=== PATIENT | female | born 1940 | race Caucasian/White ===

== ENCOUNTER 2016-08-16 11:20 | Inpatient (IN) ==
[2016-08-16] MEDS ORDERED: 0.9 % Sodium Chloride 1,000 ML IVC ONE (11:54)
--- NOTE | 2016-08-16 12:29 | Emergency Department Note ---
Disposition Clinical Impression: Colitis GI bleed Qualifiers: GI bleed type/associated pathology: unspecified gastrointestinal hemorrhage type Qualified Code(s): K92.2 - Gastrointestinal hemorrhage, unspecified Abdominal pain Qualifiers: Abdominal location: lower abdomen, unspecified Qualified Code(s): R10.30 - Lower abdominal pain, unspecified Disposition: Admitted As Inpatient Condition: Good Time of Disposition: 15:33 GI Bleed HPI - General Chief complaint: ED Nausea/Vomiting/Diarrhea Stated complaint: diarrhea, rectal bleeding Time Seen by Provider: 08/16/16 11:52 Source: patient, family Limitations: no limitations - History of Present Illness HPI Narrative: Patient is a 76-year-old female with past medical history significant for SC, atrial fibrillation, CAD, cardiomyopathy, CHF, CVA, TIA, diabetes, hypertension , hyperlipidemia, peripheral artery disease, venous stasis, GERD, arthritis, osteoporosis, history of GI bleed who presents with a 1 day history of bright red blood per rectum. Patient states that she had diarrhea with gross red blood in the toilet bowl around 3 AM this morning. She admits 3 such episodes today. Patient states that she began having diarrhea on Saturday morning. She admits to greater than 10 episodes of brown watery diarrhea per day. Patient admits to abdominal cramping to the right lower and left lower abdomen. Pain is a 5 out of 10 at this time. At its worse is a 7 out of 10. Patient did take Imodium AD for the diarrhea, which did not resolve the diarrhea completely. Patient does admit to a sick contact on Saturday. The sick contact developed diarrhea the following day. Patient does admit to dizziness, but this is a chronic problem. Patient denies headache, fever, chills, diaphoresis , chest pain, shortness of breath, vomiting, hematuria, muscle aches. She does takes Xarelto for A. fib and 81 mg of aspirin daily. She states that she has not had a bleed while on Xarelto. She does admit to a history of stomach bleeds in the past. - Related Data Home Medications Medication Instructions Recorded Confirmed Aspirin Enteric Coated [Aspirin EC] 81 mg PO DAILY 01/31/15 08/16/16 Cholecalciferol (Vitamin D3) 5,000 unit PO QAM 01/31/15 08/16/16 [Vitamin D] Esomeprazole Magnesium [Nexium] 40 mg PO QAM 01/31/15 08/16/16 Folic Acid 0.4 mg PO QAM 01/31/15 08/16/16 Gabapentin [Neurontin] 600 mg PO TID 01/31/15 08/16/16 Multivitamin with Minerals 1 each PO QAM 01/31/15 08/16/16 [Myvitalife] Potassium Chloride [Klor-Con 20 meq PO QAM 01/31/15 08/16/16 Sprinkle] Digoxin [Lanoxin] 0.125 mg PO QAM 03/07/15 08/16/16 Rosuvastatin [Crestor] 40 mg PO HS 03/06/16 08/16/16 Metoprolol XL (24 HR) Succ [Toprol 50 mg PO QPM 03/07/16 08/16/16 Xl] Amlodipine Besylate 2.5 mg PO HS 08/16/16 08/16/16 Benzonatate [Tessalon] 200 mg PO TID PRN 08/16/16 08/16/16 Diclofenac Sodium [Voltaren] 1 appl TP TID PRN 08/16/16 08/16/16 Dulaglutide [Trulicity] 0.75 mg SQ SA 08/16/16 08/16/16 Latanoprost [Xalatan] 1 drop OP HS 08/16/16 08/16/16 Loratadine [Claritin] 10 mg PO DAILY 08/16/16 08/16/16 Losartan [Cozaar] 50 mg PO BID 08/16/16 08/16/16 Magnesium Oxide [Magnesium] 400 mg PO DAILY 08/16/16 08/16/16 Metoprolol XL (24 HR) Succ [Toprol 100 mg PO QAM 08/16/16 08/16/16 XL] Previous Rx's Medication Instructions Recorded Rivaroxaban [Xarelto] 20 mg PO 1700 #30 tablet 03/28/15 Furosemide [Lasix] 40 mg PO QAM #30 tablet 03/07/16 Allergies Allergy/AdvReac Type Severity Reaction Status Date / Time codeine AdvReac Shakiness Verified 03/06/16 22:01 morphine AdvReac Palpitation Verified 03/06/16 22:01 s Band-Aid Allergy Rash Uncoded 03/06/16 22:01 All systems ED: reviewed and negative except as stated. Constitutional: Reports: as per HPI Eyes: Reports: as per HPI ENT ED: Reports: as per HPI Cardiovascular: Reports: as per HPI Respiratory: Reports: as per HPI Gastrointestinal: Reports: as per HPI Genitourinary: Reports: as per HPI Musculoskeletal: Reports: as per HPI Integumentary: Reports: as per HPI Neurological: Reports: as per HPI Psychiatric: Reports: as per HPI Endocrine: Reports: as per HPI Hematological/Lymphatic: Reports: as per HPI Allergic/Immunologic: Reports: as per HPI Past Medical History - Past Medical History Medical history: Reports: arthritis, atrial fibrillation, cardiomyopathy, CHF, coronary artery disease, CVA, diabetes, GERD, GI bleed, hyperlipidemia, hypertension, myocardial infarction, osteoporosis, peripheral artery disease, TIA, venous stasis, other Surgical history: Reports: angioplasty/stent, carotid endarterectomy, cholecystectomy, herniorrhaphy, hysterectomy, orthopedic, other, other (EGD. Colonoscopy.), vascular surgery, LE bypass, LE vascular intervention Psychiatric history: Reports: no psych history - Social History Smoking Status: Never smoker Smokeless Tobacco Status: No Alcohol use: Reports: none Drug use: Reports: none Physical Exam - General Limitations: no limitations General appearance: alert - Head Head exam: atraumatic, normocephalic, normal inspection - Eye Eye exam: Present: normal appearance, EOMI - Neck Neck exam: Present: normal inspection, full ROM, trachea midline. Absent: tenderness, meningismus, thyromegaly (no carotid bruit) - Chest Chest inspection: Present: normal inspection, symmetric chest wall rise, tenderness - Respiratory Respiratory exam: Present: prolonged expiratory phase (decreased breath sounds ) , other - Cardiovascular Cardiovascular exam: Present: regular rate, irregular rhythm, +S1, +S2. Absent : systolic murmur, diastolic murmur - Abdominal Exam Abdominal exam: Present: soft, tenderness (moderate TTP to RLQ, infraumbillical , and LLQ), normal bowel sounds. Absent: distention, guarding, rebound, rigidity - Rectal Exam Rectal exam: Present: normal inspection, normal rectal tone, heme (+) stool, hemorrhoids (non-bleeding external hemorrhoids, no thrombosed hemorrhoids appreciated). Absent: fecal impaction, mass - Extremities Exam Extremities exam: Present: normal inspection, full ROM - Back Exam Back exam: Present: other (Levoscoliosis). Absent: paraspinal tenderness, vertebral tenderness - Neurological Exam Neurological exam: Present: alert, oriented X3 - Psychiatric Psychiatric exam: Present: normal affect, normal mood Course - Reevaluation(s) Reevaluation #1: ET scanning demonstrate colitis from the terminal ileum to rectum. No evidence of diverticulitis, mass, abscess. Patient does have hemoglobin that is 12.3, down from 13.4 on 08/09/2016. Given that she is on Xarelto with a GI bleed we have consulted medicine to admit the patient. Patient has been accepted for admission by Yady Gómez CNP. Time: 15:40 Vital Signs Temperature 97.7 F 08/16/16 11:23 Pulse Rate 95 08/16/16 11:23 Respiratory Rate 18 08/16/16 11:23 Blood Pressure 113/67 08/16/16 11:23 O2 Sat by Pulse Oximetry 98 08/16/16 11:23 Temperature 97.6 F 08/16/16 17:24 Pulse Rate 86 08/16/16 17:24 Respiratory Rate 14 08/16/16 17:24 Blood Pressure 109/65 08/16/16 17:24 O2 Sat by Pulse Oximetry 96 08/16/16 17:50 Oxygen Delivery Oxygen Delivery Room Air GI Bleed - MDM Narrative Medical decision making narrative: Patient is a 76-year-old female who presents with one-day history of bright red blood per rectum. On exam, patient is in no acute distress with normal vital signs. She has mild tenderness to lower abdomen. Rectal exam reveals BRBPR. I have ordered a CBC, BMP, and CT abdomen/pelvis, which are pending. - Lab Data Result diagrams: 08/16/16 12:44 08/16/16 12:44 Lab Results 08/16/16 08/16/16 08/16/16 Range/Units 12:15 12:44 12:44 WBC 8.0 (4.3-11.1) K/mcL RBC 4.49 (3.82-4.97) M/mcL Hgb 12.3 (11.5-15.4) g/dL Hct 39.0 (35.3-44.9) % MCV 86.9 (83.0-100.0) fL MCH 27.4 L (28.0-33.3) pg MCHC 31.5 L (31.6-35.5) g/dL RDW 13.2 (11.5-14.5) % Plt Count 281 (140-400) K/mcL MPV 9.9 (9.4-12.4) fL Immature Gran % 0.4 (0-4) % Seg Neutrophils % 69.6 % Lymphocytes % 18.0 % Monocytes % 6.4 % Eosinophils % 5.1 % Basophils % 0.5 % Neutrophils # 5.6 (1.6-8.9) K/mcL Lymphocytes # 1.4 (0.6-4.6) K/mcL Monocytes # 0.5 (0.0-1.3) K/mcL Eosinophils # 0.4 (0.0-0.6) K/mcL Basophils # 0.0 (0.0-0.2) K/mcL Sodium 140 (136-145) mEq/L Potassium 3.8 (3.5-4.5) mEq/L Chloride 102 (98-109) mEq/L Carbon Dioxide 32 H (19-29) mEq/L BUN 15 (7-20) mg/dL Creatinine 1.16 H (0.57-1.11) mg/dL Est GFR ( Amer) 55 L (> 60) Est GFR (Non-Af Amer) 46 L (> 60) BUN/Creatinine Ratio 13 (6-26) Glucose 98 (70-99) mg/dL Calculated Osmolality 291 (280-300) Lactic Acid (0.5-2.2) mmol/L Calcium 9.8 (8.6-10.8) mg/dL Lipase 14 (8-78) Units/L Stool Occult Blood Positive A (Negative) 08/16/16 Range/Units 12:44 WBC (4.3-11.1) K/mcL RBC (3.82-4.97) M/mcL Hgb (11.5-15.4) g/dL Hct (35.3-44.9) % MCV (83.0-100.0) fL MCH (28.0-33.3) pg MCHC (31.6-35.5) g/dL RDW (11.5-14.5) % Plt Count (140-400) K/mcL MPV (9.4-12.4) fL Immature Gran % (0-4) % Seg Neutrophils % % Lymphocytes % % Monocytes % % Eosinophils % % Basophils % % Neutrophils # (1.6-8.9) K/mcL Lymphocytes # (0.6-4.6) K/mcL Monocytes # (0.0-1.3) K/mcL Eosinophils # (0.0-0.6) K/mcL Basophils # (0.0-0.2) K/mcL Sodium (136-145) mEq/L Potassium (3.5-4.5) mEq/L Chloride (98-109) mEq/L Carbon Dioxide (19-29) mEq/L BUN (7-20) mg/dL Creatinine (0.57-1.11) mg/dL Est GFR ( Amer) (> 60) Est GFR (Non-Af Amer) (> 60) BUN/Creatinine Ratio (6-26) Glucose (70-99) mg/dL Calculated Osmolality (280-300) Lactic Acid 1.3 (0.5-2.2) mmol/L Calcium (8.6-10.8) mg/dL Lipase (8-78) Units/L Stool Occult Blood (Negative)
--- NOTE | 2016-08-16 12:31 | Emergency Department Note ---
Disposition Clinical Impression: Colitis GI bleed Qualifiers: GI bleed type/associated pathology: unspecified gastrointestinal hemorrhage type Qualified Code(s): K92.2 - Gastrointestinal hemorrhage, unspecified Abdominal pain Qualifiers: Abdominal location: lower abdomen, unspecified Qualified Code(s): R10.30 - Lower abdominal pain, unspecified Disposition: Admitted As Inpatient Condition: Good General Adult HPI - General Chief complaint: ED Nausea/Vomiting/Diarrhea Stated complaint: diarrhea, rectal bleeding Time Seen by Provider: 08/16/16 11:52 Source: patient, family Limitations: no limitations - History of Present Illness Pain Scale: 3 - Related Data Home Medications Medication Instructions Recorded Confirmed Aspirin Enteric Coated [Aspirin EC] 81 mg PO DAILY 01/31/15 08/16/16 Cholecalciferol (Vitamin D3) 5,000 unit PO QAM 01/31/15 08/16/16 [Vitamin D] Esomeprazole Magnesium [Nexium] 40 mg PO QAM 01/31/15 08/16/16 Folic Acid 0.4 mg PO QAM 01/31/15 08/16/16 Gabapentin [Neurontin] 600 mg PO TID 01/31/15 08/16/16 Multivitamin with Minerals 1 each PO QAM 01/31/15 08/16/16 [Myvitalife] Potassium Chloride [Klor-Con 20 meq PO QAM 01/31/15 08/16/16 Sprinkle] Digoxin [Lanoxin] 0.125 mg PO QAM 03/07/15 08/16/16 Rosuvastatin [Crestor] 40 mg PO HS 03/06/16 08/16/16 Metoprolol XL (24 HR) Succ [Toprol 50 mg PO QPM 03/07/16 08/16/16 Xl] Amlodipine Besylate 2.5 mg PO HS 08/16/16 08/16/16 Benzonatate [Tessalon] 200 mg PO TID PRN 08/16/16 08/16/16 Diclofenac Sodium [Voltaren] 1 appl TP TID PRN 08/16/16 08/16/16 Dulaglutide [Trulicity] 0.75 mg SQ SA 08/16/16 08/16/16 Latanoprost [Xalatan] 1 drop OP HS 08/16/16 08/16/16 Loratadine [Claritin] 10 mg PO DAILY 08/16/16 08/16/16 Losartan [Cozaar] 50 mg PO BID 08/16/16 08/16/16 Magnesium Oxide [Magnesium] 400 mg PO DAILY 08/16/16 08/16/16 Metoprolol XL (24 HR) Succ [Toprol 100 mg PO QAM 08/16/16 08/16/16 XL] Previous Rx's Medication Instructions Recorded Rivaroxaban [Xarelto] 20 mg PO 1700 #30 tablet 03/28/15 Furosemide [Lasix] 40 mg PO QAM #30 tablet 03/07/16 Allergies Allergy/AdvReac Type Severity Reaction Status Date / Time codeine AdvReac Shakiness Verified 03/06/16 22:01 morphine AdvReac Palpitation Verified 03/06/16 22:01 s Band-Aid Allergy Rash Uncoded 03/06/16 22:01 Past Medical History - Past Medical History Medical history: Reports: arthritis, atrial fibrillation, cardiomyopathy, CHF, coronary artery disease, CVA, diabetes, GERD, GI bleed, hyperlipidemia, hypertension, myocardial infarction, osteoporosis, peripheral artery disease, TIA, venous stasis, other Surgical history: Reports: angioplasty/stent, carotid endarterectomy, cholecystectomy, herniorrhaphy, hysterectomy, orthopedic, other, other (EGD. Colonoscopy.), vascular surgery, LE bypass, LE vascular intervention Psychiatric history: Reports: no psych history - Social History Smoking Status: Never smoker Smokeless Tobacco Status: No Alcohol use: Reports: none Drug use: Reports: none Physical Exam - General Limitations: no limitations General appearance: alert Course Vital Signs Temperature 97.7 F 08/16/16 11:23 Pulse Rate 95 08/16/16 11:23 Respiratory Rate 18 08/16/16 11:23 Blood Pressure 113/67 08/16/16 11:23 O2 Sat by Pulse Oximetry 98 08/16/16 11:23 Temperature 98.0 F 08/16/16 23:00 Pulse Rate 49 08/16/16 23:00 Respiratory Rate 16 08/16/16 23:00 Blood Pressure 131/75 08/16/16 23:00 O2 Sat by Pulse Oximetry 93 08/16/16 23:00 Oxygen Delivery Oxygen Delivery Room Air Medical Decision Making - Lab Data Result diagrams: 08/16/16 12:44 08/16/16 12:44 Lab Results 08/16/16 08/16/16 08/16/16 Range/Units 12:15 12:44 12:44 WBC 8.0 (4.3-11.1) K/mcL RBC 4.49 (3.82-4.97) M/mcL Hgb 12.3 (11.5-15.4) g/dL Hct 39.0 (35.3-44.9) % MCV 86.9 (83.0-100.0) fL MCH 27.4 L (28.0-33.3) pg MCHC 31.5 L (31.6-35.5) g/dL RDW 13.2 (11.5-14.5) % Plt Count 281 (140-400) K/mcL MPV 9.9 (9.4-12.4) fL Immature Gran % 0.4 (0-4) % Seg Neutrophils % 69.6 % Lymphocytes % 18.0 % Monocytes % 6.4 % Eosinophils % 5.1 % Basophils % 0.5 % Neutrophils # 5.6 (1.6-8.9) K/mcL Lymphocytes # 1.4 (0.6-4.6) K/mcL Monocytes # 0.5 (0.0-1.3) K/mcL Eosinophils # 0.4 (0.0-0.6) K/mcL Basophils # 0.0 (0.0-0.2) K/mcL Sodium 140 (136-145) mEq/L Potassium 3.8 (3.5-4.5) mEq/L Chloride 102 (98-109) mEq/L Carbon Dioxide 32 H (19-29) mEq/L BUN 15 (7-20) mg/dL Creatinine 1.16 H (0.57-1.11) mg/dL Est GFR ( Amer) 55 L (> 60) Est GFR (Non-Af Amer) 46 L (> 60) BUN/Creatinine Ratio 13 (6-26) Glucose 98 (70-99) mg/dL Calculated Osmolality 291 (280-300) Lactic Acid (0.5-2.2) mmol/L Calcium 9.8 (8.6-10.8) mg/dL Lipase 14 (8-78) Units/L Stool Occult Blood Positive A (Negative) 08/16/16 Range/Units 12:44 WBC (4.3-11.1) K/mcL RBC (3.82-4.97) M/mcL Hgb (11.5-15.4) g/dL Hct (35.3-44.9) % MCV (83.0-100.0) fL MCH (28.0-33.3) pg MCHC (31.6-35.5) g/dL RDW (11.5-14.5) % Plt Count (140-400) K/mcL MPV (9.4-12.4) fL Immature Gran % (0-4) % Seg Neutrophils % % Lymphocytes % % Monocytes % % Eosinophils % % Basophils % % Neutrophils # (1.6-8.9) K/mcL Lymphocytes # (0.6-4.6) K/mcL Monocytes # (0.0-1.3) K/mcL Eosinophils # (0.0-0.6) K/mcL Basophils # (0.0-0.2) K/mcL Sodium (136-145) mEq/L Potassium (3.5-4.5) mEq/L Chloride (98-109) mEq/L Carbon Dioxide (19-29) mEq/L BUN (7-20) mg/dL Creatinine (0.57-1.11) mg/dL Est GFR ( Amer) (> 60) Est GFR (Non-Af Amer) (> 60) BUN/Creatinine Ratio (6-26) Glucose (70-99) mg/dL Calculated Osmolality (280-300) Lactic Acid 1.3 (0.5-2.2) mmol/L Calcium (8.6-10.8) mg/dL Lipase (8-78) Units/L Stool Occult Blood (Negative) Attestation Statement - Attestation Attestation: I examined this patient and my medical decision-making was reviewed with the SIX [employer] PROJECT MANAGER/PA/Advanced Practice Nurse/Resident Physician. I agree with the documented findings, disposition and treatment plan as described except to the extent set forth below. I did see the patient spoke with her and examined her and also discussed the case with Dr. Garibay and the patient does have 4 days of diarrhea and noticed bright red blood in the stool at 4:00 this morning and she does have some dizziness but denies any fevers. Does have some bilateral lower abdominal cramping/pain. The patient is on Zaroxolyn which is consistent with her rectal bleeding and rectal exam was done showing bright red blood grossly in stool. Test results are pending. [id number]
[2016-08-16 12:50] LABS: Basophils % 0.5 %; Eosinophils # 0.4 K/mcL (0.0-0.6); Eosinophils % 5.1 %; Hemoglobin 12.3 g/dL (11.5-15.4); Immature Granulocytes % 0.4 % (0-4); Lymphocytes # 1.4 K/mcL (0.6-4.6); Mean Corpuscular HGB Conc 31.5 g/dL (31.6-35.5); Mean Corpuscular Hemoglobin 27.4 pg (28.0-33.3); Mean Corpuscular Volume 86.9 fL (83.0-100.0); Mean Platelet Volume 9.9 fL (9.4-12.4); Monocytes # 0.5 K/mcL (0.0-1.3); Monocytes % 6.4 %; Neutrophils # 5.6 K/mcL (1.6-8.9); Platelet Count 281 K/mcL (140-400); Red Blood Count 4.49 M/mcL (3.82-4.97); Red Cell Distribution Width 13.2 % (11.5-14.5); Segmented Neutrophils % 69.6 %
[2016-08-16 13:04] LABS: Calcium 9.8 mg/dL (8.6-10.8); Potassium 3.8 mEq/L (3.5-4.5)
[2016-08-16] MEDS ORDERED: Naloxone 0.4 MG/ML INJ IVP PRN (17:35)
[2016-08-16] MEDS ORDERED: Ondansetron 4 MG/2 ML VIAL IVP PRN (17:37)
[2016-08-16] MEDS ORDERED: 0.9 % Sodium Chloride 1,000 ML IVC SCH (17:45)
[2016-08-16] MEDS: 0.9 % Sodium Chloride 1,000 ML IVC SCH (18:30)
--- NOTE | 2016-08-16 18:49 | Event Note ---
Date of Encounter: 08/16/16 Time of Encounter: 18:47 76/F Multiple medical issues. Admitted with profound diarrhea. Noted that there is a renal impairment. Plan: Blood cultures/stool culture IV ciprofloxacin/Flagyl. GI consult Please see history and physical done by RESPIRATORY CARE SPECIALIST I examined this patient independently. I examined this patient and my medical decision-making was reviewed with the DIRECTOR MEDIA/PA/Advanced Practice Nurse/Resident Physician. I agree with the documented findings, disposition and treatment plan as described except to the extent set forth below.
[2016-08-16] MEDS ORDERED: Dextrose Gel 15 GM PO PRN ×2 (18:51)
[2016-08-16] MEDS ORDERED: D5% in Water 1,000 ML IVC PRN (18:51)
[2016-08-16] MEDS ORDERED: *HR* Dextrose 50 % in Water (Syg) 50 ML SYRINGE IVP PRN (18:51)
--- NOTE | 2016-08-16 18:56 | Internal Med History&Physical ---
<Phoebe Whitten - Last Filed: 08/16/16 19:28> Date of Encounter: 08/16/16 Time of Encounter: 18:56 Assessment and Plan (1) Colitis Current visit: Yes Status: Acute 1 patient has been experiencing frequent episodes of diarrhea up to 10 a day since Saturday. She did have a exposure to sick contacts. No fevers no leukocytosis. CT of abdomen did reveal mild mucosal thickening may represent infectious/ inflammatory colitis. Stool culture negative for C. difficile we will test for ova parasites and GI panel. 2 we will give Cipro Flagyl 3 we will give IV fluids 4 N by mouth for now 5 monitor electrolytes and replace as needed 6 monitor intake and output (2) GI bleed Current visit: Yes Status: Acute 1 patient has had frequent episodes of diarrhea CT of abdomen is feeling colitis. She had several episodes of bright red blood in stool last episode occurred at 8 AM today. She is on aspirin xarelto. She does have a past history of AVM. Previous EGD in March was normal. We will hold aspirin xarelto for now 2 we will monitor CBC 3 consult GI-spoke with Dr. Roth he will see patient tomorrow 4 type and screen Qualifiers: GI bleed type/associated pathology: unspecified gastrointestinal hemorrhage type Qualified Code(s): K92.2 - Gastrointestinal hemorrhage, unspecified (3) Atrial fibrillation Current visit: No Status: Acute 1 we will continue with beta bandar hold aspirin and xarelto due to recent bleed 2 cardiac monitoring Qualifiers: Atrial fibrillation type: chronic Qualified Code(s): I48.2 - Chronic atrial fibrillation (4) DVT prophylaxis Current visit: No Status: Acute SCD-due to bleeding (5) CAD (coronary artery disease) Current visit: No Status: Chronic 1 continue with statin will hold aspirin due to bleeding beta bandar Qualifiers: Coronary Disease-Associated Artery/Lesion type: [place] artery [place] vs. transplanted heart: [place] heart Associated angina: with unspecified angina Qualified Code(s): I25.119 - Atherosclerotic heart disease of [place] coronary artery with unspecified angina pectoris (6) Diabetes mellitus Current visit: No Status: Chronic 1 Accu-Cheks every 6 hours with slight scale insulin patient is presently nothing by mouth Qualifiers: Diabetes mellitus type: type 2 Diabetes mellitus complication status: with unspecified complications Diabetes mellitus mcc insulin use: without deputy chief sheriff use Qualified Code(s): E11.8 - Type 2 diabetes mellitus with unspecified complications (7) HTN (hypertension) Current visit: No Status: Chronic 1 continue with home medications Qualifiers: Hypertension type: essential hypertension Qualified Code(s): I10 - Essential (primary) hypertension Internal Medicine - H&P: HPI Chief complaint: diarrhea Admitted From: Emergency Dept Plans for Post Hospital Care: Home History of present illness: Ms. Crane is a 76 year old female extensive medical history including atrial fibrillation on [place] coronary disease with stent congestive heart failure CVA COPD stage III diabetes hypertension hyperlipidemia GI bleed. According to patient on Saturday she was exposed to an individual who was sick by Saturday evening she was experiencing diarrhea. She continued to have diarrhea lower abdominal cramping and nausea over the next few days. She denies any fevers chills vomiting. She states she was unable to eat or drink anything for several days. She attempted to take Imodium without any relief. Last night the patient began to experience bright red blood in her stool. She had several episodes last episode of blood was at 8 AM. Patient does have a past history of AVM 2014. She had a recent colonoscopy in March of this year which was normal. She presented to the ER with the above complaints. According to ER records lab work revealed no leukocytosis hemoglobin was stable at 12.3 she did have some [place] I with creatinine 1.16 stool sample was obtained was negative for C. difficile was positive for occult stool. She is hemodynamically stable afebrile CT of abdomen revealed mild mucosal thickening may represent infectious colitis inflammatory colitis. She has been admitted for further workup and evaluation. Presently patient denies any chest pain or soreness of breath. Her abdomen is soft tender to palpation across lower abdomen. She is hemodynamically stable at this time I reviewed this case with Dr. Dolan who agrees with plan Past Med Surg Social Fam HX - Past Medical History Medical history: arthritis, atrial fibrillation, cardiomyopathy, CHF, coronary artery disease, CVA, diabetes, GERD, GI bleed, hyperlipidemia, hypertension, myocardial infarction, osteoporosis, peripheral artery disease, TIA, venous stasis, other Psychiatric history: no psych history - Past Surgical History Surgical History: angioplasty/stent, carotid endarterectomy, cholecystectomy, herniorrhaphy, hysterectomy, orthopedic, other, other (EGD. Colonoscopy.), vascular surgery, LE bypass, LE vascular intervention - Social History Smoking Status: Never smoker Smokeless Tobacco Status: No Alcohol use: none Drug use: none - Family History Sister Hx Family Cancer: Yes (LUNG CANCER.) Mother Living Status: Hx Family Cardiac Disorders: Yes (htn, stroke) Internal Medicine - H&P: Meds Aspirin Enteric Coated [Aspirin EC] 81 mg PO DAILY 01/31/15 [History] Cholecalciferol (Vitamin D3) [Vitamin D] 5,000 unit PO QAM 01/31/15 [History] Esomeprazole Magnesium [Nexium] 40 mg PO QAM 01/31/15 [History] Folic Acid 0.4 mg PO QAM 01/31/15 [History] Gabapentin [Neurontin] 600 mg PO TID 01/31/15 [History] Multivitamin with Minerals [Myvitalife] 1 each PO QAM 01/31/15 [History] Potassium Chloride [Klor-Con Sprinkle] 20 meq PO QAM 01/31/15 [History] Digoxin [Lanoxin] 0.125 mg PO QAM 03/07/15 [History] Rivaroxaban [Xarelto] 20 mg PO 1700 #30 tablet 03/28/15 [Rx] Rosuvastatin [Crestor] 40 mg PO HS 03/06/16 [History] Furosemide [Lasix] 40 mg PO QAM #30 tablet 03/07/16 [Rx] Metoprolol XL (24 HR) Succ [Toprol Xl] 50 mg PO QPM 03/07/16 [History] Amlodipine Besylate 2.5 mg PO HS 08/16/16 [History] Benzonatate [Tessalon] 200 mg PO TID PRN 08/16/16 [History] Diclofenac Sodium [Voltaren] 1 appl TP TID PRN 08/16/16 [History] Dulaglutide [Trulicity] 0.75 mg SQ SA 08/16/16 [History] Latanoprost [Xalatan] 1 drop OP HS 08/16/16 [History] Loratadine [Claritin] 10 mg PO DAILY 08/16/16 [History] Losartan [Cozaar] 50 mg PO BID 08/16/16 [History] Magnesium Oxide [Magnesium] 400 mg PO DAILY 08/16/16 [History] Metoprolol XL (24 HR) Succ [Toprol XL] 100 mg PO QAM 08/16/16 [History] Allergies codeine Adverse Reaction (Verified 03/06/16 22:01) Shakiness morphine Adverse Reaction (Verified 03/06/16 22:01) Palpitations Band-Aid Allergy (Uncoded 03/06/16 22:01) Rash Patient can only keep on for 15 minutes before the band-aid leaves mason on her skin. All Systems PM: A 10-system review of systems was performed and is negative for pertinent findings except as documented above in the HPI. - Constitutional Constitutional: weight loss, no chills, no fever(s), no night sweats - EENT Eyes: no change in vision, no discharge, no pain, no photophobia Nose, mouth and throat: no dysphagia, no nasal discharge, no neck pain, no sore throat - Cardiovascular Cardiovascular ROS IM: no chest pain, no diaphoresis, no dyspnea, no lightheadedness, no palpitations, no syncope - Respiratory Respiratory: no cough, no dyspnea, no wheezing, no excessive phlegm production - Gastrointestinal Gastrointestinal: cramping, hematochezia, loose stools, nausea - Genitourinary Genitourinary: no change in urinary stream, no dysuria, no flank pain, no hematuria - Musculoskeletal Musculoskeletal ROS IM: no numbness, no tingling - Integumentary Integumentary IM: no rash, no unusual bruising - Neurological Neurological ROS: no confusion, no convulsions, no focal weakness, no numbness, no tingling, no tremor(s) - Constitutional Vitals: Temp Pulse Resp BP Pulse Ox 98.0 F 75 20 129/70 93 08/16/16 18:43 08/16/16 18:43 08/16/16 18:43 08/16/16 18:43 08/16/16 18:43 General appearance: Present: A&O X 3, answers questions appropriately - Head Head exam: Present: atraumatic, normocephalic - Eye Eye exam: Present: PERRL, conjuntiva pink, sclera anicteric Pupils: Present: PERRL - Neck Neck exam general surgery: Present: supple, trachea midline. Absent: lymphadenopathy - Respiratory Respiratory exam: Present: CTAB. Absent: accessory muscle use, rales, rhonchi, wheezes - Cardiovascular Cardiovascular exam: Present: RRR, +S1, +S2. Absent: diastolic murmur, gallop, rubs, systolic murmur - GI/Abdominal GI/Abdominal exam: Present: normal bowel sounds, soft, tenderness, no peritoneal signs. Absent: distended - Extremities Exam Extremities exam: Present: warm, radial pulses palpable and symetrical. Absent : calf tenderness, cyanotic, pedal edema - Neurological Exam Neurological exam: Present: CN II-XII intact, oriented X3, no focal deficits. Absent: pronater drift, facial droop, speech deficit - Skin Skin exam: Present: dry, intact Internal Med - H&P Results - Labs CBC & Chem 7: 08/16/16 12:44 08/16/16 12:44 - Diagnostic Studies Other Images Additional comments: Abdomen/Pelvis CT 08/16/16 12:30 IMPRESSION: 1. Mild mucosal thickening is observed diffusely from the cecum to the rectum. Pattern may represent infectious colitis including Clostridium difficile. Inflammatory colitis would be considered alternatively. Ischemic colitis considered less likely due to diffuse distribution. 2. Advanced interstitial changes in the lower chest with innumerable centrilobular appearing nodules predominantly in the right lower lobe. This may represent an underlying infectious or inflammatory process. Correlate with any pulmonary symptoms and consider follow-up CT chest for further evaluation. D/ / Evan Patrick MD / Evan Patrick MD Interpreting Provider: Evan Patrick MD <Paul Dolan P - Last Filed: 08/17/16 18:01> Date of Encounter: 08/17/16 Internal Medicine - H&P: HPI History of present illness: Ms. Crane is a 76 year old female All Systems PM: A 10-system review of systems was performed and is negative for pertinent findings except as documented above in the HPI. - Constitutional Vitals: Temp Pulse Resp BP Pulse Ox 98.3 F 66 17 160/66 94 08/17/16 15:05 08/17/16 15:05 08/17/16 15:05 08/17/16 15:05 08/17/16 15:05 Internal Med - H&P Results - Labs CBC & Chem 7: 08/17/16 04:56 08/17/16 04:56 Labs: Short CBC 08/17/16 Range/Units 04:56 WBC 6.3 (4.3-11.1) K/mcL Hgb 11.7 (11.5-15.4) g/dL Hct 37.5 (35.3-44.9) % Plt Count 240 (140-400) K/mcL Neutrophils # 4.2 (1.6-8.9) K/mcL BMP 08/17/16 04:56 Sodium 142 Potassium 3.6 Chloride 108 Carbon Dioxide 26 BUN 11 Creatinine 0.82 Glucose 100 H Calcium 9.1 - Attending Attestation I examined this patient and my medical decision-making was reviewed with the ZIPPER SLIDE ATTACHER/PA/Advanced Practice Nurse/Resident Physician. I agree with the documented findings, disposition and treatment plan as described except to the extent set forth below.
[2016-08-16 19:40] LABS: INR 1.8; Prothrombin Time 20.3 Seconds (9.4-12.1)
[2016-08-16 20:49] LABS: Bilirubin,Urine Negative (Negative); Blood,Urine Negative (Negative); Clarity,Urine Clear (Clear); Color,Urine Yellow (Yellow); Glucose,Urine (UA) Normal (Normal); Ketones,Urine Negative (Negative); Leukocyte Esterase,Urine Negative (Negative); Nitrite,Urine Negative (Negative); Protein,Urine Negative (Neg-Trace); Specific Gravity,Urine > 1.030 (1.010-1.025); Urobilinogen,Urine Normal (Normal)
[2016-08-16] MEDS ORDERED: amLODIPine 5 MG TABLET PO SCH (21:00)
[2016-08-16 21:39] LABS: Activated Partial Thrombo Time 31.2 Seconds (26.0-36.0)
[2016-08-16] MEDS: MetroNIDAZOLE 500 MG/100 ML 500 MG/100 ML BAG IVPB SCH (23:43)
[2016-08-17] MEDS: Insulin LISPRO 300 UNITS/3 ML VIAL SQ SCH ×5 (00:22→23:58)
[2016-08-17] MEDS: 0.9 % Sodium Chloride 1,000 ML IVC SCH (03:43)
[2016-08-17 05:44] LABS: BUN/Creatinine Ratio 13 (6-26); Blood Urea Nitrogen 11 mg/dL (7-20); Calcium 9.1 mg/dL (8.6-10.8); Carbon Dioxide 26 mEq/L (19-29); Chloride 108 mEq/L (98-109); Glucose 100 mg/dL (70-99); Osmolality,Calculated 293 (280-300); Potassium 3.6 mEq/L (3.5-4.5); Sodium 142 mEq/L (136-145); eGFR For African Americans > 60 (> 60); eGFR For Non-African Americans > 60 (> 60)
[2016-08-17 05:46] LABS: Basophils % 0.6 %; Eosinophils # 0.4 K/mcL (0.0-0.6); Eosinophils % 6.2 %; Hematocrit 37.5 % (35.3-44.9); Hemoglobin 11.7 g/dL (11.5-15.4); Immature Granulocytes % 0.5 % (0-4); Lymphocytes # 1.3 K/mcL (0.6-4.6); Lymphocytes % 20.2 %; Mean Corpuscular HGB Conc 31.2 g/dL (31.6-35.5); Mean Corpuscular Hemoglobin 27.1 pg (28.0-33.3); Mean Platelet Volume 10.6 fL (9.4-12.4); Monocytes # 0.4 K/mcL (0.0-1.3); Monocytes % 6.2 %; Neutrophils # 4.2 K/mcL (1.6-8.9); Platelet Count 240 K/mcL (140-400); Red Blood Count 4.31 M/mcL (3.82-4.97); Red Cell Distribution Width 13.1 % (11.5-14.5); Segmented Neutrophils % 66.3 %
[2016-08-17] MEDS: Metoprolol XL (24 HR) Succ 50 MG TAB.ER.24H PO SCH (08:40)
[2016-08-17] MEDS: *HR* Digoxin 0.125 MG TABLET PO SCH (08:40)
[2016-08-17] MEDS: MetroNIDAZOLE 500 MG/100 ML 500 MG/100 ML BAG IVPB SCH ×3 (08:41→23:50)
--- NOTE | 2016-08-17 09:08 | Internal Med Progress Note ---
<Saúl Hicks - Last Filed: 08/17/16 14:32> Date of Encounter: 08/17/16 Time of Encounter: 10:25 - Assessment and plan (1) Colitis Current Visit: Yes Status: Acute Assessment and plan: Watery diarrhea up to 10 a day since Saturday. CT of abdomen showed mild mucosal thickening may represent infectious/ inflammatory colitis. Stool culture pending for ova parasites and GI panel. Continue IV Cipro and flagyl. Continue IVFs Currenly NPO Monitor electrolytes and replace as needed. GI consulted, appreciate evaluation and recommendations. (2) GI bleed Current Visit: Yes Status: Acute Assessment and plan: Likely secondary to colitis. Holding Xarelto. Monitor CBC/Hgb and vitals. Qualifiers: GI bleed type/associated pathology: unspecified gastrointestinal hemorrhage type Qualified Code(s): K92.2 - Gastrointestinal hemorrhage, unspecified (3) Atrial fibrillation Current Visit: No Status: Acute Assessment and plan: Continue BB. Holding ASA and Xarelto due to bleeding. Qualifiers: Atrial fibrillation type: chronic Qualified Code(s): I48.2 - Chronic atrial fibrillation (4) CAD (coronary artery disease) Current Visit: No Status: Chronic Assessment and plan: Continue BB, statin. Holding ASA due to bleeding. Qualifiers: Coronary Disease-Associated Artery/Lesion type: [place] artery [place] vs. 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 Qualifiers: Hypertension type: essential hypertension Qualified Code(s): I10 - Essential (primary) hypertension (7) DVT prophylaxis Current Visit: No Status: Acute Assessment and plan: SCD due to bleeding. - Time Spent With Patient less than 15 minutes - Subjective Interval history: Patient seen and examined lying in bed, denies any acute distress. She states she has not had any BRBPR or diarrhea since yesterday morning. She states her stomach continues to "roll". She states that her lower abdomen was achy yesterday, but better today. - Constitutional Vitals: Temp Pulse Resp BP Pulse Ox 98.3 F 87 17 142/55 90 08/17/16 08:30 08/17/16 08:30 08/17/16 08:30 08/17/16 08:30 08/17/16 08:30 General appearance: Present: cooperative, A&O X 3, pleasant, no acute distress, answers questions appropriately - Head Head exam: Present: atraumatic, normocephalic - Eye Eye exam: Present: conjuntiva pink, sclera anicteric - ENT ENT exam: Present: mucous membranes dry - Neck Neck exam general surgery: Present: full ROM - Respiratory Respiratory exam: Present: CTAB. Absent: rhonchi, wheezes - Cardiovascular Cardiovascular exam: Present: RRR. Absent: tachycardia - GI/Abdominal GI/Abdominal exam: Present: normal bowel sounds, soft. Absent: firm, guarding, tenderness - Neurological Exam Neurological exam: Present: alert, oriented X3, no focal deficits. Absent: speech deficit - Psychiatric Psychiatric exam: Present: normal affect, normal mood - Skin Skin exam: Present: dry, intact, normal color. Absent: rash Internal Medicine: Result - Labs CBC & Chem 7: 08/17/16 04:56 08/17/16 04:56 Labs: Short CBC 08/17/16 Range/Units 04:56 WBC 6.3 (4.3-11.1) K/mcL Hgb 11.7 (11.5-15.4) g/dL Hct 37.5 (35.3-44.9) % Plt Count 240 (140-400) K/mcL Neutrophils # 4.2 (1.6-8.9) K/mcL BMP 08/17/16 04:56 Sodium 142 Potassium 3.6 Chloride 108 Carbon Dioxide 26 BUN 11 Creatinine 0.82 Glucose 100 H Calcium 9.1 - ABG Interpretation ABG results: PT/INR, D-dimer PT 20.3 Seconds (9.4-12.1) H 08/16/16 19:15 Consult Discharge Plan - Plan Referrals: Charissa Bartholomew MD [Primary Care Provider] - 08/21/16 9:45 am <Paul Dolan P - Last Filed: 08/17/16 18:03> Date of Encounter: 08/17/16 - Constitutional Vitals: Temp Pulse Resp BP Pulse Ox 98.3 F 66 17 160/66 94 08/17/16 15:05 08/17/16 15:05 08/17/16 15:05 08/17/16 15:05 08/17/16 15:05 Internal Medicine: Result - Labs CBC & Chem 7: 08/17/16 04:56 08/17/16 04:56 Labs: Short CBC 08/17/16 Range/Units 04:56 WBC 6.3 (4.3-11.1) K/mcL Hgb 11.7 (11.5-15.4) g/dL Hct 37.5 (35.3-44.9) % Plt Count 240 (140-400) K/mcL Neutrophils # 4.2 (1.6-8.9) K/mcL BMP 08/17/16 04:56 Sodium 142 Potassium 3.6 Chloride 108 Carbon Dioxide 26 BUN 11 Creatinine 0.82 Glucose 100 H Calcium 9.1 - ABG Interpretation ABG results: PT/INR, D-dimer PT 20.3 Seconds (9.4-12.1) H 08/16/16 19:15 - Attending Attestation I examined this patient and my medical decision-making was reviewed with the MAINTENANCE FOREMAN/PA/Advanced Practice Nurse/Resident Physician. I agree with the documented findings, disposition and treatment plan as described except to the extent set forth below.
--- NOTE | 2016-08-17 12:23 | Gastroenterology Consult Note ---
<Edward Jones Joshua - Last Filed: 08/17/16 12:20> Date of Encounter: 08/17/16 Time of Encounter: 12:05 - Assessment and plan (1) Colitis Current Visit: Yes Status: Acute Assessment and plan: Likely secondary to infectious colitis. CT A/P with mild mucosal thickening observed diffusely from the cecum to the rectum. Pattern may represent infectious colitis including C. difficile. Inflammatory colitis would be considered alternatively. Ischemic colitis considered less likely due to the diffuse distribution. Continue antibiotics. Check stool studies (GI panel, C. diff). (2) GI bleed Current Visit: Yes Status: Acute Assessment and plan: Likely secondary to colitis. Continue to hold Xarelto. Hgb WNL. Continue to monitor CBC. Qualifiers: GI bleed type/associated pathology: unspecified gastrointestinal hemorrhage type Qualified Code(s): K92.2 - Gastrointestinal hemorrhage, unspecified (3) Atrial fibrillation Current Visit: No Status: Acute Assessment and plan: Continue to hold Xarelto. Qualifiers: Atrial fibrillation type: chronic Qualified Code(s): I48.2 - Chronic atrial fibrillation - Time Spent With Patient Total time spent is greater than 50% in coordination of care (as documented) at patient's floor/unit and/or counseling patient: GI History of Present Illness - Data of Consult Patient: new to practice Consult date: 08/17/16 Requesting Physician: Mireya Tai - Consult Narrative Reason for consult: Rectal bleeding History of present illness: Ms. Crane is a 76 year old female with PMHx of arthritis, Afib, cardiomyopathy, CHF, CAD, CVA, DM, GERD, GI bleed, HLD, HTN, [place], PAD, TIA who presented to the ED with 1 day history of BRBPR. She reports she began having diarrhea on Saturday morning. She admits to greater than 10 episodes of brown watery diarrhea per day. Patient admits to abdominal cramping to the right lower and left lower abdomen. She states she was at a friends house on Saturday for a barbecue, and her friend had similar symptoms as well. Patient denies headache, fever, chills, diaphoresis, chest pain, shortness of breath, vomiting, hematuria , muscle aches. She does takes Xarelto for A. fib and 81 mg of aspirin daily. Procedure: Colonoscopy 03/25/2015 Dr. Minor: Normal. Enteroscopy 03/25/2015 Dr. Minor: Single recently bleeding angioectasia in stomach. NSAIDs: ASA, Diclofenac Anticoagulation: Xarelto Past Med Surg Social Fam HX - Past Medical History Medical history: arthritis, atrial fibrillation, cardiomyopathy, CHF, coronary artery disease, CVA, diabetes, GERD, GI bleed, hyperlipidemia, hypertension, myocardial infarction, osteoporosis, peripheral artery disease, TIA, venous stasis, other Psychiatric history: no psych history - Past Surgical History Surgical History: angioplasty/stent, carotid endarterectomy, cholecystectomy, herniorrhaphy, hysterectomy, orthopedic, other, other (EGD. Colonoscopy.), vascular surgery, LE bypass, LE vascular intervention - Social History Smoking Status: Never smoker Smokeless Tobacco Status: No Alcohol use: none Drug use: none - Family History Sister Hx Family Cancer: Yes (LUNG CANCER.) Mother Living Status: Hx Family Cardiac Disorders: Yes (htn, stroke) - Gastrointestinal Gastrointestinal: Present: as per HPI - Constitutional Constitutional: as per HPI - EENT Eyes: as per HPI Ears: Present: as per HPI Nose, mouth and throat: Present: as per HPI - Cardiovascular Cardiovascular ROS: Present: as per HPI - Respiratory Respiratory IM: Present: as per HPI - Genitourinary Genitourinary: Absent: change in color, Urinary frequency - Neurological ROS Neurological GI: Present: as per HPI - Hematologic/Lymphatic Hematologic/Lymphatic pediatric: Present: as per HPI - Musculoskeletal Musculoskeletal ROS GI: Present: as per HPI - Integumentary Integumentary GI: Present: as per HPI - Psychiatric ROS Psychiatric GI: Present: as per HPI - Endocrine Endocrine IM: Present: as per HPI - Constitutional Vitals: Temp Pulse Resp BP Pulse Ox 98.3 F 87 17 142/55 90 08/17/16 08:30 08/17/16 08:30 08/17/16 08:30 08/17/16 08:30 08/17/16 08:30 General appearance: Present: cooperative, A&O X 3, no acute distress, answers questions appropriately - Head Head exam: Present: atraumatic, normocephalic - Eye Eye exam: Present: normal appearance, sclera anicteric - ENT ENT exam: Present: mucous membranes moist - Neck Neck exam general surgery: Present: normal inspection, trachea midline - Respiratory Respiratory exam: Present: decreased breath sounds, CTAB. Absent: rales, rhonchi - Cardiovascular Cardiovascular exam: Present: RRR, +S1, +S2 - GI/Abdominal GI/Abdominal exam: Present: soft, no peritoneal signs. Absent: distended, firm , guarding, tenderness - Rectal Rectal exam: Present: deferred - Extremities Exam Extremities exam: Present: warm - Neurological Exam Neurological exam: Present: no focal deficits - Psychiatric Psychiatric exam: Present: normal affect, normal mood - Skin Skin exam: Present: dry, intact, normal color, warm Results - Labs CBC & Chem 7: 08/17/16 04:56 08/17/16 04:56 Labs: Last Result Calcium 9.1 mg/dL (8.6-10.8) 08/17/16 04:56 Stool Occult Blood Positive (Negative) A 08/16/16 12:15 Entire Visit Hgb 11.7 g/dL (11.5-15.4) 08/17/16 04:56 Hct 37.5 % (35.3-44.9) 08/17/16 04:56 PT 20.3 Seconds (9.4-12.1) H 08/16/16 19:15 Lipase 14 Units/L (8-78) 08/16/16 12:44 - ABG ABG results: PT/INR, D-dimer PT 20.3 Seconds (9.4-12.1) H 08/16/16 19:15 Consult Discharge Plan - Plan Referrals: Charissa Bartholomew MD [Primary Care Provider] - 08/21/16 9:45 am <Clinton Minor - Last Filed: 08/17/16 15:10> Date of Encounter: 08/17/16 - Time Spent With Patient Total time spent is greater than 50% in coordination of care (as documented) at patient's floor/unit and/or counseling patient: GI History of Present Illness - Data of Consult Requesting Physician: Mireya Tai - Consult Narrative History of present illness: Ms. Crane is a 76 year old female - Constitutional Vitals: Temp Pulse Resp BP Pulse Ox 98.3 F 66 17 160/66 94 08/17/16 15:05 08/17/16 15:05 08/17/16 15:05 08/17/16 15:05 08/17/16 15:05 Results - Labs CBC & Chem 7: 08/17/16 04:56 08/17/16 04:56 Labs: Last Result Calcium 9.1 mg/dL (8.6-10.8) 08/17/16 04:56 Stool Occult Blood Positive (Negative) A 08/16/16 12:15 Entire Visit Hgb 11.7 g/dL (11.5-15.4) 08/17/16 04:56 Hct 37.5 % (35.3-44.9) 08/17/16 04:56 PT 20.3 Seconds (9.4-12.1) H 08/16/16 19:15 Lipase 14 Units/L (8-78) 08/16/16 12:44 - ABG ABG results: PT/INR, D-dimer PT 20.3 Seconds (9.4-12.1) H 08/16/16 19:15 - Attending Attestation I examined this patient and my medical decision-making was reviewed with the PURCHASING EXPEDITOR/PA/Advanced Practice Nurse/Resident Physician. I agree with the documented findings, disposition and treatment plan as described except to the extent set forth below.
[2016-08-17] MEDS ORDERED: Metoprolol XL (24 HR) Succ 50 MG TAB.ER.24H PO SCH (18:00)
[2016-08-18] MEDS: 0.9 % Sodium Chloride 1,000 ML IVC SCH ×3 (01:46→08:08)
[2016-08-18 05:56] LABS: Basophils # 0.1 K/mcL (0.0-0.2); Basophils % 0.6 %; Eosinophils # 0.4 K/mcL (0.0-0.6); Eosinophils % 4.8 %; Hematocrit 36.7 % (35.3-44.9); Immature Granulocytes % 0.5 % (0-4); Lymphocytes # 1.1 K/mcL (0.6-4.6); Mean Corpuscular HGB Conc 32.7 g/dL (31.6-35.5); Mean Corpuscular Hemoglobin 27.6 pg (28.0-33.3); Mean Corpuscular Volume 84.4 fL (83.0-100.0); Monocytes # 0.5 K/mcL (0.0-1.3); Monocytes % 6.6 %; Neutrophils # 6.1 K/mcL (1.6-8.9); Platelet Count 247 K/mcL (140-400); Red Blood Count 4.35 M/mcL (3.82-4.97); Red Cell Distribution Width 12.8 % (11.5-14.5); Segmented Neutrophils % 74.5 %
[2016-08-18 06:08] LABS: BUN/Creatinine Ratio 10 (6-26); Blood Urea Nitrogen 8 mg/dL (7-20); Calcium 8.9 mg/dL (8.6-10.8); Carbon Dioxide 22 mEq/L (19-29); Chloride 107 mEq/L (98-109); Glucose 112 mg/dL (70-99); Osmolality,Calculated 289 (280-300); Potassium 3.1 mEq/L (3.5-4.5); Sodium 140 mEq/L (136-145); eGFR For African Americans > 60 (> 60); eGFR For Non-African Americans > 60 (> 60)
[2016-08-18] MEDS: Insulin LISPRO 300 UNITS/3 ML VIAL SQ SCH (06:40)
[2016-08-18 07:32] VITALS: BP 162/75
[2016-08-18] MEDS: Metoprolol XL (24 HR) Succ 50 MG TAB.ER.24H PO SCH (08:03)
[2016-08-18] MEDS: MetroNIDAZOLE 500 MG/100 ML 500 MG/100 ML BAG IVPB SCH (08:04)
[2016-08-18] MEDS: *HR* Digoxin 0.125 MG TABLET PO SCH (08:04)
--- NOTE | 2016-08-18 08:17 | Discharge Summary ---
Date of Encounter: 08/20/16 Time of Encounter: 08:15 - Discharge Diagnosis (1) GI bleed Priority: Primary Status: Acute Qualifiers: GI bleed type/associated pathology: unspecified gastrointestinal hemorrhage type Qualified Code(s): K92.2 - Gastrointestinal hemorrhage, unspecified (2) Colitis Priority: Primary Status: Acute (3) A-fib Priority: Secondary Status: Chronic Qualifiers: Atrial fibrillation type: chronic Qualified Code(s): I48.2 - Chronic atrial fibrillation (4) HTN (hypertension) Priority: Secondary Status: Chronic Qualifiers: Hypertension type: essential hypertension Qualified Code(s): I10 - Essential (primary) hypertension (5) CAD (coronary artery disease) Priority: Secondary Status: Chronic Qualifiers: Coronary Disease-Associated Artery/Lesion type: [place] artery [place] vs. transplanted heart: [place] heart Associated angina: with unspecified angina Qualified Code(s): I25.119 - Atherosclerotic heart disease of [place] coronary artery with unspecified angina pectoris (6) PVD (peripheral vascular disease) Priority: Secondary Status: Chronic (7) Diabetes mellitus Priority: Secondary Status: Chronic Qualifiers: Diabetes mellitus type: type 2 Diabetes mellitus complication status: with unspecified complications Diabetes mellitus terminal press operator insulin use: without terminal press operator use Qualified Code(s): E11.8 - Type 2 diabetes mellitus with unspecified complications - Discharge Medications Home Medications: Cholecalciferol (Vitamin D3) [Vitamin D] 5,000 unit PO QAM 01/31/15 [History] Esomeprazole Magnesium [Nexium] 40 mg PO QAM 01/31/15 [History] Folic Acid 0.4 mg PO QAM 01/31/15 [History] Gabapentin [Neurontin] 600 mg PO TID 01/31/15 [History] Multivitamin with Minerals [Myvitalife] 1 each PO QAM 01/31/15 [History] Potassium Chloride [Klor-Con Sprinkle] 20 meq PO QAM 01/31/15 [History] Digoxin [Lanoxin] 0.125 mg PO QAM 03/07/15 [History] Rosuvastatin [Crestor] 40 mg PO HS 03/06/16 [History] Furosemide [Lasix] 40 mg PO QAM #30 tablet 03/07/16 [Rx] Metoprolol XL (24 HR) Succ [Toprol Xl] 50 mg PO QPM 03/07/16 [History] Amlodipine Besylate 2.5 mg PO HS 08/16/16 [History] Benzonatate [Tessalon] 200 mg PO TID PRN 08/16/16 [History] Diclofenac Sodium [Voltaren] 1 appl TP TID PRN 08/16/16 [History] Dulaglutide [Trulicity] 0.75 mg SQ SA 08/16/16 [History] Latanoprost [Xalatan] 1 drop OP HS 08/16/16 [History] Loratadine [Claritin] 10 mg PO DAILY 08/16/16 [History] Losartan [Cozaar] 50 mg PO BID 08/16/16 [History] Magnesium Oxide [Magnesium] 400 mg PO DAILY 08/16/16 [History] Metoprolol XL (24 HR) Succ [Toprol Xl] 100 mg PO QAM 08/16/16 [History] Allergies/Adverse Reactions: Allergies codeine Adverse Reaction (Verified 03/06/16 22:01) Shakiness morphine Adverse Reaction (Verified 03/06/16 22:01) Palpitations Band-Aid Allergy (Uncoded 03/06/16 22:01) Rash Patient can only keep on for 15 minutes before the band-aid leaves mason on her skin. Date of admission: 08/17/16 02:58 Primary care physician: Charissa Bartholomew MD Discharging clinician: Paul Dolan - Patient Status Disposition: Home, Self-Care Condition: Good - Discharge Instructions Instructions: Heart Failure (DC), Atrial Fibrillation (DC), Chest Pain (DC), Diabetes Mellitus Type 2 in Adults (DC), Peripheral Vascular Disorders (DC), Chronic Hypertension (DC), Anemia (GEN) Follow Up With: Charissa Bartholomew MD [Primary Care Provider] - 08/21/16 9:45 am - Diet and Activity Activity: increase activity as tolerated Diet: diabetic diet Interval History: Ms. Crane is a 76 year old female extensive medical history including atrial fibrillation on [place] coronary disease with stent congestive heart failure CVA COPD stage III diabetes hypertension hyperlipidemia GI bleed. According to patient on Saturday she was exposed to an individual who was sick by Saturday evening she was experiencing diarrhea. She continued to have diarrhea lower abdominal cramping and nausea over the next few days. She denies any fevers chills vomiting. She states she was unable to eat or drink anything for several days. She attempted to take Imodium without any relief. Last night the patient began to experience bright red blood in her stool. She had several episodes last episode of blood was at 8 AM. Patient does have a past history of AVM 2014. She had a recent colonoscopy in March of this year which was normal. She presented to the ER with the above complaints. According to ER records lab work revealed no leukocytosis hemoglobin was stable at 12.3 she did have some AK I with creatinine 1.16 stool sample was obtained was negative for C. difficile was positive for occult stool. She is hemodynamically stable afebrile CT of abdomen revealed mild mucosal thickening may represent infectious colitis inflammatory colitis. She has been admitted for further workup and evaluation. Presently patient denies any chest pain or soreness of breath. Her abdomen is soft tender to palpation across lower abdomen. Hospital course: Patient was hospitalized. She was started on IV fluids. Stool occult blood was positive. Gastroenterology was consulted. Gastroenterology did not recommend any invasive procedure. Recommended monitor hemoglobin/hematocrit. Also recommended to put anticoagulation on hold. Today morning patient's hemoglobin and hematocrit is stable. Patient does not have any more diarrhea. Patient is keen to go home. Plan: Explained patient the risks, benefits, advantages, disadvantages and alternative options of going home prematurely when she is not ready for discharge. Patient insisted on going home. We will give patient prescription for Cipro/Flagyl to complete a total 7 days. Follow-up with PCP in 1-2 weeks. At the time of follow-up with PCP, repeat labs can be done. Depending on the repeat labs,if hemoglobin is stable then she should be started back on her anticoagulants. All of all explained to the patient at length. Patient does not have any questions, concerns, update or recommendations. Prescriptions were given on her prescription pad in a handwritten format - Time Spent with Patient Total time spent providing and/or coordinating discharge services: - Constitutional Vitals: Temp Pulse Resp BP Pulse Ox 97.8 F 65 14 162/75 93 08/18/16 07:28 08/18/16 07:28 08/18/16 07:28 08/18/16 07:28 08/18/16 07:28 General appearance: Present: cooperative, A&O X 3, pleasant, no acute distress, answers questions appropriately - Head Head exam: Present: atraumatic, normocephalic - Eye Eye exam: Present: PERRL, conjuntiva pink, sclera anicteric Pupils: Present: PERRL - Neck Neck exam general surgery: Present: supple, trachea midline. Absent: lymphadenopathy - Respiratory Respiratory exam: Present: CTAB. Absent: accessory muscle use, rales, rhonchi, wheezes - Cardiovascular Cardiovascular exam: Present: RRR, +S1, +S2. Absent: diastolic murmur, gallop, rubs, systolic murmur - GI/Abdominal GI/Abdominal exam: Present: normal bowel sounds, soft, no peritoneal signs. Absent: distended, tenderness - Extremities Exam Extremities exam: Present: warm, radial pulses palpable and symetrical. Absent : calf tenderness, cyanotic, pedal edema - Neurological Exam Neurological exam: Present: CN II-XII intact, oriented X3, no focal deficits. Absent: pronater drift, facial droop, speech deficit - Skin Skin exam: Present: dry, intact
== END 2016-08-18 10:18 | disposition home or self-care (01) | DRG 392 ==
LOC: 3BNU 11:20 → EMEROO 11:20 → 3BNU 15:00
PROVIDERS: ADMIT Nurse Practitioner Family; ATTEND Nurse Practitioner Family

== ENCOUNTER 2016-10-16 18:46 | Inpatient (IN) ==
--- NOTE | 2016-10-16 19:44 | Emergency Department Note ---
Disposition Clinical Impression: A-fib, CHF (congestive heart failure) Disposition: Admitted As Inpatient Condition: Fair Forms: ED Satisfaction Letter Time of Disposition: 20:59 General Adult HPI - General Chief complaint: ED Arrhythmia/Palpitations Stated complaint: CHF dizzy HR 137 Time Seen by Provider: 10/16/16 19:18 Source: patient Limitations: no limitations Nursing Notes Reviewed: Yes Vital Signs Reviewed: Yes - History of Present Illness HPI Narrative: patient presents to the ED with the chief complaint of shortness of breath. Patient has a long-standing history of atrial fibrillation and is on Xarelto. She is status post pacemaker placement in early August 2016. Reports that her symptoms of fatigue, palpitations and shortness of breath greatly improved after this. Since October 05. She has had a return of the symptoms. She states that she feels palpitations, shortness of breath, orthopnea and paroxysmal nocturnal dyspnea. She has some associated chest tightness but this only occurs when she coughs. She also has some pleuritic type pain, but she states that this again is only when she coughs. She denies any dizziness or vertigo but states that her head feels fuzzy at times. She has been off balance at times as well. No acute numbness or weakness. She does complain of some nausea but no vomiting, diarrhea, abdominal pain, melena or hematochezia. She has been to her primary care physician twice in the last few days. She had an EKG today which "did not look right" and was sent here for further evaluation. Pain Scale: 0 - Related Data Home Medications Medication Instructions Recorded Confirmed Cholecalciferol (Vitamin D3) 5,000 unit PO QAM 01/31/15 10/16/16 [Vitamin D] Esomeprazole Magnesium [Nexium] 40 mg PO QAM 01/31/15 10/16/16 Folic Acid 0.4 mg PO QAM 01/31/15 10/16/16 Gabapentin [Neurontin] 600 mg PO TID 01/31/15 10/16/16 Multivitamin with Minerals 1 each PO QAM 01/31/15 10/16/16 [Myvitalife] Potassium Chloride [Klor-Con 10 meq PO TID 01/31/15 10/16/16 Sprinkle] Digoxin [Lanoxin] 0.125 mg PO QAM 03/07/15 10/16/16 Rosuvastatin [Crestor] 40 mg PO HS 03/06/16 10/16/16 Metoprolol XL (24 HR) Succ [Toprol 50 mg PO QPM 03/07/16 10/16/16 Xl] Benzonatate [Tessalon] 200 mg PO TID PRN 08/16/16 10/16/16 Diclofenac Sodium [Voltaren] 1 appl TP TID PRN 08/16/16 10/16/16 Dulaglutide [Trulicity] 0.75 mg SQ SA 08/16/16 10/16/16 Latanoprost [Xalatan] 1 drop OP HS 08/16/16 10/16/16 Loratadine [Claritin] 10 mg PO DAILY 08/16/16 10/16/16 Losartan [Cozaar] 50 mg PO BID 08/16/16 10/16/16 Metoprolol XL (24 HR) Succ [Toprol 100 mg PO QAM 08/16/16 10/16/16 Xl] Aspirin Enteric Coated [Aspirin EC] 81 mg PO DAILY 10/16/16 10/16/16 Flaxseed Oil [[place]-3 Flaxseed Oil] 1,000 mg PO DAILY 10/16/16 10/16/16 Previous Rx's Medication Instructions Recorded Furosemide [Lasix] 40 mg PO QAM #30 tablet 03/07/16 Rivaroxaban [Xarelto] 20 mg PO DAILY #0 08/24/16 Allergies Allergy/AdvReac Type Severity Reaction Status Date / Time codeine AdvReac Shakiness Verified 10/16/16 19:12 morphine AdvReac Palpitation Verified 10/16/16 19:12 s Band-Aid Allergy Rash Uncoded 10/16/16 19:12 All systems ED: reviewed and negative except as stated. Constitutional: Reports: weakness Eyes: Reports: vision change (fuzzy) Cardiovascular: Reports: chest pain, palpitations, dyspnea on exertion, orthopnea, paroxysmal nocturnal dyspnea Respiratory: Reports: dyspnea Neurological: Reports: weakness (generalized) Past Medical History - Past Medical History Attestation: Yes The following information was validated with the patient. Source: patient Medical history: Reports: arthritis, atrial fibrillation, cardiomyopathy, CHF, coronary artery disease, CVA, diabetes, GERD, GI bleed, hyperlipidemia, hypertension, myocardial infarction, osteoporosis, peripheral artery disease, TIA, venous stasis, other Surgical history: Reports: angioplasty/stent, carotid endarterectomy, cholecystectomy, herniorrhaphy, hysterectomy, orthopedic, other, other, vascular surgery, LE bypass, LE vascular intervention Psychiatric history: Reports: no psych history - Social History Smoking Status: Never smoker Smokeless Tobacco Status: No Alcohol use: Reports: none Drug use: Reports: none Physical Exam - General Limitations: no limitations General appearance: alert, in no apparent distress - Head Head exam: atraumatic, normocephalic, normal inspection - Eye Eye exam: Present: normal appearance, PERRL, EOMI - Chest Chest inspection: Present: normal inspection, symmetric chest wall rise - Respiratory Respiratory exam: Present: normal lung sounds bilaterally, other (trace rales bilat bases). Absent: respiratory distress, wheezes - Cardiovascular Cardiovascular exam: Present: regular rate, irregular rhythm - Abdominal Exam Abdominal exam: Present: soft, Non-Tender. Absent: tenderness, distention, guarding, rebound, rigidity - Neurological Exam Neurological exam: Present: alert, oriented X3 - Psychiatric Psychiatric exam: Present: normal affect, normal mood - Skin Skin exam: Present: warm, dry, intact, normal color Course Course Narrative: 76 -year-old female presenting with CHF exacerbation and A. fib. Patient overall looks well, but will be admitted to the hospital due to initial tachycardia and change in ekg per primary care team. Vital Signs Temperature 97.6 F 10/16/16 19:14 Pulse Rate 101 10/16/16 19:14 Respiratory Rate 20 10/16/16 19:14 Blood Pressure 106/78 10/16/16 19:14 O2 Sat by Pulse Oximetry 99 10/16/16 19:14 Temperature 97.6 F 10/16/16 19:14 Pulse Rate 102 10/16/16 19:43 Respiratory Rate 18 10/16/16 19:43 Blood Pressure 104/99 10/16/16 19:43 O2 Sat by Pulse Oximetry 96 10/16/16 19:43 Oxygen Delivery Oxygen Delivery Room Air Medical Decision Making - Medical Records Medical records reviewed: Yes I reviewed the patient's medical records. - Lab Data Lab results reviewed: Yes I reviewed the patient's lab results. Result diagrams: 10/16/16 19:39 10/16/16 19:39 Lab Results 08/01/17 08/01/17 08/01/17 Range/Units 19:39 19:39 19:39 WBC 12.0 H (4.3-11.1) K/mcL RBC 4.69 (3.82-4.97) M/mcL Hgb 12.7 (11.5-15.4) g/dL Hct 40.9 (35.3-44.9) % MCV 87.2 (83.0-100.0) fL MCH 27.1 L (28.0-33.3) pg MCHC 31.1 L (31.6-35.5) g/dL RDW 14.8 H (11.5-14.5) % Plt Count 298 (140-400) K/mcL MPV 10.5 (9.4-12.4) fL Immature Gran % 0.8 (0-4) % Seg Neutrophils % 88.6 % Lymphocytes % 7.1 % Monocytes % 3.3 % Eosinophils % 0.0 % Basophils % 0.2 % Neutrophils # 10.6 H (1.6-8.9) K/mcL Lymphocytes # 0.9 (0.6-4.6) K/mcL Monocytes # 0.4 (0.0-1.3) K/mcL Eosinophils # 0.0 (0.0-0.6) K/mcL Basophils # 0.0 (0.0-0.2) K/mcL Sodium 139 (136-145) mEq/L Potassium 4.2 (3.5-4.5) mEq/L Chloride 98 (98-109) mEq/L Carbon Dioxide 30 H (19-29) mEq/L BUN 32 H (7-20) mg/dL Creatinine 1.26 H (0.57-1.11) mg/dL Est GFR ( Amer) 50 L (> 60) Est GFR (Non-Af Amer) 42 L (> 60) BUN/Creatinine Ratio 25 (6-26) Glucose 261 H (70-99) mg/dL Calculated Osmolality 304 H (280-300) Calcium 9.7 (8.6-10.8) mg/dL Ionized Calcium (1.15-1.35) mmol/L Phosphorus (2.3-4.7) mg/dL Magnesium (1.6-2.6) mg/dL Total Bilirubin 0.5 (0.2-1.2) mg/dL AST 43 H (5-34) Units/L ALT 53 (0-55) Units/L Alkaline Phosphatase 158 H (38-126) Units/L Troponin I 0.00 (0-0.03) ng/mL B-Natriuretic Peptide (0-100) pg/mL Serum Total Protein 7.8 (6.0-8.3) g/dL Albumin 3.8 (3.5-5.0) g/dL Globulin 4.0 H (2.4-3.5) g/dL Albumin/Globulin Ratio 1.0 L (1.1-2.2) TSH (0.350-4.840) mcIU/mL 10/16/16 10/16/16 10/16/16 Range/Units 19:39 19:39 19:39 WBC (4.3-11.1) K/mcL RBC (3.82-4.97) M/mcL Hgb (11.5-15.4) g/dL Hct (35.3-44.9) % MCV (83.0-100.0) fL MCH (28.0-33.3) pg MCHC (31.6-35.5) g/dL RDW (11.5-14.5) % Plt Count (140-400) K/mcL MPV (9.4-12.4) fL Immature Gran % (0-4) % Seg Neutrophils % % Lymphocytes % % Monocytes % % Eosinophils % % Basophils % % Neutrophils # (1.6-8.9) K/mcL Lymphocytes # (0.6-4.6) K/mcL Monocytes # (0.0-1.3) K/mcL Eosinophils # (0.0-0.6) K/mcL Basophils # (0.0-0.2) K/mcL Sodium (136-145) mEq/L Potassium (3.5-4.5) mEq/L Chloride (98-109) mEq/L Carbon Dioxide (19-29) mEq/L BUN (7-20) mg/dL Creatinine (0.57-1.11) mg/dL Est GFR ( Amer) (> 60) Est GFR (Non-Af Amer) (> 60) BUN/Creatinine Ratio (6-26) Glucose (70-99) mg/dL Calculated Osmolality (280-300) Calcium (8.6-10.8) mg/dL Ionized Calcium 1.12 L (1.15-1.35) mmol/L Phosphorus 4.3 (2.3-4.7) mg/dL Magnesium 2.0 (1.6-2.6) mg/dL Total Bilirubin (0.2-1.2) mg/dL AST (5-34) Units/L ALT (0-55) Units/L Alkaline Phosphatase (38-126) Units/L Troponin I (0-0.03) ng/mL B-Natriuretic Peptide 335 H (0-100) pg/mL Serum Total Protein (6.0-8.3) g/dL Albumin (3.5-5.0) g/dL Globulin (2.4-3.5) g/dL Albumin/Globulin Ratio (1.1-2.2) TSH 0.277 L (0.350-4.840) mcIU/mL - Radiology Data Radiology results reviewed: Yes I reviewed the patient's radiology results. - EKG Data EKG #1 EKG attestation: Yes I reviewed and interpreted this EKG. EKG results narrative: A. fib, rate 98, QRS 105, QTC 422, normal axis, no acute ischemic changes S.Vera - SIreneAManpreet Situation: Demographics, MOA Background: Presenting Complaint, Relevant PMH, Meds, & Allergies Assessment: Vital Signs, Course and respsone to treatment, Exam Concerns, Patient/Family Expectation, Pertinant Lab Results, Outstanding Labs Recommendation: Barrier(s) to disposition, Recommendation based on pending studies, treatments, or consults S.BChaitanya Repor Time: 20:59
[2016-10-16 19:47] LABS: Basophils % 0.2 %; Hematocrit 40.9 % (35.3-44.9); Hemoglobin 12.7 g/dL (11.5-15.4); Immature Granulocytes % 0.8 % (0-4); Lymphocytes # 0.9 K/mcL (0.6-4.6); Lymphocytes % 7.1 %; Mean Corpuscular HGB Conc 31.1 g/dL (31.6-35.5); Mean Corpuscular Hemoglobin 27.1 pg (28.0-33.3); Mean Corpuscular Volume 87.2 fL (83.0-100.0); Mean Platelet Volume 10.5 fL (9.4-12.4); Monocytes # 0.4 K/mcL (0.0-1.3); Monocytes % 3.3 %; Neutrophils # 10.6 K/mcL (1.6-8.9); Platelet Count 298 K/mcL (140-400); Red Blood Count 4.69 M/mcL (3.82-4.97); Red Cell Distribution Width 14.8 % (11.5-14.5); Segmented Neutrophils % 88.6 %
[2016-10-16 19:57] LABS: Ionized Calcium 1.12 mmol/L (1.15-1.35)
[2016-10-16 20:01] LABS: Phosphorous 4.3 mg/dL (2.3-4.7)
[2016-10-16 20:03] LABS: Albumin 3.8 g/dL (3.5-5.0); Bilirubin,Total 0.5 mg/dL (0.2-1.2); Calcium 9.7 mg/dL (8.6-10.8); Potassium 4.2 mEq/L (3.5-4.5); Total Protein 7.8 g/dL (6.0-8.3)
[2016-10-16 21:03] LABS: Bilirubin,Urine Negative (Negative); Blood,Urine Negative (Negative); Clarity,Urine Clear (Clear); Color,Urine Yellow (Yellow); Glucose,Urine (UA) Normal (Normal); Ketones,Urine Negative (Negative); Leukocyte Esterase,Urine Negative (Negative); Nitrite,Urine Negative (Negative); Protein,Urine Negative (Neg-Trace); Specific Gravity,Urine 1.017 (1.010-1.025); Urobilinogen,Urine Normal (Normal)
[2016-10-16 21:33] LABS: Triiodothyronine (T3) Free 1.53 pg/mL (1.71-3.71)
[2016-10-16] MEDS: Furosemide 40 MG/4 ML VIAL IVP ONE (21:34)
--- NOTE | 2016-10-16 22:14 | Internal Med History&Physical ---
<Odilia Angeles - Last Filed: 10/16/16 23:21> Date of Encounter: 10/16/16 Time of Encounter: 21:45 Assessment and Plan (1) Dyspnea Current visit: Yes Status: Acute - Worsening orthopnea and dyspnea on exertion since 10/05/16. - Likely multifactorial including questionable CHF exacerbation, A-fib RVR and anxiety. - CXR found rrace pleural effusions and mild bibasilar atelectasis. - Will obtain echocardiogram for further evaluation of questionable CHF exacerbation. - Continue rate control for A-fib. - Continue to monitor. Qualifiers: Dyspnea type: orthopnea Qualified Code(s): R06.01 - Orthopnea (2) Atrial fibrillation with rapid ventricular response Current visit: Yes Status: Acute - With variable heart rate between 120s and 140s in ED. - Maybe secondary to dehydration and/or subclinical hyperthyroidism. - Currently on Cardizem drip. Will resume home Toprol XL and digoxin while weaning off from Cardizem drip. - Will consult cardiology and appreciate further evaluation and recommendations. - Continue Xarelto. - Continue monitoring with telemetry. (3) YURIDIA (acute kidney injury) Current visit: Yes Status: Acute - SCr 1.26, which increased from 0.86 on 08/29/16. - Likely secondary to dehydration given elevated BUN/Cr ratio (25). - Will hold Lasix at this time. - Given patient's history of CHF, will encourage oral fluid intake instead giving IV fluid. - Continue to monitor renal function and electrolytes. (4) Heart failure with preserved ejection fraction Current visit: Yes Status: Chronic - Echo on 03/07/16 showed LVEF 60%, which improved from LVEF 35-40% on prior echo from 01/31/15. Both have indeterminate diastolic function. - CXR showed cardiomegaly with trace pleural effusion. - Will hold Lasix at this time given patient's YURIDIA likely secondary to dehydration (BUN/Cr 25). - Given questionable CHF exacerbation, will obtain echocardiogram for further evaluation (5) Subclinical hyperthyroidism Current visit: Yes Status: Acute - With Low TSH (0.277) but normal free T4 (0.80). - May contribute to current A-fib RVR. - May consider treatment if TSH < 0.1. - Patient will need outpatient follow-up/work-up with her PCP or store consultant. (6) Diabetes mellitus Current visit: No Status: Chronic - Insulin sliding scale. Qualifiers: Diabetes mellitus type: type 2 Diabetes mellitus complication status: with unspecified complications Diabetes mellitus long-term insulin use: without long-term use Qualified Code(s): E11.8 - Type 2 diabetes mellitus with unspecified complications (7) DVT prophylaxis Current visit: No Status: Acute - Continue Xarelto. Internal Medicine - H&P: HPI Chief complaint: Fatigue Admitted From: Emergency Dept Plans for Post Hospital Care: Home History of present illness: Ms. Crane is a 76 year old female with PMH of A-fib on Xarelto, HFpEF, CAD s/p 8 stents, DM, HTN, HLD. 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 But patient started to return of symptoms including palpitation, generalized weakness, shortness of breath and cough with white/pink sputum since 10/05/16. The shortness of breath and cough are aggravated by exertion and laying flat. Patient also reports having chest tightness with ocugh, exertion and orthopnea. Patient denies bilateral lower extremity edema but reports up and down weight with net weight gain of 5 lb since 10/05/16. Patient denies other chest pain, diaphoresis, fever, chills, nausea, vomiting, diarrhea. Patient reports being compliant to her medications including digoxin, Toprol XL and Lasix. Patient actually reports taking double dose of Lasix recently as directed by her PCP but notes no significant improvement on her respiratory symptoms. Patient denies taking any thyroid supplement. Patient was noted to have variable heart rate between 120s and 140s in ED so Cardizem drip was started. [employer] pacemaker interrogation in ED revealed that patient is 10.6% V-paced with 1931 VT monitored episodes, most recent VT on 10/15/16 with rate 165 lasting for more than 9 minutes. Past Med Surg Social Fam HX - Past Medical History Medical history: arthritis, atrial fibrillation, cardiomyopathy, CHF, coronary artery disease, CVA, diabetes, GERD, GI bleed, hyperlipidemia, hypertension, myocardial infarction, osteoporosis, peripheral artery disease, TIA, venous stasis, other Psychiatric history: no psych history - Past Surgical History Surgical History: angioplasty/stent, carotid endarterectomy, cholecystectomy, herniorrhaphy, hysterectomy, orthopedic, other, other, vascular surgery, LE bypass, LE vascular intervention - Social History Smoking Status: Never smoker Smokeless Tobacco Status: No Alcohol use: none Drug use: none - Family History Sister Hx Family Cancer: Yes (LUNG CANCER.) Mother Living Status: Hx Family Cardiac Disorders: Yes (htn, stroke) Internal Medicine - H&P: Meds Cholecalciferol (Vitamin D3) [Vitamin D] 5,000 unit PO QAM 01/31/15 [History] Esomeprazole Magnesium [Nexium] 40 mg PO QAM 01/31/15 [History] Folic Acid 0.4 mg PO QAM 01/31/15 [History] Gabapentin [Neurontin] 600 mg PO TID 01/31/15 [History] Multivitamin with Minerals [Myvitalife] 1 each PO QAM 01/31/15 [History] Potassium Chloride [Klor-Con Sprinkle] 10 meq PO TID 01/31/15 [History] Digoxin [Lanoxin] 0.125 mg PO QAM 03/07/15 [History] Rosuvastatin [Crestor] 40 mg PO HS 03/06/16 [History] Furosemide [Lasix] 40 mg PO QAM #30 tablet 03/07/16 [Rx] Metoprolol XL (24 HR) Succ [Toprol Xl] 50 mg PO QPM 03/07/16 [History] Benzonatate [Tessalon] 200 mg PO TID PRN 08/16/16 [History] Diclofenac Sodium [Voltaren] 1 appl TP TID PRN 08/16/16 [History] Dulaglutide [Trulicity] 0.75 mg SQ SA 08/16/16 [History] Latanoprost [Xalatan] 1 drop OP HS 08/16/16 [History] Loratadine [Claritin] 10 mg PO DAILY 08/16/16 [History] Losartan [Cozaar] 50 mg PO BID 08/16/16 [History] Metoprolol XL (24 HR) Succ [Toprol Xl] 100 mg PO QAM 08/16/16 [History] Rivaroxaban [Xarelto] 20 mg PO DAILY #0 08/24/16 [Rx] Aspirin Enteric Coated [Aspirin EC] 81 mg PO DAILY 10/16/16 [History] Flaxseed Oil [[place]-3 Flaxseed Oil] 1,000 mg PO DAILY 10/16/16 [History] Allergies codeine Adverse Reaction (Verified 10/16/16 19:12) Shakiness morphine Adverse Reaction (Verified 10/16/16 19:12) Palpitations Band-Aid Allergy (Uncoded 10/16/16 19:12) Rash Patient can only keep on for 15 minutes before the band-aid leaves mason on her skin. All Systems PM: A 10-system review of systems was performed and is negative for pertinent findings except as documented above in the HPI. - Constitutional Constitutional: fatigue, weight gain (5 lb since 10/05/16), no chills, no fever(s ) - EENT Eyes: no change in vision Ears: no decreased hearing Nose, mouth and throat: no dysphagia, no odynophagia - Cardiovascular Cardiovascular ROS IM: lightheadedness, palpitations, no chest pain, no edema, no syncope Additional comments: Orthopnea - Respiratory Respiratory: cough (with white/pink colored sputum), dyspnea, dyspnea on exertion, pain with cough (Chest tightness), no hemoptysis - Gastrointestinal Gastrointestinal: no abdominal pain, no hematochezia, no nausea, no vomiting - Genitourinary Genitourinary: no difficulty urinating, no dysuria, no hematuria - Musculoskeletal Musculoskeletal ROS IM: no arthralgias, no myalgias - Integumentary Integumentary IM: no pruritus, no rash - Neurological Neurological ROS: no focal weakness, no numbness, no tingling - Hematologic/Lymphatic Hematologic/Lymphatic: no easy bleeding, no easy bruising - Constitutional Vitals: Temp Pulse Resp BP Pulse Ox 97.6 F 102 16 150/80 96 10/16/16 19:14 10/16/16 19:43 10/16/16 21:46 10/16/16 21:46 10/16/16 19:43 General appearance: Present: cooperative, A&O X 3, answers questions appropriately - Head Head exam: Present: atraumatic, normocephalic - Eye Eye exam: Present: EOMI, PERRL, conjuntiva pink, sclera anicteric - Neck Neck exam general surgery: Present: normal inspection, supple, trachea midline. Absent: lymphadenopathy, tenderness, thyromegaly - Respiratory Respiratory exam: Present: rales (Some diffuse crackles noted.). Absent: accessory muscle use, rhonchi, wheezes - Cardiovascular Cardiovascular exam: Present: irregular rhythm, +S1, +S2, tachycardia. Absent: diastolic murmur, gallop, rubs, systolic murmur - GI/Abdominal GI/Abdominal exam: Present: normal bowel sounds, soft, no peritoneal signs. Absent: distended, tenderness - Extremities Exam Extremities exam: Present: warm, radial pulses palpable and symetrical. Absent : calf tenderness, cyanotic, pedal edema - Neurological Exam Neurological exam: Present: CN II-XII intact, oriented X3, no focal deficits. Absent: pronater drift, facial droop, speech deficit - Skin Skin exam: Present: dry, intact, warm Internal Med - H&P Results - Labs CBC & Chem 7: 10/16/16 19:39 10/16/16 19:39 <Janki Malone - Last Filed: 10/16/16 23:53> Date of Encounter: 10/16/16 Internal Medicine - H&P: HPI History of present illness: Ms. Crane is a 76 year old female All Systems PM: A 10-system review of systems was performed and is negative for pertinent findings except as documented above in the HPI. - Constitutional Vitals: Temp Pulse Resp BP Pulse Ox 96.3 F L 66 16 139/85 97 10/16/16 23:05 10/16/16 23:05 10/16/16 23:05 10/16/16 23:05 10/16/16 23:05 Internal Med - H&P Results - Labs CBC & Chem 7: 10/16/16 19:39 10/16/16 19:39 - Attending Attestation Patient seen and examined and case discussed with the resident. Agree with assessment and plan unless otherwise documented, below. Patient's orthopnea/ dyspnea appears to be related to uncontrolled Atrial Fibrillation with RVR. The uncontrolled heart rate may be secondary to dehydration due to overdiuresis s/p treatment for recent CHF exacerbation, and, possibly subclinical hypothyroidism. Consider treatment or repeating thyroid function in the outpatient setting. Will hold diuretics at this time and allow patient to drink fluids (no bolus given recent CHF exacerbation). Agree with ECHO and Cardiology consultation.
--- NOTE | 2016-10-16 22:44 | Emergency Department Note ---
START Narrative - START START: I examined this patient and my medical decision-making was reviewed with the Resident Physician. I agree with the documented findings, disposition and treatment plan as described except to the extent set forth below. In summary 76 -year-old female presenting with concern for weakness, dizziness. Found to have atrial fibrillation with rapid ventricular response. Started on Cardizem drip. Rate is been variable. She is prescribed Cardizem already. Plan to admit for cardiac workup, cardiology consultation, discussed case with hospitalist team. I spent greater than 35 minutes of critical care time resuscitating this acutely ill patient suffering from tachydysrhythmia. She required IV Cardizem. She will be admitted to the hospital for further evaluation. Critical care time was excluding billable procedures.
[2016-10-16] MEDS ORDERED: *HR* Dextrose 50 % in Water (Syg) 50 ML SYRINGE IVP PRN (23:15)
[2016-10-16] MEDS ORDERED: D5% in Water 1,000 ML IVC PRN (23:15)
[2016-10-16] MEDS ORDERED: Dextrose Gel 15 GM PO PRN ×2 (23:15)
[2016-10-17 07:22] LABS: Basophils % 0.2 %; Eosinophils # 0.1 K/mcL (0.0-0.6); Eosinophils % 0.5 %; Hematocrit 37.8 % (35.3-44.9); Hemoglobin 12.6 g/dL (11.5-15.4); Immature Granulocytes % 0.6 % (0-4); Lymphocytes # 1.8 K/mcL (0.6-4.6); Lymphocytes % 14.1 %; Mean Corpuscular HGB Conc 33.3 g/dL (31.6-35.5); Mean Corpuscular Hemoglobin 28.4 pg (28.0-33.3); Mean Corpuscular Volume 85.1 fL (83.0-100.0); Mean Platelet Volume 10.4 fL (9.4-12.4); Monocytes # 0.7 K/mcL (0.0-1.3); Monocytes % 5.7 %; Neutrophils # 9.8 K/mcL (1.6-8.9); Platelet Count 292 K/mcL (140-400); Red Blood Count 4.44 M/mcL (3.82-4.97); Red Cell Distribution Width 14.7 % (11.5-14.5); Segmented Neutrophils % 78.9 %
[2016-10-17 07:38] LABS: BUN/Creatinine Ratio 30 (6-26); Blood Urea Nitrogen 30 mg/dL (7-20); Calcium 9.5 mg/dL (8.6-10.8); Carbon Dioxide 31 mEq/L (19-29); Chloride 97 mEq/L (98-109); Creatine Kinase 19 Units/L (29-168); Glucose 153 mg/dL (70-99); Osmolality,Calculated 299 (280-300); Potassium 3.6 mEq/L (3.5-4.5); Sodium 140 mEq/L (136-145); eGFR For African Americans > 60 (> 60); eGFR For Non-African Americans 55 (> 60)
[2016-10-17 07:45] LABS: Digoxin < 0.3 ng/mL (0.8-2.0)
[2016-10-17] MEDS: *HR* Rivaroxaban 10 MG TABLET PO SCH (08:02)
[2016-10-17] MEDS: *HR* Digoxin 0.125 MG TABLET PO SCH (08:02)
[2016-10-17] MEDS: Aspirin Enteric Coated 81 MG Tablet PO SCH (08:02)
[2016-10-17] MEDS: Gabapentin 300 MG CAPSULE PO SCH ×3 (08:02→22:19)
[2016-10-17] MEDS: Metoprolol XL (24 HR) Succ 50 MG TAB.ER.24H PO SCH ×2 (08:03→17:15)
[2016-10-17] MEDS: Insulin LISPRO 300 UNITS/3 ML VIAL SQ SCH ×4 (08:03→22:19)
[2016-10-17] MEDS ORDERED: NON-FORMULARY MEDICATION 1 EACH EACH (Esomeprazole Magnesium [Nexium] 40 MG) PO SCH (09:00)
--- NOTE | 2016-10-17 09:10 | Internal Med Progress Note ---
Date of Encounter: 10/18/16 Time of Encounter: 09:07 - Assessment and plan (1) Diabetes mellitus Current Visit: Yes Status: Chronic Assessment and plan: Accu-Cheks 4 times a day with sliding scale monitoring Qualifiers: Diabetes mellitus type: type 2 Diabetes mellitus complication status: with unspecified complications Diabetes mellitus oil heaterman insulin use: without oil heaterman use Qualified Code(s): E11.8 - Type 2 diabetes mellitus with unspecified complications (2) DVT prophylaxis Current Visit: Yes Status: Acute Assessment and plan: on anticoagulation (3) Atrial fibrillation Current Visit: Yes Status: Chronic Assessment and plan: on anticoagulationand rate is controlled echo pending Qualifiers: Atrial fibrillation type: chronic Qualified Code(s): I48.2 - Chronic atrial fibrillation (4) YURIDIA (acute kidney injury) Current Visit: Yes Status: Acute Assessment and plan: Monitor renal function daily (5) CHF (congestive heart failure) Current Visit: No Status: Chronic Assessment and plan: n Lasix echo pending Qualifiers: Congestive heart failure type: diastolic Congestive heart failure chronicity: chronic Qualified Code(s): I50.32 - Chronic diastolic (congestive ) heart failure (6) Pneumonia Current Visit: Yes Status: Acute Assessment and plan: Bilateral basal atelectasis IV Zosyn added. Swallowing evaluation ordered Qualifiers: Pneumonia type: aspiration pneumonia Aspiration pneumonia type: unspecified Laterality: bilateral Lung location: lower lobe of lung Qualified Code(s): J69.0 - Pneumonitis due to inhalation of food and vomit - Subjective Interval history: Mrs. Kailyn Maldonado a 76-year-old female She presented with shortness of atrial fibrillation with RVR, CHF, acute kidney injury, and diabetes. She has prior history of phelan pacemaker. Her left ventricular ejection fraction used to be in mid 30s but echocardiogram in February 2016 showed normal EF. Cardiology was consulted and a New echocardiogram was ordered by admitting M.D. pending. There was concern for low TSH but T4 is normal and free T3 is actually on the lower side. On chest examination bilateral lateral lower rhonchi noted and chest x-ray shows bilateral lower lobes atelectasis. IV Zosyn added. She is on anticoagulation for her atrial fibrillation. Labs and medications reviewed. - Constitutional Vitals: Temp Pulse Resp BP Pulse Ox 97.4 F L 72 18 163/87 97 10/17/16 06:48 10/17/16 06:48 10/17/16 06:48 10/17/16 06:48 10/17/16 06:48 General appearance: Present: cooperative, A&O X 3, answers questions appropriately - Head Head exam: Present: atraumatic, normocephalic - Eye Eye exam: Present: PERRL, conjuntiva pink, sclera anicteric Pupils: Present: PERRL - Neck Neck exam general surgery: Present: supple, trachea midline. Absent: lymphadenopathy - Respiratory Respiratory exam: Present: CTAB, rhonchi. Absent: accessory muscle use, rales, wheezes - Cardiovascular Cardiovascular exam: Present: RRR, +S1, +S2. Absent: diastolic murmur, gallop, rubs, systolic murmur - GI/Abdominal GI/Abdominal exam: Present: normal bowel sounds, soft, no peritoneal signs. Absent: distended, tenderness - Extremities Exam Extremities exam: Present: warm, radial pulses palpable and symetrical. Absent : calf tenderness, cyanotic, pedal edema - Neurological Exam Neurological exam: Present: CN II-XII intact, oriented X3, no focal deficits. Absent: pronater drift, facial droop, speech deficit - Skin Skin exam: Present: dry, intact Internal Medicine: Result - Labs CBC & Chem 7: 10/17/16 07:11 10/17/16 07:11 Labs: Short CBC 10/17/16 Range/Units 07:11 WBC 12.4 H (4.3-11.1) K/mcL Hgb 12.6 (11.5-15.4) g/dL Hct 37.8 (35.3-44.9) % Plt Count 292 (140-400) K/mcL Neutrophils # 9.8 H (1.6-8.9) K/mcL BMP 10/17/16 07:11 Sodium 140 Potassium 3.6 Chloride 97 L Carbon Dioxide 31 H BUN 30 H Creatinine 0.99 Glucose 153 H Calcium 9.5 Consult Discharge Plan - Plan Referrals: Charissa Bartholomew MD [Primary Care Provider] - 10/23/16 4:45 pm
--- NOTE | 2016-10-17 09:23 | Cardiology Consult Note ---
Date of Encounter: 10/17/16 Time of Encounter: 08:45 Assessment and Plan (1) Atrial fibrillation Current Visit: Yes Status: Chronic She is being anticoagulated with Xarelto. Compared current EKG to one in 2016 and showed no acute changes. Discontinued cardizem drip Qualifiers: Atrial fibrillation type: chronic Qualified Code(s): I48.2 - Chronic atrial fibrillation (2) CHF (congestive heart failure) Current Visit: Yes Status: Acute Echo ordered by primary managing team. Chest x-ray revealed trace pleural effusion. Ordered lasix 40 mg IVP once. Qualifiers: Qualified Code(s): I50.9 - Heart failure, unspecified Discussion w patient/family: The assessment and plan as outlined above was discussed with the patient and/or family members who expressed understanding and agreement. All questions were answered. Thank you for involving us in the care of your patient. Please call with any questions. History of Present Illness Consult date: 10/17/16 Requesting physician: Odilia Angeles Consult reason: A-Fib RVR Chief complaint: Shortness of breath History of present illness: Ms. Crane is a 76 year old female with a PMH of CHF, [place], and A-Fib that presented to the ED on 10/16/2016 for shortness of breath. She is s/p pacemaker placement on August 2016 secondary to tachy-bryson syndrome. On arrival to the ED, she was complaining of shortness of breath, cough, palpitations, and orthopnea. Patient was put on cardizem drip due to her A-Fib. She admitted to chest tightness but only with coughing. She did not have elevated tropnins and her BNP was 335 on admission. At home, she takes xarelto, digoxin, metoprolol, and lasix and has been compliant with her medications. Speaking to her tdoay, she denies shortness of breath, chest pain, headaches, dizziness. numbness/tingling , constipation. diarrhea, blood in stool, urinary hesitancy, blood in urine, and leg swelling. Past Med Surg Social Fam HX - Past Medical History Medical history: arthritis, atrial fibrillation, cardiomyopathy, CHF, coronary artery disease, CVA, diabetes, GERD, GI bleed, hyperlipidemia, hypertension, myocardial infarction, osteoporosis, peripheral artery disease, TIA, venous stasis, other Psychiatric history: no psych history - Past Surgical History Surgical History: angioplasty/stent, carotid endarterectomy, cholecystectomy, herniorrhaphy, hysterectomy, orthopedic, other, other, vascular surgery, LE bypass, LE vascular intervention - Social History Smoking Status: Never smoker Smokeless Tobacco Status: No Alcohol use: none Drug use: none - Family History Sister Name: Daphnie Villa Age: 70 Hx Family Cardiac Disorders: Yes Hx Family Cancer: Yes (LUNG CANCER.) Hx Family Endocrine Disorder: Yes Mother Living Status: Hx Family Cardiac Disorders: Yes (htn, stroke) Medications and Allergies Cholecalciferol (Vitamin D3) [Vitamin D] 5,000 unit PO QAM 01/31/15 [History] Esomeprazole Magnesium [Nexium] 40 mg PO QAM 01/31/15 [History] Folic Acid 0.4 mg PO QAM 01/31/15 [History] Gabapentin [Neurontin] 600 mg PO TID 01/31/15 [History] Multivitamin with Minerals [Myvitalife] 1 each PO QAM 01/31/15 [History] Potassium Chloride [Klor-Con Sprinkle] 10 meq PO TID 01/31/15 [History] Digoxin [Lanoxin] 0.125 mg PO QAM 03/07/15 [History] Rosuvastatin [Crestor] 40 mg PO HS 03/06/16 [History] Furosemide [Lasix] 40 mg PO QAM #30 tablet 03/07/16 [Rx] Metoprolol XL (24 HR) Succ [Toprol Xl] 50 mg PO QPM 03/07/16 [History] Benzonatate [Tessalon] 200 mg PO TID PRN 08/16/16 [History] Diclofenac Sodium [Voltaren] 1 appl TP TID PRN 08/16/16 [History] Dulaglutide [Trulicity] 0.75 mg SQ SA 08/16/16 [History] Latanoprost [Xalatan] 1 drop OP HS 08/16/16 [History] Loratadine [Claritin] 10 mg PO DAILY 08/16/16 [History] Losartan [Cozaar] 50 mg PO BID 08/16/16 [History] Metoprolol XL (24 HR) Succ [Toprol Xl] 100 mg PO QAM 08/16/16 [History] Rivaroxaban [Xarelto] 20 mg PO DAILY #0 08/24/16 [Rx] Aspirin Enteric Coated [Aspirin EC] 81 mg PO DAILY 10/16/16 [History] Flaxseed Oil [[place]-3 Flaxseed Oil] 1,000 mg PO DAILY 10/16/16 [History] Allergies codeine Adverse Reaction (Verified 10/16/16 19:12) Shakiness morphine Adverse Reaction (Verified 10/16/16 19:12) Palpitations Band-Aid Allergy (Uncoded 10/16/16 19:12) Rash Patient can only keep on for 15 minutes before the band-aid leaves mason on her skin. All Systems Review: A 10-system review of systems was performed and is negative for pertinent findings except as documented above in the HPI. - Constitutional Constitutional: no headache(s) - Cardiovascular Cardiovascular: no chest pain at rest, no chest pain with exertion, no dyspnea at rest, no dyspnea on exertion, no radiating jaw, neck or arm pain, no leg edema, no lightheadedness, no palpitations - Respiratory Respiratory: no dyspnea, no wheezing - Gastrointestinal Gastrointestinal: no abdominal pain, no constipation, no diarrhea, no hematochezia, no melena Physical Examination Vital Signs, Last 4 Hours Temp Pulse Resp BP Pulse Ox 10/17/16 06:48 97.4 F L 72 18 163/87 97 General: Conversant Neck: No JVD Cardiac: Other (Heart murmur noted. ) Lungs: Normal Breath Sounds, No Wheeze, Rales, Rhonchi Abdomen: Soft, Non-Tender Musculoskeletal: No Chest Wall Tenderness Extremities: No Edema Results 10/17/16 07:11 10/17/16 07:11 Lab Results 10/17/16 10/17/16 07:11 07:11 WBC 12.4 H Hgb 12.6 Hct 37.8 Plt Count 292 Sodium 140 Potassium 3.6 Chloride 97 L Carbon Dioxide 31 H BUN 30 H Creatinine 0.99 Glucose 153 H Calcium 9.5 Magnesium 2.0 Laboratory Tests 10/16/16 19:39 Troponin I 0.00 - Imaging and Cardiology Chest Xray: report reviewed Echo: pending Other Results: Reviewd head CT. No intracranial abnormalities. - EKG Interpretation EKG results cardiology: personally reviewed (A-Fib. Compared to EKG from 2016 and showed no acute changes.) Consult Discharge Plan - Plan Referrals: Le,Tri H, MD [Primary Care Provider] - 10/23/16 4:45 pm
[2016-10-17] MEDS ORDERED: Furosemide 40 MG/4 ML VIAL IVP ONE (10:22)
[2016-10-17 10:47] LABS: Folate 17.8 ng/mL (7.0-31.4)
[2016-10-17] MEDS: Furosemide 40 MG/4 ML VIAL IVP ONE (12:06)
[2016-10-17] MEDS: Piperacillin/Tazobactam 3.375 GM in D5% in Water (Mini-Bag+) 100 ML IVPB SCH ×2 (17:13→22:17)
--- NOTE | 2016-10-17 21:53 | Electrocardiograph Report ---
[place] [address] Test Date: 2016-10-16 Pat Name: Kailyn Crane Department: 103 Room: 2NE17 Gender: F Reinsurance Clerk: : 1940 Requested By: Michele Haddad Order Number: [id number] Reading MD: Lesa Green Measurements Intervals [place] Rate: 98 P: [place]: 0 QRS: 47 QRSD: 105 T: 12 QT: 367 QTc: 422 Interpretive Statements ATRIAL FIBRILLATION NONSPECIFIC ST & T-WAVE ABNORMALITY ABNORMAL RHYTHM ECG Electronically Signed On 10-17-2016 21:52:32 EDT by Lesa Green
--- NOTE | 2016-10-17 21:53 | Electrocardiograph Report ---
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
[2016-10-18] MEDS: Piperacillin/Tazobactam 3.375 GM in D5% in Water (Mini-Bag+) 100 ML IVPB SCH ×3 (04:14→20:57)
[2016-10-18] MEDS: Gabapentin 300 MG CAPSULE PO SCH ×3 (08:27→20:56)
[2016-10-18] MEDS: *HR* Rivaroxaban 10 MG TABLET PO SCH (08:27)
[2016-10-18] MEDS: Aspirin Enteric Coated 81 MG Tablet PO SCH (08:27)
[2016-10-18] MEDS: *HR* Digoxin 0.125 MG TABLET PO SCH (08:27)
[2016-10-18] MEDS: Metoprolol XL (24 HR) Succ 50 MG TAB.ER.24H PO SCH ×2 (08:28→17:27)
[2016-10-18] MEDS: Insulin LISPRO 300 UNITS/3 ML VIAL SQ SCH ×4 (08:29→20:58)
--- NOTE | 2016-10-18 08:49 | Internal Med Progress Note ---
Date of Encounter: 10/18/16 Time of Encounter: 08:47 - Assessment and plan (1) Diabetes mellitus Current Visit: Yes Status: Chronic Qualifiers: Diabetes mellitus type: type 2 Diabetes mellitus complication status: with unspecified complications Diabetes mellitus group home insulin use: without terminal press operator use Qualified Code(s): E11.8 - Type 2 diabetes mellitus with unspecified complications (2) DVT prophylaxis Current Visit: Yes Status: Acute (3) Atrial fibrillation Current Visit: Yes Status: Chronic Qualifiers: Atrial fibrillation type: chronic Qualified Code(s): I48.2 - Chronic atrial fibrillation (4) YURIDIA (acute kidney injury) Current Visit: Yes Status: Acute (5) CHF (congestive heart failure) Current Visit: No Status: Chronic Qualifiers: Congestive heart failure type: diastolic Congestive heart failure chronicity: chronic Qualified Code(s): I50.32 - Chronic diastolic (congestive ) heart failure (6) Pneumonia Current Visit: Yes Status: Acute Qualifiers: Pneumonia type: aspiration pneumonia Aspiration pneumonia type: unspecified Laterality: bilateral Lung location: lower lobe of lung Qualified Code(s): J69.0 - Pneumonitis due to inhalation of food and vomit - Subjective Interval history: Mrs. Kailyn Maldonado a 76-year-old female She presented with shortness of atrial fibrillation with RVR, CHF, acute kidney injury, and diabetes. She has prior history of coronary pacemaker. Her left ventricular ejection fraction on echocardiogram in February 2016 shown as normal EF. Cardiology was consulted and a New echocardiogram was ordered by admitting M.D. pending. There was concern for low TSH but T4 is normal and free T3 is actually on the lower side. On chest examination bilateral lateral lower rhonchi noted and chest x-ray shows bilateral lower lobes atelectasis. IV Zosyn added. She is on anticoagulation for her atrial fibrillation. Labs and medications reviewed. 10/18 on IV Zosyn for possible bilateral aspiration pneumonia with elevated white count and chest x-ray findings. Repeat CBC. A. fib RVR/CHF corrected and at this point patient is rate controlled on anticoagulation and appears compensated. Echocardiogram showed ejection fraction 50%. Echo also showed diastolic dysfunction. Acute kidney injury was perhaps related to dehydration and corrected. Diabetes is well controlled now. - Constitutional Vitals: Temp Pulse Resp BP Pulse Ox 97.3 F L 85 18 146/85 97 10/18/16 07:02 10/18/16 07:02 10/18/16 07:02 10/18/16 07:02 10/18/16 07:02 General appearance: Present: cooperative, A&O X 3, answers questions appropriately - Head Head exam: Present: atraumatic, normocephalic - Eye Eye exam: Present: PERRL, conjuntiva pink, sclera anicteric Pupils: Present: PERRL - Neck Neck exam general surgery: Present: supple, trachea midline. Absent: lymphadenopathy - Respiratory Respiratory exam: Present: CTAB, rhonchi. Absent: accessory muscle use, rales, wheezes - Cardiovascular Cardiovascular exam: Present: RRR, +S1, +S2. Absent: diastolic murmur, gallop, rubs, systolic murmur - GI/Abdominal GI/Abdominal exam: Present: normal bowel sounds, soft, no peritoneal signs. Absent: distended, tenderness - Extremities Exam Extremities exam: Present: warm, radial pulses palpable and symetrical. Absent : calf tenderness, cyanotic, pedal edema - Neurological Exam Neurological exam: Present: CN II-XII intact, oriented X3, no focal deficits. Absent: pronater drift, facial droop, speech deficit - Skin Skin exam: Present: dry, intact Internal Medicine: Result - Labs CBC & Chem 7: 10/18/16 13:34 10/18/16 13:04 - Impressions Impressions Echocardiogram 10/17/16 23:06 Impressions: LVEF 50%. Mild concentric left ventricular hypertrophy. Indeterminate diastolic function. RV is normal in size with mild reduction in function. Mild-moderate mitral regurgitation. Mild tricuspid regurgitation. No pulmonary hypertension. Left Ventricular Wall Motion: Rest Echo Findings All wall segments showed normal motion. Findings: Study Quality * Technically adequate exam. ECG Findings * Atrial fibrillation. Left Ventricle * Mild concentric left ventricular hypertrophy. * Indeterminate diastolic function. * LVEF 50%. Aorta * Normally sized aortic root. Aortic Valve * No aortic regurgitation. * Trileaflet aortic valve. * No aortic stenosis. Mitral Valve * Mild-moderate mitral annular calcification * No mitral stenosis. * Calcified and thickened leaflets. * Mild-moderate mitral regurgitation. Tricuspid Valve * Normal tricuspid valve structure. * Mild tricuspid regurgitation. * Estimated RA pressure is 3 mmHg. * Estimated RVSP is 23 mmHg. * No pulmonary hypertension. Pulmonic Valve * Pulmonic valve is not well visualized. * No pulmonic stenosis. * Trace pulmonic regurgitation. Pulmonary Artery * Pulmonary artery not well visualized. Right Ventricle * Normal RV size. Mild hypokinesis. Left Atrium * Normal size by index volume. However, visually it appears at least moderately dilated. Right Atrium * Normal size by index volume. However, visually it appears at least moderately dilated. Interatrial Septum * No evidence of PFO by color Doppler. Pericardium * There is no pericardial effusion present. IVC * Normal IVC dimensions and inspiratory collapse. Consult Discharge Plan - Plan Referrals: Charissa Bartholomew MD [Primary Care Provider] - 10/23/16 4:45 pm
--- NOTE | 2016-10-18 12:42 | Cardiology Progress Note ---
Date of Encounter: 10/18/16 Time of Encounter: 09:00 Assessment and Plan (1) Atrial fibrillation Current Visit: Yes Status: Chronic Recommend continuing her home medication of Xarelto 20 mg PO daily. Qualifiers: Atrial fibrillation type: chronic Qualified Code(s): I48.2 - Chronic atrial fibrillation (2) CHF (congestive heart failure) Current Visit: Yes Status: Acute Echocardiogram reveals a LVEF of 50% with mild MR and TR. Recommend patient to continue her home medications of Aspirin EC 81 mg PO daily, Lasix 40 mg PO QAM, Toprol XL 50 mg QPM, Toprol XL 100 mg QAM, Crestor 40 mg PO HS, Digoxin 0.125 mg PO QAM, Qualifiers: Congestive heart failure type: diastolic Congestive heart failure chronicity: chronic Qualified Code(s): I50.32 - Chronic diastolic (congestive ) heart failure Discussion w patient/family: The assessment and plan as outlined above was discussed with the patient and/or family members who expressed understanding and agreement. All questions were answered. Thank you for involving us in the care of your patient. Please call with any questions. Subjective Principal diagnosis: A-Fib, CHF Interval history: Talked to patient today and she denies any chest pain, palpitations, shortness of breath, nausea, vomiting, constipation, diarrhea, blood in urine or stool, and leg swelling. Objective Vital Signs, Last 4 Hours Pulse BP 10/18/16 10:57 92 121/65 General: Conversant, No Apparent Distress Neck: No JVD Cardiac: Other (Murmur noted. ) Lungs: Normal Breath Sounds, No Wheeze, Rales, Rhonchi Neuro: Alert and responsive Extremities: No Clubbing, No Cyanosis, No Edema, Normal Pulses Results 10/17/16 07:11 10/18/16 13:04 - Imaging and Cardiology Echo: report reviewed (LVEF is 50%, mild LV hypertrophy, mild MR, mild TR, without pulmonary HTN.) Consult Discharge Plan - Plan Referrals: Charissa Bartholomew MD [Primary Care Provider] - 10/23/16 4:45 pm
[2016-10-18 13:23] LABS: Calcium 9.5 mg/dL (8.6-10.8); Potassium 3.6 mEq/L (3.5-4.5)
[2016-10-18 13:44] LABS: Basophils # 0.1 K/mcL (0.0-0.2); Basophils % 0.5 %; Eosinophils # 0.4 K/mcL (0.0-0.6); Eosinophils % 2.5 %; Hematocrit 45.2 % (35.3-44.9); Hemoglobin 14.8 g/dL (11.5-15.4); Lymphocytes # 2.3 K/mcL (0.6-4.6); Lymphocytes % 13.7 %; Mean Corpuscular HGB Conc 32.7 g/dL (31.6-35.5); Mean Corpuscular Hemoglobin 27.6 pg (28.0-33.3); Mean Corpuscular Volume 84.3 fL (83.0-100.0); Mean Platelet Volume 10.2 fL (9.4-12.4); Monocytes # 0.8 K/mcL (0.0-1.3); Monocytes % 4.8 %; Neutrophils # 13.3 K/mcL (1.6-8.9); Platelet Count 363 K/mcL (140-400); Red Blood Count 5.36 M/mcL (3.82-4.97); Red Cell Distribution Width 14.7 % (11.5-14.5); Segmented Neutrophils % 77.5 %
--- NOTE | 2016-10-18 14:12 | Discharge Summary ---
Date of Encounter: 10/18/16 Time of Encounter: 14:08 - Discharge Diagnosis (1) Diabetes mellitus Priority: Secondary Status: Chronic Qualifiers: Diabetes mellitus type: type 2 Diabetes mellitus complication status: with unspecified complications Diabetes mellitus detention insulin use: without terminal operations manager use Qualified Code(s): E11.8 - Type 2 diabetes mellitus with unspecified complications (2) DVT prophylaxis Priority: Secondary Status: Acute (3) Atrial fibrillation Priority: Primary Status: Chronic Qualifiers: Atrial fibrillation type: chronic Qualified Code(s): I48.2 - Chronic atrial fibrillation (4) YURIDIA (acute kidney injury) Priority: Secondary Status: Acute (5) CHF (congestive heart failure) Priority: Secondary Status: Chronic Qualifiers: Congestive heart failure type: diastolic Congestive heart failure chronicity: chronic Qualified Code(s): I50.32 - Chronic diastolic (congestive ) heart failure (6) Pneumonia Priority: Primary Status: Acute Qualifiers: Pneumonia type: aspiration pneumonia Aspiration pneumonia type: unspecified Laterality: bilateral Lung location: lower lobe of lung Qualified Code(s): J69.0 - Pneumonitis due to inhalation of food and vomit - Discharge Medications Prescriptions: Amoxicillin/Clavulanate [Augmentin] 875 mg PO BIDWM #20 tab Home Medications: Cholecalciferol (Vitamin D3) [Vitamin D] 5,000 unit PO QAM 01/31/15 [History] Esomeprazole Magnesium [Nexium] 40 mg PO QAM 01/31/15 [History] Folic Acid 0.4 mg PO QAM 01/31/15 [History] Gabapentin [Neurontin] 600 mg PO TID 01/31/15 [History] Multivitamin with Minerals [Myvitalife] 1 each PO QAM 01/31/15 [History] Potassium Chloride [Klor-Con Sprinkle] 10 meq PO TID 01/31/15 [History] Digoxin [Lanoxin] 0.125 mg PO QAM 03/07/15 [History] Rosuvastatin [Crestor] 40 mg PO HS 03/06/16 [History] Furosemide [Lasix] 40 mg PO QAM #30 tablet 03/07/16 [Rx] Metoprolol XL (24 HR) Succ [Toprol Xl] 50 mg PO QPM 03/07/16 [History] Benzonatate [Tessalon] 200 mg PO TID PRN 08/16/16 [History] Diclofenac Sodium [Voltaren] 1 appl TP TID PRN 08/16/16 [History] Dulaglutide [Trulicity] 0.75 mg SQ SA 08/16/16 [History] Latanoprost [Xalatan] 1 drop OP HS 08/16/16 [History] Loratadine [Claritin] 10 mg PO DAILY 08/16/16 [History] Losartan [Cozaar] 50 mg PO BID 08/16/16 [History] Metoprolol XL (24 HR) Succ [Toprol Xl] 100 mg PO QAM 08/16/16 [History] Rivaroxaban [Xarelto] 20 mg PO DAILY #0 08/24/16 [Rx] Aspirin Enteric Coated [Aspirin EC] 81 mg PO DAILY 10/16/16 [History] Flaxseed Oil [[place]-3 Flaxseed Oil] 1,000 mg PO DAILY 10/16/16 [History] Amoxicillin/Clavulanate [Augmentin] 875 mg PO BIDWM #20 tab 10/18/16 [Rx] Allergies/Adverse Reactions: Allergies codeine Adverse Reaction (Verified 10/16/16 19:12) Shakiness morphine Adverse Reaction (Verified 10/16/16 19:12) Palpitations Band-Aid Allergy (Uncoded 10/16/16 19:12) Rash Patient can only keep on for 15 minutes before the band-aid leaves mason on her skin. Procedures/tests Complete & Pending: Procedures Performed prior 72 hours Category Date Time Status ECG 12 lead ECG [ECG] Routine Y 10/16/16 19:45 Completed Date of admission: 10/16/16 23:55 Primary care physician: Charissa Bartholomew MD Consults: 10/18/16 08:42 Consult to Speech Therapy [CONS] Routine Comment: Evaluate, develop and implement POC Reason for Consult: Swallowing evaluation Time Notified: 08:42 Call Completed: No Discharging clinician: Merary Perez Anticipated date of discharge: 10/18/16 - Patient Status Disposition: Home, Self-Care Condition: Fair Overall status at discharge: patient is progressing back to baseline - Discharge Instructions Follow Up With: Charissa Bartholomew MD [Primary Care Provider] - 10/23/16 4:45 pm - Diet and Activity Activity: resume usual activities as tolerated Diet: advance to your usual diet, diabetic diet, low fat, low cholesterol, low salt diet Hospital course: Mrs. Kailyn Maldonado a 76-year-old female She presented with shortness of atrial fibrillation with RVR, CHF, acute kidney injury, and diabetes. She has prior history of coronary pacemaker. Her left ventricular ejection fraction on echocardiogram in February 2016 shown as normal EF. Cardiology was consulted and a New echocardiogram was ordered. Echocardiogram showed ejection fraction 50%. Echo also showed diastolic dysfunction. There was concern for low TSH but T4 is normal and free T3 is actually on the lower side. On chest examination bilateral lateral lower rhonchi noted and chest x-ray shows bilateral lower lobes atelectasis. IV Zosyn added. Now patient is afebrile and leukocytosis is corrected. She is on anticoagulation for her atrial fibrillation. A. fib RVR/CHF corrected and at this point patient is rate controlled on anticoagulation and CHF appears compensated. Acute kidney injury was perhaps related to dehydration and corrected. Diabetes is well controlled now. Due to aspiration pneumonia we cannot swallowing evaluation and it was fine. - Time Spent with Patient Total time spent providing and/or coordinating discharge services: Greater than 30 minutes - Constitutional Vitals: Temp Pulse Resp BP Pulse Ox 97.3 F L 92 18 121/65 97 10/18/16 07:02 10/18/16 10:57 10/18/16 07:02 10/18/16 10:57 10/18/16 08:40 General appearance: Present: cooperative, A&O X 3, answers questions appropriately - Head Head exam: Present: atraumatic, normocephalic - Eye Eye exam: Present: PERRL, conjuntiva pink, sclera anicteric Pupils: Present: PERRL - Neck Neck exam general surgery: Present: supple, trachea midline. Absent: lymphadenopathy - Respiratory Respiratory exam: Present: CTAB. Absent: accessory muscle use, rales, rhonchi, wheezes - Cardiovascular Cardiovascular exam: Present: RRR, +S1, +S2. Absent: diastolic murmur, gallop, rubs, systolic murmur - GI/Abdominal GI/Abdominal exam: Present: normal bowel sounds, soft, no peritoneal signs. Absent: distended, tenderness - Extremities Exam Extremities exam: Present: warm, radial pulses palpable and symetrical. Absent : calf tenderness, cyanotic, pedal edema - Neurological Exam Neurological exam: Present: CN II-XII intact, oriented X3, no focal deficits. Absent: pronater drift, facial droop, speech deficit - Skin Skin exam: Present: dry, intact
[2016-10-18] MEDS: Furosemide 40 MG TABLET PO SCH (14:49)
[2016-10-19 03:41] LABS: Basophils # 0.1 K/mcL (0.0-0.2); Basophils % 0.4 %; Eosinophils # 0.6 K/mcL (0.0-0.6); Eosinophils % 4.2 %; Hematocrit 41.4 % (35.3-44.9); Hemoglobin 13.4 g/dL (11.5-15.4); Lymphocytes # 1.9 K/mcL (0.6-4.6); Lymphocytes % 14.2 %; Mean Corpuscular HGB Conc 32.4 g/dL (31.6-35.5); Mean Corpuscular Hemoglobin 27.6 pg (28.0-33.3); Mean Corpuscular Volume 85.4 fL (83.0-100.0); Mean Platelet Volume 10.2 fL (9.4-12.4); Monocytes # 0.7 K/mcL (0.0-1.3); Monocytes % 5.1 %; Neutrophils # 10.1 K/mcL (1.6-8.9); Platelet Count 279 K/mcL (140-400); Red Blood Count 4.85 M/mcL (3.82-4.97); Red Cell Distribution Width 14.6 % (11.5-14.5); Segmented Neutrophils % 75.1 %
[2016-10-19 04:02] LABS: Albumin 3.1 g/dL (3.5-5.0); Albumin/Globulin Ratio 0.9 (1.1-2.2); Bilirubin,Total 0.4 mg/dL (0.2-1.2); Globulin 3.4 g/dL (2.4-3.5); Potassium 3.3 mEq/L (3.5-4.5); Total Protein 6.5 g/dL (6.0-8.3)
[2016-10-19] MEDS: Piperacillin/Tazobactam 3.375 GM in D5% in Water (Mini-Bag+) 100 ML IVPB SCH ×2 (04:58→12:39)
[2016-10-19] MEDS: Aspirin Enteric Coated 81 MG Tablet PO SCH (09:24)
[2016-10-19] MEDS: *HR* Rivaroxaban 10 MG TABLET PO SCH (09:24)
[2016-10-19] MEDS: Furosemide 40 MG TABLET PO SCH (09:24)
[2016-10-19] MEDS: *HR* Digoxin 0.125 MG TABLET PO SCH (09:24)
[2016-10-19] MEDS: Metoprolol XL (24 HR) Succ 50 MG TAB.ER.24H PO SCH ×2 (09:25→17:05)
[2016-10-19] MEDS: Gabapentin 300 MG CAPSULE PO SCH ×2 (09:25→17:05)
[2016-10-19] MEDS: Insulin LISPRO 300 UNITS/3 ML VIAL SQ SCH ×3 (09:26→17:05)
[2016-10-19 12:52] VITALS: BP 128/82
--- NOTE | 2016-10-19 14:26 | Internal Med Progress Note ---
Date of Encounter: 10/19/16 Time of Encounter: 14:25 - Assessment and plan (1) Diabetes mellitus Current Visit: Yes Status: Chronic Qualifiers: Diabetes mellitus type: type 2 Diabetes mellitus complication status: with unspecified complications Diabetes mellitus nursing home insulin use: without intermediate frame tender use Qualified Code(s): E11.8 - Type 2 diabetes mellitus with unspecified complications (2) DVT prophylaxis Current Visit: Yes Status: Acute (3) Atrial fibrillation Current Visit: Yes Status: Chronic Qualifiers: Atrial fibrillation type: chronic Qualified Code(s): I48.2 - Chronic atrial fibrillation (4) YURIDIA (acute kidney injury) Current Visit: Yes Status: Acute (5) CHF (congestive heart failure) Current Visit: No Status: Chronic Qualifiers: Congestive heart failure type: diastolic Congestive heart failure chronicity: chronic Qualified Code(s): I50.32 - Chronic diastolic (congestive ) heart failure (6) Pneumonia Current Visit: Yes Status: Acute Qualifiers: Pneumonia type: aspiration pneumonia Aspiration pneumonia type: unspecified Laterality: bilateral Lung location: lower lobe of lung Qualified Code(s): J69.0 - Pneumonitis due to inhalation of food and vomit - Subjective Interval history: Mrs. Kailyn Maldonado a 76-year-old female She presented with shortness of atrial fibrillation with RVR, CHF, acute kidney injury, and diabetes. She has prior history of coronary pacemaker. Her left ventricular ejection fraction on echocardiogram in February 2016 shown as normal EF. Cardiology was consulted and a New echocardiogram was ordered by admitting M.D. pending. There was concern for low TSH but T4 is normal and free T3 is actually on the lower side. On chest examination bilateral lateral lower rhonchi noted and chest x-ray shows bilateral lower lobes atelectasis. IV Zosyn added. She is on anticoagulation for her atrial fibrillation. Labs and medications reviewed. on IV Zosyn for possible bilateral aspiration pneumonia with elevated white count and chest x-ray findings. Repeat CBC. A. fib RVR/CHF corrected and at this point patient is rate controlled on anticoagulation and appears compensated. Echocardiogram showed ejection fraction 50%. Echo also showed diastolic dysfunction. Acute kidney injury was perhaps related to dehydration and corrected. Diabetes is well controlled now. Breathing well no complaints okay to DC today. More than 35 minutes is spent in discharge. - Constitutional Vitals: Temp Pulse Resp BP Pulse Ox 97.5 F L 90 15 128/82 97 10/19/16 06:51 10/19/16 12:47 10/19/16 06:51 10/19/16 12:47 10/19/16 09:30 General appearance: Present: cooperative, A&O X 3, answers questions appropriately - Head Head exam: Present: atraumatic, normocephalic - Eye Eye exam: Present: PERRL, conjuntiva pink, sclera anicteric Pupils: Present: PERRL - Neck Neck exam general surgery: Present: supple, trachea midline. Absent: lymphadenopathy - Respiratory Respiratory exam: Present: CTAB. Absent: accessory muscle use, rales, rhonchi, wheezes - Cardiovascular Cardiovascular exam: Present: RRR, +S1, +S2. Absent: diastolic murmur, gallop, rubs, systolic murmur - GI/Abdominal GI/Abdominal exam: Present: normal bowel sounds, soft, no peritoneal signs. Absent: distended, tenderness - Extremities Exam Extremities exam: Present: warm, radial pulses palpable and symetrical. Absent : calf tenderness, cyanotic, pedal edema - Neurological Exam Neurological exam: Present: CN II-XII intact, oriented X3, no focal deficits. Absent: pronater drift, facial droop, speech deficit - Skin Skin exam: Present: dry, intact Internal Medicine: Result - Labs CBC & Chem 7: 10/19/16 02:47 10/19/16 02:47 Labs: Short CBC 10/19/16 Range/Units 02:47 WBC 13.5 H (4.3-11.1) K/mcL Hgb 13.4 (11.5-15.4) g/dL Hct 41.4 (35.3-44.9) % Plt Count 279 (140-400) K/mcL Neutrophils # 10.1 H (1.6-8.9) K/mcL BMP 10/19/16 02:47 Sodium 139 Potassium 3.3 L Chloride 98 Carbon Dioxide 29 BUN 29 H Creatinine 1.19 H Glucose 161 H Calcium 9.0 Liver Function 10/19/16 Range/Units 02:47 Total Bilirubin 0.4 (0.2-1.2) mg/dL AST 22 (5-34) Units/L ALT 29 (0-55) Units/L Alkaline Phosphatase 128 H (38-126) Units/L Albumin 3.1 L (3.5-5.0) g/dL Consult Discharge Plan - Plan Referrals: Charissa Bartholomew MD [Primary Care Provider] - 10/23/16 4:45 pm Prescriptions: Amoxicillin/Clavulanate [Augmentin] 875 mg PO BIDWM #20 tab
== END 2016-10-19 18:50 | disposition home or self-care (01) | DRG 308 ==
LOC: EMEROO 18:46 → 3BNU 18:46 → 2NENU 22:49
PROVIDERS: ADMIT Family Medicine; ATTEND Registered Nurse

== ENCOUNTER 2017-05-07 10:24 | Inpatient (IN) ==
[~2017-05-07 10:24] MED LIST: ceFAZolin 1,000 MG, Sodium Chloride IRRigation 1,000 ML IR ONE
[2017-05-07] MEDS ORDERED: *HR* Propofol 200 MG/20 ML VIAL IVP ONE (10:39)
[2017-05-07] MEDS ORDERED: *HR* FentaNYL (PF) 100 MCG/2 ML VIAL ONE ×2 (10:39→13:03)
--- NOTE | 2017-05-07 11:09 | Anesthesia Evaluation PreOp ---
Date of Encounter: 05/07/17 Time of Encounter: 11:07 - Past History Planned Operation: left femoral artery revision Cardiac History: [place], CHF, HTN, Hyperlipidemia, Arrhythmia (a-fib), Cardiac Stent (2006), Pacemaker/ICD (pacer 2016), Other (CAD, PVD) Pulmonary History: Denies Any Significant HX DRAFTER CASTINGS History: CVA (no residual) Other Medical History: Diabetes Type II Anesthesia History: No Prior Anesthetic Complications, Past Anesthesia (left CEA , left fem-pop and revision, right leg vascular, pacer) Alcohol Use: none Drug use: none Medications and Allergies Cholecalciferol (Vitamin D3) [Vitamin D] 5,000 unit PO QAM 01/31/15 [History] Esomeprazole Magnesium [Nexium] 40 mg PO QAM 01/31/15 [History] Folic Acid 0.4 mg PO QAM 01/31/15 [History] Gabapentin [Neurontin] 600 mg PO TID 01/31/15 [History] Multivitamin with Minerals [Myvitalife] 1 each PO QAM 01/31/15 [History] Potassium Chloride [Klor-Con Sprinkle] 10 meq PO TID 01/31/15 [History] Digoxin [Lanoxin] 0.125 mg PO QAM 03/07/15 [History] Rosuvastatin [Crestor] 40 mg PO HS 03/06/16 [History] Furosemide [Lasix] 40 mg PO QAM #30 tablet 03/07/16 [Rx] Metoprolol XL (24 HR) Succ [Toprol Xl] 50 mg PO QPM 03/07/16 [History] Diclofenac Sodium [Voltaren] 1 appl TP TID PRN 08/16/16 [History] Dulaglutide [Trulicity] 0.75 mg SQ SA 08/16/16 [History] Latanoprost [Xalatan] 1 drop OP HS 08/16/16 [History] Loratadine [Claritin] 10 mg PO DAILY 08/16/16 [History] Losartan [Cozaar] 50 mg PO BID 08/16/16 [History] Metoprolol XL (24 HR) Succ [Toprol Xl] 100 mg PO QAM 08/16/16 [History] Rivaroxaban [Xarelto] 20 mg PO DAILY #0 08/24/16 [Rx] Aspirin Enteric Coated [Aspirin EC] 81 mg PO DAILY 10/16/16 [History] Flaxseed Oil [[place]-3 Flaxseed Oil] 1,000 mg PO DAILY 10/16/16 [History] 3 Allergy/AdvReac Type Severity Reaction Status Date / Time Amoxicillin [From Augmentin] Allergy Swelling Verified 05/01/17 08:51 of Lip/Tongue/Throat clavulanic acid Allergy Swelling Verified 05/01/17 08:51 [From Augmentin] of Lip/Tongue/Throat codeine AdvReac Shakiness Verified 10/16/16 19:12 morphine AdvReac Palpitation Verified 10/16/16 19:12 s Band-Aid Allergy Rash Uncoded 10/16/16 19:12 - Meds/Allergy Pre-op Review Medications Reviewed: Yes Allergies Reviewed: Yes Beta Blockers on Current Med List: Yes If Beta Blockers taken, Date/Time (Last Dose taken): today 0715hrs Anesthesia Results - Imaging EKG: report reviewed (paced) Additional studies: echo 2017: Impressions: LVEF 50%. Mild concentric left ventricular hypertrophy. Indeterminate diastolic function. RV is normal in size with mild reduction in function. Mild-moderate mitral regurgitation. Mild tricuspid regurgitation. No pulmonary hypertension. Pacer note: Indications: Description tachy bryson syndrome Impressions: * Successful implant of single chamber pacemaker generator. Degree of difficulty was moderate. Appropriate functionality was observed at the end of the case. Procedure completed without incident. Anesthesia Exam Selected Entries 05/07/17 10:51 Temperature 97.8 F Pulse Rate 77 Respiratory Rate 18 Blood Pressure 137/77 O2 Sat by Pulse Oximetry 97 Weight: 79kg NPO (# of Hours): 8 - HEENT Pupil (Motor): EOMI Mallampati: II Teeth: Normal, Missing Oral Opening: Greater than 3 - DRAFTER CASTINGS LOC: Oriented DRAFTER CASTINGS Motor: Normal RUE, Normal LUE, Normal RLE, Normal LLE, Normal Face DRAFTER CASTINGS Sensory: Normal: RUE, LUE, RLE, LLE, Face - Cardiac Rhythm: Irregular Murmur: None JVD: No - Pulmonary Breath Sounds: bilateral Clear Respiratory Effort: Symmetrical Anesthesia Assess/Plan ASA Score: 3 Modified [place] Scale for Level of Consciousness: Cooperative, oriented, and tranquil Anesthetic Plan: General Monitoring Plan: Standard Monitors, A-Line Recovery Plan: PACU (agrees to GA and a-line)
[2017-05-07] MEDS ORDERED: CeFAZolin Syr 2,000MG/20 ML 2,000 MG/20 ML SYRINGE IVPB ONE (11:22)
[2017-05-07] MEDS ORDERED: *HR* Midazolam HCl 2 MG/2 ML VIAL ONE (11:27)
[2017-05-07] MEDS ORDERED: Lidocaine -MPF 2% 2 ML VIAL ONE (11:28)
[2017-05-07] MEDS ORDERED: Heparin 1,000 UNITS/500 mL 1,000 ML ONE (11:29)
[2017-05-07] MEDS ORDERED: Ringers Solution, Lactated 1,000 ML IVC SCH (11:30)
--- NOTE | 2017-05-07 11:30 | History & Physical Report ---
Date of Encounter: 05/07/17 Time of Encounter: 11:29 24 Hour HP Update - Instructions Instructions: If the History and Physical is less than 30 days old and was completed prior to A.M. admission and or procedure and has NOT been updated on calendar day of procedure please complete this update prior to performing procedure. - Update Patient reports changes in Medical Condition: No Changes in examination, assessment, or condition: No Changes in Medication: No Preop tests/diagnostics Reviewed: Yes Surgery Remains Indicated: Yes Consent for Planned Operative Procedure(s) Verified: Yes - Pre-Operative Checklist Preoperative Checklist Indicated: Yes Prophylactic Antibiotic Ordered: Yes Home Medications Include Beta Lesly: Yes Beta Lesly Taken Today (Day of Surgery): Yes Beta Lesly Taken Yesterday (Day Prior to Surgery): Yes Is VTE Prophylaxis Indicated?: Yes
[2017-05-07] MEDS ORDERED: Heparin 1,000 UNITS/500 mL 500 ML ONE (11:32)
[2017-05-07] MEDS ORDERED: *HR* Metoprolol 5 MG/5 ML VIAL IVP PRN (12:49)
[2017-05-07] MEDS ORDERED: Acetaminophen IV 1,000 MG/100 ML INFUS..BTL IVPB ONE (12:49)
[2017-05-07] MEDS ORDERED: Ondansetron 4 MG/2 ML VIAL IVP ONE (12:49)
[2017-05-07] MEDS ORDERED: *HR* OxyCODONE Immed Rel 5 MG TABLET PO PRN ×2 (12:49→19:27)
[2017-05-07] MEDS ORDERED: Dexamethasone 4 MG/ML VIAL ONE (13:10)
[2017-05-07] MEDS ORDERED: Ondansetron 4 MG/2 ML VIAL ONE (13:10)
[2017-05-07] MEDS ORDERED: *HR* Heparin 5,000 UNIT/ML VIAL ONE ×2 (13:55→14:57)
--- NOTE | 2017-05-07 15:59 | Operative Note ---
Date of procedure: 05/07/17 Pre-op diagnosis: PAD/claudication Post-op diagnosis: same Procedure: left iliofemoral endarterectomy with bovine pericardial patch angioplasty Complications: 0 Anesthesia: GETA Surgeon: Memo Diamond Was there an server service assistant present: No Estimated blood loss (cc): 225 Specimen: 0 Condition: stable Disposition: PACU Procedure in Detail: History Kailyn Crane is a 77-year-old white female with multiple and long-term bilateral lower extremity vascular problems. She has had multiple interventions including stent angioplasty and bypass surgery and revisions and thrombectomies. She presents now with significant pain in the left lower extremity and a dropping ankle-brachial index and dropping velocities on noninvasive testing. Angiography revealed a critical stenosis in the proximal common femoral stenosis that could not be addressed endovascularly. The patient now comes today to relieve this critical stenosis and enhance her left lower extremity circulation. Procedure After informed consent was obtained the patient was taken to the operating room. General endotracheal anesthesia was established. The left lower extremity groin and abdomen were then sterilely prepped and draped. A timeout protocol was observed. An incision was made in the left groin through the previous groin incision. Dissection was carried down into a very densely scarred groin. A very meticulous and difficult dissection was then undertaken to reveal the synthetic graft in the pala vessels. After this was accomplished the dissection was then made into the distal aspect of the external iliac artery below and proximal to the inguinal ligament. After this was satisfactorily exposed heparin was administered in a dose of 5000 units. After 3 minute delay the vessels were clamped. A longitudinal arteriotomy was then made on the distal external iliac artery and continuing down through the length of the common femoral and onto the andersen of the femoral-popliteal bypass graft. Evaluation of this tissue revealed dramatic findings of atherosclerotic stenosis corresponding to the angiographic findings. There was fresh thrombus identified in the andersen of the bypass graft. A very long endarterectomy was then made using a septal dissector. The plaque was heterogeneous but primarily calcific atherosclerotic plaque. After the plaque was removed and the clot removed from the andersen of the graft intimal hyperplasia was identified over the area of the orifice of the profunda and the andersen of the bypass graft. This was endarterectomized for as well. The area was then copiously irrigated with heparinized saline. The bed of the vessels inspected for any residual debris. A long bovine pericardial patch angioplasty was then performed. This was sewn in position using 2 6-0 Prolene sutures. Leaving a small space open on the suture line the vessels were flushed. Then retrograde flow was established. The graft was then compressed and the proximal vessel was released. Then finally the graft was opened. Pulsatile flow was restored into the calf. Hemostasis was achieved. Marcaine was infiltrated into the wound edges. The wound was irrigated with antibiotic-containing solution. The wound was then closed in layers using nonabsorbable suture. A dry sterile dressing was applied. The patient was expanded in the operating room. She was taken to the recovery room in stable condition. Cell Saver was used during this procedure with 350 mL's obtained and 125 returned to the patient. Biphasic to triphasic Doppler signals were identified over the posterior tibial and dorsalis pedis arteries at the level of the ankle.
[2017-05-07] MEDS ORDERED: *HR* HYDROcodone/Acet 5/325 mg TABLET PO PRN (19:27)
[2017-05-07] MEDS ORDERED: Acetaminophen 325 MG TABLET PO PRN (19:27)
[2017-05-07] MEDS ORDERED: Metoprolol XL (24 HR) Succ 50 MG TAB.ER.24H PO SCH (19:27)
[2017-05-07] MEDS ORDERED: traMADol 50 MG TABLET PO PRN (19:27)
[2017-05-07] MEDS ORDERED: Naloxone 0.4 MG/ML INJ IVP PRN (19:27)
[2017-05-07] MEDS ORDERED: Ondansetron 4 MG/2 ML VIAL IVP PRN (19:27)
[2017-05-07] MEDS ORDERED: Latanoprost 2.5 ML BOTTLE BOTH EYES SCH (21:00)
[2017-05-07] MEDS: Gabapentin 300 MG CAPSULE PO SCH (22:40)
[2017-05-08] MEDS: CeFAZolin Premix DUPLEX 2,000 MG/50 ML BAG IVPB SCH ×3 (00:30→16:21)
[2017-05-08 05:26] LABS: Basophils % 0.2 %; Eosinophils % 0.1 %; Hematocrit 34.7 % (35.3-44.9); Immature Granulocytes % 0.5 % (0-4); Lymphocytes # 0.9 K/mcL (0.6-4.6); Lymphocytes % 9.2 %; Mean Corpuscular HGB Conc 31.7 g/dL (31.6-35.5); Mean Corpuscular Hemoglobin 27.6 pg (28.0-33.3); Mean Platelet Volume 10.7 fL (9.4-12.4); Monocytes # 0.5 K/mcL (0.0-1.3); Monocytes % 4.6 %; Neutrophils # 8.5 K/mcL (1.6-8.9); Platelet Count 244 K/mcL (140-400); Red Blood Count 3.99 M/mcL (3.82-4.97); Red Cell Distribution Width 14.2 % (11.5-14.5); Segmented Neutrophils % 85.4 %
[2017-05-08 05:42] LABS: BUN/Creatinine Ratio 17 (6-26); Blood Urea Nitrogen 16 mg/dL (8-23); Calcium 9.2 mg/dL (8.6-10.3); Carbon Dioxide 25 mEq/L (23-29); Chloride 104 mEq/L (98-107); Glucose 199 mg/dL (70-105); Osmolality,Calculated 291 (280-300); Potassium 4.7 mEq/L (3.5-5.1); Sodium 137 mEq/L (136-145); eGFR For African Americans > 60 (> 60); eGFR For Non-African Americans 60 (> 60)
[2017-05-08] MEDS: Gabapentin 300 MG CAPSULE PO SCH ×2 (08:57→16:21)
[2017-05-08] MEDS ORDERED: *HR* Digoxin 0.125 MG TABLET PO SCH (09:00)
[2017-05-08] MEDS ORDERED: Folic Acid 1 MG TABLET PO SCH (09:00)
[2017-05-08] MEDS ORDERED: Cholecalciferol (D-3) 1,000 UNIT TABLET PO SCH (09:00)
[2017-05-08] MEDS ORDERED: Loratadine 10 MG TABLET PO SCH (09:00)
[2017-05-08] MEDS ORDERED: Metoprolol XL (24 HR) Succ 50 MG TAB.ER.24H PO SCH (09:00)
[2017-05-08] MEDS ORDERED: Aspirin Enteric Coated 81 MG Tablet PO SCH (09:00)
[2017-05-08] MEDS ORDERED: Multivit/Ca/Min/Fe/FA 1 TAB TABLET PO SCH (09:00)
[2017-05-08] MEDS ORDERED: (Flaxseed Oil [Omega-3 Flaxseed Oil] 1,000 MG) PO SCH (09:00)
[2017-05-08] MEDS ORDERED: Furosemide 40 MG TABLET PO SCH (09:00)
[2017-05-08 16:30] VITALS: BP 139/90
--- NOTE | 2017-05-08 16:48 | Discharge Summary ---
Date of Encounter: 05/08/17 Time of Encounter: 16:45 - Discharge Diagnosis (1) Diabetes mellitus Priority: Secondary Status: Chronic Comments: Patient is under medical management for diabetes. Qualifiers: Diabetes mellitus type: type 2 Diabetes mellitus complication status: with circulatory complication Diabetes mellitus complication detail: with peripheral angiopathy without gangrene Diabetes mellitus usp insulin use : without superintendent [employer] use Qualified Code(s): E11.51 - Type 2 diabetes mellitus with diabetic peripheral angiopathy without gangrene (2) Afib Priority: Secondary Status: Chronic Comments: Patient has chronic atrial fibrillation with episodes of nonsustained V. tach. The patient is under medical management. Qualifiers: Atrial fibrillation type: unspecified Qualified Code(s): I48.91 - Unspecified atrial fibrillation (3) PVD (peripheral vascular disease) Priority: Primary Status: Chronic Comments: Patient developed recurrent left lower extremity symptoms. She has a known history of lower extremity vascular occlusive disease dating back many years. She is status post a left femoral-popliteal bypass graft and left femoral endarterectomy. Noninvasive testing and angiography revealed a high-grade lesion of the left common femoral artery. - Discharge Medications Home Medications: Cholecalciferol (Vitamin D3) [Vitamin D] 5,000 unit PO QAM 01/31/15 [History] Esomeprazole Magnesium [Nexium] 40 mg PO QAM 01/31/15 [History] Folic Acid 0.4 mg PO QAM 01/31/15 [History] Gabapentin [Neurontin] 600 mg PO TID 01/31/15 [History] Multivitamin with Minerals [Myvitalife] 1 each PO QAM 01/31/15 [History] Potassium Chloride [Klor-Con Sprinkle] 10 meq PO TID 01/31/15 [History] Digoxin [Lanoxin] 0.125 mg PO QAM 03/07/15 [History] Rosuvastatin [Crestor] 40 mg PO HS 03/06/16 [History] Metoprolol XL (24 HR) Succ [Toprol Xl] 50 mg PO QPM 03/07/16 [History] Dulaglutide [Trulicity] 0.75 mg SQ SA 08/16/16 [History] Latanoprost [Xalatan] 1 drop OP HS 08/16/16 [History] Loratadine [Claritin] 10 mg PO DAILY 08/16/16 [History] Losartan [Cozaar] 50 mg PO BID 08/16/16 [History] Metoprolol XL (24 HR) Succ [Toprol Xl] 100 mg PO QAM 08/16/16 [History] Rivaroxaban [Xarelto] 20 mg PO DAILY #0 08/24/16 [Rx] Aspirin Enteric Coated [Aspirin EC] 81 mg PO DAILY 10/16/16 [History] Flaxseed Oil [[place]-3 Flaxseed Oil] 1,000 mg PO DAILY 10/16/16 [History] Furosemide [Lasix] 60 mg PO QAM 05/07/17 [History] Allergies/Adverse Reactions: 3 Allergy/AdvReac Type Severity Reaction Status Date / Time Amoxicillin [From Augmentin] Allergy Swelling Verified 05/01/17 08:51 of Lip/Tongue/Throat clavulanic acid Allergy Swelling Verified 05/01/17 08:51 [From Augmentin] of Lip/Tongue/Throat codeine AdvReac Shakiness Verified 10/16/16 19:12 morphine AdvReac Palpitation Verified 10/16/16 19:12 s Band-Aid Allergy Rash Uncoded 10/16/16 19:12 Orders not resulted at time of discharge: Pending orders 05/06/17 Red Blood Cells [BBK] Routine Date of admission: 05/07/17 17:40 Primary care physician: Charissa Bartholomew MD Consults: None Procedure(s) Performed: Left iliofemoral endarterectomy with bovine pericardial patch angioplasty Discharging clinician: Memo Diamond Anticipated date of discharge: 05/08/17 - Patient Status Disposition: Home, Self-Care Condition: Fair Functional capacity at discharge: independent ambulation Overall status at discharge: patient is progressing back to baseline - Discharge Instructions Follow Up With: Memo Diamond MD [Partnered Physician] - 05/29/17 11:45 am Charissa Bartholomew MD [Primary Care Provider] - 05/14/17 12:00 pm Additional Instructions: Keep left groin surgical incision dry for total of 5 days following surgery. Use incentive spirometer at home for 2 weeks and then discard. Recommend 10 times an hour while awake. Ambulate a minimum of 20 minutes twice a day. Patient may use stairs as necessary. Patient may walk inside or outside. No lifting greater than 10 pounds. Avoid squatting or bending. Elevate left lower extremity while in a seated position. Resume usual home medications including anticoagulation medicine this evening. - Diet and Activity Activity: increase activity as tolerated Diet: advance to your usual diet - Hospital Course Hospital course: Ms. Crane is a 77 year old female With recurrent left lower extremity occlusive disease and symptoms of claudication that is lifestyle limiting. Noninvasive studies revealed high- grade stenosis. This was followed by Bozena like scanning and then angiography. A critical stenosis was identified in the left common femoral artery. Attempts at endovascular repair were not feasible. The left femoral to below the knee popliteal artery bypass graft remains patent. The patient was taken to the operating room. Under general endotracheal anesthesia the left groin incision was reopened. Dissection was carried down to the femoral anastomotic area. The dissection was carried both distally and proximally. The artery was opened and a long endarterectomy beginning in the external iliac artery and continuing through the length of the common femoral artery up to and including the port of the bypass graft with that endarterectomized. There was significant intimal hyperplasia present in the graft and a very thick dense calcific plaque in the [place] band vessel at the common femoral and external iliac. These areas were widely endarterectomized and a bovine pericardial patch placed. The patient had an excellent hemodynamic response. Her left foot was warm and pink with jehovah's witness of a palpable dorsalis pedis pulse. The patient was able to ambulate without lower extremity claudication and on the afternoon of postoperative day #1. She was felt fit for discharge that day. Instructions were given in regards to diet and exercise and medications and wound care. The patient is to resume her anticoagulation medicine this evening. All questions were answered. - Time Spent with Patient Total time spent providing and/or coordinating discharge services: Exam Vital Signs, Last 4 Hours Temp Pulse Resp BP Pulse Ox 05/08/17 16:30 69 05/08/17 16:29 97.9 F 79 18 139/90 95 General: Present: Conversant, No Apparent Distress, Well developed, Well nourished HEENT: Present: Atraumatic Neck: Absent: JVD Cardiac: Present: Irregular Rhythm Neuro: Present: Alert and responsive, No focal deficits noted Abdomen: Present: Soft, Non-tender Vascular: Present: Normal capillary refill, Pulse, normal, Color/Temperature ( Normal color and temperature of the left foot), Surgical incisions (Left groin incision is clean and dry. There is no swelling or ecchymosis.). Absent: Edema - VTE Documentation of Mechanical Device: Intermittent pneumatic compression device
[2017-05-11] MEDS ORDERED: (Dulaglutide [Trulicity] 0.75 MG) SQ SCH (15:59)
== END 2017-05-08 18:40 | disposition home or self-care (01) | DRG 254 ==
LOC: SAMDAY 10:24 → 2NNU 17:40
PROVIDERS: ADMIT Surgery Vascular Surgery; ATTEND Surgery Vascular Surgery

== ENCOUNTER 2017-10-26 19:40 | Inpatient (IN) ==
[2017-10-26] MEDS ORDERED: Isovue-370 500 ML INFUS..BTL IV ONE (19:50)
--- NOTE | 2017-10-26 19:53 | Emergency Department Note ---
Disposition Clinical Impression: Headache, Weakness, Dizziness, Vertebral artery stenosis Disposition: Admitted As Inpatient Condition: Good General Adult HPI - General Stated complaint: Headache Time Seen by Provider: 10/26/17 19:46 - Related Data Home Medications Medication Instructions Recorded Confirmed Esomeprazole Magnesium [Nexium] 40 mg PO QAM 01/31/15 10/26/17 Folic Acid 0.4 mg PO QAM 01/31/15 10/26/17 Gabapentin [Neurontin] 600 mg PO TID 01/31/15 10/26/17 Multivitamin with Minerals 1 each PO QAM 01/31/15 10/26/17 [Myvitalife] Potassium Chloride [Klor-Con 10 meq PO TID 01/31/15 10/26/17 Sprinkle] Rosuvastatin [Crestor] 40 mg PO HS 03/06/16 10/26/17 Metoprolol XL (24 HR) Succ [Toprol 50 mg PO QPM 03/07/16 10/26/17 Xl] Dulaglutide [Trulicity] 0.75 mg SQ QWEEK 08/16/16 10/26/17 Loratadine [Claritin] 10 mg PO DAILY 08/16/16 10/26/17 Losartan [Cozaar] 50 mg PO BID 08/16/16 10/26/17 Metoprolol XL (24 HR) Succ [Toprol 100 mg PO QAM 08/16/16 10/26/17 Xl] Flaxseed Oil [[place]-3 Flaxseed Oil] 1,000 mg PO DAILY 10/16/16 10/26/17 Furosemide [Lasix] 60 mg PO QAM 05/07/17 10/26/17 Cholecalciferol (Vitamin D3) 1,000 unit PO DAILY 08/09/17 10/26/17 [Vitamin D3] Digoxin [Lanoxin] 0.125 mg PO DAILY 08/09/17 10/26/17 Fluticasone Propionate Nasal 50 mcg NS DAILY PRN 08/09/17 10/26/17 [Flonase] Magnesium Oxide [Magnesium] 400 mg PO BID 08/09/17 10/26/17 Previous Rx's Medication Instructions Recorded Rivaroxaban [Xarelto] 20 mg PO DAILY #0 08/24/16 Clopidogrel Bisulfate [Plavix] 75 mg PO DAILY #30 tablet 05/25/18 Allergies Allergy/AdvReac Type Severity Reaction Status Date / Time Amoxicillin [From Augmentin] Allergy Swelling Verified 05/01/17 08:51 of Lip/Tongue/Throat clavulanic acid Allergy Swelling Verified 05/01/17 08:51 [From Augmentin] of Lip/Tongue/Throat codeine AdvReac Shakiness Verified 10/16/16 19:12 morphine AdvReac Palpitation Verified 10/16/16 19:12 s Band-Aid Allergy Rash Uncoded 10/16/16 19:12 Past Medical History - Past Medical History Medical history: Reports: arthritis, atrial fibrillation, cardiomyopathy, CHF, coronary artery disease, CVA, diabetes, GERD, GI bleed, hyperlipidemia, hypertension, myocardial infarction, osteoporosis, peripheral artery disease, TIA, venous stasis, other Surgical history: Reports: angioplasty/stent, carotid endarterectomy, cholecystectomy, herniorrhaphy, hysterectomy, orthopedic, other, other, vascular surgery, LE bypass, LE vascular intervention Psychiatric history: Reports: no psych history - Social History Smoking Status: Never smoker Smokeless Tobacco Status: No Alcohol use: Reports: none Drug use: Reports: none Course Vital Signs Temperature 97.6 F 10/26/17 19:52 Pulse Rate 114 10/26/17 19:52 Respiratory Rate 18 10/26/17 19:52 Blood Pressure 203/83 10/26/17 19:52 O2 Sat by Pulse Oximetry 97 10/26/17 19:52 Temperature 97.8 F 10/27/17 04:00 Pulse Rate 64 10/27/17 04:00 Respiratory Rate 15 10/27/17 04:00 Blood Pressure 127/85 10/27/17 04:00 O2 Sat by Pulse Oximetry 97 10/27/17 04:00 Oxygen Delivery Oxygen Delivery Room Air Medical Decision Making - Lab Data Result diagrams: 10/27/17 04:17 10/27/17 04:17 Lab Results 10/26/17 10/26/17 10/26/17 Range/Units 19:48 19:52 19:52 WBC 9.2 (4.3-11.1) K/mcL RBC 4.90 (3.82-4.97) M/mcL Hgb 14.0 (11.5-15.4) g/dL Hct 43.0 (35.3-44.9) % MCV 87.8 (83.0-100.0) fL MCH 28.6 (28.0-33.3) pg MCHC 32.6 (31.6-35.5) g/dL RDW 14.2 (11.5-14.5) % Plt Count 279 (140-400) K/mcL MPV 10.1 (9.4-12.4) fL Immature Gran % 0.4 (0-4) % Seg Neutrophils % 67.0 % Lymphocytes % 20.2 % Monocytes % 7.0 % Eosinophils % 4.8 % Basophils % 0.6 % Neutrophils # 6.2 (1.6-8.9) K/mcL Lymphocytes # 1.9 (0.6-4.6) K/mcL Monocytes # 0.7 (0.0-1.3) K/mcL Eosinophils # 0.4 (0.0-0.6) K/mcL Basophils # 0.1 (0.0-0.2) K/mcL PT 14.6 H (9.4-12.1) Seconds INR 1.3 APTT 35.7 (26.0-36.0) Seconds Sodium (136-145) mEq/L Potassium (3.5-5.1) mEq/L Chloride (98-107) mEq/L Carbon Dioxide (23-29) mEq/L BUN (8-23) mg/dL Creatinine (0.60-1.20) mg/dL Est GFR ( Amer) (> 60) Est GFR (Non-Af Amer) (> 60) BUN/Creatinine Ratio (6-26) Glucose (70-105) mg/dL POC Glucose 155 H (70-99) mg/dL Calculated Osmolality (280-300) Calcium (8.6-10.3) mg/dL Troponin I (< 0.04) ng/mL 10/26/17 Range/Units 19:52 WBC (4.3-11.1) K/mcL RBC (3.82-4.97) M/mcL Hgb (11.5-15.4) g/dL Hct (35.3-44.9) % MCV (83.0-100.0) fL MCH (28.0-33.3) pg MCHC (31.6-35.5) g/dL RDW (11.5-14.5) % Plt Count (140-400) K/mcL MPV (9.4-12.4) fL Immature Gran % (0-4) % Seg Neutrophils % % Lymphocytes % % Monocytes % % Eosinophils % % Basophils % % Neutrophils # (1.6-8.9) K/mcL Lymphocytes # (0.6-4.6) K/mcL Monocytes # (0.0-1.3) K/mcL Eosinophils # (0.0-0.6) K/mcL Basophils # (0.0-0.2) K/mcL PT (9.4-12.1) Seconds INR APTT (26.0-36.0) Seconds Sodium 138 (136-145) mEq/L Potassium 3.8 (3.5-5.1) mEq/L Chloride 98 (98-107) mEq/L Carbon Dioxide 33 H (23-29) mEq/L BUN 14 (8-23) mg/dL Creatinine 1.02 (0.60-1.20) mg/dL Est GFR ( Amer) > 60 (> 60) Est GFR (Non-Af Amer) 53 L (> 60) BUN/Creatinine Ratio 14 (6-26) Glucose 161 H (70-105) mg/dL POC Glucose (70-99) mg/dL Calculated Osmolality 290 (280-300) Calcium 10.3 (8.6-10.3) mg/dL Troponin I < 0.03 (< 0.04) ng/mL Critical Care Time Critical Care Time: Yes Total Critical Care Time: 30 Attestation: The high probability of a clinically significant, sudden or life threatening deterioration of the [] system(s) required my full and direct attention, intervention and personal management. The aggregate critical care time was [] minutes. This time is in addition to time spent performing reported procedures but includes the following: [] Data Review and interpretation [] Patient assessment and monitoring of vital signs [] Documentation [] Medication orders and management Attestation Statement - Attestation Attestation: I examined this patient and my medical decision-making was reviewed with the Resident Physician. I agree with the documented findings, disposition and treatment plan as described except to the extent set forth below. [id number] time provided Patient develop neurologic symptoms starting around 16:00 today. 45 minutes prior to arrival the daughter called the patient and noticed that something was abnormal. The patient takes xarelto due to atrial fibrillation. She also has a history of previous CVA and peripheral vascular disease. She appears in no acute distress upon arrival. Stroke alert activated at 19:52 21:00: Case d/w animal control specialist telemedicine neurologist. Patient not a tPA candidate due to low NIH and improving symptoms
[2017-10-26 19:59] LABS: Basophils # 0.1 K/mcL (0.0-0.2); Basophils % 0.6 %; Eosinophils # 0.4 K/mcL (0.0-0.6); Eosinophils % 4.8 %; Immature Granulocytes % 0.4 % (0-4); Lymphocytes # 1.9 K/mcL (0.6-4.6); Lymphocytes % 20.2 %; Mean Corpuscular HGB Conc 32.6 g/dL (31.6-35.5); Mean Corpuscular Hemoglobin 28.6 pg (28.0-33.3); Mean Corpuscular Volume 87.8 fL (83.0-100.0); Mean Platelet Volume 10.1 fL (9.4-12.4); Monocytes # 0.7 K/mcL (0.0-1.3); Neutrophils # 6.2 K/mcL (1.6-8.9); Platelet Count 279 K/mcL (140-400); Red Cell Distribution Width 14.2 % (11.5-14.5)
[2017-10-26 20:05] LABS: INR 1.3; Prothrombin Time 14.6 Seconds (9.4-12.1)
--- NOTE | 2017-10-26 20:05 | Emergency Department Note ---
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 Last well-known 1600 roughly 4 hours prior to evaluation. Family member is in the room and confirms that time. Patient was sitting in getting ready to go to the bathroom when she had a sudden headache across her forehead throbbing in stabbing in nature. It continues to gradually worsen. No history of headaches. She also felt unsteady on her feet but did not fall or hit her head. The daughter states she was slow to speak. Denies slurring of the speech. No facial droop. She denies any other symptoms such as visual changes chest pain abdominal pain nausea or vomiting. Stroke alert was initiated on arrival 1951. Her initial NIH score is 0. She does state the symptoms have gradually improved. She does report the room is spinning. She does not have any weakness in her legs at this time. Onset of Symptoms Date: 10/26/17 Onset of Symptoms Time: 16:00 Symptom Onset Unknown: No Timing confirmed by: family member Location: speech, ataxia History of same: No Quality: weakness Symptoms Improving: Yes Improves with: time Context: sudden onset On Anticoagulants: Yes (Xarelto for AFIB) Associated symptoms: Reports: headaches, vertigo. Denies: chest pain, cough, diaphoresis, fever/chills, nausea/vomiting, shortness of breath, syncope - Related Data Home Medications: Home Medications Medication Instructions Recorded Confirmed Esomeprazole Magnesium [Nexium] 40 mg PO QAM 01/31/15 10/26/17 Folic Acid 0.4 mg PO QAM 01/31/15 10/26/17 Gabapentin [Neurontin] 600 mg PO TID 01/31/15 10/26/17 Multivitamin with Minerals 1 each PO QAM 01/31/15 10/26/17 [Myvitalife] Potassium Chloride [Klor-Con 10 meq PO TID 01/31/15 10/26/17 Sprinkle] Rosuvastatin [Crestor] 40 mg PO HS 03/06/16 10/26/17 Metoprolol XL (24 HR) Succ [Toprol 50 mg PO QPM 03/07/16 10/26/17 Xl] Dulaglutide [Trulicity] 0.75 mg SQ QWEEK 08/16/16 10/26/17 Loratadine [Claritin] 10 mg PO DAILY 08/16/16 10/26/17 Losartan [Cozaar] 50 mg PO BID 08/16/16 10/26/17 Metoprolol XL (24 HR) Succ [Toprol 100 mg PO QAM 08/16/16 10/26/17 Xl] Flaxseed Oil [[place]-3 Flaxseed Oil] 1,000 mg PO DAILY 10/16/16 10/26/17 Furosemide [Lasix] 60 mg PO QAM 05/07/17 10/26/17 Cholecalciferol (Vitamin D3) 1,000 unit PO DAILY 08/09/17 10/26/17 [Vitamin D3] Digoxin [Lanoxin] 0.125 mg PO DAILY 08/09/17 10/26/17 Fluticasone Propionate Nasal 50 mcg NS DAILY PRN 08/09/17 10/26/17 [Flonase] Magnesium Oxide [Magnesium] 400 mg PO BID 08/09/17 10/26/17 Previous Rx's Medication Instructions Recorded Rivaroxaban [Xarelto] 20 mg PO DAILY #0 08/24/16 Clopidogrel Bisulfate [Plavix] 75 mg PO DAILY #30 tablet 08/09/17 Allergies/Adverse Reactions: Allergies Allergy/AdvReac Type Severity Reaction Status Date / Time Amoxicillin [From Augmentin] Allergy Swelling Verified 05/01/17 08:51 of Lip/Tongue/Throat clavulanic acid Allergy Swelling Verified 05/01/17 08:51 [From Augmentin] of Lip/Tongue/Throat codeine AdvReac Shakiness Verified 10/16/16 19:12 morphine AdvReac Palpitation Verified 10/16/16 19:12 s Band-Aid Allergy Rash Uncoded 10/16/16 19:12 All systems ED: reviewed and negative except as stated. Review of Systems: As Per HPI Constitutional: Reports: weakness. Denies: fever, chills ENT ED: Denies: congestion Cardiovascular: Denies: chest pain Respiratory: Denies: dyspnea Gastrointestinal: Denies: abdominal pain, nausea, vomiting, hematemesis, melena , hematochezia Genitourinary: Denies: hematuria Musculoskeletal: Denies: back pain, neck pain Neurological: Reports: headache, weakness, abnormal gait, vertigo. Denies: numbness, paresthesias, confusion Past Medical History - Past Medical History Attestation: Yes The following information was validated with the patient. Source: patient Medical history: Reports: arthritis, atrial fibrillation, cardiomyopathy, CHF, coronary artery disease, CVA, diabetes, GERD, GI bleed, hyperlipidemia, hypertension, myocardial infarction, osteoporosis, peripheral artery disease, TIA, venous stasis, other Surgical history: Reports: angioplasty/stent, carotid endarterectomy, cholecystectomy, herniorrhaphy, hysterectomy, orthopedic, other, other, vascular surgery, LE bypass, LE vascular intervention Psychiatric history: Reports: no psych history - Social History Smoking Status: Never smoker Smokeless Tobacco Status: No Alcohol use: Reports: none Drug use: Reports: none Physical Exam - General Limitations: no limitations General appearance: alert, in no apparent distress, anxious - Head Head exam: atraumatic, normocephalic, normal inspection - Eye Eye exam: Present: normal appearance, PERRL, EOMI. Absent: nystagmus - ENT ENT exam: normal exam, normal oropharynx, mucous membranes moist - Neck Neck exam: Present: normal inspection, full ROM, trachea midline. Absent: tenderness, meningismus - Chest Chest inspection: Present: normal inspection, symmetric chest wall rise, other ( pacemaker). Absent: tenderness, rash - Respiratory Respiratory exam: Present: normal lung sounds bilaterally. Absent: respiratory distress, wheezes - Cardiovascular Cardiovascular exam: Present: irregular rhythm, normal heart sounds - Expanded Cardiovascular Exam Peripheral pulses: 2+: radial (R), radial (L) - Abdominal Exam Abdominal exam: Present: soft, Non-Tender, normal bowel sounds. Absent: tenderness, distention, guarding, rebound, rigidity - Extremities Exam Extremities exam: Present: normal inspection, full ROM, normal capillary refill. Absent: tenderness, pedal edema - Neurological Exam Neurological exam: Present: alert, oriented X3, CN II-XII intact - Expanded Neurological Exam Patient oriented to: Present: person, place, time Speech: Present: fluid speech Cranial nerves: EOM function (II, III, IV, ): Normal, facial sensation (V): Normal, facial palsy (VII): Normal, gag reflex (IX): Normal, spinal accessory function (XI): Normal, tongue deviation (XII): Normal Cerebellar function: finger to nose: Normal, heel to dudley: Normal Motor strength - LUE: 5/5 Motor strength - RUE: 5/5 Motor strength - LLE: 5/5 Motor strength - RLE: 5/5 Upper motor neuron exam: baltazar neglect: Absent bilaterally, pronator drift: Absent bilaterally Sensory exam upper extremity: light touch: Normal Sensory exam lower extremity: light touch: Normal Coma Scale Eye Opening: Spontaneous Coma Scale Motor Response: Obeys Commands Coma Scale Verbal Response: Oriented Coma Scale Total: 15 - Psychiatric Psychiatric exam: Present: normal affect, normal mood - Skin Skin exam: Present: warm, dry, intact, normal color Course Course Narrative: Stroke alert initiated at 1952. NIH score of 0. She is currently on Xarelto. She complains of a headache and some dizziness. No other symptoms. Stroke workup initiated with CT a of the neck and head. Not a tPA candidate given anticoagulation - Consultations Consultation #1: Spoke with [facility], no acute findings on CT/CTA. Given the acute nature of headache within 6 hours I believe this is a sensitive test and no further testing to evaluate for hemorrhagic stroke. Give n the headache and abnormal gait will plan for admission to further evaluate for CVA/TIA and possible MRI. Patient and family in agreement with this plan. Time: 20:42 Consultation #2: Spoke with [facility] Neurosurgeon, Dr. ALVAREZ, given the onset of the symptoms a gradual improvement with NIH score of 0 she does not believe there is any additional benefit of tPA. She agrees that the most sensitive test will be a MRI to further evaluate. No additional evaluation via telemedicine. Patient will be admitted for further evaluation. Time: 21:00 Consultation #3: Spoke with on-call hospitalist asiya Jha to admit for headache and CVA/TIA. No further orders at this time. Recommend MRI test Time: 21:07 Vital Signs Temperature 97.6 F 10/26/17 19:52 Pulse Rate 114 10/26/17 19:52 Respiratory Rate 18 10/26/17 19:52 Blood Pressure 203/83 10/26/17 19:52 O2 Sat by Pulse Oximetry 97 10/26/17 19:52 Temperature 97.6 F 10/26/17 19:52 Pulse Rate 104 10/26/17 20:52 Respiratory Rate 20 10/26/17 20:52 Blood Pressure 185/100 10/26/17 20:52 O2 Sat by Pulse Oximetry 97 10/26/17 19:52 Oxygen Delivery Oxygen Delivery Room Air Neuro Symptoms/Deficit - MDM Narrative Medical decision making narrative: Patient was discussed with my attending physician who agrees with ED management and final disposition. They independently evaluated the patient. Please refer to their attestation to this encounter for additional information. This note was generated by [employer] voice recognition software and as a result grammatical or spelling errors may occur using this program. - Medical Records Medical records reviewed: Yes I reviewed the patient's medical records. - Lab Data Lab results reviewed: Yes I reviewed the patient's lab results. Result diagrams: 10/26/17 19:52 10/26/17 19:52 Lab Results 10/26/17 10/26/17 10/26/17 Range/Units 19:52 19:52 19:52 WBC 9.2 (4.3-11.1) K/mcL RBC 4.90 (3.82-4.97) M/mcL Hgb 14.0 (11.5-15.4) g/dL Hct 43.0 (35.3-44.9) % MCV 87.8 (83.0-100.0) fL MCH 28.6 (28.0-33.3) pg MCHC 32.6 (31.6-35.5) g/dL RDW 14.2 (11.5-14.5) % Plt Count 279 (140-400) K/mcL MPV 10.1 (9.4-12.4) fL Immature Gran % 0.4 (0-4) % Seg Neutrophils % 67.0 % Lymphocytes % 20.2 % Monocytes % 7.0 % Eosinophils % 4.8 % Basophils % 0.6 % Neutrophils # 6.2 (1.6-8.9) K/mcL Lymphocytes # 1.9 (0.6-4.6) K/mcL Monocytes # 0.7 (0.0-1.3) K/mcL Eosinophils # 0.4 (0.0-0.6) K/mcL Basophils # 0.1 (0.0-0.2) K/mcL PT 14.6 H (9.4-12.1) Seconds INR 1.3 APTT 35.7 (26.0-36.0) Seconds Sodium 138 (136-145) mEq/L Potassium 3.8 (3.5-5.1) mEq/L Chloride 98 (98-107) mEq/L Carbon Dioxide 33 H (23-29) mEq/L BUN 14 (8-23) mg/dL Creatinine 1.02 (0.60-1.20) mg/dL Est GFR ( Amer) > 60 (> 60) Est GFR (Non-Af Amer) 53 L (> 60) BUN/Creatinine Ratio 14 (6-26) Glucose 161 H (70-105) mg/dL Calculated Osmolality 290 (280-300) Calcium 10.3 (8.6-10.3) mg/dL Troponin I < 0.03 (< 0.04) ng/mL - Radiology Data Radiology results reviewed: Yes I reviewed the patient's radiology results. Head CT 10/26/17 19:50 IMPRESSION: 1. No acute intracranial abnormality 2. Mild right frothy material within the right sphenoid sinus. Findings were discussed with Dr. Gary Prince of the [facility] emergency department at 8:42 pm on 10/26/2017. D/ / Chucho Paul MD / Chucho Paul MD Interpreting Provider: Chucho Paul MD Head CTA 10/26/17 19:50 IMPRESSION: 1. Right vertebral artery V4 segment occlusion. 2. Severe stenosis at the vertebrobasilar junction. 3. Moderate stenosis of the left vertebral artery V4 segment. 4. Patent anterior circulation D/ / Liang Antonio MD / Liang Antonio MD Interpreting Provider: Liang Antonio MD Neck CTA 10/26/17 19:51 IMPRESSION: 1. Right vertebral artery V4 segment occlusion. 2. Severe stenosis at the vertebrobasilar junction. 3. Moderate stenosis of the left vertebral artery V4 segment. 4. Patent anterior circulation D/ / Liang Antonio MD / Liang Antonio MD Interpreting Provider: Liang Antonio MD - EKG Data EKG attestation: Yes I reviewed and interpreted this EKG. EKG results narrative: EKG performed 2020 atrial fibrillation 83 beats per minute, no ST elevation or depression. No acute ischemic changes. NIH Stroke Scale - Level of Consciousness LOC: Alert - LOC Questions LOC Questions: Answers both correctly - LOC Commands LOC Commands: Performs both correctly - Best Gaze Best Gaze: Normal - Visual Visual: No visual loss - Facial Palsy Facial Palsy: Normal - Motor Arms Motor Arm-Left: No drift for 10 seconds Motor Arm-Right: No drift for 10 seconds - Motor Legs Motor Leg-Left: No drift for 5 seconds Motor Leg-Right: No drift for 5 seconds - Limb Ataxia Limb Ataxia: Absent of affected limb too weak to perform exam - Sensory Sensory: Normal - Best Language Best Language: No aphasia - Dysarthria Dysarthria: Normal - Extinction and Inattention Extinction and Inattention: Normal - NIHSS Total Score NIHSS Total Score: 0 TPA Checklist - Eligibilty for IV tPA 1. LKW equal to or less than 4.5 hours be before treatment: Yes 2. Clinical diagnosis of ischemic stroke causing deficit: Yes 3. Age 18 years or older: Yes - Contraindications 12. Known bleeding risk (including; not limited to 13-15): Yes 15. Current or recent use of anticoagualants (see protocol): Yes - LKW: 3-4.5 hrs Add. Warnings/Precautions Patient/family understanding: The patient/family members have been counseled and understood the risk, benefit , and alternatives of treatment.
[2017-10-26 20:08] LABS: Activated Partial Thrombo Time 35.7 Seconds (26.0-36.0)
[2017-10-26 20:18] LABS: Troponin I < 0.03 ng/mL (< 0.04)
[2017-10-26 20:19] LABS: BUN/Creatinine Ratio 14 (6-26); Blood Urea Nitrogen 14 mg/dL (8-23); Calcium 10.3 mg/dL (8.6-10.3); Carbon Dioxide 33 mEq/L (23-29); Chloride 98 mEq/L (98-107); Glucose 161 mg/dL (70-105); Osmolality,Calculated 290 (280-300); Potassium 3.8 mEq/L (3.5-5.1); Sodium 138 mEq/L (136-145); eGFR For Non-African Americans 53 (> 60)
[2017-10-26] MEDS ORDERED: Naloxone 0.4 MG/ML INJ IVP PRN (23:59)
[2017-10-26] MEDS ORDERED: Acetaminophen 325 MG TABLET PO PRN (23:59)
[2017-10-27] MEDS ORDERED: D5% in Water 1,000 ML IVC PRN (00:17)
[2017-10-27] MEDS ORDERED: *HR* Dextrose 50 % in Water (Syg) 50 ML SYRINGE IVP PRN (00:17)
[2017-10-27] MEDS ORDERED: Dextrose Gel 15 GM/37.5 ML TUBE PO PRN ×2 (00:17)
--- NOTE | 2017-10-27 00:17 | Internal Med History&Physical ---
Date of Encounter: 10/26/17 Time of Encounter: 23:20 Internal Medicine - H&P: HPI Chief complaint: TIA Admitted From: Home Plans for Post Hospital Care: Home History of present illness: Ms. Crane is a 77 year old female Patient presented to the emergency room for stroke like symptoms. She says earlier on the day of admission she got dizzy, and started having a headache, felt the room was spinning around her when she stood up and then when she stands up she felt like she was spinning instead. She called her daughter who noted that her speech was slower and she was having a hard time understanding. The daughter went to visit and noted that the patient was wobbly with walking as well. She was concerned so she brought her to the emergency room for further evaluation. Upon presentation to the ER stroke alert was called head CT and head CTA and neck CTA were ordered. Head CT showed no acute intracranial abnormalities but did note a frothy material in the right sphenoid sinus. The CTA head and neck showed a right vertebral artery PDA segment occlusion with severe stenosis at the vertebro-basilar junction. There is moderate stenosis of the left vertebral artery V4 segment but patent anterior circulation. Upon arrival to the ER patient's symptoms had resolved and she had an NIH score of 0. Patient's lab work is within normal limits and troponins were less than 0.03. She is admitted for further observation for possible TIA. Currently patient denies complaints, denies nausea, vomiting, diarrhea, chest pain, abdominal pain and vision changes. She states that she has a history of stroke back in 1997 that resulted in a left sided weakness that she still experiences to this day particularly when she is tired. She is currently not feeling dizzy, but does have frontal headache. Past Med Surg Social Fam HX - Past Medical History Medical history: arthritis, atrial fibrillation, cardiomyopathy, CHF, coronary artery disease, CVA, diabetes, GERD, GI bleed, hyperlipidemia, hypertension, myocardial infarction, osteoporosis, peripheral artery disease, TIA, venous stasis, other Additional medical history: Vascular insufficiency Psychiatric history: no psych history - Past Surgical History Surgical History: angioplasty/stent, carotid endarterectomy, cholecystectomy, herniorrhaphy, hysterectomy, orthopedic, other, other, vascular surgery, LE bypass, LE vascular intervention Additional surgical history: right shoulder. partial hysterectomy. bladder. left leg bypass. stent right leg - Social History Smoking Status: Never smoker Smokeless Tobacco Status: No Alcohol use: none Drug use: none - Family History Sister Living Status: Still Living Hx Family Cardiac Disorders: Yes Hx Family Cancer: Yes (LUNG CANCER.) Hx Family Endocrine Disorder: Yes Mother Living Status: Age at : 66 Hx Family Cardiac Disorders: Yes (htn, stroke) Internal Medicine - H&P: Meds Esomeprazole Magnesium [Nexium] 40 mg PO QAM 01/31/15 [History] Folic Acid 0.4 mg PO QAM 01/31/15 [History] Gabapentin [Neurontin] 600 mg PO TID 01/31/15 [History] Multivitamin with Minerals [Myvitalife] 1 each PO QAM 01/31/15 [History] Potassium Chloride [Klor-Con Sprinkle] 10 meq PO TID 01/31/15 [History] Rosuvastatin [Crestor] 40 mg PO HS 03/06/16 [History] Metoprolol XL (24 HR) Succ [Toprol Xl] 50 mg PO QPM 03/07/16 [History] Dulaglutide [Trulicity] 0.75 mg SQ QWEEK 08/16/16 [History] Loratadine [Claritin] 10 mg PO DAILY 08/16/16 [History] Losartan [Cozaar] 50 mg PO BID 08/16/16 [History] Metoprolol XL (24 HR) Succ [Toprol Xl] 100 mg PO QAM 08/16/16 [History] Rivaroxaban [Xarelto] 20 mg PO DAILY #0 08/24/16 [Rx] Flaxseed Oil [[place]-3 Flaxseed Oil] 1,000 mg PO DAILY 10/16/16 [History] Furosemide [Lasix] 60 mg PO QAM 05/07/17 [History] Cholecalciferol (Vitamin D3) [Vitamin D3] 1,000 unit PO DAILY 08/09/17 [History] Clopidogrel Bisulfate [Plavix] 75 mg PO DAILY #30 tablet 08/09/17 [Rx] Digoxin [Lanoxin] 0.125 mg PO DAILY 08/09/17 [History] Fluticasone Propionate Nasal [Flonase] 50 mcg NS DAILY PRN 08/09/17 [History] Magnesium Oxide [Magnesium] 400 mg PO BID 08/09/17 [History] 3 Allergy/AdvReac Type Severity Reaction Status Date / Time Amoxicillin [From Augmentin] Allergy Swelling Verified 05/01/17 08:51 of Lip/Tongue/Throat clavulanic acid Allergy Swelling Verified 05/01/17 08:51 [From Augmentin] of Lip/Tongue/Throat codeine AdvReac Shakiness Verified 10/16/16 19:12 morphine AdvReac Palpitation Verified 10/16/16 19:12 s Band-Aid Allergy Rash Uncoded 10/16/16 19:12 All Systems PM: A 10-system review of systems was performed and is negative for pertinent findings except as documented above in the HPI. - Constitutional Vitals: Temp Pulse Resp BP Pulse Ox 98.4 F 80 15 186/77 94 10/26/17 22:35 10/26/17 22:35 10/26/17 22:35 10/26/17 22:35 10/26/17 22:37 General appearance: Present: cooperative, A&O X 3, pleasant, no acute distress, answers questions appropriately - Head Head exam: Present: normal inspection - Eye Eye exam: Present: EOMI, normal appearance - Neck Neck exam general surgery: Present: full ROM. Absent: tenderness - Respiratory Respiratory exam: Present: CTAB. Absent: chest wall tenderness, decreased breath sounds, respiratory distress, wheezes - Cardiovascular Cardiovascular exam: Present: irregular rhythm. Absent: diastolic murmur, systolic murmur - GI/Abdominal GI/Abdominal exam: Present: normal bowel sounds, soft. Absent: tenderness - Extremities Exam Extremities exam: Present: warm, radial pulses palpable and symmetrical. Absent : calf tenderness, pedal edema, tenderness - Neurological Exam Neurological exam: Present: alert, oriented X3, no focal deficits, strengths equal and symetr throughout. Absent: motor sensory deficit, facial droop, speech deficit - Skin Skin exam: Present: normal color, warm Internal Med - H&P Results - Labs CBC & Chem 7: 10/26/17 19:52 10/26/17 19:52 - Assessment and plan (1) TIA (transient ischemic attack) Current Visit: Yes Status: Acute Assessment and plan: Patient symptoms have resolved at this point, patient was evaluated by [facility], who have reviewed her imaging including CT and CTA exams. Patient is not TPA candidate, the recommendation was to follow-up with an MRI morning. Patient does have a pacemaker so we will have to see if we are able to do this exam as she is not sure of her pacemaker is capable of being near an MRI machine. Continue to monitor for symptoms Follow-up in the morning with cardiology office to find out what type of pacemaker patient has to see if we can proceed with MRI Can consider PTOT evaluation though patient is back to baseline at this point (2) Vertebral artery occlusion Current Visit: Yes Status: Acute Assessment and plan: Patient's imaging did show a V4 occlusion, and this was apparently reviewed by [facility] according to the ER physician as all images were reviewed when they consulted the patient during the stroke alert. Patient has been on anticoagulation, unclear if this is new or old. Patient's symptoms have resolved and she is back to her baseline Continue to monitor MRI may show further findings related to this Qualifiers: Laterality: right Qualified Code(s): I65.01 - Occlusion and stenosis of right vertebral artery (3) Sinusitis Current Visit: Yes Status: Acute Assessment and plan: Patient's CT head did show a frothy material in the right sphenoid sinus, could potentially be an infection and source of patient's dizziness and headache. Patient's white count not elevated and she has not had much coughing or nasal discharge. Could be a chronic finding but unclear at this point. If patient's headache and dizziness do not fully resolve can consider treating with antibiotics. Qualifiers: Sinusitis location: sphenoidal Chronicity: unspecified Qualified Code(s) : J32.3 - Chronic sphenoidal sinusitis (4) Dizziness Current Visit: Yes Status: Acute Assessment and plan: Has resolved at this point, could be related to possible TIA, elevated blood pressure for possible sinusitis. Continue to monitor (5) HTN (hypertension) Current Visit: No Status: Chronic Assessment and plan: We will allow for permissive hypertension, and monitor her blood pressures. Patient does take blood pressure medicine at home which we will hold for now. Qualifiers: Hypertension type: essential hypertension Qualified Code(s): I10 - Essential (primary) hypertension (6) Tachy-bryson syndrome Current Visit: No Status: Acute Assessment and plan: Patient does have a pacemaker placed, may impede ability to get MRI. We will need to follow-up to find out what type of pacemaker the patient has before we can proceed. (7) Diabetes mellitus Current Visit: No Status: Chronic Assessment and plan: Patient is not insulin-dependent but she does take Trulicity. Hold Trulicity Monitor sugars with meals and at night Insulin low-dose sliding scale as needed Qualifiers: Diabetes mellitus type: type 2 Diabetes mellitus chcf insulin use: without chcf use Diabetes mellitus complication status: with circulatory complication Diabetes mellitus complication detail: with peripheral angiopathy without gangrene Qualified Code(s): E11.51 - Type 2 diabetes mellitus with diabetic peripheral angiopathy without gangrene (8) Headache Current Visit: Yes Status: Acute Assessment and plan: Could be secondary to hypertension or her TIA. She also has findings of possible sinusitis on her CT. Patient does not want to take heavy medicines and requested Tylenol for now Tylenol as needed Monitor for symptom improvement Qualifiers: Headache type: unspecified Headache chronicity pattern: acute headache Intractability: not intractable Qualified Code(s): R51 - Headache (9) DVT prophylaxis Current Visit: No Status: Acute Assessment and plan: Continue Xarelto - Time Spent With Patient Total time spent is greater than 50% in coordination of care (as documented) at patient's floor/unit and/or counseling patient: Greater than 35 minutes
[2017-10-27 04:52] LABS: Hemoglobin 12.9 g/dL (11.5-15.4); Mean Corpuscular HGB Conc 32.3 g/dL (31.6-35.5); Mean Corpuscular Hemoglobin 27.8 pg (28.0-33.3); Mean Corpuscular Volume 86.2 fL (83.0-100.0); Mean Platelet Volume 10.3 fL (9.4-12.4); Platelet Count 252 K/mcL (140-400); Red Blood Count 4.64 M/mcL (3.82-4.97); Red Cell Distribution Width 14.4 % (11.5-14.5)
[2017-10-27 05:04] LABS: BUN/Creatinine Ratio 14 (6-26); Blood Urea Nitrogen 13 mg/dL (8-23); Calcium 9.8 mg/dL (8.6-10.3); Carbon Dioxide 31 mEq/L (23-29); Chloride 98 mEq/L (98-107); Glucose 155 mg/dL (70-105); Osmolality,Calculated 291 (280-300); Potassium 3.5 mEq/L (3.5-5.1); Sodium 139 mEq/L (136-145); eGFR For Non-African Americans 60 (> 60)
[2017-10-27] MEDS: Furosemide 40 MG TABLET PO SCH (08:06)
[2017-10-27] MEDS: Metoprolol XL (24 HR) Succ 50 MG TAB.ER.24H PO SCH ×2 (08:06→18:07)
[2017-10-27] MEDS: Gabapentin 300 MG CAPSULE PO SCH ×3 (08:06→21:18)
[2017-10-27] MEDS: *HR* Rivaroxaban 10 MG TABLET PO SCH (08:06)
[2017-10-27] MEDS: *HR* Digoxin 0.125 MG TABLET PO SCH (08:08)
[2017-10-27] MEDS: Insulin LISPRO 300 UNITS/3 ML VIAL SQ SCH ×4 (08:12→21:18)
--- NOTE | 2017-10-27 09:45 | Internal Med Progress Note ---
<Indu Garcia - Last Filed: 10/27/17 10:54> Hospitalist Progress Note - Encounter Date of Encounter: 10/27/17 Time of Encounter: 09:32 - Subjective Interval History: 77 y/o female with history of sick sinus syndrome post pacemaker, HTN, DM complicated by neuropathy, PVD with stent and previous TIAs presented with vertigo, ataxia and headache. 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 Her vertigo has resolved and headache is improving. She was able to ambulate with assistance to bathroom with her baseline ataxia. At home she becomes "wobbly" when fatigued and must hold onto abarca - complicated by numbness in her feet. Her pacemaker was placed August 2016 - last interrogated with home test in July 2017- follows with Dr Herrera and scheduled for office interrogation next month. She can feel palpations when A. fib and believes pacemaker is working because it resolves. She has not missed any does of Plavix or Xarelto - except in ED last night. She lives at home alone with out services- daughter calls daily and neighbors check on her occasionally. She denies chest pain, shortness of breath, wheeze, cough, abdominal pain or constipation. Admits to one loose stool this am. - Exam Vitals: Temp Pulse Resp BP Pulse Ox 97.7 F 77 16 141/68 100 10/27/17 07:00 10/27/17 07:00 10/27/17 07:00 10/27/17 07:00 10/27/17 07:00 Exam: General: pleasant female, in no acute distress, A&Ox3 Heart: irregularly irregular, no mummurs Lungs: CTAB no wheeze or rales Abdomen : BSx4, no tenderness, no masses or organomegaly Extremities: pulses intact, no pedal edema. 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 - continue Plavix and Xarelto - PT/OT consulted - consulted Neurology and will see tomorrow - MRI brain planned tomorrow (2) Tachy-bryson syndrome Current Visit: No Status: Suspected Assessment and Plan: Pacemaker - continue Plavix and Xarelto - plan to consult cardiology on Saturday for possible interrogation of pacemaker (3) HTN (hypertension) Current Visit: No Status: Chronic Assessment and Plan: continue Metoprolol and Losartan (4) PVD (peripheral vascular disease) Current Visit: No Status: Chronic Assessment and Plan: history of stent and angiogram bilat lower extremities - continue Crestor (5) Diabetes mellitus Current Visit: No Status: Chronic Assessment and Plan: complicated by neuropathy - ISS and gabapentin (6) Atrial fibrillation Current Visit: No Status: Chronic Assessment and Plan: see tachy-bryson syndrome DVT Prophylaxis: Xarelto - Time Spent with Patient Total time spent is greater than 50% in coordination of care (as documented) at patient's floor/unit and/or counseling patient: Greater than 35 minutes Plan of Care Discussed with: patient Internal Medicine: Result - Labs CBC & Chem 7: 10/27/17 04:17 10/27/17 04:17 Labs: Short CBC 10/27/17 Range/Units 04:17 WBC 8.6 (4.3-11.1) K/mcL Hgb 12.9 (11.5-15.4) g/dL Hct 40.0 (35.3-44.9) % Plt Count 252 (140-400) K/mcL BMP 10/27/17 04:17 Sodium 139 Potassium 3.5 Chloride 98 Carbon Dioxide 31 H BUN 13 Creatinine 0.92 Glucose 155 H Calcium 9.8 - ABG Interpretation ABG results: PT/INR, D-dimer PT 14.6 Seconds (9.4-12.1) H 10/26/17 19:52 Consult Discharge Plan - Plan Referrals: Charissa Bartholomew MD [Primary Care Provider] - <Yaniv Plascencia - Last Filed: 10/27/17 15:03> Hospitalist Progress Note - Encounter Date of Encounter: 10/27/17 - Exam Vitals: Temp Pulse Resp BP Pulse Ox 97.6 F 57 16 143/70 99 10/27/17 11:35 10/27/17 11:35 10/27/17 11:35 10/27/17 11:35 10/27/17 11:35 - Time Spent with Patient Total time spent is greater than 50% in coordination of care (as documented) at patient's floor/unit and/or counseling patient: Internal Medicine: Result - Labs CBC & Chem 7: 10/27/17 04:17 10/27/17 04:17 Labs: Short CBC 10/27/17 Range/Units 04:17 WBC 8.6 (4.3-11.1) K/mcL Hgb 12.9 (11.5-15.4) g/dL Hct 40.0 (35.3-44.9) % Plt Count 252 (140-400) K/mcL BMP 10/27/17 04:17 Sodium 139 Potassium 3.5 Chloride 98 Carbon Dioxide 31 H BUN 13 Creatinine 0.92 Glucose 155 H Calcium 9.8 - ABG Interpretation ABG results: PT/INR, D-dimer PT 14.6 Seconds (9.4-12.1) H 10/26/17 19:52 - Attending Attestation I examined this patient and my medical decision-making was reviewed with the Resident Physician Dr. Garcia. I agree with the documented findings, disposition and treatment plan as described except to the extent set forth below. Ms. Crane is a 77 y/o F with known PMH of chronic atrial fibrillation on Xarelto for anti coag, cardiomyopathy, CHF, coronary artery disease, CVA, diabetes, GERD, GI bleed, hyperlipidemia, hypertension, myocardial infarction, peripheral artery disease and TIA, pt presented to ER with vertigo, dizzy, ataxia like symptoms. Denied any CP / SOB. her CT of Head showed no acute intracranial abnormalities. The CTA head and neck showed a right vertebral artery PDA segment occlusion with severe stenosis at the vertebro-basilar junction. Pt states she is feeling better now. Gen: A, A, O x 3 Chest: Diminished BS b/l, no crackles, no rales Heart: S1S2+ Afib Abd: Soft, NT, BS+ Neuro: complete benign exam a/p 1. Acute vertigo - possible posterior circulation CVA CTA showed Rt VA severe stenosis at PDA segment cont Plavix + Xarelto for now cont statin will get MRI of brain in AM , will talk to Card / Pacemaker tech about her pacemaker Will change her to full admission since she is high risk for acute CVA and need to stay in the hospital more than 2 nights. I reviewed my colleague Dr. Jacobo' s H & P, including HPI, PMH,PSH, SH, FH, ROS and no changes noticed <Indu Garcia M - Last Filed: 10/27/17 10:54> (3) HTN (hypertension) Qualifiers: Hypertension type: essential hypertension Qualified Code(s): I10 - Essential (primary) hypertension (5) Diabetes mellitus Qualifiers: Diabetes mellitus type: type 2 Diabetes mellitus intermediate accountant insulin use: without intermediate accountant use Diabetes mellitus complication status: with circulatory complication Diabetes mellitus complication detail: with peripheral angiopathy without gangrene Qualified Code(s): E11.51 - Type 2 diabetes mellitus with diabetic peripheral angiopathy without gangrene (6) Atrial fibrillation Qualifiers: Atrial fibrillation type: chronic Qualified Code(s): I48.2 - Chronic atrial fibrillation
[2017-10-28 03:56] LABS: Basophils # 0.1 K/mcL (0.0-0.2); Basophils % 0.9 %; Eosinophils # 0.4 K/mcL (0.0-0.6); Hematocrit 39.8 % (35.3-44.9); Immature Granulocytes % 0.4 % (0-4); Lymphocytes # 1.5 K/mcL (0.6-4.6); Lymphocytes % 21.9 %; Mean Corpuscular HGB Conc 32.7 g/dL (31.6-35.5); Mean Corpuscular Hemoglobin 28.4 pg (28.0-33.3); Mean Corpuscular Volume 86.9 fL (83.0-100.0); Mean Platelet Volume 10.3 fL (9.4-12.4); Monocytes # 0.5 K/mcL (0.0-1.3); Monocytes % 6.6 %; Neutrophils # 4.4 K/mcL (1.6-8.9); Platelet Count 240 K/mcL (140-400); Red Blood Count 4.58 M/mcL (3.82-4.97); Red Cell Distribution Width 14.1 % (11.5-14.5); Segmented Neutrophils % 64.2 %
[2017-10-28 04:13] LABS: BUN/Creatinine Ratio 18 (6-26); Blood Urea Nitrogen 15 mg/dL (8-23); Calcium 9.5 mg/dL (8.6-10.3); Carbon Dioxide 31 mEq/L (23-29); Chloride 100 mEq/L (98-107); Glucose 152 mg/dL (70-105); Osmolality,Calculated 290 (280-300); Potassium 3.4 mEq/L (3.5-5.1); Sodium 138 mEq/L (136-145); eGFR For Non-African Americans > 60 (> 60)
--- NOTE | 2017-10-28 09:01 | Neurology - Consult Note ---
Date of Encounter: 10/28/17 Time of Encounter: 08:15 Assessment and Plan (1) Dizziness Current Visit: Yes Status: Acute Her new onset dizziness that is positional in nature now is more likely BPPV than TIA/stroke. MRI brain to be done today and will await results. There was no evidence of an acute stroke on CT head or other focal neurological deficits. Stenosis at VBA junction shown on CTA could be an additional possible cause of her dizziness. She denied any past episodes or tinnitus and decreased hearing or fullness in her ears making meniere's disease unlikely. Recommend vestibular rehab as an outpatient and a 2 week course of meclizine for her dizziness symptoms pending MRI brain results. Code(s): R42 - Dizziness and giddiness SNOMED Code(s): 606489326, 770430781 History of Present Illness Chief complaint: Dizziness/ataxia, possible TIA HPI: Ms. Crane is a 77 year old female with a pm significant for afib, HTN, DM, HLD, UT s/p stent, PAD 2 months s/p angioplasty, and prior CVA in 2008 who neurology consulted for dizziness and ataxia. Sat afternoon she was experiencing a LYNCH she describes as stabbing type pain without referral in L frontal lobe and denied any eye pain, pressure, tearing, redness, photophobia, or rhinnorhea. Her LYNCH pain progressed and ~4pm she tried to stand up to go to the restroom and felt dizzy. She described it as the room was spinning and felt off balance when walking due to the spinning sensation. She does have some baseline ataxia 2/2 neuropathy. She denied being off balance only to one side, falling, tinnitus, feelings of ear fullness or change in hearing, muscle weakness, numbness/ paresthesias, chest pain, palpitations, feelings of impending syncope, or N/V. She was brought to the ED and upon arrival had a bp of 203/83 along with continued ataxia. CT head did not show any acute processes. CTA head/neck showed severe stenosis of vba. Her symptoms largely resolved but was admitted for possible stroke/tia. Today, she says her LYNCH is still present but very minor , her dizziness had previously resolved but this morning she became dizzy in same way when turning onto her R side when laying down. She denies any new neurological symptoms and her BP is currently 150/79. Past Med Surg Social Fam HX - Past Medical History Medical history: arthritis, atrial fibrillation, cardiomyopathy, CHF, coronary artery disease, CVA, diabetes, GERD, GI bleed, hyperlipidemia, hypertension, myocardial infarction, osteoporosis, peripheral artery disease, TIA, venous stasis, other Additional medical history: Vascular insufficiency Psychiatric history: no psych history - Past Surgical History Surgical History: angioplasty/stent, carotid endarterectomy, cholecystectomy, herniorrhaphy, hysterectomy, orthopedic, other, other, vascular surgery, LE bypass, LE vascular intervention Additional surgical history: right shoulder. partial hysterectomy. bladder. left leg bypass. stent right leg - Social History Smoking Status: Never smoker Smokeless Tobacco Status: No Alcohol use: none Drug use: none - Family History Sister Living Status: Still Living Hx Family Cardiac Disorders: Yes Hx Family Cancer: Yes (LUNG CANCER.) Hx Family Endocrine Disorder: Yes Mother Living Status: Age at : 66 Hx Family Cardiac Disorders: Yes (htn, stroke) Medications and Allergies Esomeprazole Magnesium [Nexium] 40 mg PO QAM 01/31/15 [History] Folic Acid 0.4 mg PO QAM 01/31/15 [History] Gabapentin [Neurontin] 600 mg PO TID 01/31/15 [History] Multivitamin with Minerals [Myvitalife] 1 each PO QAM 01/31/15 [History] Potassium Chloride [Klor-Con Sprinkle] 10 meq PO DAILY 01/31/15 [History] Rosuvastatin [Crestor] 40 mg PO HS 03/06/16 [History] Metoprolol XL (24 HR) Succ [Toprol Xl] 50 mg PO QPM 03/07/16 [History] Loratadine [Claritin] 10 mg PO DAILY 08/16/16 [History] Losartan [Cozaar] 50 mg PO BID 08/16/16 [History] Metoprolol XL (24 HR) Succ [Toprol Xl] 100 mg PO QAM 08/16/16 [History] Rivaroxaban [Xarelto] 20 mg PO DAILY #0 08/24/16 [Rx] Flaxseed Oil [Bunch-3 Flaxseed Oil] 1,000 mg PO DAILY 10/16/16 [History] Furosemide [Lasix] 60 mg PO QAM 05/07/17 [History] Cholecalciferol (Vitamin D3) [Vitamin D3] 1,000 unit PO DAILY 08/09/17 [History] Clopidogrel Bisulfate [Plavix] 75 mg PO DAILY #30 tablet 08/09/17 [Rx] Digoxin [Lanoxin] 0.125 mg PO DAILY 08/09/17 [History] Fluticasone Propionate Nasal [Flonase] 50 mcg NS DAILY PRN 08/09/17 [History] Magnesium Oxide [Magnesium] 400 mg PO BID 08/09/17 [History] Dulaglutide [Trulicity] 1.5 mg PO QWEEK 10/27/17 [History] Latanoprost [Xalatan] 1 drop BOTH EYES HS 10/27/17 [History] 3 Allergy/AdvReac Type Severity Reaction Status Date / Time Amoxicillin [From Augmentin] Allergy Swelling Verified 05/01/17 08:51 of Lip/Tongue/Throat clavulanic acid Allergy Swelling Verified 05/01/17 08:51 [From Augmentin] of Lip/Tongue/Throat codeine AdvReac Shakiness Verified 10/16/16 19:12 morphine AdvReac Palpitation Verified 10/16/16 19:12 s Band-Aid Allergy Rash Uncoded 10/16/16 19:12 All Systems: The remainder of the systems were reviewed and are negative Physical Examination - Vital Signs Vital Signs: Initial Vital Signs Temp Pulse Resp BP Pulse Ox 97.6 F 114 18 203/83 97 10/26/17 19:52 10/26/17 19:52 10/26/17 19:52 10/26/17 19:52 10/26/17 19:52 - Constitutional General appearance: comfortable - Neurologic Sensorimotor examination: intact Motor examination - right side: 5/5: deltoids, biceps, triceps, wrist flexion, wrist extension, med surg nurse, hip flexors, tibialis Anterior, quadriceps, toe extension (EHL), plantarflexion Motor examination - left side: 5/5: deltoids, biceps, triceps, wrist flexion, wrist extension, hip flexors, med surg nurse, quadriceps, tibialis Anterior, toe extension (EHL), plantarflexion Detailed sensory examination: light touch (intact), temperature (intact) Reflexes: Biceps: 2+, Triceps: 2+, Brachioradialis: 2+, Patella: 2+, Achilles: 2 + Mental Status Examination: awake, alert, oriented to person, oriented to place, oriented to time, follows commands appropriately, answers questions appropriately, no aphasia Cranial nerve examination: PERRL, EOMI, sensory to face intact, no facial asymmetry is present, no dysarthria, soft palate elevates bilaterally upon phonation, flexes SCM and trapezius muscles symmetrically with full power, tongue protrudes midline, no atrophy or facial fasiculations present Cranial Nerve Exam: nystagmus: Left (Couple beats L horizontal nystagmus ) Cerebellar examination: no dysmetria, performs finger to nose and heel to dudley symmetrically without ataxia Results - Laboratory Findings CBC and BMP: 10/28/17 03:33 10/28/17 03:33 Abnormal lab findings: Abnormal lab results PT 14.6 Seconds (9.4-12.1) H 10/26/17 19:52 Potassium 3.4 mEq/L (3.5-5.1) L 10/28/17 03:33 Carbon Dioxide 31 mEq/L (23-29) H 10/28/17 03:33 Glucose 152 mg/dL (70-105) H 10/28/17 03:33 POC Glucose 178 mg/dL (70-99) H 10/27/17 20:50 Consult Discharge Plan - Plan Referrals: Charissa Bartholomew MD [Primary Care Provider] -
[2017-10-28] MEDS: Metoprolol XL (24 HR) Succ 50 MG TAB.ER.24H PO SCH ×2 (09:26→17:20)
[2017-10-28] MEDS: Furosemide 40 MG TABLET PO SCH (09:27)
[2017-10-28] MEDS: Gabapentin 300 MG CAPSULE PO SCH ×3 (09:27→20:42)
[2017-10-28] MEDS: *HR* Rivaroxaban 10 MG TABLET PO SCH (09:27)
[2017-10-28] MEDS: Insulin LISPRO 300 UNITS/3 ML VIAL SQ SCH ×4 (09:30→21:44)
[2017-10-28] MEDS: *HR* Digoxin 0.125 MG TABLET PO SCH (09:33)
--- NOTE | 2017-10-28 10:34 | Internal Med Progress Note ---
<Indu Garcia Dereje - Last Filed: 10/28/17 14:53> Hospitalist Progress Note - Encounter Date of Encounter: 10/28/17 Time of Encounter: 14:20 - Subjective Interval History: 77 y/o female with history of sick sinus syndrome post pacemaker, HTN, DM complicated by neuropathy, PVD with stent and previous TIAs presented with vertigo, ataxia and headache. Her vertigo, nausea, and headache worse after triggered when walking to bathroom this morning. She describes increased neck pain when extending neck backwards. She remains ataxic. Denies chest pain, palpations, shortness or breath, cough , wheeze, fever or chills. - Exam Vitals: Temp Pulse Resp BP Pulse Ox 97.4 F L 74 18 143/84 96 10/28/17 07:41 10/28/17 09:18 10/28/17 09:18 10/28/17 09:18 10/28/17 07:41 Exam: General : pleasant, in no acute distress, A&Ox3 Cardiac: irregularly irregular that corrected Respiratory: CTAB no wheeze or rales Abdomen: Soft, not distended, no tenderness, no masses or organomegaly Extremities: pulses intact, no pedal edema - Assessment and Plan (1) TIA (transient ischemic attack) Current Visit: Yes Status: Acute Assessment and Plan: Neurology consulted and appreciate their recommendation that most likely BPV - MRI head should be completed this afternoon now that pacemaker confirmed compatible - zofran PRN (2) Tachy-bryson syndrome Current Visit: No Status: Suspected Assessment and Plan: Cardiology consulted - appreciate their recommendations regarding functional pacemaker with recorded history of multiple high ventricular rates including on 10-24. Pacemaker is MRI compatible - continue Plavix and Xarelto - continue metoprolol - continue digoxin (3) HTN (hypertension) Current Visit: No Status: Chronic Assessment and Plan: continue Losartan and metoprolol (4) PVD (peripheral vascular disease) Current Visit: No Status: Chronic Assessment and Plan: continue crestor (5) Diabetes mellitus Current Visit: No Status: Chronic Assessment and Plan: continue ISS (6) Atrial fibrillation Current Visit: No Status: Chronic Assessment and Plan: see sick sinus (7) Hypokalemia Current Visit: No Status: Acute Assessment and Plan: K of 3.4 with daily lasix dose of 60 mg - give PO 40 mg potassium once - trend BMP tomorrow - Time Spent with Patient Total time spent is greater than 50% in coordination of care (as documented) at patient's floor/unit and/or counseling patient: 25 - 35 minutes Plan of Care Discussed with: patient Internal Medicine: Result - Labs CBC & Chem 7: 10/28/17 03:33 10/28/17 03:33 Labs: Short CBC 10/28/17 Range/Units 03:33 WBC 6.8 (4.3-11.1) K/mcL Hgb 13.0 (11.5-15.4) g/dL Hct 39.8 (35.3-44.9) % Plt Count 240 (140-400) K/mcL Neutrophils # 4.4 (1.6-8.9) K/mcL BMP 10/28/17 03:33 Sodium 138 Potassium 3.4 L Chloride 100 Carbon Dioxide 31 H BUN 15 Creatinine 0.83 Glucose 152 H Calcium 9.5 - ABG Interpretation ABG results: PT/INR, D-dimer PT 14.6 Seconds (9.4-12.1) H 10/26/17 19:52 Consult Discharge Plan - Plan Referrals: Charissa Bartholomew MD [Primary Care Provider] - <Yaniv Plascencia - Last Filed: 10/28/17 15:14> Hospitalist Progress Note - Encounter Date of Encounter: 10/28/17 - Exam Vitals: Temp Pulse Resp BP Pulse Ox 97.6 F 90 15 121/51 96 10/28/17 11:19 10/28/17 11:19 10/28/17 11:19 10/28/17 11:19 10/28/17 11:19 - Time Spent with Patient Total time spent is greater than 50% in coordination of care (as documented) at patient's floor/unit and/or counseling patient: Internal Medicine: Result - Labs CBC & Chem 7: 10/28/17 03:33 10/28/17 03:33 Labs: Short CBC 10/28/17 Range/Units 03:33 WBC 6.8 (4.3-11.1) K/mcL Hgb 13.0 (11.5-15.4) g/dL Hct 39.8 (35.3-44.9) % Plt Count 240 (140-400) K/mcL Neutrophils # 4.4 (1.6-8.9) K/mcL BMP 10/28/17 03:33 Sodium 138 Potassium 3.4 L Chloride 100 Carbon Dioxide 31 H BUN 15 Creatinine 0.83 Glucose 152 H Calcium 9.5 - ABG Interpretation ABG results: PT/INR, D-dimer PT 14.6 Seconds (9.4-12.1) H 10/26/17 19:52 - Attending Attestation I examined this patient and my medical decision-making was reviewed with the Resident Physician Dr. Garcia. I agree with the documented findings, disposition and treatment plan as described except to the extent set forth below. Ms. Crane is a 77 y/o F with known PMH of chronic atrial fibrillation on Xarelto for anti coag, cardiomyopathy, CHF, coronary artery disease, CVA, diabetes, GERD, GI bleed, hyperlipidemia, hypertension, myocardial infarction, peripheral artery disease and TIA, pt presented to ER with vertigo, dizzy, ataxia like symptoms. Denied any CP / SOB. her CT of Head showed no acute intracranial abnormalities. The CTA head and neck showed a right vertebral artery PDA segment occlusion with severe stenosis at the vertebro-basilar junction. Pt states she is feeling better now, however still has some dizziness / vertigo Gen: A, A, O x 3 Chest: Diminished BS b/l, no crackles, no rales Heart: S1S2+ Afib Abd: Soft, NT, BS+ Neuro: complete benign exam a/p 1. Acute vertigo - possible posterior circulation CVA CTA showed Rt VA severe stenosis at PDA segment cont Plavix + Xarelto for now cont statin Will get MRI of brain today placed on Meclizine ROEL 2. Chronic A fib Pt's pacemaker interrogated today, which showed frequent RVR's so Card recommend to add Cardizem to current meds so will add low dose Cardizem CD 120mg <Indu Garcia M - Last Filed: 10/28/17 14:53> (3) HTN (hypertension) Qualifiers: Hypertension type: essential hypertension Qualified Code(s): I10 - Essential (primary) hypertension (5) Diabetes mellitus Qualifiers: Diabetes mellitus type: type 2 Diabetes mellitus custodial insulin use: without custodial use Diabetes mellitus complication status: with circulatory complication Diabetes mellitus complication detail: with peripheral angiopathy without gangrene Qualified Code(s): E11.51 - Type 2 diabetes mellitus with diabetic peripheral angiopathy without gangrene (6) Atrial fibrillation Qualifiers: Atrial fibrillation type: chronic Qualified Code(s): I48.2 - Chronic atrial fibrillation
[2017-10-28] MEDS ORDERED: Ondansetron ODT 4 MG TAB.RAPDIS SL PRN (10:38)
--- NOTE | 2017-10-28 14:00 | Event Note ---
Date of Encounter: 10/28/17 Time of Encounter: 13:57 - Cardiology Event Note In-patient device check shows normal functioning device and measurements. Patient has a single chamber PPM with only V lead. There have been multiple episoded of high ventricular rates seen. Most recent 10/24/17. Reviewed device check with Dr. Roe Herrera. Patient with known chronic afib on xarelto. Frequent episodes of afib with RVR seen. No VT. Continue rate controlling meds and increase as tolerated. Consider adding cardizem. Device is MRI compatible. Please call with questions.
--- NOTE | 2017-10-28 16:22 | Electrocardiograph Report ---
[address] [place] [address] Test Date: 2017-10-26 Pat Name: Kailyn Crane Department: 104 Room: 2NE29 Gender: F Distribution Superintendent: : 1940 Requested By: Raudel Aceves Order Number: [id number] Reading MD: Lesa Green Measurements Intervals [place] Rate: 83 P: IA: 0 QRS: 53 QRSD: 103 T: -41 QT: 376 QTc: 416 Interpretive Statements ATRIAL FIBRILLATION ST DEVIATION AND MODERATE T-WAVE ABNORMALITY, CONSIDER LATERAL ISCHEMIA Electronically Signed On 10-28-2017 16:21:01 EDT by Lesa Green
[2017-10-28] MEDS: Diltiazem CD (24hr) 120 MG CAPSULE PO SCH (17:19)
[2017-10-29 04:56] LABS: Basophils % 0.7 %; Eosinophils # 0.4 K/mcL (0.0-0.6); Eosinophils % 6.7 %; Hematocrit 38.9 % (35.3-44.9); Hemoglobin 12.8 g/dL (11.5-15.4); Immature Granulocytes % 0.5 % (0-4); Lymphocytes # 1.3 K/mcL (0.6-4.6); Mean Corpuscular HGB Conc 32.9 g/dL (31.6-35.5); Mean Corpuscular Hemoglobin 28.5 pg (28.0-33.3); Mean Corpuscular Volume 86.6 fL (83.0-100.0); Mean Platelet Volume 10.2 fL (9.4-12.4); Monocytes # 0.4 K/mcL (0.0-1.3); Monocytes % 6.2 %; Platelet Count 250 K/mcL (140-400); Red Blood Count 4.49 M/mcL (3.82-4.97); Segmented Neutrophils % 64.9 %
[2017-10-29 05:15] LABS: BUN/Creatinine Ratio 17 (6-26); Blood Urea Nitrogen 15 mg/dL (8-23); Calcium 9.5 mg/dL (8.6-10.3); Carbon Dioxide 28 mEq/L (23-29); Chloride 102 mEq/L (98-107); Glucose 160 mg/dL (70-105); Osmolality,Calculated 292 (280-300); Potassium 3.5 mEq/L (3.5-5.1); Sodium 139 mEq/L (136-145); eGFR For Non-African Americans > 60 (> 60)
[2017-10-29] MEDS: Furosemide 40 MG TABLET PO SCH (09:17)
[2017-10-29] MEDS: *HR* Rivaroxaban 10 MG TABLET PO SCH (09:17)
[2017-10-29] MEDS: Metoprolol XL (24 HR) Succ 50 MG TAB.ER.24H PO SCH ×2 (09:18→17:40)
[2017-10-29] MEDS: *HR* Digoxin 0.125 MG TABLET PO SCH (09:18)
[2017-10-29] MEDS: Insulin LISPRO 300 UNITS/3 ML VIAL SQ SCH ×3 (09:18→17:08)
[2017-10-29] MEDS: Gabapentin 300 MG CAPSULE PO SCH ×2 (09:18→17:40)
[2017-10-29] MEDS: Diltiazem CD (24hr) 120 MG CAPSULE PO SCH (09:18)
--- NOTE | 2017-10-29 13:56 | Neurology Progress Note ---
Date of Encounter: 10/29/17 Time of Encounter: 13:54 Assessment and Plan (1) Dizziness Current Visit: Yes Status: Acute Improving. Still has unsteady gait and neurological examination showed large amplitude, nonsustained horizontal nystagmus when gazing to the left side. 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 If MRI of brain returns negative for CVA then she may benefit from ENT evaluation as an outpatient. Subjective Principal diagnosis: dizziness Interval history: Patient seen and examined. She is still dizziness and wobbly when walking. Has nystagmus when gazing to left side Objective - Constitutional Vitals: Temp Pulse Resp BP Pulse Ox 98.4 F 65 18 151/70 97 10/29/17 08:06 10/29/17 11:33 10/29/17 11:33 10/29/17 11:33 10/29/17 11:33 - Neurological Exam Sensorimotor examination: Present: intact Motor Examination: Present: grossly full strength in all extremities Motor examination - right side: 5/5: deltoids, biceps, triceps, wrist flexion, wrist extension, dub room engineer, hip flexors, tibialis Anterior, quadriceps, toe extension (EHL), plantarflexion Motor examination - left side: 5/5: deltoids, biceps, triceps, wrist flexion, wrist extension, hip flexors, dub room engineer, quadriceps, tibialis Anterior, toe extension (EHL), plantarflexion Sensation intact: Present: intact Posture: Present: other (NOne) Reflex and gait examination: intact Reflexes: Biceps: 1+, Triceps: 1+, Brachioradialis: 1+, Patella: 1+, Achilles: 1 + Mental Status Examination: Present: awake, alert, oriented to person, oriented to place, oriented to time, follows commands appropriately, answers questions appropriately, no aphasia Cranial nerve examination: Present: PERRL, EOMI (large amplitude horizontal nystagmus when gazing to left side), visual escobar intact, corneal reflexes brisk symmetrically, sensory to face intact, no facial asymmetry is present, no dysarthria, hearing is intact symmetrically, soft palate elevates bilaterally upon phonation, gag reflex intact, flexes SCM and trapezius muscles symmetrically with full power, tongue protrudes midline, no atrophy or facial fasiculations present Cerebellar examination: Present: no dysmetria, performs finger to nose and heel to dudley symmetrically without ataxia - VTE Documentation of Mechanical Device: Intermittent pneumatic compression device Results - Laboratory Findings CBC and BMP: 10/29/17 04:17 10/29/17 04:17 Abnormal lab findings: Abnormal lab results PT 14.6 Seconds (9.4-12.1) H 10/26/17 19:52 Glucose 160 mg/dL (70-105) H 10/29/17 04:17 POC Glucose 175 mg/dL (70-99) H 10/28/17 21:06 Consult Discharge Plan - Plan Referrals: Charissa Bartholomew MD [Primary Care Provider] -
--- NOTE | 2017-10-29 14:22 | Internal Med Progress Note ---
<CheliIlan S - Last Filed: 10/29/17 14:15> Hospitalist Progress Note - Encounter Date of Encounter: 10/29/17 Time of Encounter: 09:30 - Subjective Interval History: 77 year old female with PMHx of sick sinus syndrome s/p pacemaker, CVA, HTN, DM , PVD s/p stent presented to ED with headache, vertigo, and ataxia. Patient had echo this AM, and an MRI has been ordered. Patient doing well this morning. She states she still has some dizziness that is made worse with movement. Patient complains of blurred vision, but states she had recent cataract surgery and is not wearing her glasses. She denies LYNCH, CP, SOB, abdominal pain, n/v/d, numnbess/tingling, and weakness. - Exam Vitals: Temp Pulse Resp BP Pulse Ox 98.4 F 65 18 151/70 97 10/29/17 08:06 10/29/17 11:33 10/29/17 11:33 10/29/17 11:33 10/29/17 11:33 Exam: General: no acute distress, A&O x3 Heart: irregular, no murmurs appreciated Lungs: clear to auscultation bilaterally Abdomen: soft, non-tender, non-distended Extremities: no edema Vascular: pulses +2 in all extremities Neuro: delayed pupillary constriction to light in left eye, otherwise CN II-XII intact, strength 5/5 in all extremities, sensation intact in all extremities, no pronator drift, no ataxia on heel/dudley or finger/nose testing, no tremor Psych: normal affect and mood - Assessment and Plan (1) Dizziness Current Visit: Yes Status: Acute Assessment and Plan: MRI is ordered Neurology consulted, suspects BPPV Recommends vestibular rehab as outpatient Started on meclizine Echo was negative for PFO, but showed pulmonary HTN Continue plavix and xarelto for now (2) HTN (hypertension) Current Visit: No Status: Chronic Assessment and Plan: Continue Losartan Continue metoprolol BP is 143/53 (3) PVD (peripheral vascular disease) Current Visit: No Status: Chronic Assessment and Plan: Continue crestor Patient is s/p stent in LE - continue plavix (4) Diabetes mellitus Current Visit: No Status: Chronic Assessment and Plan: Continue sliding scale insulin (5) Hypokalemia Current Visit: No Status: Acute Assessment and Plan: Given 40 mg PO potassium K 3.4 > 3.5 today (6) Tachy-bryson syndrome Current Visit: No Status: Suspected Assessment and Plan: Patient s/p pacemaker Cardiology consulted - started cardizem 120 mg PO for frequent high ventricular rates Continue metoprolol and digoxin Patient's HR 65, in afib DVT Prophylaxis: Xarelto and plavix - Time Spent with Patient Total time spent is greater than 50% in coordination of care (as documented) at patient's floor/unit and/or counseling patient: 25 - 35 minutes Plan of Care Discussed with: patient Internal Medicine: Result - Labs CBC & Chem 7: 10/29/17 04:17 10/29/17 04:17 Labs: Short CBC 10/29/17 Range/Units 04:17 WBC 6.1 (4.3-11.1) K/mcL Hgb 12.8 (11.5-15.4) g/dL Hct 38.9 (35.3-44.9) % Plt Count 250 (140-400) K/mcL Neutrophils # 4.0 (1.6-8.9) K/mcL BMP 10/29/17 04:17 Sodium 139 Potassium 3.5 Chloride 102 Carbon Dioxide 28 BUN 15 Creatinine 0.86 Glucose 160 H Calcium 9.5 - ABG Interpretation ABG results: PT/INR, D-dimer PT 14.6 Seconds (9.4-12.1) H 10/26/17 19:52 - Impressions Impressions Echocardiogram 10/29/17 15:10 Impressions: LVEF 55%. Normal LV chamber size, wall thickness and function. Indeterminate diastolic function. Atypical septal motion consistent with paced rhythm. Normal right ventricular size with mildly reduced function. Moderately dilated left atrium. No significant valvular dysfunction. Severe pulmonary hypertension. Estimated RVSP is 58 mmHg. A device lead was visualized in the right atrium and right ventricle. No evidence of a PFO with agitated saline contrast. Left Ventricular Wall Motion: Rest Echo Findings All wall segments showed normal motion. Findings: Study Quality * Technically adequate exam. ECG Findings * Paced rhythm. Left Ventricle * LVEF 55%. * Normal LV chamber size, wall thickness and function. * Indeterminate diastolic function. * Atypical septal motion consistent with paced rhythm. Right Ventricle * Normal right ventricular size with mildly reduced function. Left Atrium * Moderately dilated left atrium. Right Atrium * Mildly dilated right atrium. Aortic Valve * Trileaflet aortic valve. * No aortic regurgitation. * No aortic stenosis. Mitral Valve * Mild mitral annular calcification * Trace mitral regurgitation. * No mitral stenosis. Tricuspid Valve * Normal tricuspid valve structure and function. * Trace tricuspid regurgitation. * Severe pulmonary hypertension. * Estimated RVSP is 58 mmHg. * Estimated RA pressure is 5 mmHg. Pulmonic Valve * Normal pulmonic valve structure and function. * No pulmonic regurgitation. Aorta * Normally sized aortic root. Pericardium * The pericardium appears normal. IVC * Normal IVC dimensions and inspiratory collapse. Device lead * A device lead was visualized in the right atrium and right ventricle. Pulmonary Artery * Normal visualized portions of the main pulmonary artery. Interatrial Septum * No evidence of a PFO with agitated saline contrast. - VTE Documentation of Mechanical Device: Intermittent pneumatic compression device Consult Discharge Plan - Plan Additional Instructions: Continue meclizine Referrals: Charissa Bartholomew MD [Primary Care Provider] - <Augustina Ibarra - Last Filed: 10/29/17 17:31> Hospitalist Progress Note - Encounter Date of Encounter: 10/29/17 - Exam Vitals: Temp Pulse Resp BP Pulse Ox 98.4 F 59 18 143/65 97 10/29/17 08:06 10/29/17 16:54 10/29/17 16:54 10/29/17 16:54 10/29/17 11:33 - Assessment and Plan (1) HTN (hypertension) Current Visit: No Status: Chronic (2) PVD (peripheral vascular disease) Current Visit: No Status: Chronic (3) Hypokalemia Current Visit: No Status: Acute (4) Diabetes mellitus Current Visit: No Status: Chronic (5) Dizziness Current Visit: Yes Status: Acute (6) Tachy-bryson syndrome Current Visit: No Status: Suspected - Summary of Assessment and Plan Summary of Assessment and Plan: I examined this patient and my medical decision-making was reviewed with the Resident Physician Dr. Sharp. I agree with the documented findings, disposition and treatment plan as described except to the extent set forth below. Patient in no acute distress. No focal defects on my exam today. Awaiting MRI. Neurology recommendations post MRI appreciated. - Time Spent with Patient Total time spent is greater than 50% in coordination of care (as documented) at patient's floor/unit and/or counseling patient: Internal Medicine: Result - Labs CBC & Chem 7: 10/29/17 04:17 10/29/17 04:17 Labs: Short CBC 10/29/17 Range/Units 04:17 WBC 6.1 (4.3-11.1) K/mcL Hgb 12.8 (11.5-15.4) g/dL Hct 38.9 (35.3-44.9) % Plt Count 250 (140-400) K/mcL Neutrophils # 4.0 (1.6-8.9) K/mcL BMP 10/29/17 04:17 Sodium 139 Potassium 3.5 Chloride 102 Carbon Dioxide 28 BUN 15 Creatinine 0.86 Glucose 160 H Calcium 9.5 - ABG Interpretation ABG results: PT/INR, D-dimer PT 14.6 Seconds (9.4-12.1) H 10/26/17 19:52 - Impressions Impressions Brain MRI 10/28/17 09:36 IMPRESSION: 1. No acute infarct or acute intracranial process identified. 2. Remote hemorrhagic lacunar infarct within the right basal ganglia. 3. Mild chronic small vessel ischemic changes. D/ / Damian Ortiz MD / Damian Ortiz MD Interpreting Provider: Damian Ortiz MD Echocardiogram 10/29/17 15:10 Impressions: LVEF 55%. Normal LV chamber size, wall thickness and function. Indeterminate diastolic function. Atypical septal motion consistent with paced rhythm. Normal right ventricular size with mildly reduced function. Moderately dilated left atrium. No significant valvular dysfunction. Severe pulmonary hypertension. Estimated RVSP is 58 mmHg. A device lead was visualized in the right atrium and right ventricle. No evidence of a PFO with agitated saline contrast. Left Ventricular Wall Motion: Rest Echo Findings All wall segments showed normal motion. Findings: Study Quality * Technically adequate exam. ECG Findings * Paced rhythm. Left Ventricle * LVEF 55%. * Normal LV chamber size, wall thickness and function. * Indeterminate diastolic function. * Atypical septal motion consistent with paced rhythm. Right Ventricle * Normal right ventricular size with mildly reduced function. Left Atrium * Moderately dilated left atrium. Right Atrium * Mildly dilated right atrium. Aortic Valve * Trileaflet aortic valve. * No aortic regurgitation. * No aortic stenosis. Mitral Valve * Mild mitral annular calcification * Trace mitral regurgitation. * No mitral stenosis. Tricuspid Valve * Normal tricuspid valve structure and function. * Trace tricuspid regurgitation. * Severe pulmonary hypertension. * Estimated RVSP is 58 mmHg. * Estimated RA pressure is 5 mmHg. Pulmonic Valve * Normal pulmonic valve structure and function. * No pulmonic regurgitation. Aorta * Normally sized aortic root. Pericardium * The pericardium appears normal. IVC * Normal IVC dimensions and inspiratory collapse. Device lead * A device lead was visualized in the right atrium and right ventricle. Pulmonary Artery * Normal visualized portions of the main pulmonary artery. Interatrial Septum * No evidence of a PFO with agitated saline contrast. <Ilan Bower - Last Filed: 10/29/17 14:15> (2) HTN (hypertension) Qualifiers: Hypertension type: essential hypertension Qualified Code(s): I10 - Essential (primary) hypertension (4) Diabetes mellitus Qualifiers: Diabetes mellitus type: type 2 Diabetes mellitus nursing home insulin use: without nursing home use Diabetes mellitus complication status: with circulatory complication Diabetes mellitus complication detail: with peripheral angiopathy without gangrene Qualified Code(s): E11.51 - Type 2 diabetes mellitus with diabetic peripheral angiopathy without gangrene <Augustina Ibarra - Last Filed: 10/29/17 17:31> (1) HTN (hypertension) Qualifiers: Hypertension type: essential hypertension Qualified Code(s): I10 - Essential (primary) hypertension (4) Diabetes mellitus Qualifiers: Diabetes mellitus type: type 2 Diabetes mellitus lobsterman insulin use: without lobsterman use Diabetes mellitus complication status: with circulatory complication Diabetes mellitus complication detail: with peripheral angiopathy without gangrene Qualified Code(s): E11.51 - Type 2 diabetes mellitus with diabetic peripheral angiopathy without gangrene
[2017-10-29 16:55] VITALS: BP 143/65
--- NOTE | 2017-10-29 16:55 | Discharge Summary ---
<Ilan Bower - Last Filed: 10/29/17 17:35> - NOTES TO OUTPATIENT PROVIDER Notes to Outpatient Provider: Patient was started on meclizine for 14 days for BPPV and instructed to follow up with ENT. Patient's brain MRI was negative for acute infarct, but showed remote hemorrhagic lacunar infarct. Neurology ok with continuation of plavix and xarelto. Patient had frequent RVRs and was started on cardizem. I did not send her home on cardizem, but I instructed her to follow up with cardiology. Date of Encounter: 10/29/17 Time of Encounter: 17:00 - Discharge Diagnosis (1) Dizziness Priority: Primary Status: Acute Assessment and Plan: MRI shows no acute infarct, remote hemorrhagic lacunar infarct Neurology suspects BPPV Recommends ENT follow up as outpatient Started on meclizine 25 mg PO BID for 14 days Echo was negative for PFO, but showed pulmonary HTN "Has Bled" score of 4 (age, medications, stroke Hx, and HTN) - Neurology ok with continuation of plavix and xarelto (2) HTN (hypertension) Priority: Secondary Status: Chronic Assessment and Plan: Continue Losartan Continue metoprolol BP is 143/53 Qualifiers: Hypertension type: essential hypertension Qualified Code(s): I10 - Essential (primary) hypertension (3) PVD (peripheral vascular disease) Priority: Secondary Status: Chronic Assessment and Plan: S/p stent Continue plavix for now Patient will eventually transition to aspirin Continue crestor (4) Diabetes mellitus Priority: Secondary Status: Chronic Assessment and Plan: Continue home meds Qualifiers: Diabetes mellitus type: type 2 Diabetes mellitus last turner insulin use: without last turner use Diabetes mellitus complication status: with circulatory complication Diabetes mellitus complication detail: with peripheral angiopathy without gangrene Qualified Code(s): E11.51 - Type 2 diabetes mellitus with diabetic peripheral angiopathy without gangrene (5) Hypokalemia Priority: Secondary Status: Resolved Assessment and Plan: Resolved K 3.5 today (6) Tachy-bryson syndrome Priority: Primary Status: Suspected Assessment and Plan: Patient s/p pacemaker Cardiology consulted - started cardizem 120 mg PO for frequent high ventricular rates I discontinued cardizem on discharge Continue metoprolol and digoxin Patient's HR 65, in afib Patient to follow up with cardiology outpatient for frequent RVRs Hospital course: Ms. Crane is a 77 year old female with PMHx of sick sinus syndrome s/p pacemaker , PVD s/p stent, CVA, HTN, and DM presented to ED with headache, vertigo, and abnormal gait for 1 hour. Patient was hypertensive with BP of 203/83. Stroke alert was called. Patient's symptoms improved significantly in ED, and she had an NIH score of 0. Patient's troponin was negative. CT showed no acute abnormalities. 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 Patient did not receive tPA based on the evaluation and recommendation from [facility] neurosurgery. MRI was ordered, but patient had to be cleared by cardiology due to her pacemaker. Upon cardiology evaluation, she was found to have frequent RVRs, and she was started on cardizem PO. Neurology was consulted and started patient on meclizine for BPPV , with decreased suspicion of CVA/TIA. MRI showed no acute infarcts, but a remote hemorrhagic lacunar infarct. Patient is on xarelto for afib and plavix for post-stent anticoagulation. Patient has a "has-bled" score of 4. Neurology ok with keeping patient on xarelto and plavix. Today, patient's headache has resolved, but she still complains of some dizziness with changes in position. Blood pressure is controlled at 143/65 and heart rate of 65. Patient discharged home with a 2 week course of meclizine. I instructed patient to follow up with ENT for vertigo, follow up with cardiology for RVRs, and follow up with primary care provider. Discharge discussed with: patient, family, nurse - Time Spent with Patient Total time spent providing and/or coordinating discharge services: Less than 30 minutes - Discharge Medications Prescriptions: Meclizine [Antivert] 25 mg PO BID 14 Days #30 tablet Home Medications: Esomeprazole Magnesium [Nexium] 40 mg PO QAM 01/31/15 [History] Folic Acid 0.4 mg PO QAM 01/31/15 [History] Gabapentin [Neurontin] 600 mg PO TID 01/31/15 [History] Multivitamin with Minerals [Myvitalife] 1 each PO QAM 01/31/15 [History] Potassium Chloride [Klor-Con Sprinkle] 10 meq PO DAILY 01/31/15 [History] Rosuvastatin [Crestor] 40 mg PO HS 03/06/16 [History] Metoprolol XL (24 HR) Succ [Toprol Xl] 50 mg PO QPM 03/07/16 [History] Loratadine [Claritin] 10 mg PO DAILY 08/16/16 [History] Losartan [Cozaar] 50 mg PO BID 08/16/16 [History] Metoprolol XL (24 HR) Succ [Toprol Xl] 100 mg PO QAM 08/16/16 [History] Rivaroxaban [Xarelto] 20 mg PO DAILY #0 08/24/16 [Rx] Flaxseed Oil [Greeley-3 Flaxseed Oil] 1,000 mg PO DAILY 10/16/16 [History] Furosemide [Lasix] 60 mg PO QAM 05/07/17 [History] Cholecalciferol (Vitamin D3) [Vitamin D3] 1,000 unit PO DAILY 08/09/17 [History] Clopidogrel Bisulfate [Plavix] 75 mg PO DAILY #30 tablet 08/09/17 [Rx] Digoxin [Lanoxin] 0.125 mg PO DAILY 08/09/17 [History] Fluticasone Propionate Nasal [Flonase] 50 mcg NS DAILY PRN 08/09/17 [History] Magnesium Oxide [Magnesium] 400 mg PO BID 08/09/17 [History] Dulaglutide [Trulicity] 1.5 mg PO QWEEK 10/27/17 [History] Latanoprost [Xalatan] 1 drop BOTH EYES HS 10/27/17 [History] Meclizine [Antivert] 25 mg PO BID 14 Days #30 tablet 10/29/17 [Rx] Meclizine [Antivert] 25 mg PO TID tablet 10/29/17 [Rx] Allergies/Adverse Reactions: 3 Allergy/AdvReac Type Severity Reaction Status Date / Time Amoxicillin [From Augmentin] Allergy Swelling Verified 05/01/17 08:51 of Lip/Tongue/Throat clavulanic acid Allergy Swelling Verified 05/01/17 08:51 [From Augmentin] of Lip/Tongue/Throat codeine AdvReac Shakiness Verified 10/16/16 19:12 morphine AdvReac Palpitation Verified 10/16/16 19:12 s Band-Aid Allergy Rash Uncoded 10/16/16 19:12 Date of admission: 08/12/18 16:50 Primary care physician: Charissa Bartholomew MD Consults: 10/28/17 08:52 Consult to Cardiology [CONS] Routine Comment: Consulting Provider: Cardiology Pita Reason for Consult: pacemaker MRI compatible & interogate Call Completed: Yes 10/28/17 11:38 Consult to Occupational Therapy [CONS] Routine Comment: Evaluate, develop and implement POC Reason for Consult: vertigo: possible stroke v tia Does patient have active BEDREST order?: No Is patient medically & hemodynamically stable?: Yes Patient assessed for mobility or mobilized this visit?: No Consult to [employer] [CONS] Routine Reason for SW Consult: possible stroke v tia, may need new services at home Discharging clinician: Ilan Bower Anticipated date of discharge: 10/29/17 - Constitutional Vitals: Temp Pulse Resp BP Pulse Ox 98.4 F 65 18 151/70 97 10/29/17 08:06 10/29/17 11:33 10/29/17 11:33 10/29/17 11:33 10/29/17 11:33 General appearance: Present: cooperative, A&O X 3, pleasant, no acute distress, answers questions appropriately - Eye Eye exam: Present: EOMI, nystagmus (on left gaze) - Respiratory Respiratory exam: Present: CTAB - Cardiovascular Cardiovascular exam: Present: irregular rhythm - GI/Abdominal GI/Abdominal exam: Present: soft - Extremities Exam Extremities exam: Present: warm, radial pulses palpable and symmetrical - Neurological Exam Neurological exam: Present: CN II-XII intact, oriented X3, no focal deficits, strengths equal and symetr throughout - Psychiatric Psychiatric exam: Present: normal affect, normal mood - Patient Status Disposition: Home, Self-Care Condition: Fair Overall status at discharge: patient is progressing back to baseline - Discharge Instructions Instructions: Vertigo (DC) Follow Up With: Charissa Bartholomew MD [Primary Care Provider] - Forms: ED Satisfaction Letter Additional Instructions: Continue meclizine 25 mg orally, twice a day, for 14 days Follow up with ENT for vertigo Follow up with cardiology for frequent rapid ventricular responses Follow up with primary care provider - Diet and Activity Activity: increase activity as tolerated Diet: advance to your usual diet - VTE Documentation of Mechanical Device: Intermittent pneumatic compression device <Augustina Ibarra - Last Filed: 10/31/17 07:35> Date of Encounter: 10/31/17 - Discharge Diagnosis (1) HTN (hypertension) Status: Chronic Qualifiers: Hypertension type: essential hypertension Qualified Code(s): I10 - Essential (primary) hypertension (2) PVD (peripheral vascular disease) Status: Chronic (3) Hypokalemia Status: Resolved (4) Diabetes mellitus Status: Chronic Qualifiers: Diabetes mellitus type: type 2 Diabetes mellitus last turner insulin use: without last turner use Diabetes mellitus complication status: with circulatory complication Diabetes mellitus complication detail: with peripheral angiopathy without gangrene Qualified Code(s): E11.51 - Type 2 diabetes mellitus with diabetic peripheral angiopathy without gangrene (5) Dizziness Status: Acute (6) Tachy-bryson syndrome Status: Suspected Hospital course: Ms. Crane is a 77 year old female - Time Spent with Patient Total time spent providing and/or coordinating discharge services: Date of admission: 10/27/17 16:50 Primary care physician: Charissa Bartholomew MD Consults: 10/28/17 08:52 Consult to Cardiology [CONS] Routine Comment: Consulting Provider: Cardiology Pita Reason for Consult: pacemaker MRI compatible & interogate Call Completed: Yes 10/28/17 11:38 Consult to Occupational Therapy [CONS] Routine Comment: Evaluate, develop and implement POC Reason for Consult: vertigo: possible stroke v tia Does patient have active BEDREST order?: No Is patient medically & hemodynamically stable?: Yes Patient assessed for mobility or mobilized this visit?: No Consult to [employer] [CONS] Routine Reason for SW Consult: possible stroke v tia, may need new services at home - Constitutional Vitals: Temp Pulse Resp BP Pulse Ox 98.4 F 59 18 143/65 97 10/29/17 08:06 10/29/17 16:54 10/29/17 16:54 10/29/17 16:54 10/29/17 11:33 - Attending Attestation I examined this patient and my medical decision-making was reviewed with the Resident Physician Dr. Sharp. I agree with the documented findings, disposition and treatment plan as described except to the extent set forth below.
== END 2017-10-29 18:24 | disposition home or self-care (01) | DRG 149 ==
LOC: EMEROO 19:40 → 2NENU 19:40
PROVIDERS: ADMIT Family Medicine; ATTEND Internal Medicine

== ENCOUNTER 2018-06-19 10:54 | Observation (INO) ==
[2018-06-19] MEDS ORDERED: Furosemide 20 MG/2 ML VIAL IVP ONE (11:30)
[2018-06-19 11:46] LABS: Basophils # 0.1 K/mcL (0.0-0.2); Basophils % 0.7 %; Eosinophils # 0.4 K/mcL (0.0-0.6); Eosinophils % 4.7 %; Hematocrit 39.3 % (35.3-44.9); Hemoglobin 12.4 g/dL (11.5-15.4); Immature Granulocytes % 0.5 % (0-4); Lymphocytes # 1.2 K/mcL (0.6-4.6); Lymphocytes % 14.2 %; Mean Corpuscular HGB Conc 31.6 g/dL (31.6-35.5); Mean Corpuscular Hemoglobin 28.6 pg (28.0-33.3); Mean Corpuscular Volume 90.6 fL (83.0-100.0); Mean Platelet Volume 10.8 fL (9.4-12.4); Monocytes # 0.4 K/mcL (0.0-1.3); Neutrophils # 6.3 K/mcL (1.6-8.9); Platelet Count 274 K/mcL (140-400); Red Blood Count 4.34 M/mcL (3.82-4.97); Red Cell Distribution Width 13.5 % (11.5-14.5); Segmented Neutrophils % 74.9 %
--- NOTE | 2018-06-19 11:49 | Emergency Department Note ---
Disposition Clinical Impression: CHF (congestive heart failure), Chest pain, Elevated troponin Acute exacerbation of CHF (congestive heart failure) Qualifiers: Heart failure type: unspecified Qualified Code(s): I50.9 - Heart failure, unspecified Disposition: Admitted As Inpatient Condition: Good General Adult HPI - General Chief complaint: ED Chest Pain Stated complaint: CP,RADHA Time Seen by Provider: 06/19/18 11:06 Source: patient Mode of arrival: private vehicle Limitations: no limitations Nursing Notes Reviewed: Yes Vital Signs Reviewed: Yes - History of Present Illness HPI Narrative: Patient is a 78-year-old female with a past medical history of diabetes, congestive heart failure, coronary artery disease who states that she has been feeling more short of breath over the last several weeks. Patient states that she is also having some chest pain every time she has a "coughing fit". She states that she has several coughing fits per day, and that she is bringing up white to yellow colored sputum for the last month. Patient also states that she needs to sleep in a recliner because when she lays flat she begins coughing and cannot breathe. Patient states that she was last seen by cardiology a while ago, does not remember when. Patient is on 20 mg of Lasix every day, but did not take it today because she did not think she would be able to get to the bathroom in time. Patient is also complaining of some chest pain in the epigastric region which radiates up her chest into her jaw bilaterally. She is also complaining of some bilateral ear pain which she states is more external and more related to the radiation of her chest pain. Patient has been taking Tessalon Perles for her coughing but it is not providing any relief. Pain Scale: 5 - Related Data Home Medications Medication Instructions Recorded Confirmed RX: Esomeprazole Magnesium [Nexium] 40 mg PO QAM 01/31/15 06/20/18 RX: Folic Acid 0.4 mg PO QAM 01/31/15 06/20/18 RX: Gabapentin [Neurontin] 600 mg PO TID 01/31/15 06/20/18 RX: Multivitamin with Minerals 1 each PO QAM 01/31/15 06/20/18 [Myvitalife] RX: Metoprolol XL (24 HR) Succ 50 mg PO QPM 03/07/16 06/20/18 [Toprol Xl] RX: Losartan [Cozaar] 50 mg PO BID 08/16/16 06/20/18 RX: Metoprolol XL (24 HR) Succ 100 mg PO QAM 08/16/16 06/20/18 [Toprol Xl] RX: Flaxseed Oil [[place]-3 Flaxseed 1,000 mg PO DAILY 10/16/16 06/20/18 Oil] RX: Digoxin [Lanoxin] 0.125 mg PO DAILY 08/09/17 06/20/18 RX: Magnesium Oxide [Magnesium] 400 mg PO BID 08/09/17 06/20/18 RX: Dulaglutide [Trulicity] 1.5 mg PO 10/27/17 06/20/18 RX: Latanoprost [Xalatan] 1 drop BOTH EYES 10/27/17 06/20/18 RX: Ammonium Lactate 1 appl TP DAILY PRN 06/20/18 06/20/18 RX: Aspirin [Lo-Dose Aspirin EC] 81 mg PO DAILY 06/20/18 06/20/18 RX: Atorvastatin [Lipitor] 40 mg PO 06/20/18 06/20/18 RX: Benzonatate 100 mg PO TID PRN 06/20/18 06/20/18 RX: Dorzolamide/Timolol [Cosopt] 1 drop LEFT EYE BID 06/20/18 06/20/18 RX: Furosemide [Lasix] 60 mg PO [facility] 06/20/18 06/20/18 RX: Loratadine [Claritin] 10 mg PO DAILY 06/20/18 06/20/18 RX: Meclizine [Antivert] 25 mg PO TID PRN 06/20/18 06/20/18 RX: Metformin HCl [Fortamet] 1,000 mg PO QPM 06/20/18 06/20/18 RX: Potassium Chloride [Klor-Con 20 meq PO DAILY 06/20/18 06/20/18 10] RX: Rivaroxaban [Xarelto] 20 mg PO 06/20/18 06/20/18 Allergies Allergy/AdvReac Type Severity Reaction Status Date / Time Amoxicillin [From Augmentin] Allergy Swelling Verified 06/20/18 08:35 of Lip/Tongue/Throat clavulanic acid Allergy Swelling Verified 06/20/18 08:35 [From Augmentin] of Lip/Tongue/Throat codeine AdvReac Shakiness Verified 06/20/18 08:35 morphine AdvReac Palpitation Verified 06/20/18 08:35 s Band-Aid Allergy Rash Uncoded 06/20/18 08:35 Review of Systems: All systems ED: reviewed and negative except as stated. Constitutional: Denies: fever, chills ENT ED: Denies: ear pain, throat pain Cardiovascular: Reports: chest pain, palpitations, inability to lay flat because it causes shortness of breath Respiratory: Reports: cough, dyspnea, white-yellow sputum production Gastrointestinal: Denies: abdominal pain, vomiting, diarrhea, constipation. Reports: nausea x 2 this morning Genitourinary: Denies: urgency, dysuria, frequency Musculoskeletal: Denies: back pain, neck pain Integumentary: Denies: rash, abrasion Neurological: Denies: headache, weakness, numbness, paresthesias Psychiatric: Denies: anxiety, depression Endocrine: Denies: fatigue, heat or cold intolerance Hematological/Lymphatic: Denies: easy bleeding, easy bruising Allergic/Immunologic: Denies: facial swelling, urticaria Past Medical History - Past Medical History Medical history: Reports: arthritis, atrial fibrillation, cardiomyopathy, CHF, coronary artery disease, CVA, diabetes, GERD, GI bleed, glaucoma, hyperlipidemia, hypertension, myocardial infarction, osteoporosis, peripheral artery disease, TIA, venous stasis, other Surgical history: Reports: angioplasty/stent, carotid endarterectomy, cho lecystectomy, herniorrhaphy, hysterectomy, orthopedic, other, pacemaker/AICD, other, vascular surgery, LE bypass, LE vascular intervention Psychiatric history: Reports: no psych history - Social History Smoking Status: Never smoker Smokeless Tobacco Status: No Alcohol use: Reports: none Drug use: Reports: none Physical Exam General: A&O x 3. No acute distress. Looks pale. Head: atraumatic, normocephalic. ENT: No conjunctival injection, no scleral icterus. PERRLA. EOMI. Oropharynx non- erythematous. mucous membranes tacky. Neuro: No focal deficits, no speech deficit, no facial droop, mentating well. BUE/BLE Str 5/5. Pulm: Decreased breath sounds in right base, no crackles appreciated Cardio: RRR no m/r/g. Chest not tender to palpation. Abd: Soft, non-distended. Normoactive bowel sounds. Non-tender to palpation. No guarding. Non rigid. Extremities: Radial pulses 2+ tamanna, dorsalis pedis/posterior tibialis 2+ tamanna. No LE edema. No cyanosis, clubbing. Skin: warm, dry, intact. No rashes. Psych: Appropriate mood and affect. Answers questions appropriately. Cooperative with exam. - General Limitations: no limitations General appearance: alert, in no apparent distress Course Course Narrative: DDx includes CHF, ACS, PNA. Will obtain CBC, CMP, BNP, troponin, EKG, CXR. Vital Signs Temperature 96 F L 06/19/18 11:07 Pulse Rate 97 06/19/18 11:07 Respiratory Rate 18 06/19/18 11:07 Blood Pressure 162/82 06/19/18 11:07 O2 Sat by Pulse Oximetry 96 06/19/18 11:07 Temperature 96 F L 06/19/18 11:14 Pulse Rate 78 06/19/18 12:49 Respiratory Rate 20 06/19/18 11:40 Blood Pressure 148/75 06/19/18 12:49 O2 Sat by Pulse Oximetry 98 06/19/18 11:14 Oxygen Delivery Oxygen Delivery Room Air Medical Decision Making - MDM Narrative Medical decision making narrative: Pt troponin was elevated at 0.04, lactic was elevated at 3.0 but she does not have a white count and is hemodynamically stable so I do not believe this is due to sepsis and could be due to heart failure. DID NOT administer fluid bolus for concern of underlying HFPEF, despite clear CXR and lack of lower extremity edema. Did not want to worsen any RADHA. Pt was admitted to hospitalist, Dr. Mendosa, who agreed to accept her to the service. Patient was given an opportunity to ask questions at bedside and all of their concerns were addressed. Patient verbalized understanding and agreement with plan of care. Pt remained stable while in the department. - Medical Records Medical records reviewed: Yes I reviewed the patient's medical records. - Lab Data Lab results reviewed: Yes I reviewed the patient's lab results. Result diagrams: 06/19/18 14:51 06/20/18 03:44 Lab Results 06/19/18 06/19/18 06/19/18 Range/Units 11:16 11:16 11:16 WBC 8.4 (4.3-11.1) K/mcL RBC 4.34 (3.82-4.97) M/mcL Hgb 12.4 (11.5-15.4) g/dL Hct 39.3 (35.3-44.9) % MCV 90.6 (83.0-100.0) fL MCH 28.6 (28.0-33.3) pg MCHC 31.6 (31.6-35.5) g/dL RDW 13.5 (11.5-14.5) % Plt Count 274 (140-400) K/mcL MPV 10.8 (9.4-12.4) fL Immature Gran % 0.5 (0-4) % Seg Neutrophils % 74.9 % Lymphocytes % 14.2 % Monocytes % 5.0 % Eosinophils % 4.7 % Basophils % 0.7 % Neutrophils # 6.3 (1.6-8.9) K/mcL Lymphocytes # 1.2 (0.6-4.6) K/mcL Monocytes # 0.4 (0.0-1.3) K/mcL Eosinophils # 0.4 (0.0-0.6) K/mcL Basophils # 0.1 (0.0-0.2) K/mcL PT (9.4-12.1) Seconds INR APTT (26.0-36.0) Seconds Sodium 140 (136-145) mEq/L Potassium 4.1 (3.5-5.1) mEq/L Chloride 99 (98-107) mEq/L Carbon Dioxide 30 H (23-29) mEq/L BUN 13 (8-23) mg/dL Creatinine 0.98 (0.60-1.20) mg/dL Est GFR ( Amer) > 60 (> 60) Est GFR (Non-Af Amer) 55 L (> 60) BUN/Creatinine Ratio 13 (6-26) Glucose 162 H (70-105) mg/dL Calculated Osmolality 294 (280-300) Lactic Acid (0.5-2.2) mmol/L Calcium 10.3 (8.6-10.3) mg/dL Troponin I 0.04 H* (< 0.04) ng/mL B-Natriuretic Peptide 304 H (Less than 100) pg/mL Urine Color (Yellow) Urine Clarity (Clear) Urine pH (5.0-8.0) pH Units Ur Specific [place] (1.010-1.025) Urine Protein (Neg-Trace) mg/dL Urine Glucose (UA) (Normal) mg/dL Urine Ketones (Negative) mg/dL Urine Blood (Negative) Urine Nitrite (Negative) Urine Bilirubin (Negative) Urine Urobilinogen (Normal) mg/dL Ur Leukocyte Esterase (Negative) Urine Microscopic RBC (0-3) per hpf Urine Microscopic WBC (0-3) per hpf Ur Squamous Epith Cells (None-Few) per lpf Urine Bacteria (None-Few) per hpf Hyaline Casts (None-Few) per lpf Ur Culture Indicated? (NO) 06/19/18 06/19/18 06/19/18 Range/Units 11:16 11:48 11:55 WBC (4.3-11.1) K/mcL RBC (3.82-4.97) M/mcL Hgb (11.5-15.4) g/dL Hct (35.3-44.9) % MCV (83.0-100.0) fL MCH (28.0-33.3) pg MCHC (31.6-35.5) g/dL RDW (11.5-14.5) % Plt Count (140-400) K/mcL MPV (9.4-12.4) fL Immature Gran % (0-4) % Seg Neutrophils % % Lymphocytes % % Monocytes % % Eosinophils % % Basophils % % Neutrophils # (1.6-8.9) K/mcL Lymphocytes # (0.6-4.6) K/mcL Monocytes # (0.0-1.3) K/mcL Eosinophils # (0.0-0.6) K/mcL Basophils # (0.0-0.2) K/mcL PT 17.5 H (9.4-12.1) Seconds INR 1.6 APTT 35.0 (26.0-36.0) Seconds Sodium (136-145) mEq/L Potassium (3.5-5.1) mEq/L Chloride (98-107) mEq/L Carbon Dioxide (23-29) mEq/L BUN (8-23) mg/dL Creatinine (0.60-1.20) mg/dL Est GFR ( Amer) (> 60) Est GFR (Non-Af Amer) (> 60) BUN/Creatinine Ratio (6-26) Glucose (70-105) mg/dL Calculated Osmolality (280-300) Lactic Acid 3.0 H (0.5-2.2) mmol/L Calcium (8.6-10.3) mg/dL Troponin I (< 0.04) ng/mL B-Natriuretic Peptide (Less than 100) pg/mL Urine Color Yellow (Yellow) Urine Clarity Clear (Clear) Urine pH 7.5 (5.0-8.0) pH Units Ur Specific [place] 1.014 (1.010-1.025) Urine Protein 100 H (Neg-Trace) mg/dL Urine Glucose (UA) Normal (Normal) mg/dL Urine Ketones Negative (Negative) mg/dL Urine Blood Negative (Negative) Urine Nitrite Negative (Negative) Urine Bilirubin Negative (Negative) Urine Urobilinogen Normal (Normal) mg/dL Ur Leukocyte Esterase Negative (Negative) Urine Microscopic RBC 3-5 H (0-3) per hpf Urine Microscopic WBC 0-3 (0-3) per hpf Ur Squamous Epith Cells Many H (None-Few) per lpf Urine Bacteria None Seen (None-Few) per hpf Hyaline Casts None Seen (None-Few) per lpf Ur Culture Indicated? NO (NO) - Radiology Data Radiology results reviewed: Yes I reviewed the patient's radiology results. Chest X-Ray 06/19/18 11:28 IMPRESSION: No evidence for acute cardiopulmonary process. Stable cardiomegaly. A previously noted left lower lobe pulmonary nodule on prior CT exam is not well demonstrated on this portable chest x-ray. Reference can be made to the prior CT and PET-CT studies for additional information. D/ / Gary hCawla MD / Gary Chawla MD Interpreting Provider: Gary Chawla MD - EKG Data EKG #1 EKG attestation: Yes I reviewed and interpreted this EKG. EKG results narrative: HR 98, rhythm atrial fibrillation, axis normal. QRS 92, QTc 435. Subclinical ST segment depression In V3-V6, unchaged from previous study (10/26/17) and new subclinical ST segment depression in II, III, aVF Attestation Statement - Attestation Attestation: I examined this patient and my medical decision-making was reviewed with the Resident Physician. I agree with the documented findings, disposition and treatment plan as described except to the extent set forth below.
[2018-06-19 12:05] LABS: BUN/Creatinine Ratio 13 (6-26); Blood Urea Nitrogen 13 mg/dL (8-23); Calcium 10.3 mg/dL (8.6-10.3); Carbon Dioxide 30 mEq/L (23-29); Chloride 99 mEq/L (98-107); Glucose 162 mg/dL (70-105); Osmolality,Calculated 294 (280-300); Potassium 4.1 mEq/L (3.5-5.1); Sodium 140 mEq/L (136-145); eGFR For Non-African Americans 55 (> 60)
[2018-06-19 12:06] LABS: INR 1.6; Prothrombin Time 17.5 Seconds (9.4-12.1)
[2018-06-19 12:15] LABS: Troponin I 0.04 ng/mL (< 0.04)
[2018-06-19 12:22] LABS: Bilirubin,Urine Negative (Negative); Blood,Urine Negative (Negative); Clarity,Urine Clear (Clear); Color,Urine Yellow (Yellow); Glucose,Urine (UA) Normal (Normal); Ketones,Urine Negative (Negative); Leukocyte Esterase,Urine Negative (Negative); Nitrite,Urine Negative (Negative); PH,Urine 7.5 pH Units (5.0-8.0); Protein,Urine 100 mg/dL (Neg-Trace); Specific Gravity,Urine 1.014 (1.010-1.025); Urobilinogen,Urine Normal (Normal)
[2018-06-19 12:23] LABS: Bacteria,Urine None Seen per hpf (None-Few); Hyaline Casts,Urine None Seen per lpf (None-Few); Squamous Epithelial Cell,Urine Many per lpf (None-Few); WBC,Urine 0-3 per hpf (0-3)
--- NOTE | 2018-06-19 13:46 | Emergency Department Note ---
Disposition Clinical Impression: CHF (congestive heart failure), Chest pain Disposition: Admitted As Inpatient Condition: Fair Forms: ED Satisfaction Letter General Adult HPI - General Chief complaint: ED Chest Pain Stated complaint: CP,RADHA Time Seen by Provider: 06/19/18 11:06 Source: patient Mode of arrival: private vehicle Limitations: no limitations - History of Present Illness Pain Scale: 5 - Related Data Home Medications Medication Instructions Recorded Confirmed Esomeprazole Magnesium [Nexium] 40 mg PO QAM 01/31/15 05/29/18 Folic Acid 0.4 mg PO QAM 01/31/15 05/29/18 Gabapentin [Neurontin] 600 mg PO TID 01/31/15 05/29/18 Multivitamin with Minerals 1 each PO QAM 01/31/15 05/29/18 [Myvitalife] Potassium Chloride [Klor-Con 10 meq PO DAILY 01/31/15 05/29/18 Sprinkle] Rosuvastatin [Crestor] 40 mg PO HS 03/06/16 05/29/18 Metoprolol XL (24 HR) Succ [Toprol 50 mg PO QPM 03/07/16 05/29/18 Xl] Losartan [Cozaar] 50 mg PO BID 08/16/16 10/26/17 Metoprolol XL (24 HR) Succ [Toprol 100 mg PO QAM 08/16/16 05/29/18 Xl] Flaxseed Oil [[place]-3 Flaxseed Oil] 1,000 mg PO DAILY 10/16/16 05/29/18 Furosemide [Lasix] 20 mg PO QAM 05/07/17 05/29/18 Cholecalciferol (Vitamin D3) 1,000 unit PO DAILY 08/09/17 05/29/18 [Vitamin D3] Digoxin [Lanoxin] 0.125 mg PO DAILY 08/09/17 05/29/18 Magnesium Oxide [Magnesium] 400 mg PO BID 08/09/17 05/29/18 Dulaglutide [Trulicity] 1.5 mg PO QWEEK 10/27/17 05/29/18 Latanoprost [Xalatan] 1 drop BOTH EYES HS 10/27/17 05/29/18 Previous Rx's Medication Instructions Recorded Rivaroxaban [Xarelto] 20 mg PO DAILY #0 08/24/16 Meclizine [Antivert] 25 mg PO TID tablet 10/29/17 Allergies Allergy/AdvReac Type Severity Reaction Status Date / Time Amoxicillin [From Augmentin] Allergy Swelling Verified 05/21/18 14:49 of Lip/Tongue/Throat clavulanic acid Allergy Swelling Verified 05/21/18 14:49 [From Augmentin] of Lip/Tongue/Throat codeine AdvReac Shakiness Verified 05/21/18 14:49 morphine AdvReac Palpitation Verified 05/21/18 14:49 s Band-Aid Allergy Rash Uncoded 10/16/16 19:12 Past Medical History - Past Medical History Medical history: Reports: arthritis, atrial fibrillation, cardiomyopathy, CHF, coronary artery disease, CVA, diabetes, GERD, GI bleed, glaucoma, hyperlipidemia, hypertension, myocardial infarction, osteoporosis, peripheral artery disease, TIA, venous stasis, other Surgical history: Reports: angioplasty/stent, carotid endarterectomy, cholecystectomy, herniorrhaphy, hysterectomy, orthopedic, other, pacemaker/AICD, other, vascular surgery, LE bypass, LE vascular intervention Psychiatric history: Reports: no psych history - Social History Smoking Status: Never smoker Smokeless Tobacco Status: No Alcohol use: Reports: none Drug use: Reports: none Physical Exam - General Limitations: no limitations General appearance: alert, in no apparent distress Course Vital Signs Temperature 96 F L 06/19/18 11:07 Pulse Rate 97 06/19/18 11:07 Respiratory Rate 18 06/19/18 11:07 Blood Pressure 162/82 06/19/18 11:07 O2 Sat by Pulse Oximetry 96 06/19/18 11:07 Temperature 96 F L 06/19/18 11:14 Pulse Rate 78 06/19/18 12:49 Respiratory Rate 20 06/19/18 11:40 Blood Pressure 148/75 06/19/18 12:49 O2 Sat by Pulse Oximetry 98 06/19/18 11:14 Oxygen Delivery Oxygen Delivery Room Air Medical Decision Making - Lab Data Result diagrams: 06/19/18 11:16 06/19/18 11:16 Lab Results 06/19/18 06/19/18 06/19/18 Range/Units 11:16 11:16 11:16 WBC 8.4 (4.3-11.1) K/mcL RBC 4.34 (3.82-4.97) M/mcL Hgb 12.4 (11.5-15.4) g/dL Hct 39.3 (35.3-44.9) % MCV 90.6 (83.0-100.0) fL MCH 28.6 (28.0-33.3) pg MCHC 31.6 (31.6-35.5) g/dL RDW 13.5 (11.5-14.5) % Plt Count 274 (140-400) K/mcL MPV 10.8 (9.4-12.4) fL Immature Gran % 0.5 (0-4) % Seg Neutrophils % 74.9 % Lymphocytes % 14.2 % Monocytes % 5.0 % Eosinophils % 4.7 % Basophils % 0.7 % Neutrophils # 6.3 (1.6-8.9) K/mcL Lymphocytes # 1.2 (0.6-4.6) K/mcL Monocytes # 0.4 (0.0-1.3) K/mcL Eosinophils # 0.4 (0.0-0.6) K/mcL Basophils # 0.1 (0.0-0.2) K/mcL PT (9.4-12.1) Seconds INR APTT (26.0-36.0) Seconds Sodium 140 (136-145) mEq/L Potassium 4.1 (3.5-5.1) mEq/L Chloride 99 (98-107) mEq/L Carbon Dioxide 30 H (23-29) mEq/L BUN 13 (8-23) mg/dL Creatinine 0.98 (0.60-1.20) mg/dL Est GFR ( Amer) > 60 (> 60) Est GFR (Non-Af Amer) 55 L (> 60) BUN/Creatinine Ratio 13 (6-26) Glucose 162 H (70-105) mg/dL Calculated Osmolality 294 (280-300) Lactic Acid (0.5-2.2) mmol/L Calcium 10.3 (8.6-10.3) mg/dL Troponin I 0.04 H* (< 0.04) ng/mL B-Natriuretic Peptide 304 H (Less than 100) pg/mL Urine Color (Yellow) Urine Clarity (Clear) Urine pH (5.0-8.0) pH Units Ur Specific [place] (1.010-1.025) Urine Protein (Neg-Trace) mg/dL Urine Glucose (UA) (Normal) mg/dL Urine Ketones (Negative) mg/dL Urine Blood (Negative) Urine Nitrite (Negative) Urine Bilirubin (Negative) Urine Urobilinogen (Normal) mg/dL Ur Leukocyte Esterase (Negative) Urine Microscopic RBC (0-3) per hpf Urine Microscopic WBC (0-3) per hpf Ur Squamous Epith Cells (None-Few) per lpf Urine Bacteria (None-Few) per hpf Hyaline Casts (None-Few) per lpf Ur Culture Indicated? (NO) 06/19/18 06/19/18 06/19/18 Range/Units 11:16 11:48 11:55 WBC (4.3-11.1) K/mcL RBC (3.82-4.97) M/mcL Hgb (11.5-15.4) g/dL Hct (35.3-44.9) % MCV (83.0-100.0) fL MCH (28.0-33.3) pg MCHC (31.6-35.5) g/dL RDW (11.5-14.5) % Plt Count (140-400) K/mcL MPV (9.4-12.4) fL Immature Gran % (0-4) % Seg Neutrophils % % Lymphocytes % % Monocytes % % Eosinophils % % Basophils % % Neutrophils # (1.6-8.9) K/mcL Lymphocytes # (0.6-4.6) K/mcL Monocytes # (0.0-1.3) K/mcL Eosinophils # (0.0-0.6) K/mcL Basophils # (0.0-0.2) K/mcL PT 17.5 H (9.4-12.1) Seconds INR 1.6 APTT 35.0 (26.0-36.0) Seconds Sodium (136-145) mEq/L Potassium (3.5-5.1) mEq/L Chloride (98-107) mEq/L Carbon Dioxide (23-29) mEq/L BUN (8-23) mg/dL Creatinine (0.60-1.20) mg/dL Est GFR ( Amer) (> 60) Est GFR (Non-Af Amer) (> 60) BUN/Creatinine Ratio (6-26) Glucose (70-105) mg/dL Calculated Osmolality (280-300) Lactic Acid 3.0 H (0.5-2.2) mmol/L Calcium (8.6-10.3) mg/dL Troponin I (< 0.04) ng/mL B-Natriuretic Peptide (Less than 100) pg/mL Urine Color Yellow (Yellow) Urine Clarity Clear (Clear) Urine pH 7.5 (5.0-8.0) pH Units Ur Specific [place] 1.014 (1.010-1.025) Urine Protein 100 H (Neg-Trace) mg/dL Urine Glucose (UA) Normal (Normal) mg/dL Urine Ketones Negative (Negative) mg/dL Urine Blood Negative (Negative) Urine Nitrite Negative (Negative) Urine Bilirubin Negative (Negative) Urine Urobilinogen Normal (Normal) mg/dL Ur Leukocyte Esterase Negative (Negative) Urine Microscopic RBC 3-5 H (0-3) per hpf Urine Microscopic WBC 0-3 (0-3) per hpf Ur Squamous Epith Cells Many H (None-Few) per lpf Urine Bacteria None Seen (None-Few) per hpf Hyaline Casts None Seen (None-Few) per lpf Ur Culture Indicated? NO (NO) Attestation Statement - Attestation Attestation: I have seen this patient with the resident physician, I have personally eval uated this patient. I had reviewed the chart and document dictation by the resident physician and M in agreement with the information documented by the resident physician. Please see documentation by the resident physician for complete chart including past medical history, family medical history, review of systems, current history and physical and laboratory and imaging studies. Patient presented emergency department with chief complaint of progressively increasing shortness of breath exertional chest discomfort and increasing orthopnea with a persisting cough progressively worsening for the last 3-4 weeks. She states she sometimes coughs enough up sometime she does not, she states she now has to sleep in a recliner because she starts coughing and feels short of breath when she lays flat no significant increasing lower extremity edema. She states the last couple days she started having increasing episodes of chest pain with burning in her central chest and radiating up into her neck. She took some aspirin for this health. EKG was a unchanged EKG from previous occasional paced beats, no acute ischemia. Chest x-ray as interpreted by radiology showed no acute findings. Physical laboratory studies were within acceptable limits cardiac enzymes revealed a borderline troponin of 0.04, no significant elevation of the BNP. She was given IV Lasix for symptoms consistent with CHF exacerbation with orthopnea and shortness of breath, with history of CHF, she had already had aspirin today. She was admitted to the hospital for further evaluation and management.
[2018-06-19] MEDS ORDERED: Naloxone 0.4 MG/ML INJ IVP PRN (14:13)
[2018-06-19] MEDS ORDERED: traMADol 50 MG TABLET PO PRN (14:13)
[2018-06-19] MEDS ORDERED: Ringers Solution, Lactated 1,000 ML IVC SCH (14:15)
[2018-06-19] MEDS ORDERED: Aspirin 325 MG TABLET PO ONE (14:17)
[2018-06-19] MEDS ORDERED: *HR* Heparin 5,000 UNIT/ML VIAL IVP ONE (14:17)
[2018-06-19] MEDS ORDERED: *HR* Heparin 5,000 UNIT/ML VIAL IVP PRN ×2 (14:17)
[2018-06-19] MEDS ORDERED: Dextrose Gel 15 GM/37.5 ML TUBE PO PRN ×2 (14:20)
[2018-06-19] MEDS ORDERED: D5% in Water 1,000 ML IVC PRN (14:20)
[2018-06-19] MEDS ORDERED: *HR* Dextrose 50 % in Water (Syg) 50 ML SYRINGE IVP PRN (14:20)
[2018-06-19] MEDS ORDERED: Heparin 25,000 UNIT/250 ML D5W 25,000 UNIT/250 ML IV.SOLN IVC SCH (14:30)
--- NOTE | 2018-06-19 15:16 | Internal Med History&Physical ---
Date of Encounter: 06/19/18 Time of Encounter: 15:08 Internal Medicine - H&P: HPI Chief complaint: chest pain Admitted From: Home Plans for Post Hospital Care: Home History of present illness: Ms. Crane is a 78 year old female PMH of PAD, A.fib on xarelto s/p pacemaker, chf, DM, HLD and HTN. patient presented to the ed due to retro-sternal chest pain and non-productive cough. Patient reports having this non-productive cough for about a month now, but yesterday she had a coughing spell which was associated with chest discomfort, which she described as burning retro-sternal sensation lasting >1 hour and radiating to her jaw. She took 3 aspirin and after about an hour the pain resolved. She reports that last night she was awaken by the same type of chest discomfort, lasting about the same time and easing off after she took aspirin. Today morning she had another episode of retro-sternal chest pain, radiating to her jaw and throat, which she describes as 8/10 associated with shortness of breath. The patient also reports having this non-productive cough for the past 1-2 months. Reports she cannot lay flat due to coughing spells. Vinnie weight gain, or edema of the lower extremities. denies fever or chills. Past Med Surg Social Fam HX - Past Medical History Medical history: arthritis, atrial fibrillation, cardiomyopathy, CHF, coronary artery disease, CVA, diabetes, GERD, GI bleed, glaucoma, hyperlipidemia, hypertension, myocardial infarction, osteoporosis, peripheral artery disease, TIA, venous stasis, other Additional medical history: Vascular insufficiency. pacemaker. irreg heartbeat. right sided cerebral infarct Psychiatric history: no psych history - Past Surgical History Surgical History: angioplasty/stent, carotid endarterectomy, cholecystectomy, herniorrhaphy, hysterectomy, orthopedic, other, pacemaker/AICD, other, vascular surgery, LE bypass, LE vascular intervention Additional surgical history: right shoulder. partial hysterectomy. bladder. left leg bypass. stent right leg. t&a - Social History Smoking Status: Never smoker Smokeless Tobacco Status: No Alcohol use: none Drug use: none - Family History Sister Living Status: Still Living Hx Family Cardiac Disorders: Yes Hx Family Cancer: Yes (LUNG CANCER.) Hx Family Endocrine Disorder: Yes Mother Living Status: Hx Family Cardiac Disorders: Yes (htn, stroke) - Additional Family History Additional family history: Family Hx non-contributory Internal Medicine - H&P: Meds Esomeprazole Magnesium [Nexium] 40 mg PO QAM 01/31/15 [History] Folic Acid 0.4 mg PO QAM 01/31/15 [History] Gabapentin [Neurontin] 600 mg PO TID 01/31/15 [History] Multivitamin with Minerals [Myvitalife] 1 each PO QAM 01/31/15 [History] Potassium Chloride [Klor-Con Sprinkle] 10 meq PO DAILY 01/31/15 [History] Rosuvastatin [Crestor] 40 mg PO HS 03/06/16 [History] Metoprolol XL (24 HR) Succ [Toprol Xl] 50 mg PO QPM 03/07/16 [History] Losartan [Cozaar] 50 mg PO BID 08/16/16 [History] Metoprolol XL (24 HR) Succ [Toprol Xl] 100 mg PO QAM 08/16/16 [History] Rivaroxaban [Xarelto] 20 mg PO DAILY #0 08/24/16 [Rx] Flaxseed Oil [[place]-3 Flaxseed Oil] 1,000 mg PO DAILY 10/16/16 [History] Furosemide [Lasix] 20 mg PO QAM 05/07/17 [History] Cholecalciferol (Vitamin D3) [Vitamin D3] 1,000 unit PO DAILY 08/09/17 [History] Digoxin [Lanoxin] 0.125 mg PO DAILY 08/09/17 [History] Magnesium Oxide [Magnesium] 400 mg PO BID 08/09/17 [History] Dulaglutide [Trulicity] 1.5 mg PO QWEEK 10/27/17 [History] Latanoprost [Xalatan] 1 drop BOTH EYES HS 10/27/17 [History] Meclizine [Antivert] 25 mg PO TID tablet 10/29/17 [Rx] Allergy/AdvReac Type Severity Reaction Status Date / Time Amoxicillin [From Augmentin] Allergy Swelling Verified 05/21/18 14:49 of Lip/Tongue/Throat clavulanic acid Allergy Swelling Verified 05/21/18 14:49 [From Augmentin] of Lip/Tongue/Throat codeine AdvReac Shakiness Verified 05/21/18 14:49 morphine AdvReac Palpitation Verified 05/21/18 14:49 s Band-Aid Allergy Rash Uncoded 10/16/16 19:12 All Systems PM: A 10-system review of systems was performed and is negative for pertinent findings except as documented above in the HPI. - Constitutional Constitutional: no chills, no fever(s) - EENT Eyes: no blurry vision Nose, mouth and throat: no dry mouth - Cardiovascular Cardiovascular ROS IM: chest pain, irregular heart rhythm, orthopnea, no dyspnea, no dyspnea on exertion, no edema, no lightheadedness, no palpitations, no paroxysmal nocturnal dyspnea, no syncope - Respiratory Respiratory: cough, no chest congestion, no change in phlegm color, no pain with cough - Gastrointestinal Gastrointestinal: no abdominal pain, no nausea, no vomiting - Genitourinary Genitourinary: no hematuria - Musculoskeletal Musculoskeletal ROS IM: no atrophy, no muscle cramps - Neurological Neurological ROS: no headache(s) - Psychiatric Psychiatric: no hopelessness - Endocrine Endocrine IM: no cold intolerance, no excessive sweating - Hematologic/Lymphatic Hematologic/Lymphatic: no lymphadenopathy - Allergic/Immunologic Allergic/Immunologic: no GI upset with certain foods Additional comments: Rest of a 10 review of system negative - Constitutional Vitals: Temp Pulse Resp BP Pulse Ox 96 F L 77 13 175/96 95 06/19/18 11:14 06/19/18 15:03 06/19/18 15:03 06/19/18 15:03 06/19/18 15:03 Exam: Vitals: reviewed General: Alert and oriented x4. In mild distress due to chest discomfort Cardiovascular: Irregularly, irregular, normal S1 & S2, no rubs, murmurs or g allops. Lungs: CTA b/l, no wheezes or crackles. Abdomen: Soft, non-tender, no rigidity. Extremities: No deformity, no edema Neurological: Normal cognition and motor skills. Rest of the physical exam is non contributory Internal Med - H&P Results - Labs CBC & Chem 7: 06/19/18 11:16 06/19/18 11:16 Labs: Short CBC 06/19/18 Range/Units 11:16 WBC 8.4 (4.3-11.1) K/mcL Hgb 12.4 (11.5-15.4) g/dL Hct 39.3 (35.3-44.9) % Plt Count 274 (140-400) K/mcL Neutrophils # 6.3 (1.6-8.9) K/mcL BMP 06/19/18 11:16 Sodium 140 Potassium 4.1 Chloride 99 Carbon Dioxide 30 H BUN 13 Creatinine 0.98 Glucose 162 H Calcium 10.3 Cardiac Enzymes 06/19/18 Range/Units 11:16 Troponin I 0.04 H* (< 0.04) ng/mL Urine 06/19/18 Range/Units 11:55 Urine Color Yellow (Yellow) Urine Clarity Clear (Clear) Urine pH 7.5 (5.0-8.0) pH Units Ur Specific [place] 1.014 (1.010-1.025) Urine Protein 100 H (Neg-Trace) mg/dL Urine Glucose (UA) Normal (Normal) mg/dL - Impressions ITS Impressions Chest X-Ray 06/19/18 11:28 IMPRESSION: No evidence for acute cardiopulmonary process. Stable cardiomegaly. A previously noted left lower lobe pulmonary nodule on prior CT exam is not well demonstrated on this portable chest x-ray. Reference can be made to the prior CT and PET-CT studies for additional information. D/ / Gary Chawla MD / Gary Chawla MD Interpreting Provider: Gary Chawla MD - Diagnostic Studies Chest x-ray Status: image reviewed by me (no infiltrate ) - Assessment and Plan (1) Chest pain Current Visit: Yes Status: Acute Assessment and plan: possible pleuritic associate with coughing spells but due to patient significant hx of CAD and PAD chest pain cardiac in origin to be r/o. Plan serial troponin ordered telemetry monitoring started on a heparin drip aspirin 325mg/PO x1 given patient reports having an adverse reaction to Nitroglycerin cardiology consulted will resume home dose of a bb on a high dose statin Qualifiers: Chest pain type: unspecified Qualified Code(s): R07.9 - Chest pain, unspecified (2) CHF (congestive heart failure) Current Visit: Yes Status: Chronic Assessment and plan: patient is not on acute exacerbation. chest is clear to auscultation b/l, no peripheral edema. Plan started on furosemide 20mg/IV BID daily weight and strict intake and output Qualifiers: Heart failure type: unspecified Heart failure chronicity: chronic Qualified Code(s): I50.9 - Heart failure, unspecified (3) A-fib Current Visit: No Status: Chronic Assessment and plan: rate controlled on metoprolol. will resume medication. patient on xarelto for secondary stroke prevention. hold xarelto. started on a heparin drip pending cardiology evaluation Qualifiers: Atrial fibrillation type: unspecified Qualified Code(s): I48.91 - Unspecified atrial fibrillation (4) DVT prophylaxis Current Visit: No Status: Acute Assessment and plan: On a heparin drip (5) CAD (coronary artery disease) Current Visit: No Status: Chronic Assessment and plan: on aspirin 81mg/PO daily Qualifiers: Coronary Disease-Associated Artery/Lesion type: [place] artery [place] vs. transplanted heart: [place] heart Associated angina: with unspecified angina Qualified Code(s): I25.119 - Atherosclerotic heart disease of [place] coronary artery with unspecified angina pectoris (6) Diabetes mellitus Current Visit: No Status: Chronic Assessment and plan: Patient report poor oral intake for the past couple of days. carb controlled diet. started on lispro low dose sliding scale ac. Qualifiers: Diabetes mellitus type: type 2 Diabetes mellitus intermediate accountant insulin use: without care home use Diabetes mellitus complication status: with circulatory complication Diabetes mellitus complication detail: with peripheral angiopathy without gangrene Qualified Code(s): E11.51 - Type 2 diabetes mellitus with diabetic peripheral angiopathy without gangrene (7) HTN (hypertension) Current Visit: No Status: Chronic Assessment and plan: patient on metoprolol. will monitor BP and adjust medications if needed Qualifiers: Hypertension type: essential hypertension Qualified Code(s): I10 - Essential (primary) hypertension (8) PVD (peripheral vascular disease) Current Visit: No Status: Chronic Assessment and plan: s/p stent. on aspirin (9) Non-productive cough Current Visit: Yes Status: Acute Assessment and plan: unclear. patient on losartan. will hold medication. - Time Spent With Patient Total time spent is greater than 50% in coordination of care (as documented) at patient's floor/unit and/or counseling patient: Greater than 35 minutes (40)
[2018-06-19 15:28] LABS: Chol/HDL Ratio 5.1 (0-4.9)
[2018-06-19 15:31] LABS: Troponin I 0.06 ng/mL (< 0.04)
[2018-06-19 15:37] LABS: Heparin anti-factor XA UFH 0.89 IU/mL (0.30-0.70); INR 1.5
[2018-06-19 15:39] LABS: Activated Partial Thrombo Time 34.1 Seconds (26.0-36.0)
[2018-06-19] MEDS: Metoprolol XL (24 HR) Succ 25 MG TAB.ER.24H PO SCH (15:48)
[2018-06-19 15:54] LABS: Hematocrit 36.9 % (35.3-44.9); Mean Corpuscular HGB Conc 32.5 g/dL (31.6-35.5); Mean Corpuscular Hemoglobin 28.6 pg (28.0-33.3); Mean Corpuscular Volume 88.1 fL (83.0-100.0); Mean Platelet Volume 10.9 fL (9.4-12.4); Platelet Count 246 K/mcL (140-400); Red Blood Count 4.19 M/mcL (3.82-4.97); Red Cell Distribution Width 13.6 % (11.5-14.5)
[2018-06-19] MEDS: Insulin LISPRO 300 UNITS/3 ML VIAL SQ SCH (16:42)
[2018-06-19] MEDS: Furosemide 20 MG/2 ML VIAL IVP SCH (16:45)
--- NOTE | 2018-06-19 17:45 | Electrocardiograph Report ---
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
[2018-06-20 04:35] LABS: BUN/Creatinine Ratio 13 (6-26); Blood Urea Nitrogen 13 mg/dL (8-23); Calcium 9.4 mg/dL (8.6-10.3); Carbon Dioxide 31 mEq/L (23-29); Chloride 97 mEq/L (98-107); Glucose 133 mg/dL (70-105); Magnesium 1.5 mg/dL (1.6-2.6); Osmolality,Calculated 292 (280-300); Phosphorous 4.4 mg/dL (2.7-4.5); Potassium 3.7 mEq/L (3.5-5.1); Sodium 140 mEq/L (136-145); eGFR For Non-African Americans 53 (> 60)
[2018-06-20] MEDS: Aspirin Enteric Coated 81 MG Tablet PO SCH ×2 (08:42→11:47)
[2018-06-20] MEDS: Insulin LISPRO 300 UNITS/3 ML VIAL SQ SCH ×3 (08:42→17:27)
[2018-06-20] MEDS: Metoprolol XL (24 HR) Succ 25 MG TAB.ER.24H PO SCH ×2 (08:42→11:47)
[2018-06-20] MEDS: Furosemide 20 MG/2 ML VIAL IVP SCH ×2 (08:57→17:26)
--- NOTE | 2018-06-20 10:36 | Cardiology Consult Note ---
Addendum entered and electronically signed by Thuan Jasso CNP 06/20/18 11:05: HTN- add back home dose losartan and titrate meds as needed. Original Note: <Thuan Jasso - Last Filed: 06/20/18 10:33> Date of Encounter: 06/20/18 Time of Encounter: 10:33 Assessment and Plan (1) Chest pain, rule out acute myocardial infarction Current Visit: No Status: Acute Atypical chest pain symptoms. Occurs with cough and radiated from chest to her ears. Mild troponin up to 0.11 seen. EKG shows atrial fibrillation with no acute ST changes. Demand ischemia in setting uncontrolled HTN verses NSTEMI. H/o CAD s/p PCI to LCx artery remotely. Last LHC in 2014 showed patent stent and mild non-obstructive CAD. 25% stenosis in the LMCA. 40% pLAD stenosis, 40%pLCx artery stenosis, 20% mLCx, 30% 1st OM stenosis. There was 40% stenosis prox and mid RCA and 25% stenosis distal RCA. LVEF 55%. Last TTE 2017- EF 50%. Mild RV dysfunction. Severe PAH with RSVP 60mmHg. Repeat TTE. Continue heparin gtt. Patient states she can not lay flat due to coughing spells. This will be a concern if LHC is recommended. Discussed with patient. We will continue medical management. Add imdur. Further results based on TTE. (2) Atrial fibrillation Current Visit: No Status: Chronic H/o atrial fibrillation. Currently rate controlled. On xarelto at home. Last dose yesterday. Now on heparin gtt. Telemetry review shows average HR 82 bpm. Qualifiers: Atrial fibrillation type: chronic Qualified Code(s): I48.2 - Chronic atrial fibrillation (3) Elevated troponin Current Visit: Yes Status: Acute see plan above. (4) CAD (coronary artery disease) Current Visit: Yes Status: Acute H/o prior PCI. Continue asa, statin, bb. Add imdur. Qualifiers: Coronary Disease-Associated Artery/Lesion type: [place] artery [place] vs. transplanted heart: [place] heart Associated angina: without angina Qualified Code(s): I25.10 - Atherosclerotic heart disease of [place] coronary artery without angina pectoris (5) Chronic diastolic CHF (congestive heart failure) Current Visit: Yes Status: Chronic H/o chronic diastolic CHF. CXR with no acute finding. No fluid overload on exam. Continue low sodium diet. (6) Cough Current Visit: Yes Status: Acute C/o cough for greater than one month. History of lung nodule on prior CT. Work- up/ eval per primary team. Discussion w patient/family: The assessment and plan as outlined above was discussed with the patient and/or family members who expressed understanding and agreement. All questions were answered. Thank you for involving us in the care of your patient. Please call with any questions. History of Present Illness Consult date: 06/20/18 Requesting physician: Momo Lund Consult reason: chest pain, elevated troponin Chief complaint: chest burning with coughing spells History of present illness: Ms. Crane is a 78 year old female with past medical history of CAD s/p prior PCI, atrial fibrillation, PPM, pulmonary hypertension, DM, CVA, and COPD. She presents with c/o persistent cough for over one month. She was taking tessalon chidi at home without relief. Yesterday during a coughing spell she developed mid epigastric burning that radiated into her chest, neck and ears. She also has chest aching with her cough. She becomes dypneic with her cough. Her cough increases when she lays flat. She coughs up a clear to sometimes greenish sputum. Denies fever or chills. Denies orthopnea, PND, or edema. Past Med Surg Social Fam HX - Past Medical History Medical history: arthritis, atrial fibrillation, cardiomyopathy, CHF, coronary artery disease, CVA, diabetes, GERD, GI bleed, glaucoma, hyperlipidemia, hypertension, myocardial infarction, osteoporosis, peripheral artery disease, TIA, venous stasis, other Additional medical history: Vascular insufficiency. pacemaker. irreg heartbeat. right sided cerebral infarct Psychiatric history: no psych history - Past Surgical History Surgical History: angioplasty/stent, carotid endarterectomy, cholecystectomy, herniorrhaphy, hysterectomy, orthopedic, other, pacemaker/AICD, other, vascular surgery, LE bypass, LE vascular intervention Additional surgical history: right shoulder. partial hysterectomy. bladder. left leg bypass. stent right leg. t&a - Social History Smoking Status: Never smoker Smokeless Tobacco Status: No Alcohol use: none Drug use: none - Family History Sister Living Status: Still Living Hx Family Cardiac Disorders: Yes Hx Family Cancer: Yes (LUNG CANCER.) Hx Family Endocrine Disorder: Yes Mother Living Status: Hx Family Cardiac Disorders: Yes (htn, stroke) Medications and Allergies Esomeprazole Magnesium [Nexium] 40 mg PO QAM 01/31/15 [History] Folic Acid 0.4 mg PO QAM 01/31/15 [History] Gabapentin [Neurontin] 600 mg PO TID 01/31/15 [History] Multivitamin with Minerals [Myvitalife] 1 each PO QAM 01/31/15 [History] Metoprolol XL (24 HR) Succ [Toprol Xl] 50 mg PO QPM 03/07/16 [History] Losartan [Cozaar] 50 mg PO BID 08/16/16 [History] Metoprolol XL (24 HR) Succ [Toprol Xl] 100 mg PO QAM 08/16/16 [History] Flaxseed Oil [[place]-3 Flaxseed Oil] 1,000 mg PO DAILY 10/16/16 [History] Digoxin [Lanoxin] 0.125 mg PO DAILY 08/09/17 [History] Magnesium Oxide [Magnesium] 400 mg PO BID 08/09/17 [History] Dulaglutide [Trulicity] 1.5 mg PO SA 10/27/17 [History] Latanoprost [Xalatan] 1 drop BOTH EYES HS 10/27/17 [History] Ammonium Lactate 1 appl TP DAILY PRN 06/20/18 [History] Aspirin [Lo-Dose Aspirin EC] 81 mg PO DAILY 06/20/18 [History] Atorvastatin [Lipitor] 40 mg PO HS 06/20/18 [History] Benzonatate 100 mg PO TID PRN 06/20/18 [History] Dorzolamide/Timolol [Cosopt] 1 drop LEFT EYE BID 06/20/18 [History] Furosemide [Lasix] 60 mg PO QAM 06/20/18 [History] Loratadine [Claritin] 10 mg PO DAILY 06/20/18 [History] Meclizine [Antivert] 25 mg PO TID PRN 06/20/18 [History] Metformin HCl [Fortamet] 1,000 mg PO QPM 06/20/18 [History] Potassium Chloride [Klor-Con 10] 20 meq PO DAILY 06/20/18 [History] Rivaroxaban [Xarelto] 20 mg PO HS 06/20/18 [History] Allergy/AdvReac Type Severity Reaction Status Date / Time Amoxicillin [From Augmentin] Allergy Swelling Verified 06/20/18 08:35 of Lip/Tongue/Throat clavulanic acid Allergy Swelling Verified 06/20/18 08:35 [From Augmentin] of Lip/Tongue/Throat codeine AdvReac Shakiness Verified 06/20/18 08:35 morphine AdvReac Palpitation Verified 06/20/18 08:35 s Band-Aid Allergy Rash Uncoded 06/20/18 08:35 All Systems Review: The remainder of the systems were reviewed and are negative Physical Examination Vital Signs, Last 4 Hours Temp Pulse Resp BP Pulse Ox 06/20/18 07:10 98.0 F 72 16 153/73 99 General: Conversant, No Apparent Distress HEENT: Atraumatic, Normocephaly, Mucus Membranes Moist Neck: No JVD, Normal carotid pulses Cardiac: Other (Irregular) Lungs: Normal Breath Sounds, No Wheeze, Rales, Rhonchi, Other (diminished bases, dry cough noted) Neuro: Alert and responsive, No focal deficits noted Abdomen: Soft, Non-Tender Skin: No rashes noted on visualized skin Musculoskeletal: No Chest Wall Tenderness Extremities: No Clubbing, No Cyanosis, No Edema, Normal Pulses Results 06/19/18 14:51 06/20/18 03:44 Lab Results 06/19/18 06/19/18 06/19/18 11:16 11:16 11:16 WBC 8.4 Hgb 12.4 Hct 39.3 Plt Count 274 INR APTT Sodium 140 Potassium 4.1 Chloride 99 Carbon Dioxide 30 H BUN 13 Creatinine 0.98 Glucose 162 H Calcium 10.3 Magnesium Troponin I 0.04 H* B-Natriuretic Peptide 304 H 06/19/18 06/19/18 06/19/18 11:16 14:51 14:51 WBC 7.8 Hgb 12.0 Hct 36.9 Plt Count 246 INR 1.6 APTT 35.0 Sodium Potassium Chloride Carbon Dioxide BUN Creatinine Glucose Calcium Magnesium Troponin I 0.06 H* B-Natriuretic Peptide 06/19/18 06/19/18 06/20/18 14:51 21:29 03:44 WBC Hgb Hct Plt Count INR 1.5 APTT 34.1 Sodium 140 Potassium 3.7 Chloride 97 L Carbon Dioxide 31 H BUN 13 Creatinine 1.01 Glucose 133 H Calcium 9.4 Magnesium 1.5 L Troponin I 0.11 H* B-Natriuretic Peptide 06/20/18 03:44 WBC Hgb Hct Plt Count INR APTT Sodium Potassium Chloride Carbon Dioxide BUN Creatinine Glucose Calcium Magnesium Troponin I 0.08 H* B-Natriuretic Peptide - Imaging and Cardiology Echo: report reviewed Cardiac cath: report reviewed - EKG Interpretation EKG results cardiology: personally reviewed Consult Discharge Plan - Plan Referrals: Thuan Jasso CNP [Advanced Practice Nurse] - (Office will call with date and time of appointment. ) Ashutosh Chand DO [Primary Care Provider] - 06/26/18 10:00 am <Bryson Rocha - Last Filed: 06/20/18 15:39> Date of Encounter: 06/20/18 - Attending Attestation I have personally performed a face to face evaluation on this patient. I have reviewed and agree with the documented findings and care plan as documented by the SENIOR NET ARCHITECT. History and Exam by me shows: 78 y/o pleasant female with history of CAD, afib, HFpEF, admitted for shortness of breath and cough. No chest pain AAOX3 in NAD at the bedside Hemodynamically stable Cardiopulmonary exam revealed S1, S2, no murmur; clear lungs Rhythm reviewed - atrial fibrillation, no acute ST T changes Echo pending. Previous echo had shown preserved EF and severe PH Impression/plan: She does not appear to be in CHF exacerbation clinically at this time. Continnue lasix 60mg daily. Recommend oxygen therapy for PH. Afib is rate controlled. Continue oral anticoagulation. If echo shows new WMA, will recommend a stress test. Continue aspirin, statin, B bandar, ARB, Imdur Bryson Rueda MD [facility] Assessment and Plan Discussion w patient/family: The assessment and plan as outlined above was discussed with the patient and/or family members who expressed understanding and agreement. All questions were answered. Thank you for involving us in the care of your patient. Please call with any questions. History of Present Illness History of present illness: Ms. Crane is a 78 year old female All Systems Review: The remainder of the systems were reviewed and are negative Physical Examination Vital Signs, Last 4 Hours Temp Pulse Resp BP Pulse Ox 06/20/18 14:31 98.4 F 84 14 156/73 96 04/05/19 11:21 97.8 F 83 16 155/81 99 Results 06/19/18 14:51 06/20/18 03:44 Lab Results 06/19/18 06/19/18 06/19/18 14:51 14:51 14:51 WBC 7.8 Hgb 12.0 Hct 36.9 Plt Count 246 INR 1.5 APTT 34.1 Sodium Potassium Chloride Carbon Dioxide BUN Creatinine Glucose Calcium Magnesium Troponin I 0.06 H* 06/19/18 06/20/18 06/20/18 21:29 03:44 03:44 WBC Hgb Hct Plt Count INR APTT Sodium 140 Potassium 3.7 Chloride 97 L Carbon Dioxide 31 H BUN 13 Creatinine 1.01 Glucose 133 H Calcium 9.4 Magnesium 1.5 L Troponin I 0.11 H* 0.08 H* 06/20/18 10:30 WBC Hgb Hct Plt Count INR APTT Sodium Potassium Chloride Carbon Dioxide BUN Creatinine Glucose Calcium Magnesium Troponin I 0.06 H*
[2018-06-20] MEDS ORDERED: Metoprolol XL (24 HR) Succ 50 MG TAB.ER.24H PO ONE (13:27)
--- NOTE | 2018-06-20 14:52 | Discharge Summary ---
Orders not resulted at time of discharge: Pending orders 06/20/18 11:03 EV echocardiogram Routine Date of Encounter: 06/20/18 Time of Encounter: 14:50 - Discharge Diagnosis (1) Chest pain Priority: Primary Status: Resolved Qualifiers: Chest pain type: unspecified Qualified Code(s): R07.9 - Chest pain, unspecified (2) CHF (congestive heart failure) Priority: Secondary Status: Chronic Qualifiers: Heart failure type: unspecified Heart failure chronicity: chronic Qualified Code(s): I50.9 - Heart failure, unspecified (3) A-fib Priority: Secondary Status: Chronic Qualifiers: Atrial fibrillation type: unspecified Qualified Code(s): I48.91 - Unspecified atrial fibrillation (4) DVT prophylaxis Priority: Secondary Status: Acute (5) CAD (coronary artery disease) Priority: Secondary Status: Chronic Qualifiers: Coronary Disease-Associated Artery/Lesion type: [place] artery [place] vs. transplanted heart: enterprise heart Associated angina: with unspecified angina Qualified Code(s): I25.119 - Atherosclerotic heart disease of enterprise coronary artery with unspecified angina pectoris (6) Diabetes mellitus Priority: Secondary Status: Chronic Qualifiers: Diabetes mellitus type: type 2 Diabetes mellitus intermediate insulin use: without intermediate use Diabetes mellitus complication status: with circulatory complication Diabetes mellitus complication detail: with peripheral angiopathy without gangrene Qualified Code(s): E11.51 - Type 2 diabetes mellitus with diabetic peripheral angiopathy without gangrene (7) HTN (hypertension) Priority: Secondary Status: Chronic Qualifiers: Hypertension type: essential hypertension Qualified Code(s): I10 - Essential (primary) hypertension (8) PVD (peripheral vascular disease) Priority: Secondary Status: Chronic (9) Non-productive cough Priority: Secondary Status: Chronic Hospital course: Ms. Crane is a 78 year old female PMH of PAD, A.fib on xarelto s/p pacemaker, chf, DM, HLD and HTN. patient presented to the ed due to retro-sternal chest pain and non-productive cough. Patient admitted to the hospital due to Chest pain r/o ACS. Patient managed with IV diuretic, placed on a heparin drip and cardiology consulted. Serial trops trended down with the highest one of 0.11-0.08-0.06. Chest pain resolved with BP controlled and diuretics. Patient is euvolemic. Cardiology recommended against any intervention and recommended outpatient follow up within a week. Patient's acute symptoms have resolved and patient is hemodynamically stable to be discharge home. - Time Spent with Patient Total time spent providing and/or coordinating discharge services: Time spent: Greater than 30 minutes - Discharge Medications Prescriptions: Continue Multivitamin with Minerals [Myvitalife] 1 each PO QAM Gabapentin [Neurontin] 600 mg PO TID Folic Acid 0.4 mg PO QAM Esomeprazole Magnesium [Nexium] 40 mg PO QAM Metoprolol XL (24 HR) Succ [Toprol Xl] 50 mg PO QPM Metoprolol XL (24 HR) Succ [Toprol Xl] 100 mg PO QAM Losartan [Cozaar] 50 mg PO BID Flaxseed Oil [[place]-3 Flaxseed Oil] 1,000 mg PO DAILY Digoxin [Lanoxin] 0.125 mg PO DAILY Magnesium Oxide [Magnesium] 400 mg PO BID Dulaglutide [Trulicity] 1.5 mg PO SA Latanoprost [Xalatan] 1 drop BOTH EYES HS Ammonium Lactate 1 appl TP DAILY PRN PRN Reason: CRACKED FEET Aspirin [Lo-Dose Aspirin EC] 81 mg PO DAILY Atorvastatin [Lipitor] 40 mg PO HS Benzonatate 100 mg PO TID PRN PRN Reason: Cough Dorzolamide/Timolol [Cosopt] 1 drop LEFT EYE BID Furosemide [Lasix] 60 mg PO QAM Loratadine [Claritin] 10 mg PO DAILY Meclizine [Antivert] 25 mg PO TID PRN PRN Reason: Vertigo Metformin HCl [Fortamet] 1,000 mg PO QPM Potassium Chloride [Klor-Con 10] 20 meq PO DAILY Rivaroxaban [Xarelto] 20 mg PO HS Home Medications: Esomeprazole Magnesium [Nexium] 40 mg PO QAM 01/31/15 [History] Folic Acid 0.4 mg PO QAM 01/31/15 [History] Gabapentin [Neurontin] 600 mg PO TID 01/31/15 [History] Multivitamin with Minerals [Myvitalife] 1 each PO QAM 01/31/15 [History] Metoprolol XL (24 HR) Succ [Toprol Xl] 50 mg PO QPM 03/07/16 [History] Losartan [Cozaar] 50 mg PO BID 08/16/16 [History] Metoprolol XL (24 HR) Succ [Toprol Xl] 100 mg PO QAM 08/16/16 [History] Flaxseed Oil [[place]-3 Flaxseed Oil] 1,000 mg PO DAILY 10/16/16 [History] Digoxin [Lanoxin] 0.125 mg PO DAILY 08/09/17 [History] Magnesium Oxide [Magnesium] 400 mg PO BID 08/09/17 [History] Dulaglutide [Trulicity] 1.5 mg PO SA 10/27/17 [History] Latanoprost [Xalatan] 1 drop BOTH EYES HS 10/27/17 [History] Ammonium Lactate 1 appl TP DAILY PRN 06/20/18 [History] Aspirin [Lo-Dose Aspirin EC] 81 mg PO DAILY 06/20/18 [History] Atorvastatin [Lipitor] 40 mg PO HS 06/20/18 [History] Benzonatate 100 mg PO TID PRN 06/20/18 [History] Dorzolamide/Timolol [Cosopt] 1 drop LEFT EYE BID 06/20/18 [History] Furosemide [Lasix] 60 mg PO QAM 06/20/18 [History] Loratadine [Claritin] 10 mg PO DAILY 06/20/18 [History] Meclizine [Antivert] 25 mg PO TID PRN 06/20/18 [History] Metformin HCl [Fortamet] 1,000 mg PO QPM 06/20/18 [History] Potassium Chloride [Klor-Con 10] 20 meq PO DAILY 06/20/18 [History] Rivaroxaban [Xarelto] 20 mg PO HS 06/20/18 [History] Allergies/Adverse Reactions: 3 Allergy/AdvReac Type Severity Reaction Status Date / Time Amoxicillin [From Augmentin] Allergy Swelling Verified 06/20/18 08:35 of Lip/Tongue/Throat clavulanic acid Allergy Swelling Verified 06/20/18 08:35 [From Augmentin] of Lip/Tongue/Throat codeine AdvReac Shakiness Verified 06/20/18 08:35 morphine AdvReac Palpitation Verified 06/20/18 08:35 s Band-Aid Allergy Rash Uncoded 06/20/18 08:35 Date of admission: 06/19/18 14:00 Primary care physician: Ashutosh Chand, Consults: 04/04/19 15:15 Consult to Cardiology [CONS] Routine Comment: Consulting Provider: Cardiology [facility] Reason for Consult: chest pain Call Completed: No - Constitutional Vitals: Temp Pulse Resp BP Pulse Ox 98.4 F 84 14 156/73 96 06/20/18 14:31 06/20/18 14:31 06/20/18 14:31 06/20/18 14:31 06/20/18 14:31 Exam: Vitals: reviewed General: Alert and oriented x4. No acute distress Cardiovascular: Irregularly, irregular, normal S1 & S2, no rubs, murmurs or gallops. Lungs: CTA b/l, no wheezes or crackles. Abdomen: Soft, non-tender, no rigidity. Extremities: No deformity, no edema Neurological: Normal cognition and motor skills. Rest of the physical exam is non contributory - Patient Status Disposition: Home, Self-Care Condition: Good Functional capacity at discharge: independent ambulation Overall status at discharge: patient is back to baseline - Discharge Instructions Follow Up With: Ashutosh Chand DO [Primary Care Provider] - 06/26/18 10:00 am - Diet and Activity Activity: resume usual activities as tolerated Diet: low salt diet
[2018-06-20] MEDS ORDERED: *HR* Rivaroxaban 10 MG TABLET PO SCH (17:00)
[2018-06-20] MEDS ORDERED: Metoprolol XL (24 HR) Succ 50 MG TAB.ER.24H PO SCH (18:00)
[2018-06-21] MEDS: Insulin LISPRO 300 UNITS/3 ML VIAL SQ SCH ×2 (07:54→12:27)
[2018-06-21] MEDS: Aspirin Enteric Coated 81 MG Tablet PO SCH (09:00)
[2018-06-21] MEDS ORDERED: Metoprolol XL (24 HR) Succ 50 MG TAB.ER.24H PO SCH (09:00)
[2018-06-21] MEDS ORDERED: amLODIPine 5 MG TABLET PO SCH (09:00)
[2018-06-21] MEDS ORDERED: Isosorbide MONOnitrate (24 HR) 30 MG TAB.ER.24H PO SCH (09:00)
[2018-06-21] MEDS: Furosemide 20 MG/2 ML VIAL IVP SCH (09:01)
--- NOTE | 2018-06-21 09:17 | Event Note ---
Date of Encounter: 06/21/18 Time of Encounter: 09:12 I have seen and evaluated the patient at bedside. Patient reports chest pain on presentation have resolved. denies coughing spells while hospitalized. denies nausea, vomiting or abdominal pain. Physical exam: Vitals: reviewed General: Alert and oriented x4. No distress Cardiovascular: Irregularly, irregular, normal S1 & S2, no rubs, murmurs or gallops. Lungs: CTA b/l, no wheezes or crackles. Abdomen: Soft, non-tender, no rigidity. Extremities: No deformity, no edema Neurological: Normal cognition Rest of the physical exam is non contributory Assessment and Plan 1. CHF 2. Atrial fibrillation 3. Severe Pulmonary HTN 3. HTN 4. HLD 5. DM 6. PVD 7. CAD 8. Non-productive cough 9. VTE prophylaxis Plan Patient is discharged home. Pending TTE report She refused O2 qualification evaluation. she does not want to wear O2 even if needed. Amlodipine 5mg/PO daily added for better BP control Disposition Discharged home.
[2018-06-21 10:58] VITALS: BP 131/74
--- NOTE | 2018-06-21 14:04 | Event Note ---
Date of Encounter: 06/21/18 Time of Encounter: 14:00 - Cardiology Event Note Pt discharged. TTE completed. EF preserved. LVEF 55%. Indeterminate diastolic function. Moderate MR and borderline HTN. Afib remains rate controlled on telemetry. Recommend continued medical management. 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 Call with questions.
== END 2018-06-21 14:47 | disposition home or self-care (01) ==
LOC: EMEROOARM 10:54 → 3BNU 10:54 → SUATTDRO 14:00 → 3BNU 15:29
PROVIDERS: ADMIT Internal Medicine Nephrology; ATTEND Internal Medicine

== ENCOUNTER 2018-09-16 11:26 | Inpatient (IN) ==
[2018-09-16] MEDS ORDERED: Albuterol 2.5 MG/3 ML NEBULIZER IH ONE (11:54)
[2018-09-16] MEDS ORDERED: Ringers Solution, Lactated 1,000 ML IVC SCH (12:00)
--- NOTE | 2018-09-16 12:17 | Anesthesia Evaluation PreOp ---
Date of Encounter: 09/16/18 Time of Encounter: 12:14 - Past History Planned Operation: re-do L Fem-Pop Bypass Cardiac History: VT, CHF (chronic diastolic CHF), HTN, Hyperlipidemia, Arrhythmia (TAchy-Richard syndrome. AFib - last Xarelto 09/13/2018), Cardiac Surgery (stent x 1), Cardiac Stent (Stent x 1 - last ASA 09/11/2018. Last Plavix 09/12/2018), Pacemaker/ICD (Pacer placed 2016, VVIR. Interrogated today - Not Pacer dependent/50% Paced. No events.) Pulmonary History: Denies Any Significant HX, Other (CT surveillance for pulmonary nodules. No interventions) SLIP MIXER History: CVA (Affected balance/Vertigo), Other (Carotid stenosis/p -CEA. Vertigo) Other Medical History: Diabetes Type II, Other (Glaucoma) Anesthesia History: No Prior Anesthetic Complications, Past Anesthesia (L-CEA, L-Fem-Pop & revision, R-leg vascular arugry, Pacer placement) Alcohol Use: none Drug use: none Medications and Allergies Esomeprazole Magnesium [Nexium] 40 mg PO QAM 01/31/15 [History] Gabapentin [Neurontin] 600 mg PO TID 01/31/15 [History] Multivitamin with Minerals [Myvitalife] 1 each PO QAM 01/31/15 [History] Metoprolol XL (24 HR) Succ [Toprol Xl] 50 mg PO QPM 03/07/16 [History] Losartan [Cozaar] 50 mg PO BID 08/16/16 [History] Metoprolol XL (24 HR) Succ [Toprol Xl] 100 mg PO QAM 08/16/16 [History] Flaxseed Oil [[place]-3 Flaxseed Oil] 1,000 mg PO DAILY 10/16/16 [History] Digoxin [Lanoxin] 0.125 mg PO DAILY 08/09/17 [History] Magnesium Oxide [Magnesium] 400 mg PO BID 08/09/17 [History] Dulaglutide [Trulicity] 1.5 mg PO SA 10/27/17 [History] Latanoprost [Xalatan] 1 drop BOTH EYES HS 10/27/17 [History] Ammonium Lactate 1 appl TP DAILY PRN 06/20/18 [History] Aspirin [Lo-Dose Aspirin EC] 81 mg PO DAILY 06/20/18 [History] Atorvastatin [Lipitor] 40 mg PO HS 06/20/18 [History] Dorzolamide/Timolol [Cosopt] 1 drop LEFT EYE BID 06/20/18 [History] Furosemide [Lasix] 60 mg PO QAM 06/20/18 [History] Loratadine [Claritin] 10 mg PO DAILY 06/20/18 [History] Meclizine [Antivert] 25 mg PO TID PRN 06/20/18 [History] Metformin HCl [Fortamet] 1,000 mg PO QPM 06/20/18 [History] Potassium Chloride [Klor-Con 10] 20 meq PO DAILY 06/20/18 [History] Rivaroxaban [Xarelto] 20 mg PO HS 06/20/18 [History] Clopidogrel Bisulfate [Plavix] 75 mg PO DAILY #30 tablet 09/12/18 [Rx] Folic Acid 0.4 mg PO DAILY 09/12/18 [History] Allergy/AdvReac Type Severity Reaction Status Date / Time Amoxicillin [From Augmentin] Allergy Swelling Verified 06/20/18 08:35 of Lip/Tongue/Throat clavulanic acid Allergy Swelling Verified 06/20/18 08:35 [From Augmentin] of Lip/Tongue/Throat codeine AdvReac Shakiness Verified 06/20/18 08:35 morphine AdvReac Palpitation Verified 06/20/18 08:35 s Band-Aid Allergy Rash Uncoded 06/20/18 08:35 - Meds/Allergy Pre-op Review Medications Reviewed: Yes Allergies Reviewed: Yes Beta Blockers on Current Med List: Yes (Metoprolol) Anesthesia Results - Imaging EKG: report reviewed (98bpm - Atrial fibrillation Ventricular premature complex Low voltage, extremity leads Borderline repolarization abnormality Electronically Signed On 06-19-2018 17:44:10 EDT by Lesa Green) Additional studies: ECHO 06/20/2018 EV/EV echocardiogram Impressions: LVEF 55%. Indeterminate diastolic function. Normal LV chamber size and wall thickness. Normal right ventricular structure and function. Moderate mitral regurgitation. Mild tricuspid regurgitation. Borderline pulmonary hypertension. Device leads visualized in the right heart chambers. Left Ventricular Wall Motion: Rest Echo Findings The mid inferior lateral and basal inferior lateral abarca were hypokinetic. All other wall segments showed normal motion. Anesthesia Exam O2 Sat Height 1.7 m Height 1.7 m Weight 73.482 kg Weight 73.482 kg O2 Sat by Pulse Oximetry 96 O2 Sat by Pulse Oximetry 96 Vital Signs Temp Pulse Resp BP Pulse Ox 97.4 F L 67 18 131/77 96 09/16/18 11:59 09/16/18 11:59 09/16/18 11:59 09/16/18 11:59 09/16/18 11:59 Height: 5'7" Weight: 162# BMI = 25 NPO (# of Hours): MNoc - HEENT Pupil (Motor): Pupils equal, EOMI Mallampati: III Teeth: Normal (Fair dentition) Oral Opening: Greater than 3 - SLIP MIXER SLIP MIXER Motor: Normal RUE, Normal LUE, Normal Face, Deficit RLE (BLE numbness), Deficit LLE SLIP MIXER Sensory: Normal: RUE, LUE, Face, Deficit: RLE, LLE - Cardiac Rhythm: Regular Murmur: None - Pulmonary Breath Sounds: bilateral Clear Respiratory Effort: Symmetrical Anesthesia Assess/Plan ASA Score: 3 (HTN, Chol, Peripheral Vasc Dz) Anes Supervising Prov Stmt: Pt seen/evaluated, R&B Discussed, questions answered and consent obtained. Eddy Wilder MD
[2018-09-16] MEDS ORDERED: Famotidine 20 MG/2 ML VIAL IVP ONE (12:29)
[2018-09-16] MEDS ORDERED: Pregabalin 75 MG CAPSULE PO ONE (12:30)
[2018-09-16] MEDS ORDERED: Acetaminophen IV 1,000 MG/100 ML INFUS..BTL IVPB ONE (12:30)
[2018-09-16] MEDS ORDERED: Vancomycin 1,000 MG, Sodium Chloride IRRigation 1,000 ML IR ONE (12:55)
[2018-09-16] MEDS ORDERED: Lidocaine -MPF 2% 2 ML VIAL ONE ×2 (12:59→13:39)
[2018-09-16] MEDS ORDERED: *HR* Propofol 200 MG/20 ML VIAL IVP ONE (12:59)
[2018-09-16] MEDS ORDERED: Ondansetron 4 MG/2 ML VIAL ONE (12:59)
[2018-09-16] MEDS ORDERED: *HR* Succinylcholine 200 MG/10 ML VIAL IVP ONE (12:59)
[2018-09-16] MEDS ORDERED: Dexamethasone 4 MG/ML VIAL ONE (12:59)
[2018-09-16] MEDS ORDERED: Lidocaine -MPF 4% 5 ML AMPUL ONE (13:07)
[2018-09-16] MEDS ORDERED: Heparin 1,000 UNITS/500 mL 500 ML ONE (13:38)
[2018-09-16] MEDS ORDERED: *HR* FentaNYL (PF) 100 MCG/2 ML VIAL ONE ×2 (13:39→16:11)
[2018-09-16] MEDS ORDERED: *HR* Rocuronium Bromide 50 MG/5 ML VIAL ONE (13:45)
--- NOTE | 2018-09-16 14:11 | History & Physical Report ---
Date of Encounter: 09/16/18 Time of Encounter: 14:11 24 Hour HP Update - Instructions Instructions: If the History and Physical is less than 30 days old and was completed prior to A.M. admission and or procedure and has NOT been updated on calendar day of procedure please complete this update prior to performing procedure. - Update Patient reports changes in Medical Condition: No Changes in examination, assessment, or condition: No Changes in Medication: No Preop tests/diagnostics Reviewed: Yes Surgery Remains Indicated: Yes Consent for Planned Operative Procedure(s) Verified: Yes - Pre-Operative Checklist Preoperative Checklist Indicated: Yes Prophylactic Antibiotic Ordered: Yes Home Medications Include Beta Lesly: Yes Beta Lesly Taken Today (Day of Surgery): Yes Beta Lesly Taken Yesterday (Day Prior to Surgery): Yes Is VTE Prophylaxis Indicated?: Yes
[2018-09-16] MEDS ORDERED: Heparin 1,000 UNITS/500 mL 1,000 ML ONE (14:20)
[2018-09-16] MEDS ORDERED: *HR* Phenylephrine 10 MG/ML VIAL ONE (14:26)
--- NOTE | 2018-09-16 16:23 | Anesthesia Procedures ---
Date of Encounter: 09/16/18 Time of Encounter: 15:30 Procedures: Anesthesia - Arterial Line Consent obtained: verbal consent Time out performed: Yes Sedation: Versed (mg): 0 (under general anesthesia) Supplemental Oxygen via Nasal Cannula (L/min): 2 Size (Gauge): 20 Length (inches): 1 3/4 Technique Used: sterile prep Post-Procedure: line taped into place, dry sterile dressing placed Patient tolerated procedure: well Complications: none Site: Brachial L Vitals: see anesthesia record Comments: attempt x1 per Cyndy FERREIRA, placed per Herbert CABRERA
[2018-09-16] MEDS ORDERED: NiCARdipine 2.5 MG/10 ML Syringe IVPB ONE (17:03)
[2018-09-16] MEDS ORDERED: Nitroglycerin 25 MG/250 ML INFUS..BTL IVC ONE (17:03)
[2018-09-16] MEDS ORDERED: *HR* PHENYLEPHRINE 1,000 MCG/10 ML SYRINGE IVP ONE (17:25)
[2018-09-16 17:28] LABS: ABG Base Excess 1 mEq/L (-2 to 3); ABG Chloride 108 mEq/L (98-107); ABG Glucose 116 mg/dL (60-95); ABG HCO3 26 mEq/L (21-27); ABG Ionized Calcium 1.21 mmol/L (1.15-1.35); ABG Oxygen Saturation 99 % (95-98); ABG PCO2 41 mmHg (35-45); ABG PH 7.41 pH Units (7.32-7.45); ABG PO2 118 mmHg (85-104); ABG TCO2 27 mEq/L (20-26)
[2018-09-16] MEDS ORDERED: *HR* Heparin 5,000 UNIT/ML VIAL ONE (17:36)
[2018-09-16] MEDS ORDERED: Neostigmine Methylsulfate 3 MG/3 ML SYRINGE ONE (18:41)
[2018-09-16] MEDS ORDERED: *HR* Metoprolol 5 MG/5 ML VIAL IVP ONE (19:16)
--- NOTE | 2018-09-16 19:16 | Operative Note ---
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 At this time she presented with increasing left lower extremity symptoms. She had undergone an angiogram last week which demonstrated a high-grade left external iliac artery stenosis that was treated with a stent angioplasty. 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 This occurred despite the patient being on anticoagulation for chronic cardiac arrhythmias. The patient now comes to the operating room in an attempt to thrombectomize her graft and to restore baseline flow to the left lower extremity. Procedure After informed consent was obtained the patient was taken to the operating room. General endotracheal anesthesia was established under arterial line pressure monitoring. The left lower extremity was then sterilely prepped and draped. A timeout protocol was observed. The operation began with a reopening of the surgical site at the below the knee popliteal artery on the left leg. The dissection was carried through this old incision and is expected significant scar was encountered as this wound had been opened at least 2-3 times before. After tedious dissection the graft was identified and controlled as was the [place] popliteal artery. 5000 units of heparin were administered intravenously. A transverse incision was made over the [place] of the synthetic graft. Both acute and chronic thrombus was identified as well as a large amount of intimal hyperplasia surrounding the anastomosis. This was meticulously removed. Multiple passes of a 4 and 5 [place] catheter with then made through the graft retrograde. A large amount of both acute and chronic thrombus as well as scar tissue and intimal hyperplasia was removed but no significant inflow was restore d. Therefore a second incision was necessary. The groin incision was then opened so that the graft could be identified in its proximal location. The graft was dissected and opened. Therefore the graft was opened and again intimal hyperplasia was encountered and removed. The graft still did not pass the 45 [place] catheters and so therefore a third graftotomy was made in the slightly more distal portion of the graft beyond the [place] proximally. This transverse graftotomy revealed a large amount of intimal hyperplasia that was near occlusive. This was then removed in total. The graft was then flushed easily retrograde and antegrade with heparinized saline. With this done the graft openings were reapproximated with 6-0 Prolene. It was noted that the flow through the [place] iliac system appeared less than anticipated despite the patency of the recently placed stent. This may contribute to the recurrent graft failure as well as very poor and spindly distal vessels. The patient is not a candidate for direct aortic reconstruction due to her cardiopulmonary disease. After all the graftotomies were closed and appropriate backbleeding and flushing performed. Clamps are removed and pulsatile flow was then restored through the graft into the below the knee popliteal artery and then into the tibial system. Strong biphasic signals were identified over the posterior tibial and anterior tibial arteries at the ankle. The wounds were then irrigated and hemostasis achieved. Marcaine was infiltrated into the wounds. The wounds were then closed in layers using absorbable suture. There were no intraoperative complications. The patient was extubated in the operating room and taken to the recovery room in stable condition. No blood transfusions were administered intraoperatively.
--- NOTE | 2018-09-16 20:31 | Anesthesia Evaluation Post Op ---
Date of Encounter: 09/16/18 Time of Encounter: 20:30 - Vital Signs Vital Signs: Last Vital Signs Temp 98.5 F 09/16/18 20:04 Pulse 88 09/16/18 20:19 Resp 14 09/16/18 20:19 BP 155/74 09/16/18 20:19 Pulse Ox 97 09/16/18 20:19 - Lungs Lungs: Clear Ascult./Percussion - Airway Airway: Non-obstructed - Cardiovascular Baseline Rhythm - Mental Status Mental Status: Alert & Oriented, Answers Appropriately - Pain Pain Scale: 2 - Nausea Vomiting Nausea Vomiting: Not Present - Hydration Hydration: NPO, [place] catheter - Discharge PostOp Status: Transfer Patient to floor
[2018-09-16] MEDS ORDERED: Ammonium Lactate 30 APPL/225 GM BOTTLE TP PRN (20:45)
[2018-09-16] MEDS ORDERED: *HR* HYDROcodone/Acet 5/325 mg TABLET PO PRN (20:45)
[2018-09-16] MEDS ORDERED: *HR* OxyCODONE Immed Rel 5 MG TABLET PO PRN (20:45)
[2018-09-16] MEDS ORDERED: Ondansetron 4 MG/2 ML VIAL IVP PRN (20:45)
[2018-09-16] MEDS ORDERED: Acetaminophen 325 MG TABLET PO PRN (20:45)
[2018-09-16 20:49] LABS: BUN/Creatinine Ratio 17 (6-26); Blood Urea Nitrogen 9 mg/dL (8-23); eGFR For African Americans > 60 (> 60); eGFR For Non-African Americans > 60 (> 60)
[2018-09-16] MEDS: Naloxone 0.4 MG/ML INJ IVP PRN ×2 (21:19→21:25)
--- NOTE | 2018-09-16 21:59 | Event Note ---
Date of Encounter: 09/16/18 Time of Encounter: 21:57 Patient was evaluated by the 2 N. nurses when she arrived in the PACU. She was found to be extremely somnolent and unresponsive to tactile and verbal stimuli. 2 doses of Narcan were given as the patient had pinpoint pupils. Patient had a significant improvement in her mental status. I evaluated the patient at approximately 9:40 PM. At that time the patient was awake and easily arousable. She was moving all 4 extremities. Her pupils were normal longer pinpoint. She had spontaneous speech and was appropriate.
--- NOTE | 2018-09-16 22:01 | Physician Discharge Referral ---
ExtendedCare Referral Info Transfer To: [facility] Provider in Charge: Dr Diamond Provider in Charge after Transfer: PCP Institutional Level of Care: Skilled - Diagnosis (1) Arterial occlusion, lower extremity Priority: Primary Status: Chronic (2) Diabetes mellitus Priority: Secondary Status: Chronic (3) Postural dizziness with near syncope Priority: Secondary Status: Chronic (4) Dizziness Priority: Secondary Status: Chronic (5) Atrial fibrillation Priority: Secondary Status: Chronic (6) CHF (congestive heart failure) Priority: Secondary Status: Chronic (7) CAD (coronary artery disease) Priority: Secondary Status: Chronic Expected Duration of Placement: 1-2 weeks Prognosis: Fair Aware of Diagnosis: Patient Aware of Prognosis: Patient - Transfer Medications Home Medications: Esomeprazole Magnesium [Nexium] 40 mg PO QAM 01/31/15 [History] Gabapentin [Neurontin] 600 mg PO TID 01/31/15 [History] Multivitamin with Minerals [Myvitalife] 1 each PO QAM 01/31/15 [History] Metoprolol XL (24 HR) Succ [Toprol Xl] 50 mg PO QPM 03/07/16 [History] Losartan [Cozaar] 50 mg PO BID 08/16/16 [History] Metoprolol XL (24 HR) Succ [Toprol Xl] 100 mg PO QAM 08/16/16 [History] Flaxseed Oil [[place]-3 Flaxseed Oil] 1,000 mg PO DAILY 10/16/16 [History] Digoxin [Lanoxin] 0.125 mg PO DAILY 08/09/17 [History] Magnesium Oxide [Magnesium] 400 mg PO BID 08/09/17 [History] Dulaglutide [Trulicity] 1.5 mg PO SA 10/27/17 [History] Latanoprost [Xalatan] 1 drop BOTH EYES HS 10/27/17 [History] Ammonium Lactate 1 appl TP DAILY PRN 06/20/18 [History] Aspirin [Lo-Dose Aspirin EC] 81 mg PO DAILY 06/20/18 [History] Atorvastatin [Lipitor] 40 mg PO HS 06/20/18 [History] Furosemide [Lasix] 60 mg PO QAM 06/20/18 [History] Loratadine [Claritin] 10 mg PO DAILY 06/20/18 [History] Meclizine [Antivert] 25 mg PO TID PRN 06/20/18 [History] Metformin HCl [Fortamet] 1,000 mg PO QPM 06/20/18 [History] Potassium Chloride [Klor-Con 10] 20 meq PO DAILY 06/20/18 [History] Rivaroxaban [Xarelto] 20 mg PO HS 06/20/18 [History] Clopidogrel Bisulfate [Plavix] 75 mg PO DAILY #30 tablet 09/12/18 [Rx] Folic Acid 0.4 mg PO DAILY 09/12/18 [History] Allergies/Adverse Reactions: Allergy/AdvReac Type Severity Reaction Status Date / Time Amoxicillin [From Augmentin] Allergy Swelling Verified 06/20/18 08:35 of Lip/Tongue/Throat clavulanic acid Allergy Swelling Verified 06/20/18 08:35 [From Augmentin] of Lip/Tongue/Throat codeine AdvReac Shakiness Verified 06/20/18 08:35 morphine AdvReac Palpitation Verified 06/20/18 08:35 s Band-Aid Allergy Rash Uncoded 06/20/18 08:35 - Respiratory Orders Smoking Cessation: Smoking cessation has been advised. For more information, call the [employer]uit Line at 3-372-SRTD-NOW. - Ancillary Orders May use pressure relief devices daily prn, May go on [place] w/family/respon alliance party w/meds at nurse discretion PRN, May consult with Dentist, Tank Truck Loader, Cyber Security Specialist PRN - Advance Directives Code Status: Full Code - Mobility Orders Ambulate - Rehabiliation Orders Rehab Potential: Good Rehab Orders: ROM Exercises, Evaluation for Physical Therapy, Evaluation for Occupational Therapy - Diet Orders Regular CERTIFICATION: I certify that the transfer of the above named patient to an Extended Care Facility is necessary for the continuing treatment of the diagnosis listed. The above information is true and accurate reflection of patient's current condition. Confidential - Redisclosure prohibited without a patient's written consent.
--- NOTE | 2018-09-16 22:06 | Discharge Summary ---
<Sung Guo - Last Filed: 09/19/18 12:26> Orders not resulted at time of discharge: Pending orders 09/16/18 11:43 Red Blood Cells [BBK] Routine Type and Screen [BBK] Routine Date of Encounter: 09/19/18 Time of Encounter: 12:10 - Discharge Diagnosis (1) Arterial occlusion, lower extremity Status: Chronic Comments: The patient is postoperative day #3 after left lower extremity graft thrombectomy. Her incisions are healing well. She has polyphasic signals. His no hematoma. She has improved dramatically with physical therapy. She will be discharged home with home health assistance. - Hospital Course Hospital course: Ms. Crane is a 78 year old female - Time Spent with Patient Total time spent providing and/or coordinating discharge services: - Discharge Medications Prescriptions: New Acetaminophen [Tylenol] 1,000 mg PO Q6HR PRN #90 tablet PRN Reason: POSTOPERATIVE PAIN Continued Multivitamin with Minerals [Myvitalife] 1 each PO QAM Gabapentin [Neurontin] 600 mg PO TID Esomeprazole Magnesium [Nexium] 40 mg PO QAM Metoprolol XL (24 HR) Succ [Toprol Xl] 50 mg PO QPM Metoprolol XL (24 HR) Succ [Toprol Xl] 100 mg PO QAM Losartan [Cozaar] 50 mg PO BID Flaxseed Oil [[place]-3 Flaxseed Oil] 1,000 mg PO DAILY Digoxin [Lanoxin] 0.125 mg PO DAILY Magnesium Oxide [Magnesium] 400 mg PO BID Dulaglutide [Trulicity] 1.5 mg PO SA Latanoprost [Xalatan] 1 drop BOTH EYES HS Ammonium Lactate 1 appl TP DAILY PRN PRN Reason: CRACKED FEET Aspirin [Lo-Dose Aspirin EC] 81 mg PO DAILY Atorvastatin [Lipitor] 40 mg PO HS Furosemide [Lasix] 60 mg PO QAM Loratadine [Claritin] 10 mg PO DAILY Meclizine [Antivert] 25 mg PO TID PRN PRN Reason: Vertigo Metformin HCl [Fortamet] 1,000 mg PO QPM Potassium Chloride [Klor-Con 10] 20 meq PO DAILY Rivaroxaban [Xarelto] 20 mg PO HS Folic Acid 0.4 mg PO DAILY Clopidogrel Bisulfate [Plavix] 75 mg PO DAILY #30 tablet Home Medications: Esomeprazole Magnesium [Nexium] 40 mg PO QAM 11/16/15 [History] Gabapentin [Neurontin] 600 mg PO TID 01/31/15 [History] Multivitamin with Minerals [Myvitalife] 1 each PO QAM 01/31/15 [History] Metoprolol XL (24 HR) Succ [Toprol Xl] 50 mg PO QPM 03/07/16 [History] Losartan [Cozaar] 50 mg PO BID 08/16/16 [History] Metoprolol XL (24 HR) Succ [Toprol Xl] 100 mg PO QAM 08/16/16 [History] Flaxseed Oil [[place]-3 Flaxseed Oil] 1,000 mg PO DAILY 10/16/16 [History] Digoxin [Lanoxin] 0.125 mg PO DAILY 08/09/17 [History] Magnesium Oxide [Magnesium] 400 mg PO BID 08/09/17 [History] Dulaglutide [Trulicity] 1.5 mg PO SA 10/27/17 [History] Latanoprost [Xalatan] 1 drop BOTH EYES HS 10/27/17 [History] Ammonium Lactate 1 appl TP DAILY PRN 06/20/18 [History] Aspirin [Lo-Dose Aspirin EC] 81 mg PO DAILY 06/20/18 [History] Atorvastatin [Lipitor] 40 mg PO HS 06/20/18 [History] Furosemide [Lasix] 60 mg PO QAM 06/20/18 [History] Loratadine [Claritin] 10 mg PO DAILY 06/20/18 [History] Meclizine [Antivert] 25 mg PO TID PRN 06/20/18 [History] Metformin HCl [Fortamet] 1,000 mg PO QPM 06/20/18 [History] Potassium Chloride [Klor-Con 10] 20 meq PO DAILY 06/20/18 [History] Rivaroxaban [Xarelto] 20 mg PO HS 06/20/18 [History] Clopidogrel Bisulfate [Plavix] 75 mg PO DAILY #30 tablet 09/12/18 [Rx] Folic Acid 0.4 mg PO DAILY 09/12/18 [History] Acetaminophen [Tylenol] 1,000 mg PO Q6HR PRN #90 tablet 09/19/18 [Rx] Allergies/Adverse Reactions: Allergy/AdvReac Type Severity Reaction Status Date / Time Amoxicillin [From Augmentin] Allergy Swelling Verified 06/20/18 08:35 of Lip/Tongue/Throat clavulanic acid Allergy Swelling Verified 06/20/18 08:35 [From Augmentin] of Lip/Tongue/Throat codeine AdvReac Shakiness Verified 06/20/18 08:35 morphine AdvReac Palpitation Verified 06/20/18 08:35 s Band-Aid Allergy Rash Uncoded 06/20/18 08:35 Date of admission: 09/16/18 21:30 Primary care physician: Ashutosh Chand, DO Consults: 09/16/18 20:45 Consult to Occupational Therapy [CONS] Routine Comment: Evaluate, develop and implement POC Reason for Consult: for rehab eval/placement upon discharge Does patient have active BEDREST order?: No Is patient medically & hemodynamically stable?: Yes Patient assessed for mobility or mobilized this visit?: No Consult to Physical Therapy [CONS] Routine Comment: Evaluate, develop and implement POC Reason for Consult: eval for short term in patient rehab upon discharge Does patient have active BEDREST order?: No Is patient medically & hemodynamically stable?: Yes Patient assessed for mobility or mobilized this visit?: No Consult to Child Day Care Teacher [CONS] Routine Reason for SW Consult: patient will be short term in patient rehab upon discharge Discharging clinician: Memo Diamond Anticipated date of discharge: 09/19/18 Exam Vital Signs, Last 4 Hours Temp Pulse Resp BP Pulse Ox 09/19/18 11:12 98.2 F 68 16 141/55 99 General: Present: Conversant, No Apparent Distress HEENT: Present: Pupils equal Cardiac: Present: Normal S1 and S2 Lungs: Present: Normal Breath Sounds Neuro: Present: Alert and responsive, Motor nerves grossly intact, Sensory nerve s grossly intact Abdomen: Present: Soft Vascular: Present: Edema, Surgical incisions (Incisions clean, dry and intact without erythema or drainage, no hematoma), Other (Pedal signals polyphasic in the left lower extremity). Absent: Cyanosis - Patient Status Disposition: Home, Self-Care Condition: Good Overall status at discharge: patient is progressing back to baseline - Discharge Instructions Instructions: Femoropopliteal Bypass (DC) Follow Up With: Holly Alba SLEEPING CAR SERVICE ATTENDANT [Advanced Practice Nurse] - 09/24/18 10:30 am (Dr. Chand has nothing available in this time frame so they scheduled you with Holly Alba) Memo Diamond MD [Partnered Physician] - 10/06/18 10:30 am (This appointment is in [place]) Additional Instructions: Keep surgical sites in left lower extremity dry for 5 days following operation. Patient to ambulate as much as possible and as directed by physical therapy. Elevate left lower extremity while sitting to avoid postoperative edema. Resume usual home medications at extended care facility. - Diet and Activity Activity: as per physical therapy Diet: diabetic diet <Memo Diamond - Last Filed: 09/22/18 15:15> Orders not resulted at time of discharge: Pending orders 09/16/18 11:43 Red Blood Cells [BBK] Routine Type and Screen [BBK] Routine 09/16/18 20:45 Hemoglobin and Hematocrit [HEME] Routine 09/17/18 04:00 Basic Metabolic Panel AM 0400 Complete Blood Count [HEME] AM 0400 Date of Encounter: 09/22/18 - Discharge Diagnosis (1) Arterial occlusion, lower extremity Priority: Primary Status: Chronic Comments: Recurrent left lower extremity ischemia secondary to iliac artery stenosis which was subsequently treated with stent angioplasty and recurrent thrombosis of left femoral to below the knee popliteal artery PTFE bypass graft. (2) Diabetes mellitus Priority: Secondary Status: Chronic Qualifiers: Diabetes mellitus type: type 2 Diabetes mellitus correction insulin use: without touring production manager use Diabetes mellitus complication status: with circulatory complication Diabetes mellitus complication detail: with peripheral angiopathy without gangrene Qualified Code(s): E11.51 - Type 2 diabetes mellitus with diabetic peripheral angiopathy without gangrene (3) Postural dizziness with near syncope Priority: Secondary Status: Chronic Comments: Chronic history of postural dizziness (4) Dizziness Priority: Secondary Status: Chronic Comments: Chronic history of dizziness (5) Atrial fibrillation Priority: Secondary Status: Chronic Comments: Chronic history of atrial fibrillation Qualifiers: Atrial fibrillation type: chronic Qualified Code(s): I48.2 - Chronic atrial fibrillation (6) CHF (congestive heart failure) Priority: Secondary Status: Chronic Qualifiers: Heart failure type: unspecified Heart failure chronicity: chronic Qualified Code(s): I50.9 - Heart failure, unspecified (7) CAD (coronary artery disease) Priority: Secondary Status: Chronic Qualifiers: Coronary Disease-Associated Artery/Lesion type: [place] artery [place] vs. transplanted heart: [place] heart Associated angina: without angina Qualified Code(s): I25.10 - Atherosclerotic heart disease of [place] coronary artery without angina pectoris - Hospital Course Hospital course: Ms. 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 The patient has had recurrent problems of left lower extremity ischemia and she has yet again thrombosed her left femoral to [id number] popliteal artery bypass graft. Because of severe and lifestyle limiting symptoms she was admitted for intervention. The patient was taken to the operating room and underwent an extensive thrombectomy of the left femoral to below the knee popliteal artery bypass graft. The patient had hoahaoism of strong Doppler signals at the ankle. She originally was going to go to an extended care facility but as she made significant progress she was deemed appropriate to return directly to home. Instructions are given to the patient and her daughter in regards to her diet and medications and physical activities. - Time Spent with Patient Total time spent providing and/or coordinating discharge services: Date of admission: 09/16/18 21:30 Primary care physician: Ashutosh Chand, DO Consults: 09/16/18 20:45 Consult to Occupational Therapy [CONS] Routine Comment: Evaluate, develop and implement POC Reason for Consult: for rehab eval/placement upon discharge Does patient have active BEDREST order?: No Is patient medically & hemodynamically stable?: Yes Patient assessed for mobility or mobilized this visit?: No Consult to Physical Therapy [CONS] Routine Comment: Evaluate, develop and implement POC Reason for Consult: eval for short term in patient rehab upon discharge Does patient have active BEDREST order?: No Is patient medically & hemodynamically stable?: Yes Patient assessed for mobility or mobilized this visit?: No Consult to Child Day Care Teacher [CONS] Routine Reason for SW Consult: patient will be short term in patient rehab upon discharge Procedure(s) Performed: Redo thrombectomy of left femoral to below-knee popliteal artery bypass graft. Exam Vital Signs, Last 4 Hours Temp Pulse Resp BP Pulse Ox 09/16/18 20:55 97.8 F 76 17 148/105 90 09/16/18 20:19 88 14 155/74 97 09/16/18 20:04 98.5 F 91 18 142/61 98 09/16/18 19:54 86 18 149/92 97 09/16/18 19:44 88 16 132/100 96 09/16/18 19:34 99.0 F 92 22 163/91 98 - Patient Status Functional capacity at discharge: uses cane/walker Overall status at discharge: patient is progressing back to baseline - Diet and Activity Activity: as per physical therapy, increase activity as tolerated Diet: diabetic diet
[2018-09-16 22:27] LABS: Hematocrit 30.6 % (35.3-44.9); Hemoglobin 9.6 g/dL (11.5-15.4)
[2018-09-16] MEDS: Magnesium Oxide 400 MG TABLET PO SCH (23:44)
[2018-09-16] MEDS: Gabapentin 300 MG CAPSULE PO SCH (23:45)
[2018-09-16] MEDS: Latanoprost 2.5 ML BOTTLE BOTH EYES SCH (23:45)
[2018-09-17 04:20] LABS: Basophils % 0.2 %; Hematocrit 28.5 % (35.3-44.9); Immature Granulocytes % 0.5 % (0-4); Lymphocytes # 0.7 K/mcL (0.6-4.6); Lymphocytes % 6.2 %; Mean Corpuscular HGB Conc 31.6 g/dL (31.6-35.5); Mean Corpuscular Hemoglobin 27.4 pg (28.0-33.3); Mean Corpuscular Volume 86.9 fL (83.0-100.0); Mean Platelet Volume 10.5 fL (9.4-12.4); Monocytes # 0.4 K/mcL (0.0-1.3); Neutrophils # 10.9 K/mcL (1.6-8.9); Platelet Count 275 K/mcL (140-400); Red Blood Count 3.28 M/mcL (3.82-4.97); Red Cell Distribution Width 13.8 % (11.5-14.5); Segmented Neutrophils % 90.1 %
[2018-09-17 04:36] LABS: BUN/Creatinine Ratio 16 (6-26); Blood Urea Nitrogen 14 mg/dL (8-23); Calcium 8.5 mg/dL (8.6-10.3); Carbon Dioxide 24 mEq/L (23-29); Chloride 106 mEq/L (98-107); Glucose 195 mg/dL (70-105); Osmolality,Calculated 294 (280-300); Potassium 5.2 mEq/L (3.5-5.1); Sodium 139 mEq/L (136-145); eGFR For African Americans > 60 (> 60); eGFR For Non-African Americans > 60 (> 60)
[2018-09-17] MEDS ORDERED: Vancomycin (wt based) 1,000 MG VIAL IV SCH (06:00)
[2018-09-17] MEDS: Famotidine 20 MG/2 ML VIAL IVP SCH ×2 (06:20→17:28)
[2018-09-17] MEDS: Multivit/Ca/Min/Fe/FA 1 TAB TABLET PO SCH (07:21)
[2018-09-17] MEDS: Gabapentin 300 MG CAPSULE PO SCH ×3 (07:21→21:07)
[2018-09-17] MEDS: Aspirin Enteric Coated 81 MG Tablet PO SCH (07:21)
[2018-09-17] MEDS: Furosemide 20 MG TABLET PO SCH (07:21)
[2018-09-17] MEDS: Metoprolol XL (24 HR) Succ 50 MG TAB.ER.24H PO SCH ×2 (07:21→17:28)
[2018-09-17] MEDS: *HR* Digoxin 0.125 MG TABLET PO SCH (07:21)
[2018-09-17] MEDS: Loratadine 10 MG TABLET PO SCH (07:22)
[2018-09-17] MEDS: Folic Acid 1 MG TABLET PO SCH (07:22)
[2018-09-17] MEDS: Magnesium Oxide 400 MG TABLET PO SCH ×2 (07:22→21:07)
[2018-09-17] MEDS: (Flaxseed Oil [Omega-3 Flaxseed Oil] 1,000 MG) PO SCH (07:23)
--- NOTE | 2018-09-17 13:31 | Vascular/[facility] Progress Note ---
Date of Encounter: 09/17/18 Time of Encounter: 13:05 - Assessment and plan (1) Arterial occlusion, lower extremity Current Visit: Yes Status: Chronic The patient is postoperative day #1 after left lower extremity graft thrombectomy for left lower extremity acute on chronic limb ischemia. She is neurovascularly intact left lower extremity. Her incisions appear to be healing well. She has no hematoma. The patient was seen by physical therapy and jessica abilitation was recommended. She will be discharged when a bed becomes available. - Subjective Interval history: The patient reports adequate pain control. She reports her leg is feeling better. She denies any chest pain or shortness of breath. Vital Signs, Last 4 Hours Temp Pulse Resp BP Pulse Ox 09/17/18 11:16 97.8 F 82 18 101/73 97 - Physical Examination General: Present: Conversant HEENT: Present: Pupils equal Cardiac: Present: Normal S1 and S2 Lungs: Present: Normal Breath Sounds Neuro: Present: Alert and responsive, No focal deficits noted Vascular: Present: Normal capillary refill, Capillary refill delayed, Surgical incisions (Incisions clean, dry and intact without erythema or drainage, no hematoma, compartments soft), Other (Pedal signals present bilaterally) Abdomen: Present: Soft Results 09/17/18 03:45 09/17/18 03:45 Lab Results, Last 24 hours 09/16/18 09/16/18 09/17/18 20:14 22:16 03:45 WBC 12.0 H Hgb 9.6 L 9.0 L Hct 30.6 L 28.5 L Plt Count 275 Sodium Potassium Chloride Carbon Dioxide BUN 9 Creatinine 0.54 L Glucose Calcium 09/17/18 03:45 WBC Hgb Hct Plt Count Sodium 139 Potassium 5.2 H Chloride 106 Carbon Dioxide 24 BUN 14 Creatinine 0.90 Glucose 195 H Calcium 8.5 L Consult Discharge Plan - Plan Additional Instructions: Keep surgical sites in left lower extremity dry for 5 days following operation. Patient to ambulate as much as possible and as directed by physical therapy. Elevate left lower extremity while sitting to avoid postoperative edema. Resume usual home medications at extended care facility. Referrals: Holly Alba CNP [Advanced Practice Nurse] - 09/24/18 10:30 am (Dr. Chand has nothing available in this time frame so they scheduled you with Holly Alba) Memo Diamond MD [Partnered Physician] - 10/06/18 10:30 am (This appointment is in [place])
[2018-09-17] MEDS: *HR* Metformin 500 MG TABLET PO SCH (17:28)
[2018-09-17] MEDS: Latanoprost 2.5 ML BOTTLE BOTH EYES SCH (21:08)
[2018-09-18] MEDS: Famotidine 20 MG/2 ML VIAL IVP SCH ×2 (06:01→17:00)
[2018-09-18] MEDS: Folic Acid 1 MG TABLET PO SCH (07:55)
[2018-09-18] MEDS: Magnesium Oxide 400 MG TABLET PO SCH ×2 (07:55→21:52)
[2018-09-18] MEDS: Multivit/Ca/Min/Fe/FA 1 TAB TABLET PO SCH (07:55)
[2018-09-18] MEDS: *HR* Digoxin 0.125 MG TABLET PO SCH (07:55)
[2018-09-18] MEDS: Aspirin Enteric Coated 81 MG Tablet PO SCH (07:55)
[2018-09-18] MEDS: Furosemide 20 MG TABLET PO SCH (07:55)
[2018-09-18] MEDS: Loratadine 10 MG TABLET PO SCH (07:55)
[2018-09-18] MEDS: Gabapentin 300 MG CAPSULE PO SCH ×3 (07:55→21:51)
[2018-09-18] MEDS: Metoprolol XL (24 HR) Succ 50 MG TAB.ER.24H PO SCH ×2 (07:56→17:00)
[2018-09-18] MEDS: (Flaxseed Oil [Omega-3 Flaxseed Oil] 1,000 MG) PO SCH (07:56)
--- NOTE | 2018-09-18 14:27 | Vascular/[facility] Progress Note ---
Date of Encounter: 09/18/18 Time of Encounter: 13:20 - Assessment and plan (1) Arterial occlusion, lower extremity Current Visit: Yes Status: Chronic The patient is postoperative day #2 after left lower extremity graft thrombectomy for left lower extremity acute on chronic limb ischemia. She is healing well. She will continue with physical therapy. She will be discharged when rehabilitation is available. - Subjective Interval history: The patient reports improved ambulation. She reports adequate pain control. She denies any chest pain or shortness of breath. Vital Signs, Last 4 Hours Temp Pulse Resp BP Pulse Ox 09/18/18 11:22 97.3 F L 73 16 133/51 98 - Physical Examination HEENT: Present: Pupils equal Cardiac: Present: Reg Rate and Rhythm Lungs: Present: Normal Breath Sounds Neuro: Present: No focal deficits noted Vascular: Present: Surgical incisions (Incisions clean, dry and intact without hematoma), Other (Pedal signals polyphasic) Abdomen: Present: Soft Results 09/17/18 03:45 09/17/18 03:45 Consult Discharge Plan - Plan Additional Instructions: Keep surgical sites in left lower extremity dry for 5 days following operation. Patient to ambulate as much as possible and as directed by physical therapy. Elevate left lower extremity while sitting to avoid postoperative edema. Resume usual home medications at extended care facility. Referrals: Holly Alba CNP [Advanced Practice Nurse] - 09/24/18 10:30 am (Dr. Chand has nothing available in this time frame so they scheduled you with Holly Alba) Memo Diamond MD [Partnered Physician] - 10/06/18 10:30 am (This appointment is in [place])
[2018-09-18] MEDS: *HR* Metformin 500 MG TABLET PO SCH (17:00)
[2018-09-18] MEDS: Latanoprost 2.5 ML BOTTLE BOTH EYES SCH (21:53)
[2018-09-19] MEDS: Famotidine 20 MG/2 ML VIAL IVP SCH (05:49)
[2018-09-19] MEDS: Loratadine 10 MG TABLET PO SCH (07:57)
[2018-09-19] MEDS: Folic Acid 1 MG TABLET PO SCH (07:57)
[2018-09-19] MEDS: Aspirin Enteric Coated 81 MG Tablet PO SCH (07:57)
[2018-09-19] MEDS: *HR* Digoxin 0.125 MG TABLET PO SCH (07:58)
[2018-09-19] MEDS: Furosemide 20 MG TABLET PO SCH (07:59)
[2018-09-19] MEDS: Gabapentin 300 MG CAPSULE PO SCH ×2 (07:59→15:53)
[2018-09-19] MEDS: Magnesium Oxide 400 MG TABLET PO SCH (07:59)
[2018-09-19] MEDS: Multivit/Ca/Min/Fe/FA 1 TAB TABLET PO SCH (08:00)
[2018-09-19] MEDS: Metoprolol XL (24 HR) Succ 50 MG TAB.ER.24H PO SCH (08:01)
[2018-09-19] MEDS: (Flaxseed Oil [Omega-3 Flaxseed Oil] 1,000 MG) PO SCH (08:03)
--- NOTE | 2018-09-19 12:34 | Physician Discharge Referral ---
Home Health/Hosp Referral Info Transfer to: Home Health Provider in Charge Post Discharge: PCP - Diagnosis (1) Arterial occlusion, lower extremity Priority: Primary Status: Chronic (2) Anemia Priority: Secondary Status: Chronic (3) Atrial fibrillation Priority: Secondary Status: Chronic (4) CAD (coronary artery disease) Priority: Secondary Status: Chronic (5) CHF (congestive heart failure) Priority: Secondary Status: Chronic (6) Diabetes mellitus Priority: Secondary Status: Chronic (7) HTN (hypertension) Priority: Secondary Status: Chronic - Respiratory Orders Smoking Cessation: Smoking cessation has been advised. For more information, call the [place] Tobacco Quit Line at 8-466-FLTB-NOW. - Diet/Nutrition Diet/Nutrition Orders: No Concentrated Sweets - Activity Activity Orders: Ambulate, Walker - Services Needed Following services are medically necessary services: Home Health Aide, Physical Therapy - Transfer Medications Prescriptions: Acetaminophen [Tylenol] 1,000 mg PO Q6HR PRN #90 tablet PRN Reason: POSTOPERATIVE PAIN Home Medications: Esomeprazole Magnesium [Nexium] 40 mg PO QAM 01/31/15 [History] Gabapentin [Neurontin] 600 mg PO TID 01/31/15 [History] Multivitamin with Minerals [Myvitalife] 1 each PO QAM 01/31/15 [History] Metoprolol XL (24 HR) Succ [Toprol Xl] 50 mg PO QPM 03/07/16 [History] Losartan [Cozaar] 50 mg PO BID 08/16/16 [History] Metoprolol XL (24 HR) Succ [Toprol Xl] 100 mg PO QAM 08/16/16 [History] Flaxseed Oil [[place]-3 Flaxseed Oil] 1,000 mg PO DAILY 10/16/16 [History] Digoxin [Lanoxin] 0.125 mg PO DAILY 08/09/17 [History] Magnesium Oxide [Magnesium] 400 mg PO BID 08/09/17 [History] Dulaglutide [Trulicity] 1.5 mg PO SA 10/27/17 [History] Latanoprost [Xalatan] 1 drop BOTH EYES HS 10/27/17 [History] Ammonium Lactate 1 appl TP DAILY PRN 06/20/18 [History] Aspirin [Lo-Dose Aspirin EC] 81 mg PO DAILY 06/20/18 [History] Atorvastatin [Lipitor] 40 mg PO HS 06/20/18 [History] Furosemide [Lasix] 60 mg PO QAM 06/20/18 [History] Loratadine [Claritin] 10 mg PO DAILY 06/20/18 [History] Meclizine [Antivert] 25 mg PO TID PRN 06/20/18 [History] Metformin HCl [Fortamet] 1,000 mg PO QPM 06/20/18 [History] Potassium Chloride [Klor-Con 10] 20 meq PO DAILY 06/20/18 [History] Rivaroxaban [Xarelto] 20 mg PO HS 06/20/18 [History] Clopidogrel Bisulfate [Plavix] 75 mg PO DAILY #30 tablet 09/12/18 [Rx] Folic Acid 0.4 mg PO DAILY 09/12/18 [History] Acetaminophen [Tylenol] 1,000 mg PO Q6HR PRN #90 tablet 09/19/18 [Rx] Allergies/Adverse Reactions: Allergy/AdvReac Type Severity Reaction Status Date / Time Amoxicillin [From Augmentin] Allergy Swelling Verified 06/20/18 08:35 of Lip/Tongue/Throat clavulanic acid Allergy Swelling Verified 06/20/18 08:35 [From Augmentin] of Lip/Tongue/Throat codeine AdvReac Shakiness Verified 06/20/18 08:35 morphine AdvReac Palpitation Verified 06/20/18 08:35 s Band-Aid Allergy Rash Uncoded 06/20/18 08:35 Certification: Further, I certify that my clinical findings support that this patient is homebound (i.e. absences from home require considerable and taxing effort and are for medical reasons or scientology services or infrequently or short duration when for other reasons) because: Homebound Reason: Patient requires assistance of a person or device to safely leave home, Post-surgery restriction and or conditions limit ability to leave home, Leaving home requires considerable and taxing effort due to condition Attestation: My signature below is to certify that this patient is under my care and that I, or nurse practitioner, or a physician's assistant refinery operator working with me, has a [id number] encounter with this patient.
[2018-09-19 16:13] VITALS: BP 168/79
[2018-09-20] MEDS ORDERED: (Dulaglutide [Trulicity] 1.5 MG) PO SCH (18:00)
== END 2018-09-19 18:30 | disposition home or self-care (01) | DRG 253 ==
LOC: SAMDAY 11:26 → 2NNU 21:30
PROVIDERS: ADMIT Surgery Vascular Surgery; ATTEND Surgery Vascular Surgery

== ENCOUNTER 2018-11-17 15:36 | Inpatient (IN) ==
[2018-11-17] MEDS ORDERED: 0.9 % Sodium Chloride 1,000 ML IVC ONE (16:02)
--- NOTE | 2018-11-17 16:03 | Emergency Department Note ---
Disposition Clinical Impression: Symptomatic anemia Disposition: Admitted As Inpatient Condition: Good Referrals: Ashutosh Chand DO [Primary Care Provider] - Forms: ED Satisfaction Letter Time of Disposition: 17:53 General Adult HPI - General Chief complaint: ED Shortness of Breath/Dyspnea Stated complaint: RADHA Time Seen by Provider: 11/17/18 15:58 Source: patient, family Limitations: no limitations Nursing Notes Reviewed: Yes Vital Signs Reviewed: Yes - History of Present Illness HPI Narrative: 78 year old female presents emergency department with generalized weakness. Patient states that she has not been right since her right lower extremity stent placement. Patient denies any nausea, vomiting. Which she does report a little bit of shortness of breath and cough and sputum production. She denies any abdominal pain. Denies any dysuria, urinary frequency, urgency. Pain Scale: 0 - Related Data Home Medications Medication Instructions Recorded Confirmed Esomeprazole Magnesium [Nexium] 40 mg PO QAM 01/31/15 09/16/18 Gabapentin [Neurontin] 600 mg PO TID 01/31/15 09/16/18 Multivitamin with Minerals 1 each PO QAM 01/31/15 09/16/18 [Myvitalife] Metoprolol XL (24 HR) Succ [Toprol 50 mg PO QPM 03/07/16 09/16/18 Xl] Losartan [Cozaar] 50 mg PO BID 08/16/16 09/16/18 Metoprolol XL (24 HR) Succ [Toprol 100 mg PO QAM 08/16/16 09/16/18 Xl] Flaxseed Oil [[place]-3 Flaxseed Oil] 1,000 mg PO DAILY 10/16/16 09/16/18 Digoxin [Lanoxin] 0.125 mg PO DAILY 08/09/17 09/16/18 Magnesium Oxide [Magnesium] 400 mg PO BID 08/09/17 09/16/18 Dulaglutide [Trulicity] 1.5 mg PO SA 10/27/17 09/16/18 Latanoprost [Xalatan] 1 drop BOTH EYES HS 10/27/17 09/16/18 Ammonium Lactate 1 appl TP DAILY PRN 06/20/18 09/16/18 Aspirin [Lo-Dose Aspirin EC] 81 mg PO DAILY 06/20/18 09/16/18 Atorvastatin [Lipitor] 40 mg PO HS 06/20/18 09/16/18 Furosemide [Lasix] 60 mg PO QAM 06/20/18 09/16/18 Loratadine [Claritin] 10 mg PO DAILY 06/20/18 09/16/18 Meclizine [Antivert] 25 mg PO TID PRN 06/20/18 09/16/18 Metformin HCl [Fortamet] 1,000 mg PO QPM 06/20/18 09/16/18 Potassium Chloride [Klor-Con 10] 20 meq PO DAILY 06/20/18 09/16/18 Rivaroxaban [Xarelto] 20 mg PO HS 06/20/18 09/16/18 Folic Acid 0.4 mg PO DAILY 09/12/18 09/16/18 Previous Rx's Medication Instructions Recorded Clopidogrel Bisulfate [Plavix] 75 mg PO DAILY #30 tablet 09/12/18 Acetaminophen [Tylenol] 1,000 mg PO Q6HR PRN #90 tablet 09/19/18 Allergies Allergy/AdvReac Type Severity Reaction Status Date / Time Amoxicillin [From Augmentin] Allergy Swelling Verified 11/17/18 15:42 of Lip/Tongue/Throat clavulanic acid Allergy Swelling Verified 11/17/18 15:42 [From Augmentin] of Lip/Tongue/Throat codeine AdvReac Shakiness Verified 11/17/18 15:42 morphine AdvReac Palpitation Verified 11/17/18 15:42 s Band-Aid Allergy Rash Uncoded 06/20/18 08:35 All systems ED: reviewed and negative except as stated. Review of Systems: As Per HPI Constitutional: Denies: fever Cardiovascular: Denies: chest pain Respiratory: Denies: dyspnea Gastrointestinal: Denies: abdominal pain, nausea, vomiting Genitourinary: Denies: urgency, dysuria, frequency Neurological: Denies: weakness Past Medical History - Past Medical History Attestation: Yes The following information was validated with the patient. Medical history: Reports: arthritis, atrial fibrillation, cardiomyopathy, CHF, coronary artery disease, CVA, diabetes, GERD, GI bleed, glaucoma, hyperlipidemia, hypertension, myocardial infarction, osteoporosis, peripheral artery disease, TIA, venous stasis, other Surgical history: Reports: angioplasty/stent, carotid endarterectomy, cholecystectomy, herniorrhaphy, hysterectomy, orthopedic, other, pacemaker/AICD, other, vascular surgery, LE bypass, LE vascular intervention Psychiatric history: Reports: no psych history - Social History Smoking Status: Never smoker Smokeless Tobacco Status: No Alcohol use: Reports: none Drug use: Reports: none Physical Exam - General Limitations: no limitations General appearance: alert, in no apparent distress - Head Head exam: normocephalic - Eye Eye exam: Present: EOMI - ENT ENT exam: mucous membranes moist - Neck Neck exam: Present: trachea midline - Chest Chest inspection: Present: symmetric chest wall rise - Respiratory Respiratory exam: Present: normal lung sounds bilaterally. Absent: respiratory distress, accessory muscle use - Cardiovascular Cardiovascular exam: Present: regular rate, irregular rhythm - Abdominal Exam Abdominal exam: Present: soft, Non-Tender. Absent: distention, guarding, rebound, rigidity - Extremities Exam Extremities exam: Present: normal capillary refill - Back Exam Back exam: Present: full ROM - Neurological Exam Neurological exam: Present: alert, oriented X3 - Psychiatric Psychiatric exam: Present: normal affect, normal mood - Skin Skin exam: Present: warm, dry, intact, normal color. Absent: rash Course Vital Signs Temperature 97.6 F 11/17/18 15:41 Pulse Rate 95 11/17/18 15:41 Respiratory Rate 26 11/17/18 15:41 Blood Pressure 173/63 11/17/18 15:41 O2 Sat by Pulse Oximetry 98 11/17/18 15:41 Temperature 97.6 F 11/17/18 15:41 Pulse Rate 92 11/17/18 16:19 Respiratory Rate 18 11/17/18 16:19 Blood Pressure 168/76 11/17/18 16:19 O2 Sat by Pulse Oximetry 95 11/17/18 16:19 Oxygen Delivery Oxygen Delivery Room Air Medical Decision Making - [facility] Narrative Medical decision making narrative: 78-year-old female presents to the emergency department with concern for generalized weakness, shortness of breath. Vital signs are stable here in the emergency department. EKG not reveal any ischemic ST changes. Patient's hemoglobin is 8.5 here. I have obtained a Hemoccult pending at time of admission, no brisk bleeding noted. She is on Xarelto, aspirin, Plavix. Patient not in acute distress at time of admission. - Lab Data Result diagrams: 11/17/18 16:20 11/17/18 16:20 Lab Results 09/02/19 09/02/19 09/02/19 Range/Units 16:20 16:20 16:20 WBC 8.3 (4.3-11.1) K/mcL RBC 3.51 L (3.82-4.97) M/mcL Hgb 8.5 L (11.5-15.4) g/dL Hct 29.1 L (35.3-44.9) % MCV 82.9 L (83.0-100.0) fL MCH 24.2 L (28.0-33.3) pg MCHC 29.2 L (31.6-35.5) g/dL RDW 15.3 H (11.5-14.5) % Plt Count 275 (140-400) K/mcL MPV 10.7 (9.4-12.4) fL Immature Gran % 0.4 (0-4) % Seg Neutrophils % 75.8 % Lymphocytes % 13.3 % Monocytes % 5.2 % Eosinophils % 4.8 % Basophils % 0.5 % Neutrophils # 6.3 (1.6-8.9) K/mcL Lymphocytes # 1.1 (0.6-4.6) K/mcL Monocytes # 0.4 (0.0-1.3) K/mcL Eosinophils # 0.4 (0.0-0.6) K/mcL Basophils # 0.0 (0.0-0.2) K/mcL Sodium 141 (136-145) mEq/L Potassium 4.3 (3.5-5.1) mEq/L Chloride 105 (98-107) mEq/L Carbon Dioxide 26 (23-29) mEq/L BUN 15 (8-23) mg/dL Creatinine 1.07 (0.60-1.20) mg/dL Est GFR ( Amer) > 60 (> 60) Est GFR (Non-Af Amer) 50 L (> 60) BUN/Creatinine Ratio 14 (6-26) Glucose 202 H (70-105) mg/dL Calculated Osmolality 299 (280-300) Lactic Acid 2.3 H (0.5-2.2) mmol/L Calcium 9.7 (8.6-10.3) mg/dL Total Bilirubin 0.3 (0.3-1.0) mg/dL Direct Bilirubin 0.1 (0.0-0.2) mg/dL Indirect Bilirubin 0.2 (0.0-1.2) mg/dL AST 16 (13-39) Units/L ALT 12 (7-52) Units/L Alkaline Phosphatase 104 (34-104) Units/L Troponin I < 0.03 (< 0.04) ng/mL B-Natriuretic Peptide (Less than 100) pg/mL Serum Total Protein 6.7 (6.4-8.9) g/dL Albumin 4.1 (3.5-5.7) g/dL Globulin 2.6 (2.4-3.5) g/dL Albumin/Globulin Ratio 1.6 (1.1-2.2) Lipase 36 (11-82) Units/L Urine Color (Yellow) Urine Clarity (Clear) Urine pH (5.0-8.0) pH Units Ur Specific [place] (1.010-1.025) Urine Protein (Neg-Trace) mg/dL Urine Glucose (UA) (Normal) mg/dL Urine Ketones (Negative) mg/dL Urine Blood (Negative) Urine Nitrite (Negative) Urine Bilirubin (Negative) Urine Urobilinogen (Normal) mg/dL Ur Leukocyte Esterase (Negative) Urine Microscopic RBC (0-3) per hpf Urine Microscopic WBC (0-3) per hpf Ur Squamous Epith Cells (None-Few) per lpf Urine Bacteria (None-Few) per hpf Hyaline Casts (None-Few) per lpf Ur Culture Indicated? (NO) Stool Occult Bld Scrn (Negative) Digoxin 1.2 (0.8-2.0) ng/mL 11/17/18 11/17/18 11/17/18 Range/Units 16:20 16:48 17:21 WBC (4.3-11.1) K/mcL RBC (3.82-4.97) M/mcL Hgb (11.5-15.4) g/dL Hct (35.3-44.9) % MCV (83.0-100.0) fL MCH (28.0-33.3) pg MCHC (31.6-35.5) g/dL RDW (11.5-14.5) % Plt Count (140-400) K/mcL MPV (9.4-12.4) fL Immature Gran % (0-4) % Seg Neutrophils % % Lymphocytes % % Monocytes % % Eosinophils % % Basophils % % Neutrophils # (1.6-8.9) K/mcL Lymphocytes # (0.6-4.6) K/mcL Monocytes # (0.0-1.3) K/mcL Eosinophils # (0.0-0.6) K/mcL Basophils # (0.0-0.2) K/mcL Sodium (136-145) mEq/L Potassium (3.5-5.1) mEq/L Chloride (98-107) mEq/L Carbon Dioxide (23-29) mEq/L BUN (8-23) mg/dL Creatinine (0.60-1.20) mg/dL Est GFR ( Amer) (> 60) Est GFR (Non-Af Amer) (> 60) BUN/Creatinine Ratio (6-26) Glucose (70-105) mg/dL Calculated Osmolality (280-300) Lactic Acid (0.5-2.2) mmol/L Calcium (8.6-10.3) mg/dL Total Bilirubin (0.3-1.0) mg/dL Direct Bilirubin (0.0-0.2) mg/dL Indirect Bilirubin (0.0-1.2) mg/dL AST (13-39) Units/L ALT (7-52) Units/L Alkaline Phosphatase (34-104) Units/L Troponin I (< 0.04) ng/mL B-Natriuretic Peptide 499 H (Less than 100) pg/mL Serum Total Protein (6.4-8.9) g/dL Albumin (3.5-5.7) g/dL Globulin (2.4-3.5) g/dL Albumin/Globulin Ratio (1.1-2.2) Lipase (11-82) Units/L Urine Color Yellow (Yellow) Urine Clarity Cloudy A (Clear) Urine pH 7.0 (5.0-8.0) pH Units Ur Specific [place] 1.024 (1.010-1.025) Urine Protein 100 H (Neg-Trace) mg/dL Urine Glucose (UA) Normal (Normal) mg/dL Urine Ketones Negative (Negative) mg/dL Urine Blood Negative (Negative) Urine Nitrite Negative (Negative) Urine Bilirubin Negative (Negative) Urine Urobilinogen Normal (Normal) mg/dL Ur Leukocyte Esterase Negative (Negative) Urine Microscopic RBC 3-5 H (0-3) per hpf Urine Microscopic WBC 0-3 (0-3) per hpf Ur Squamous Epith Cells Many H (None-Few) per lpf Urine Bacteria None Seen (None-Few) per hpf Hyaline Casts None Seen (None-Few) per lpf Ur Culture Indicated? NO (NO) Stool Occult Bld Scrn Negative (Negative) Digoxin (0.8-2.0) ng/mL - EKG Data EKG #1 EKG attestation: Yes I reviewed and interpreted this EKG. EKG results narrative: 11:18 Rate 90 bpm, QRS duration 91 segs, QT 340 ms, QTC 435 ms, normal axis. Atrial fibrillation with nonspecific T-wave inversions that appear to be the same as previous ECG. Attestation Statement - Attestation Attestation: I reviewed the residents documentation and agree with the residents assessment and plan of care. I have personally had face to face time with the patient. (Brief History, Brief Exam, and MDM) I personally supervised and was present for the sheets/critical portions of the following procedures completed by the resident: (add procedures performed here). [id number] time provided I tested supervising the resident physician's interpretation of ECG Patient arrives complaining of "I cannot catch my breath" over the past 1-2 weeks. She appears in no acute cardiopulmonary distress on exam. Case discussed by me with the resident physician Dr. Love
[2018-11-17 16:39] LABS: Basophils % 0.5 %; Eosinophils # 0.4 K/mcL (0.0-0.6); Eosinophils % 4.8 %; Hematocrit 29.1 % (35.3-44.9); Hemoglobin 8.5 g/dL (11.5-15.4); Immature Granulocytes % 0.4 % (0-4); Lymphocytes # 1.1 K/mcL (0.6-4.6); Lymphocytes % 13.3 %; Mean Corpuscular HGB Conc 29.2 g/dL (31.6-35.5); Mean Corpuscular Hemoglobin 24.2 pg (28.0-33.3); Mean Corpuscular Volume 82.9 fL (83.0-100.0); Mean Platelet Volume 10.7 fL (9.4-12.4); Monocytes # 0.4 K/mcL (0.0-1.3); Monocytes % 5.2 %; Neutrophils # 6.3 K/mcL (1.6-8.9); Platelet Count 275 K/mcL (140-400); Red Blood Count 3.51 M/mcL (3.82-4.97); Red Cell Distribution Width 15.3 % (11.5-14.5); Segmented Neutrophils % 75.8 %; White Blood Count 8.3 K/mcL (4.3-11.1)
[2018-11-17 17:01] LABS: Bilirubin,Urine Negative (Negative); Blood,Urine Negative (Negative); Clarity,Urine Cloudy (Clear); Color,Urine Yellow (Yellow); Glucose,Urine (UA) Normal (Normal); Ketones,Urine Negative (Negative); Leukocyte Esterase,Urine Negative (Negative); Nitrite,Urine Negative (Negative); Protein,Urine 100 mg/dL (Neg-Trace); Specific Gravity,Urine 1.024 (1.010-1.025); Urobilinogen,Urine Normal (Normal)
[2018-11-17 17:02] LABS: Bacteria,Urine None Seen per hpf (None-Few); Hyaline Casts,Urine None Seen per lpf (None-Few); Squamous Epithelial Cell,Urine Many per lpf (None-Few); WBC,Urine 0-3 per hpf (0-3)
[2018-11-17 17:04] LABS: Alanine Aminotransferase 12 Units/L (7-52); Albumin 4.1 g/dL (3.5-5.7); Albumin/Globulin Ratio 1.6 (1.1-2.2); Alkaline Phosphatase 104 Units/L (34-104); Aspartate Amino Transferase 16 Units/L (13-39); BUN/Creatinine Ratio 14 (6-26); Bilirubin,Direct 0.1 mg/dL (0.0-0.2); Bilirubin,Indirect 0.2 mg/dL (0.0-1.2); Bilirubin,Total 0.3 mg/dL (0.3-1.0); Blood Urea Nitrogen 15 mg/dL (8-23); Calcium 9.7 mg/dL (8.6-10.3); Carbon Dioxide 26 mEq/L (23-29); Chloride 105 mEq/L (98-107); Digoxin 1.2 ng/mL (0.8-2.0); Globulin 2.6 g/dL (2.4-3.5); Glucose 202 mg/dL (70-105); Lipase 36 Units/L (11-82); Osmolality,Calculated 299 (280-300); Potassium 4.3 mEq/L (3.5-5.1); Sodium 141 mEq/L (136-145); Total Protein 6.7 g/dL (6.4-8.9); Troponin I < 0.03 ng/mL (< 0.04); eGFR For African Americans > 60 (> 60); eGFR For Non-African Americans 50 (> 60)
[2018-11-17] MEDS ORDERED: Ondansetron 4 MG/2 ML VIAL IVP PRN (18:07)
[2018-11-17] MEDS ORDERED: Naloxone 0.4 MG/ML INJ IVP PRN (18:07)
--- NOTE | 2018-11-17 18:17 | Internal Med History&Physical ---
Date of Encounter: 11/17/18 Time of Encounter: 18:12 Internal Medicine - H&P: HPI Chief complaint: Difficulty breathing and weakness Admitted From: Home Plans for Post Hospital Care: Home History of present illness: Ms. Crane is a 78 year old female with past medical history significant for coronary artery disease status post stent in 2008, TIA, hypertension, hyperlipidemia, diabetes mellitus type 2, peripheral arterial disease status post multiple surgery recent one in September, atrial fibrillation on digoxin and metoprolol and xarelto presented to the emergency department with complaint of weakness and dyspnea on exertion for possible weeks. Patient reports that she had a surgery for peripheral artery disease done in September at [facility]. After that she has been feeling weak progressively. Since last couple of weeks her difficulty breathing has worsened. Patient does not have a history of asthma or COPD and does not have home oxygen. She does not require any inhalers. Patient denied any weight gain. Patient denied any leg swelling. On presentation to urgent care on initial evaluation patient found to have a hemoglobin level of 8.5 (patient's baseline hemoglobin is 12.5). Patient's chest x-ray was unremarkable other than chronic changes. 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 Patient has been following up with Dr. [place] outpatient however he has not been able to do biopsy of the lesion in the currently because he has to be on aspirin and also and she is on Plavix for 90 days after her recent surgery for peripheral arterial disease. Will admit patient for symptomatic anemia. FOBT is pending at this time. We will continue to monitor. Past Med Surg Social Fam HX - Past Medical History Medical history: arthritis, atrial fibrillation, cardiomyopathy, CHF, coronary artery disease, CVA, diabetes, GERD, GI bleed, glaucoma, hyperlipidemia, hypertension, myocardial infarction, osteoporosis, peripheral artery disease, TIA, venous stasis, other Additional medical history: Vascular insufficiency. pacemaker. irreg heartbeat. right sided cerebral infarct Psychiatric history: no psych history - Past Surgical History Surgical History: angioplasty/stent, carotid endarterectomy, cholecystectomy, herniorrhaphy, hysterectomy, orthopedic, other, pacemaker/AICD, other, vascular surgery, LE bypass, LE vascular intervention Additional surgical history: right shoulder. partial hysterectomy. bladder. left leg bypass. stent right leg. t&a - Social History Smoking Status: Never smoker Smokeless Tobacco Status: No Alcohol use: none Drug use: none - Family History Sister Living Status: Still Living Hx Family Cardiac Disorders: Yes Hx Family Cancer: Yes (LUNG CANCER.) Hx Family Endocrine Disorder: Yes Mother Living Status: Hx Family Cardiac Disorders: Yes (htn, stroke) Internal Medicine - H&P: Meds Esomeprazole Magnesium [Nexium] 40 mg PO QAM 01/31/15 [History] Gabapentin [Neurontin] 600 mg PO TID 01/31/15 [History] Multivitamin with Minerals [Myvitalife] 1 each PO QAM 01/31/15 [History] Metoprolol XL (24 HR) Succ [Toprol Xl] 50 mg PO QPM 03/07/16 [History] Losartan [Cozaar] 50 mg PO BID 08/16/16 [History] Metoprolol XL (24 HR) Succ [Toprol Xl] 100 mg PO QAM 08/16/16 [History] Flaxseed Oil [[place]-3 Flaxseed Oil] 1,000 mg PO DAILY 10/16/16 [History] Digoxin [Lanoxin] 0.125 mg PO DAILY 08/09/17 [History] Magnesium Oxide [Magnesium] 400 mg PO BID 08/09/17 [History] Dulaglutide [Trulicity] 1.5 mg PO SA 10/27/17 [History] Latanoprost [Xalatan] 1 drop BOTH EYES HS 10/27/17 [History] Ammonium Lactate 1 appl TP DAILY PRN 06/20/18 [History] Aspirin [Lo-Dose Aspirin EC] 81 mg PO DAILY 06/20/18 [History] Atorvastatin [Lipitor] 40 mg PO HS 06/20/18 [History] Furosemide [Lasix] 60 mg PO QAM 06/20/18 [History] Loratadine [Claritin] 10 mg PO DAILY 06/20/18 [History] Meclizine [Antivert] 25 mg PO TID PRN 06/20/18 [History] Metformin HCl [Fortamet] 1,000 mg PO QPM 06/20/18 [History] Potassium Chloride [Klor-Con 10] 20 meq PO DAILY 06/20/18 [History] Rivaroxaban [Xarelto] 20 mg PO HS 06/20/18 [History] Clopidogrel Bisulfate [Plavix] 75 mg PO DAILY #30 tablet 09/12/18 [Rx] Folic Acid 0.4 mg PO DAILY 09/12/18 [History] Acetaminophen [Tylenol] 1,000 mg PO Q6HR PRN #90 tablet 09/19/18 [Rx] Allergy/AdvReac Type Severity Reaction Status Date / Time Amoxicillin [From Augmentin] Allergy Swelling Verified 11/17/18 15:42 of Lip/Tongue/Throat clavulanic acid Allergy Swelling Verified 11/17/18 15:42 [From Augmentin] of Lip/Tongue/Throat codeine AdvReac Shakiness Verified 11/17/18 15:42 morphine AdvReac Palpitation Verified 11/17/18 15:42 s Band-Aid Allergy Rash Uncoded 06/20/18 08:35 All Systems PM: A 10-system review of systems was performed and is negative for pertinent findings except as documented above in the HPI. - Constitutional Vitals: Temp Pulse Resp BP Pulse Ox 97.6 F 81 16 176/75 95 11/17/18 15:41 11/17/18 18:05 11/17/18 18:05 11/17/18 18:05 11/17/18 18:05 General appearance: Present: cooperative, A&O X 3 Exam: General: A & O 3, In mild distress due to dyspnea and weakness HENNT: PERRLA. Head atraumatic and makes supple Eyes: EOMI, no scleral icterus. CVS S1 and S2 regular, no murmur RS: Clear to air entry bilaterally, no wheeze, no crackles Abdomen: Soft and nontender. Bowel sounds normal 4 Extremities: Normal capillary refill. Venous stasis noted. Trace pitting edema bilaterally. Neurology: Cranial II-XII normal. Motor strength 5/5 bilaterally. Sensation intact Psychiatry: [place] oriented 3 Internal Med - H&P Results - Labs CBC & Chem 7: 11/17/18 16:20 11/17/18 16:20 Labs: Short CBC 11/17/18 Range/Units 16:20 WBC 8.3 (4.3-11.1) K/mcL Hgb 8.5 L (11.5-15.4) g/dL Hct 29.1 L (35.3-44.9) % Plt Count 275 (140-400) K/mcL Neutrophils # 6.3 (1.6-8.9) K/mcL BMP 11/17/18 16:20 Sodium 141 Potassium 4.3 Chloride 105 Carbon Dioxide 26 BUN 15 Creatinine 1.07 Glucose 202 H Calcium 9.7 Cardiac Enzymes 11/17/18 Range/Units 16:20 Troponin I < 0.03 (< 0.04) ng/mL Liver Function 11/17/18 Range/Units 16:20 Total Bilirubin 0.3 (0.3-1.0) mg/dL Direct Bilirubin 0.1 (0.0-0.2) mg/dL AST 16 (13-39) Units/L ALT 12 (7-52) Units/L Alkaline Phosphatase 104 (34-104) Units/L Albumin 4.1 (3.5-5.7) g/dL Urine 11/17/18 Range/Units 16:48 Urine Color Yellow (Yellow) Urine Clarity Cloudy A (Clear) Urine pH 7.0 (5.0-8.0) pH Units Ur Specific [place] 1.024 (1.010-1.025) Urine Protein 100 H (Neg-Trace) mg/dL Urine Glucose (UA) Normal (Normal) mg/dL - Impressions ITS Impressions Chest X-Ray 11/17/18 16:02 IMPRESSION: Cardiomegaly with chronic appearing interstitial lung changes. No overt pulmonary edema. D/ / 11/17/2018 17:13:34 Ab Grajeda MD / earnold Interpreting Provider: Ab Grajeda MD - Assessment and Plan (1) Symptomatic anemia Current Visit: Yes Status: Acute Assessment and plan: Impression presents with a couple week history of dyspnea and progressive weakness. Upon presentation to emergency room patient was saturating above 92% on room air. Patient chest x-ray was negative for any cardiopulmonary process for difficulty in breathing. Troponin 1 was negative. Patient's initial evaluation did well hemoglobin 8.5. Patient's recent hemoglobin in August was 12.5. Patient is getting admitted for acute symptomatic anemia. - We will place patient on telemetry, will hold aspirin, Plavix, and Xarelto - FOBT - Type and cross - PRBC X 1 - CBC in a.m. - GI consult - We will keep nothing by mouth after midnight for possible EGD and colonoscopy tomorrow. (2) A-fib Current Visit: No Status: Chronic Assessment and plan: Pt has a history of A. fib and she is currently on Zocor although metoprolol XL 50 mg at bedtime and 100 mg at morning. She is also on digoxin 0.125 mg daily. We will continue home medication. We will hold Xarelto suspected active bleeding. Qualifiers: Atrial fibrillation type: unspecified Qualified Code(s): I48.91 - Unspecified atrial fibrillation (3) CAD (coronary artery disease) Current Visit: No Status: Chronic Assessment and plan: Will continue metoprolol, losartan and stenting. Will hold aspirin and Plavix f or suspected active bleeding. Qualifiers: Coronary Disease-Associated Artery/Lesion type: [place] artery [place] vs. transplanted heart: [place] heart Associated angina: with unspecified angina Qualified Code(s): I25.119 - Atherosclerotic heart disease of [place] coronary artery with unspecified angina pectoris (4) Diabetes mellitus Current Visit: No Status: Chronic Assessment and plan: We will place patient on sliding scale insulin. Will hold off oral medication. Qualifiers: Diabetes mellitus type: type 2 Diabetes mellitus jail insulin use: without jail use Diabetes mellitus complication status: with circulatory complication Diabetes mellitus complication detail: with peripheral angiopathy without gangrene Qualified Code(s): E11.51 - Type 2 diabetes mellitus with diabetic peripheral angiopathy without gangrene (5) HTN (hypertension) Current Visit: No Status: Chronic Assessment and plan: Continue metoprolol and losartan. Qualifiers: Hypertension type: essential hypertension Qualified Code(s): I10 - Essential (primary) hypertension (6) PVD (peripheral vascular disease) Current Visit: No Status: Chronic Assessment and plan: Patient is status post surgery for peripheral vascular disease the recent surgery was done in September. We will hold off aspirin and Plavix since due to suspected active bleeding. We will continue statin. (7) TIA (transient ischemic attack) Current Visit: No Status: Acute Assessment and plan: We will hold off aspirin due to suspected active bleeding. Continue statin. - Time Spent With Patient Total time spent is greater than 50% in coordination of care (as documented) at patient's floor/unit and/or counseling patient: Greater than 35 minutes
[2018-11-17] MEDS ORDERED: Furosemide 20 MG TABLET PO PRN (18:34)
[2018-11-17] MEDS ORDERED: 0.9 % Sodium Chloride 250 ML ONE (20:59)
[2018-11-17] MEDS ORDERED: Metoprolol XL (24 HR) Succ 25 MG TAB.ER.24H PO ONE ×2 (22:27→22:50)
[2018-11-17] MEDS ORDERED: Furosemide 20 MG/2 ML VIAL IVP ONE (22:30)
[2018-11-17] MEDS: *HR* Digoxin 0.125 MG TABLET PO SCH (22:33)
[2018-11-17] MEDS: Metoprolol XL (24 HR) Succ 50 MG TAB.ER.24H PO SCH (22:34)
[2018-11-17] MEDS: Gabapentin 300 MG CAPSULE PO SCH (22:54)
[2018-11-18] MEDS ORDERED: Furosemide 20 MG/2 ML VIAL IVP ONE (01:30)
[2018-11-18] MEDS ORDERED: *HR* Metoprolol 5 MG/5 ML VIAL IVP ONE (04:48)
[2018-11-18] MEDS: 0.9 % Sodium Chloride 1,000 ML IVC SCH (05:27)
[2018-11-18 05:28] LABS: Basophils # 0.1 K/mcL (0.0-0.2); Basophils % 0.7 %; Eosinophils # 0.5 K/mcL (0.0-0.6); Eosinophils % 4.4 %; Hematocrit 36.5 % (35.3-44.9); Immature Granulocytes % 0.5 % (0-4); Lymphocytes # 1.2 K/mcL (0.6-4.6); Lymphocytes % 11.6 %; Mean Corpuscular HGB Conc 29.3 g/dL (31.6-35.5); Mean Corpuscular Hemoglobin 24.3 pg (28.0-33.3); Mean Corpuscular Volume 82.8 fL (83.0-100.0); Mean Platelet Volume 10.8 fL (9.4-12.4); Monocytes # 0.6 K/mcL (0.0-1.3); Monocytes % 5.9 %; Neutrophils # 8.3 K/mcL (1.6-8.9); Nucleated Red Blood Cells 0.3 /100 WBC (0); Platelet Count 309 K/mcL (140-400); Red Blood Count 4.41 M/mcL (3.82-4.97); Red Cell Distribution Width 15.8 % (11.5-14.5); Segmented Neutrophils % 76.9 %; White Blood Count 10.7 K/mcL (4.3-11.1)
[2018-11-18 05:46] LABS: BUN/Creatinine Ratio 16 (6-26); Blood Urea Nitrogen 14 mg/dL (8-23); Calcium 9.5 mg/dL (8.6-10.3); Carbon Dioxide 24 mEq/L (23-29); Chloride 105 mEq/L (98-107); Glucose 158 mg/dL (70-105); Osmolality,Calculated 292 (280-300); Potassium 3.9 mEq/L (3.5-5.1); Sodium 139 mEq/L (136-145); eGFR For African Americans > 60 (> 60); eGFR For Non-African Americans > 60 (> 60)
[2018-11-18 05:51] LABS: Hemoglobin 10.7 g/dL (11.5-15.4)
[2018-11-18 07:19] LABS: % Iron Saturation 7 % (15-50); Iron 37 mcg/dL (50-170); Lactate Dehydrogenase 225 Units/L (140-271); Transferrin 394 mg/dL (203-362)
[2018-11-18 07:36] LABS: Ferritin 12 ng/mL (10-120)
[2018-11-18] MEDS: Aspirin 81 MG TAB.CHEW PO SCH (09:18)
[2018-11-18] MEDS: Gabapentin 300 MG CAPSULE PO SCH ×3 (09:18→21:56)
[2018-11-18] MEDS: Metoprolol XL (24 HR) Succ 50 MG TAB.ER.24H PO SCH ×2 (09:21→17:07)
--- NOTE | 2018-11-18 12:37 | Gastroenterology Consult Note ---
<JonesEdward lynch Joshua - Last Filed: 11/18/18 12:35> Date of Encounter: 11/18/18 Time of Encounter: 10:45 - Assessment and plan (1) Symptomatic anemia Current Visit: Yes Status: Acute Assessment and plan: Hgb 12.5 on 09/01/2018. On admission Hgb 8.5. Today Hgb 10.7, iron 37, and ferritin 12. Fecal occult blood test positive. Continue to monitor CBC and transfuse PRBC as needed. Plan for EGD and colonoscopy tomorrow. Clear liquid diet today, no red or purple. NPO at midnight. If unable tolerate NuLytely please use MiraLAX prep. If not clear by 6 AM, give 2 tap water enemas. Continue Plavix and ASA due to recent surgery for peripheral artery disease in September. - Time Spent With Patient Total time spent is greater than 50% in coordination of care (as documented) at patient's floor/unit and/or counseling patient: GI History of Present Illness - Data of Consult Patient: known to practice within the last 3 years Consult date: 11/18/18 Requesting Physician: Oniel Whitt MD - Consult Narrative Reason for consult: GI bleed History of present illness: Ms. Crane is a 78 year old female with PMHx of Afib, cardiomyopathy, CHF, CAD, CVA, DM, GERD, GI bleed, HTN, [place] who presented to the ED with complaints of weakness and dyspnea on exertion since surgery for peripheral artery disease in September. She denies fever, chills, chest pain, abdominal pain, nausea, vomiting, melena, or hematochezia. We were consulted to evaluate her anemia. hgb 12.5 on 09/01/2018, on admission Hgb 8.5, and today Hgb 10.7, iron 37, and ferritin 12. Fecal occult blood test positive. Procedures: Colonoscopy 03/25/2015 Dr. Minor: Normal Enteroscopy 03/25/2015 Dr. 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 NSAIDs: ASA Anticoagulation: Xarelto, Plavix Past Med Surg Social Fam HX - Past Medical History Medical history: arthritis, atrial fibrillation, cardiomyopathy, CHF, coronary artery disease, CVA, diabetes, GERD, GI bleed, glaucoma, hyperlipidemia, hypertension, myocardial infarction, osteoporosis, peripheral artery disease, TIA, venous stasis, other Additional medical history: Vascular insufficiency. pacemaker. irreg heartbeat. right sided cerebral infarct Psychiatric history: no psych history - Past Surgical History Surgical History: angioplasty/stent, carotid endarterectomy, cholecystectomy, herniorrhaphy, hysterectomy, orthopedic, other, pacemaker/AICD, other, vascular surgery, LE bypass, LE vascular intervention Additional surgical history: right shoulder. partial hysterectomy. bladder. left leg bypass. stent right leg. t&a - Social History Smoking Status: Never smoker Smokeless Tobacco Status: No Alcohol use: none Drug use: none - Family History Sister Living Status: Still Living Hx Family Cardiac Disorders: Yes Hx Family Cancer: Yes (LUNG CANCER.) Hx Family Endocrine Disorder: Yes Mother Living Status: Hx Family Cardiac Disorders: Yes (htn, stroke) Brother Living Status: Still Living Hx Family Cardiac Disorders: Yes - Gastrointestinal Gastrointestinal: Present: as per HPI - Constitutional Constitutional: as per HPI - EENT Eyes: as per HPI Ears: Present: as per HPI Nose, mouth and throat: Present: as per HPI - Cardiovascular Cardiovascular ROS: Present: as per HPI - Respiratory Respiratory IM: Present: as per HPI - Genitourinary Genitourinary: Absent: change in color, Urinary frequency - Neurological ROS Neurological GI: Present: as per HPI - Hematologic/Lymphatic Hematologic/Lymphatic pediatric: Present: as per HPI - Musculoskeletal Musculoskeletal ROS GI: Present: as per HPI - Integumentary Integumentary GI: Present: as per HPI - Psychiatric ROS Psychiatric GI: Present: as per HPI - Endocrine Endocrine IM: Present: as per HPI - Constitutional Vitals: Temp Pulse Resp BP Pulse Ox 97.7 F 65 20 176/92 97 11/18/18 10:35 11/18/18 10:35 11/18/18 10:35 11/18/18 10:35 11/18/18 10:35 General appearance: Present: cooperative, A&O X 3, no acute distress, answers questions appropriately - Head Head exam: Present: atraumatic, normocephalic - Eye Eye exam: Present: normal appearance, sclera anicteric - ENT ENT exam: Present: mucous membranes dry - Neck Neck exam general surgery: Present: normal inspection, trachea midline - Respiratory Respiratory exam: Present: CTAB. Absent: rales, rhonchi, wheezes - Cardiovascular Cardiovascular exam: Present: RRR, +S1, +S2 - GI/Abdominal GI/Abdominal exam: Present: normal bowel sounds, soft, no peritoneal signs. Absent: distended, firm, guarding, tenderness - Rectal Rectal exam: Present: deferred - Extremities Exam Extremities exam: Present: warm - Neurological Exam Neurological exam: Present: no focal deficits - Psychiatric Psychiatric exam: Present: normal affect, normal mood - Skin Skin exam: Present: dry, intact, normal color, warm Results - Labs CBC & Chem 7: 11/18/18 04:59 11/18/18 04:59 Labs: Last Result 11/18/18 04:59 Calcium 9.5 Iron 37 L % Saturation 7 L Transferrin 394 H Ferritin 12 Entire Visit 11/18/18 11/18/18 04:59 04:59 Hgb 10.7 L D Hct 36.5 Ferritin 12 - Impressions Impressions Chest X-Ray 11/17/18 16:02 IMPRESSION: Cardiomegaly with chronic appearing interstitial lung changes. No overt pulmonary edema. D/ / 11/17/2018 17:13:34 Ab Grajeda MD / earnold Interpreting Provider: Ab Grajeda MD Consult Discharge Plan - Plan Referrals: Ashutosh Chand DO [Primary Care Provider] - <MirradhaGabbiClinton - Last Filed: 11/18/18 18:28> Date of Encounter: 11/18/18 Time of Encounter: 17:00 - Time Spent With Patient Total time spent is greater than 50% in coordination of care (as documented) at patient's floor/unit and/or counseling patient: GI History of Present Illness - Data of Consult Requesting Physician: Oniel Whitt MD - Consult Narrative History of present illness: Ms. Crane is a 78 year old female - Constitutional Vitals: Temp Pulse Resp BP Pulse Ox 97.8 F 62 20 168/81 97 11/18/18 15:55 11/18/18 15:55 11/18/18 15:55 11/18/18 15:55 11/18/18 15:55 Results - Labs CBC & Chem 7: 11/18/18 04:59 11/18/18 04:59 Labs: Last Result 11/18/18 04:59 Calcium 9.5 Iron 37 L % Saturation 7 L Transferrin 394 H Ferritin 12 Entire Visit 11/18/18 04:59 Ferritin 12 - Attending Attestation I have personally performed a face to face evaluation on this patient. I have reviewed and agree with the care plan. History and Exam by me shows: Patient seen denies any abdominal pain no overt GI bleeding on examination: Abdomen is benign assessment: Patient with symptomatic anemia and positive stool guaiac has been on anticoagulant and blood thinner. Recommendation: EGD colonoscopy in the morning
--- NOTE | 2018-11-18 12:48 | Internal Med Progress Note ---
Hospitalist Progress Note - Encounter Date of Encounter: 11/18/18 Time of Encounter: 12:45 - Subjective Interval History: She was seen and examined at bedside today. Patient reports that her weakness and difficulty in breathing has improved. Patient denies any acute issues and concerns overnight. Patient denies fever, chills, chest pain and palpitation. - Exam Vitals: Temp Pulse Resp BP Pulse Ox 97.7 F 65 20 176/92 97 11/18/18 10:35 11/18/18 10:35 11/18/18 10:35 11/18/18 10:35 11/18/18 10:35 Exam: General: A & O 3, In mild distress due to dyspnea and weakness HENNT: PERRLA. Head atraumatic and makes supple Eyes: EOMI, no scleral icterus. CVS S1 and S2 regular, no murmur RS: Clear to air entry bilaterally, no wheeze, no crackles Abdomen: Soft and nontender. Bowel sounds normal 4 Extremities: Normal capillary refill. Venous stasis noted. Trace pitting edema bilaterally. Neurology: Cranial II-XII normal. Motor strength 5/5 bilaterally. Sensation intact - Assessment and Plan (1) Symptomatic anemia Current Visit: Yes Status: Acute Assessment and Plan: He was admitted yesterday for symptomatic anemia. Patient was complaining of difficulty breathing and weakness. Patient's initial evaluation revealed hemoglobin of 8.5 while patient's baseline hemoglobin in August was 12.5. She was admitted for evaluation of symptomatic anemia. - We will place patient on telemetry, xarelto held. After discussing with GI aspirin and Plavix resumed today - FOBT was negative - Type and cross and PRBC 1 unit transfused yesterday, Hb today is 10.7 - GI consult - Pt to undergo EGD and colonoscopy tomorrow. Appreciate GI input. (2) A-fib Current Visit: No Status: Chronic Assessment and Plan: Pt has a history of A. fib and she is currently on Zocor although metoprolol XL 50 mg at bedtime and 100 mg at morning. She is also on digoxin 0.125 mg daily. We will continue home medication. We will hold Xarelto suspected active b ed. (3) CAD (coronary artery disease) Current Visit: No Status: Chronic Assessment and Plan: Will continue metoprolol, losartan and stenting. Aspirin and Plavix resumed today after discussing with GI. (4) Diabetes mellitus Current Visit: No Status: Chronic Assessment and Plan: We will place patient on sliding scale insulin. Will hold off oral medication. (5) HTN (hypertension) Current Visit: No Status: Chronic Assessment and Plan: Continue metoprolol and losartan. (6) PVD (peripheral vascular disease) Current Visit: No Status: Chronic Assessment and Plan: Patient is status post surgery for peripheral vascular disease the recent surgery was done in September. We will continue statin. Aspirin and Plavix resumed today. (7) TIA (transient ischemic attack) Current Visit: No Status: Acute Assessment and Plan: Continue aspirin and statin.. DVT Prophylaxis: EPCD - Time Spent with Patient Total time spent is greater than 50% in coordination of care (as documented) at patient's floor/unit and/or counseling patient: 25 - 35 minutes Plan of Care Discussed with: patient Internal Medicine: Result - Labs CBC & Chem 7: 11/18/18 04:59 11/18/18 04:59 Labs: Short CBC 11/17/18 11/18/18 Range/Units 16:20 04:59 WBC 8.3 10.7 (4.3-11.1) K/mcL Hgb 8.5 L 10.7 L D (11.5-15.4) g/dL Hct 29.1 L 36.5 (35.3-44.9) % Plt Count 275 309 (140-400) K/mcL Neutrophils # 6.3 8.3 (1.6-8.9) K/mcL BMP 11/17/18 11/18/18 16:20 04:59 Sodium 141 139 Potassium 4.3 3.9 Chloride 105 105 Carbon Dioxide 26 24 BUN 15 14 Creatinine 1.07 0.85 Glucose 202 H 158 H Calcium 9.7 9.5 Cardiac Enzymes 11/17/18 Range/Units 16:20 Troponin I < 0.03 (< 0.04) ng/mL Liver Function 11/17/18 Range/Units 16:20 Total Bilirubin 0.3 (0.3-1.0) mg/dL Direct Bilirubin 0.1 (0.0-0.2) mg/dL AST 16 (13-39) Units/L ALT 12 (7-52) Units/L Alkaline Phosphatase 104 (34-104) Units/L Albumin 4.1 (3.5-5.7) g/dL Urine 11/17/18 Range/Units 16:48 Urine Color Yellow (Yellow) Urine Clarity Cloudy A (Clear) Urine pH 7.0 (5.0-8.0) pH Units Ur Specific [place] 1.024 (1.010-1.025) Urine Protein 100 H (Neg-Trace) mg/dL Urine Glucose (UA) Normal (Normal) mg/dL - Impressions Impressions Chest X-Ray 11/17/18 16:02 IMPRESSION: Cardiomegaly with chronic appearing interstitial lung changes. No overt pulmonary edema. D/ / 11/17/2018 17:13:34 Ab Grajeda MD / leonel Interpreting Provider: Ab Grajeda MD Consult Discharge Plan - Plan Referrals: Ashutosh Chand DO [Primary Care Provider] - (2) A-fib Qualifiers: Atrial fibrillation type: unspecified Qualified Code(s): I48.91 - Unspecified atrial fibrillation (3) CAD (coronary artery disease) Qualifiers: Coronary Disease-Associated Artery/Lesion type: [place] artery [place] vs. transplanted heart: [place] heart Associated angina: with unspecified angina Qualified Code(s): I25.119 - Atherosclerotic heart disease of [place] coronary artery with unspecified angina pectoris (4) Diabetes mellitus Qualifiers: Diabetes mellitus type: type 2 Diabetes mellitus prison insulin use: without exterminator termite use Diabetes mellitus complication status: with circulatory complication Diabetes mellitus complication detail: with peripheral angiopathy without gangrene Qualified Code(s): E11.51 - Type 2 diabetes mellitus with diabetic peripheral angiopathy without gangrene (5) HTN (hypertension) Qualifiers: Hypertension type: essential hypertension Qualified Code(s): I10 - Essential (primary) hypertension
[2018-11-18] MEDS ORDERED: *HR* Dextrose 50 % in Water (Syg) 50 ML SYRINGE IVP PRN (14:56)
[2018-11-18] MEDS ORDERED: D5% in Water 1,000 ML IVC PRN (14:56)
[2018-11-18] MEDS ORDERED: Dextrose Gel 15 GM/37.5 ML TUBE PO PRN ×2 (14:56)
[2018-11-18] MEDS ORDERED: SODIUM CHLORIDE/NAHCO3/KCL/PEG 4,000 ML SOLN.RECON PO ONE (17:00)
[2018-11-18] MEDS: Insulin LISPRO 300 UNITS/3 ML VIAL SQ SCH ×2 (17:16)
[2018-11-19 06:15] LABS: Basophils # 0.1 K/mcL (0.0-0.2); Basophils % 0.8 %; Eosinophils # 0.4 K/mcL (0.0-0.6); Eosinophils % 5.4 %; Hematocrit 34.2 % (35.3-44.9); Hemoglobin 10.1 g/dL (11.5-15.4); Immature Granulocytes % 0.5 % (0-4); Lymphocytes # 0.9 K/mcL (0.6-4.6); Lymphocytes % 11.6 %; Mean Corpuscular HGB Conc 29.5 g/dL (31.6-35.5); Mean Corpuscular Hemoglobin 24.3 pg (28.0-33.3); Mean Corpuscular Volume 82.4 fL (83.0-100.0); Mean Platelet Volume 10.7 fL (9.4-12.4); Monocytes # 0.5 K/mcL (0.0-1.3); Monocytes % 5.9 %; Nucleated Red Blood Cells 0.3 /100 WBC (0); Platelet Count 278 K/mcL (140-400); Red Blood Count 4.15 M/mcL (3.82-4.97); Red Cell Distribution Width 15.9 % (11.5-14.5); Segmented Neutrophils % 75.8 %; White Blood Count 7.9 K/mcL (4.3-11.1)
[2018-11-19 06:25] LABS: BUN/Creatinine Ratio 11 (6-26); Blood Urea Nitrogen 10 mg/dL (8-23); Calcium 8.9 mg/dL (8.6-10.3); Carbon Dioxide 27 mEq/L (23-29); Chloride 103 mEq/L (98-107); Glucose 163 mg/dL (70-105); Osmolality,Calculated 291 (280-300); Potassium 3.8 mEq/L (3.5-5.1); Sodium 139 mEq/L (136-145); eGFR For African Americans > 60 (> 60); eGFR For Non-African Americans > 60 (> 60)
[2018-11-19] MEDS: 0.9 % Sodium Chloride 1,000 ML IVC SCH (06:54)
[2018-11-19] MEDS: Insulin LISPRO 300 UNITS/3 ML VIAL SQ SCH ×6 (06:54→17:42)
[2018-11-19] MEDS: Metoprolol XL (24 HR) Succ 50 MG TAB.ER.24H PO SCH ×2 (07:56→17:11)
[2018-11-19] MEDS: *HR* Digoxin 0.125 MG TABLET PO SCH (07:56)
[2018-11-19] MEDS: Gabapentin 300 MG CAPSULE PO SCH ×3 (07:56→20:50)
[2018-11-19] MEDS: Aspirin 81 MG TAB.CHEW PO SCH (09:00)
--- NOTE | 2018-11-19 10:56 | Electrocardiograph Report ---
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
[2018-11-19] MEDS ORDERED: Propofol 500 MG/50 ML INFUS..BTL ONE (12:00)
--- NOTE | 2018-11-19 12:36 | Internal Med Progress Note ---
Hospitalist Progress Note - Encounter Date of Encounter: 11/19/18 Time of Encounter: 09:20 - Subjective Interval History: No acute events overnight. Patient admits some moderate abdominal pain in the right hypochondriac and lumbar regions. She denies fever, chills, nausea and vomiting. - Exam Vitals: Temp Pulse Resp BP Pulse Ox 36.5 C 84 14 170/82 91 11/19/18 12:07 11/19/18 12:07 11/19/18 12:07 11/19/18 12:11/19/18 12:07 Exam: GENERAL: Not in distress. Alert and Oriented HEENT: EOMI, PERRLA MOUTH: Moist oral mucosa NECK:No JVD, No lymph nodes. CHEST AND LUNGS: Normal breath sounds, no wheezes or crackles HEART: S1 and S2 normal, no murmurs ABDOMEN: Moderate tenderness in right lumbar and hypochondriac regions. SKIN: Normal color, no rashes, no lesions EXTREMITIES: No deformity, no edema, no tenderness, no joint swelling or clubbing NEUROLOGICAL: Normal cognition, normal motor and sensory exam. - Assessment and Plan (1) Symptomatic anemia Current Visit: Yes Status: Acute Assessment and Plan: Pt was admitted for symptomatic anemia. She was complaining of difficulty breathing and weakness. Patient's initial evaluation revealed hemoglobin of 8.5 while patient's baseline hemoglobin in August was 12.5. Has received a unit of PRBCs Hb stable at 10.1g/dl Awaiting EGD and colonoscopy today. GI on board. (2) A-fib Current Visit: No Status: Chronic Assessment and Plan: Pulse in 80s at ml of encounter On metoprolol XL 50 mg at bedtime and 100 mg at morning. She is also on digoxin 0.125 mg daily. Xarelto on hold. (3) HTN (hypertension) Current Visit: No Status: Chronic Assessment and Plan: Continue metoprolol and losartan. (4) CAD (coronary artery disease) Current Visit: No Status: Chronic Assessment and Plan: Will continue metoprolol, losartan and stenting. Aspirin and Plavix resumed after discussing with GI. (5) PVD (peripheral vascular disease) Current Visit: No Status: Chronic Assessment and Plan: Patient is status post surgery for peripheral vascular disease. The surgery was recently done in September. We will continue statin. On Aspirin and Plavix . (6) Diabetes mellitus Current Visit: No Status: Chronic Assessment and Plan: On sliding scale insulin. Will hold off oral medication. DVT Prophylaxis: PCDs - Time Spent with Patient Total time spent is greater than 50% in coordination of care (as documented) at patient's floor/unit and/or counseling patient: Internal Medicine: Result - Labs CBC & Chem 7: 11/19/18 05:34 11/19/18 05:34 Labs: Short CBC 11/19/18 Range/Units 05:34 WBC 7.9 (4.3-11.1) K/mcL Hgb 10.1 L (11.5-15.4) g/dL Hct 34.2 L (35.3-44.9) % Plt Count 278 (140-400) K/mcL Neutrophils # 6.0 (1.6-8.9) K/mcL BMP 11/19/18 05:34 Sodium 139 Potassium 3.8 Chloride 103 Carbon Dioxide 27 BUN 10 Creatinine 0.90 Glucose 163 H Calcium 8.9 - Impressions Impressions Chest X-Ray 11/17/18 16:02 IMPRESSION: Cardiomegaly with chronic appearing interstitial lung changes. No overt pulmonary edema. D/ / 11/17/2018 17:13:34 Ab Grajeda MD / leonel Interpreting Provider: Ab Grajeda MD Consult Discharge Plan - Plan Referrals: Ashutosh Chand DO [Primary Care Provider] - (2) A-fib Qualifiers: Atrial fibrillation type: unspecified Qualified Code(s): I48.91 - Unspecified atrial fibrillation (3) HTN (hypertension) Qualifiers: Hypertension type: essential hypertension Qualified Code(s): I10 - Essential (primary) hypertension (4) CAD (coronary artery disease) Qualifiers: Coronary Disease-Associated Artery/Lesion type: [place] artery [place] vs. tr ansplanted heart: [place] heart Associated angina: with unspecified angina Qualified Code(s): I25.119 - Atherosclerotic heart disease of [place] coronary artery with unspecified angina pectoris (6) Diabetes mellitus Qualifiers: Diabetes mellitus type: type 2 Diabetes mellitus retirement insulin use: without retirement use Diabetes mellitus complication status: with circulatory complication Diabetes mellitus complication detail: with peripheral angiopathy without gangrene Qualified Code(s): E11.51 - Type 2 diabetes mellitus with diabetic peripheral angiopathy without gangrene
--- NOTE | 2018-11-19 13:38 | Anesthesia Evaluation PreOp ---
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: CVA (REISDUAL VERTIGO & BALANCE DEFICIT) Other Medical History: Bleeding (GI BLEED, POST 1 U PRBC 11/17), Diabetes Type II Alcohol Use: none Drug use: none Medications and Allergies Esomeprazole Magnesium [Nexium] 40 mg PO QAM 01/31/15 [History] Gabapentin [Neurontin] 600 mg PO TID 01/31/15 [History] Multivitamin with Minerals [Myvitalife] 1 cap PO QAM 01/31/15 [History] Metoprolol XL (24 HR) Succ [Toprol Xl] 50 mg PO QPM 03/07/16 [History] Metoprolol XL (24 HR) Succ [Toprol Xl] 100 mg PO QAM 08/16/16 [History] Flaxseed Oil [Hammond-3 Flaxseed Oil] 1,000 mg PO DAILY 10/16/16 [History] Digoxin [Lanoxin] 0.125 mg PO DAILY 08/09/17 [History] Magnesium Oxide [Magnesium] 400 mg PO BID 08/09/17 [History] Dulaglutide [Trulicity] 1.5 mg PO SA 10/27/17 [History] Latanoprost [Xalatan] 1 drop BOTH EYES HS 10/27/17 [History] Aspirin [Lo-Dose Aspirin EC] 81 mg PO DAILY 06/20/18 [History] Loratadine [Claritin] 10 mg PO DAILY 06/20/18 [History] Meclizine [Antivert] 25 mg PO TID PRN 06/20/18 [History] Metformin HCl [Fortamet] 1,000 mg PO QPM 06/20/18 [History] Rivaroxaban [Xarelto] 20 mg PO HS 06/20/18 [History] Clopidogrel Bisulfate [Plavix] 75 mg PO DAILY #30 tablet 09/12/18 [Rx] Folic Acid 0.4 mg PO DAILY 09/12/18 [History] Acetaminophen [Tylenol] 1,000 mg PO Q6HR PRN #90 tablet 09/19/18 [Rx] Albuterol Sulfate [Albuterol Sulfate Hfa] 2 puff IH Q6H PRN 11/18/18 [History] Budesonide/Formoterol 160/4.5 [Symbicort 160/4.5] 2 puff IH BIDR 11/18/18 [History] Furosemide [Lasix] 60 mg PO DAILY 11/18/18 [History] Potassium Chloride [Klor-Con 10] 20 meq PO DAILY 11/18/18 [History] Rosuvastatin Calcium 40 mg PO DAILY 11/18/18 [History] Allergy/AdvReac Type Severity Reaction Status Date / Time Amoxicillin [From Augmentin] Allergy Swelling Verified 11/17/18 15:42 of Lip/Tongue/Throat clavulanic acid Allergy Swelling Verified 11/17/18 15:42 [From Augmentin] of Lip/Tongue/Throat codeine AdvReac Shakiness Verified 11/17/18 15:42 morphine AdvReac Palpitation Verified 11/17/18 15:42 s Band-Aid Allergy Rash Uncoded 06/20/18 08:35 - Meds/Allergy Pre-op Review Medications Reviewed: Yes Allergies Reviewed: Yes Beta Blockers on Current Med List: Yes Anesthesia Results - Labs 11/19/18 05:34 11/19/18 05:34 Anesthesia Exam Vital Signs/O2 Sat/Glucose, Most Recent Temp Pulse Resp BP Pulse Ox 98.3 F 81 20 185/88 92 11/19/18 13:07 11/19/18 13:07 11/19/18 13:07 11/19/18 13:07 11/19/18 13:07 Blood Glucose* 138 - HEENT Mallampati: III Teeth: Normal - Cardiac Rhythm: Regular - Pulmonary Breath Sounds: bilateral Clear Anesthesia Assess/Plan ASA Score: 4 Anesthetic Plan: MAC Monitoring Plan: Standard Monitors Recovery Plan: PACU
[2018-11-19] MEDS ORDERED: 0.9 % Sodium Chloride 1,000 ML IVC SCH (14:15)
[2018-11-19] MEDS: Budesonide/Formoterol 160/4.5 1 PUFF INH IH SCH (19:50)
[2018-11-20] MEDS: Insulin LISPRO 300 UNITS/3 ML VIAL SQ SCH ×3 (00:41→12:07)
[2018-11-20] MEDS: Metoprolol XL (24 HR) Succ 50 MG TAB.ER.24H PO SCH (04:34)
[2018-11-20 05:56] LABS: Hematocrit 33.9 % (35.3-44.9); Hemoglobin 9.9 g/dL (11.5-15.4)
[2018-11-20] MEDS: Budesonide/Formoterol 160/4.5 1 PUFF INH IH SCH (07:34)
[2018-11-20] MEDS: Gabapentin 300 MG CAPSULE PO SCH ×2 (08:35→14:27)
[2018-11-20] MEDS: Aspirin 81 MG TAB.CHEW PO SCH (08:35)
--- NOTE | 2018-11-20 11:23 | Electrocardiograph Report ---
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
--- NOTE | 2018-11-20 13:07 | Discharge Summary ---
Orders not resulted at time of discharge: Pending orders 11/17/18 18:30 Culture,Blood [BC] Stat 11/19/18 14:45 Surgical Pathology [PTH] Routine Date of Encounter: 11/20/18 Time of Encounter: 07:55 - Discharge Diagnosis (1) Symptomatic anemia Priority: Primary Status: Acute (2) A-fib Priority: Secondary Status: Chronic Qualifiers: Atrial fibrillation type: unspecified Qualified Code(s): I48.91 - Unspecified atrial fibrillation (3) HTN (hypertension) Priority: Secondary Status: Chronic Qualifiers: Hypertension type: essential hypertension Qualified Code(s): I10 - Essential (primary) hypertension (4) CAD (coronary artery disease) Priority: Secondary Status: Chronic Qualifiers: Coronary Disease-Associated Artery/Lesion type: [place] artery [place] vs. transplanted heart: [place] heart Associated angina: with unspecified angina Qualified Code(s): I25.119 - Atherosclerotic heart disease of [place] coronary artery with unspecified angina pectoris (5) PVD (peripheral vascular disease) Priority: Secondary Status: Chronic (6) Diabetes mellitus Priority: Secondary Status: Chronic Qualifiers: Diabetes mellitus type: type 2 Diabetes mellitus terminal carman insulin use: without terminal carman use Diabetes mellitus complication status: with circulatory complication Diabetes mellitus complication detail: with peripheral angiopathy without gangrene Qualified Code(s): E11.51 - Type 2 diabetes mellitus with diabetic peripheral angiopathy without gangrene (7) Sarcoidosis Priority: Secondary Status: Acute Hospital course: Ms. Crane is a 78 year old female with a past medical history of coronary artery disease status post stent in 2008, TIA, hypertension, hyperlipidemia, diabetes mellitus type 2, peripheral arterial disease status post multiple surgery recent one in September, atrial fibrillation on digoxin and metoprolol and xarelto. She presented to [facility] with complains of dyspnea on exertion and weakness. Patient was found to have a hemoglobin of 8.5 which was a 4 g/dL drop from her baseline of 12.5. She was given a unit of blood and had an EGD and colonoscopy done which did not show active GI bleeding. Patient had a chest CT scan performed in September of this year which showed sa rcoidosis. Pulmonary is following with her as outpatient and intend to biopsy lung lesions when patient completes the course of Plavix post PAD surgery. Patient's anemia and pulmonary lesions probably contributed to the symptoms of her presentation. Patient was requested to do a walk test to determine home need for oxygen but she declined. Discharge discussed with: patient, nurse Time spent discussing smoking cessation with patient: more than 10 minutes - Time Spent with Patient Total time spent providing and/or coordinating discharge services: Time spent: Greater than 30 minutes (45) - Discharge Medications Prescriptions: New Losartan [Cozaar] 50 mg PO DAILY #60 tablet Ferrous Sulfate 325 mg PO DAILY@0800 #30 tablet Continued Multivitamin with Minerals [Myvitalife] 1 cap PO QAM Gabapentin [Neurontin] 600 mg PO TID Esomeprazole Magnesium [Nexium] 40 mg PO QAM Metoprolol XL (24 HR) Succ [Toprol Xl] 50 mg PO QPM Metoprolol XL (24 HR) Succ [Toprol Xl] 100 mg PO QAM Flaxseed Oil [[place]-3 Flaxseed Oil] 1,000 mg PO DAILY Digoxin [Lanoxin] 0.125 mg PO DAILY Magnesium Oxide [Magnesium] 400 mg PO BID Dulaglutide [Trulicity] 1.5 mg PO SA Latanoprost [Xalatan] 1 drop BOTH EYES HS Aspirin [Lo-Dose Aspirin EC] 81 mg PO DAILY Loratadine [Claritin] 10 mg PO DAILY Meclizine [Antivert] 25 mg PO TID PRN PRN Reason: Vertigo Metformin HCl [Fortamet] 1,000 mg PO QPM Rivaroxaban [Xarelto] 20 mg PO HS Folic Acid 0.4 mg PO DAILY Clopidogrel Bisulfate [Plavix] 75 mg PO DAILY #30 tablet Acetaminophen [Tylenol] 1,000 mg PO Q6HR PRN #90 tablet PRN Reason: POSTOPERATIVE PAIN Budesonide/Formoterol 160/4.5 [Symbicort 160/4.5] 2 puff IH BIDR Rosuvastatin Calcium 40 mg PO DAILY Potassium Chloride [Klor-Con 10] 20 meq PO DAILY Furosemide [Lasix] 60 mg PO DAILY Albuterol Sulfate [Albuterol Sulfate Hfa] 2 puff IH Q6H PRN PRN Reason: Shortness Of Breath Home Medications: Esomeprazole Magnesium [Nexium] 40 mg PO QAM 01/31/15 [History] Gabapentin [Neurontin] 600 mg PO TID 01/31/15 [History] Multivitamin with Minerals [Myvitalife] 1 cap PO QAM 01/31/15 [History] Metoprolol XL (24 HR) Succ [Toprol Xl] 50 mg PO QPM 03/07/16 [History] Metoprolol XL (24 HR) Succ [Toprol Xl] 100 mg PO QAM 08/16/16 [History] Flaxseed Oil [[place]-3 Flaxseed Oil] 1,000 mg PO DAILY 10/16/16 [History] Digoxin [Lanoxin] 0.125 mg PO DAILY 08/09/17 [History] Magnesium Oxide [Magnesium] 400 mg PO BID 08/09/17 [History] Dulaglutide [Trulicity] 1.5 mg PO SA 10/27/17 [History] Latanoprost [Xalatan] 1 drop BOTH EYES HS 10/27/17 [History] Aspirin [Lo-Dose Aspirin EC] 81 mg PO DAILY 06/20/18 [History] Loratadine [Claritin] 10 mg PO DAILY 06/20/18 [History] Meclizine [Antivert] 25 mg PO TID PRN 06/20/18 [History] Metformin HCl [Fortamet] 1,000 mg PO QPM 06/20/18 [History] Rivaroxaban [Xarelto] 20 mg PO HS 06/20/18 [History] Clopidogrel Bisulfate [Plavix] 75 mg PO DAILY #30 tablet 09/12/18 [Rx] Folic Acid 0.4 mg PO DAILY 09/12/18 [History] Acetaminophen [Tylenol] 1,000 mg PO Q6HR PRN #90 tablet 09/19/18 [Rx] Albuterol Sulfate [Albuterol Sulfate Hfa] 2 puff IH Q6H PRN 11/18/18 [History] Budesonide/Formoterol 160/4.5 [Symbicort 160/4.5] 2 puff IH BIDR 11/18/18 [History] Furosemide [Lasix] 60 mg PO DAILY 11/18/18 [History] Potassium Chloride [Klor-Con 10] 20 meq PO DAILY 11/18/18 [History] Rosuvastatin Calcium 40 mg PO DAILY 11/18/18 [History] Ferrous Sulfate 325 mg PO DAILY@0800 #30 tablet 11/20/18 [Rx] Losartan [Cozaar] 50 mg PO DAILY #60 tablet 11/20/18 [Rx] Allergies/Adverse Reactions: Allergy/AdvReac Type Severity Reaction Status Date / Time Amoxicillin [From Augmentin] Allergy Swelling Verified 11/17/18 15:42 of Lip/Tongue/Throat clavulanic acid Allergy Swelling Verified 11/17/18 15:42 [From Augmentin] of Lip/Tongue/Throat codeine AdvReac Shakiness Verified 11/17/18 15:42 morphine AdvReac Palpitation Verified 11/17/18 15:42 s Band-Aid Allergy Rash Uncoded 06/20/18 08:35 Date of admission: 11/19/18 14:10 Primary care physician: Ashutosh Chand DO Consults: 11/17/18 18:35 Consult to Gastroenterology [CONS] Stat Consulting Provider: [facility] Reason for Consult: Suspected GI bleeding Call Completed: Yes - Constitutional Vitals: Temp Pulse Resp BP Pulse Ox 36.3 C L 73 16 148/66 91 11/20/18 11:03 11/20/18 11:03 11/20/18 11:03 11/20/18 11:03 11/20/18 11:03 General appearance: Present: cooperative, A&O X 3 Exam: GENERAL: Not in distress. Alert and Oriented HEENT: EOMI, PERRLA MOUTH: Moist oral mucosa NECK:No JVD, No lymph nodes. CHEST AND LUNGS: Normal breath sounds, no wheezes or crackles HEART: S1 and S2 normal, no murmurs ABDOMEN: Soft, nontender, no organomegaly SKIN: Normal color, no rahses, no lesions EXTREMITIES: No deformity, no edema, no tenderness, no joint swelling or clubbing NEUROLOGICAL: Normal cognition, normal motor and sensory exam. - Patient Status Disposition: Home, Self-Care Condition: Good Functional capacity at discharge: independent ambulation Overall status at discharge: patient is progressing back to baseline - Discharge Instructions Follow Up With: Ashutosh Chand DO [Primary Care Provider] - - Diet and Activity Activity: resume usual activities as tolerated Diet: advance to your usual diet
[2018-11-20 14:20] VITALS: BP 168/68
== END 2018-11-20 15:47 | disposition home or self-care (01) | DRG 812 ==
LOC: 3ANU 15:36 → EMEROOARM 15:36 → SUATTDRO 18:35 → 3ANU 19:30
PROVIDERS: ADMIT Internal Medicine; ATTEND Internal Medicine

== ENCOUNTER 2019-11-24 06:36 | Inpatient (IN) ==
[2019-11-24] MEDS ORDERED: 0.9 % Sodium Chloride 1,000 ML ONE (07:05)
[2019-11-24] MEDS ORDERED: Perflutren Lipid Microsphere 1.3 ML in 0.9 % Sodium Chloride 8.7 ML IVP PRN ×2 (08:25→11:28)
[2019-11-24] MEDS ORDERED: tiZANidine 4 MG TABLET PO PRN (12:34)
[2019-11-24] MEDS ORDERED: D5% in Water 1,000 ML IVC PRN (12:39)
[2019-11-24] MEDS ORDERED: Dextrose Gel 15 GM/37.5 ML TUBE PO PRN ×2 (12:39)
[2019-11-24] MEDS ORDERED: *HR* Dextrose 50 % in Water (Vial) 50 ML VIAL IVP PRN (12:39)
[2019-11-24] MEDS: Insulin LISPRO 300 UNITS/3 ML VIAL SQ SCH (16:37)
[2019-11-24] MEDS ORDERED: Metoprolol XL (24 HR) Succ 50 MG TAB.ER.24H PO SCH (18:00)
[2019-11-24] MEDS: Magnesium Oxide 400 MG TABLET PO SCH (20:28)
[2019-11-24] MEDS ORDERED: *HR* Rivaroxaban 10 MG TABLET PO SCH (21:00)
[2019-11-25 06:59] LABS: Basophils % 0.5 %; Eosinophils # 0.2 K/mcL (0.0-0.6); Eosinophils % 2.3 %; Hematocrit 36.3 % (35.3-44.9); Immature Granulocytes % 0.4 % (0-4); Lymphocytes # 0.9 K/mcL (0.6-4.6); Lymphocytes % 11.5 %; Mean Corpuscular HGB Conc 31.1 g/dL (31.6-35.5); Mean Corpuscular Hemoglobin 28.5 pg (28.0-33.3); Mean Corpuscular Volume 91.4 fL (83.0-100.0); Mean Platelet Volume 10.4 fL (9.4-12.4); Monocytes # 0.5 K/mcL (0.0-1.3); Monocytes % 6.7 %; Neutrophils # 6.1 K/mcL (1.6-8.9); Platelet Count 190 K/mcL (140-400); Red Blood Count 3.97 M/mcL (3.82-4.97); Red Cell Distribution Width 17.2 % (11.5-14.5); Segmented Neutrophils % 78.6 %; White Blood Count 7.8 K/mcL (4.3-11.1)
[2019-11-25 07:00] LABS: Hemoglobin 11.3 g/dL (11.5-15.4)
[2019-11-25 07:02] LABS: INR 1.9; Prothrombin Time 21.6 Seconds (9.4-12.1)
[2019-11-25 07:20] LABS: Calcium 9.2 mg/dL (8.6-10.3); Potassium 4.3 mEq/L (3.5-5.1)
[2019-11-25] MEDS: Magnesium Oxide 400 MG TABLET PO SCH (07:49)
[2019-11-25] MEDS: Insulin LISPRO 300 UNITS/3 ML VIAL SQ SCH (07:55)
[2019-11-25] MEDS ORDERED: Bumetanide 1 MG TABLET PO SCH (09:00)
[2019-11-25] MEDS ORDERED: Fenofibrate 54 MG TABLET PO SCH (09:00)
[2019-11-25] MEDS ORDERED: *HR* Digoxin 0.125 MG TABLET PO SCH (09:00)
[2019-11-25] MEDS ORDERED: Metoprolol XL (24 HR) Succ 50 MG TAB.ER.24H PO SCH (09:00)
[2019-11-25] MEDS ORDERED: Folic Acid 1 MG TABLET PO SCH (09:00)
[2019-11-25] MEDS ORDERED: Aspirin Enteric Coated 81 MG Tablet PO SCH (09:00)
[2019-11-25 11:07] VITALS: BP 153/65
== END 2019-11-25 12:46 | disposition home or self-care (01) | DRG 274 ==
LOC: SAMDAY 06:36 → ICNU 10:17 → 2NNU 23:05
PROVIDERS: ADMIT Internal Medicine Clinical Cardiac Electrophysiology; ATTEND Internal Medicine Clinical Cardiac Electrophysiology

== ENCOUNTER 2021-12-12 16:58 | Inpatient (IN) ==
[2021-12-12 17:25] LABS: Basophils % 0.7 %; Eosinophils # 0.2 K/mcL (0.0-0.6); Eosinophils % 2.6 %; Hematocrit 44.2 % (35.3-44.9); Hemoglobin 13.9 g/dL (11.5-15.4); Immature Granulocytes % 0.5 % (0-4); Lymphocytes # 0.9 K/mcL (0.6-4.6); Mean Corpuscular HGB Conc 31.4 g/dL (31.6-35.5); Mean Corpuscular Volume 88.9 fL (83.0-100.0); Mean Platelet Volume 11.8 fL (9.4-12.4); Monocytes # 0.3 K/mcL (0.0-1.3); Monocytes % 4.7 %; Neutrophils # 4.8 K/mcL (1.6-8.9); Platelet Count 184 K/mcL (140-400); Red Blood Count 4.97 M/mcL (3.82-4.97); Red Cell Distribution Width 13.9 % (11.5-14.5); Segmented Neutrophils % 77.5 %; White Blood Count 6.1 K/mcL (4.3-11.1)
[2021-12-12 17:46] LABS: Calcium 9.6 mg/dL (8.6-10.3); Troponin I 0.03 ng/mL (< 0.04)
[2021-12-12] MEDS ORDERED: Aspirin 81 MG TAB.CHEW PO ONE (18:48)
[2021-12-12] MEDS ORDERED: Bumetanide 1 MG/4 ML VIAL IVP ONE (18:52)
[2021-12-12] MEDS ORDERED: Melatonin 3 MG TABLET PO PRN (19:50)
[2021-12-12] MEDS ORDERED: Naloxone 0.4 MG/ML INJ IVP PRN (19:50)
[2021-12-12] MEDS ORDERED: Ondansetron ODT 4 MG TAB.RAPDIS SL PRN (19:50)
[2021-12-12 20:52] LABS: Influenza A PCR Negative (Negative); Influenza B PCR Negative (Negative); Resp. Syncytial Virus PCR Negative (Negative)
[2021-12-12 20:53] LABS: SARS-CoV-2 by PCR (In House) Negative (Negative)
[2021-12-12] MEDS ORDERED: Dextrose Gel 15 GM/37.5 ML TUBE PO PRN ×2 (21:12)
[2021-12-12] MEDS ORDERED: D5% in Water 1,000 ML IVC PRN (21:12)
[2021-12-12] MEDS ORDERED: *HR* Dextrose 50 % in Water (Syg) 50 ML SYRINGE IVP PRN (21:12)
[2021-12-12] MEDS ORDERED: NIFEdipine Immed Rel 10 MG CAPSULE PO ONE (21:34)
[2021-12-12] MEDS ORDERED: *HR* Heparin 5,000 UNIT/ML VIAL SQ SCH (22:00)
[2021-12-12] MEDS: Gabapentin 300 MG CAPSULE PO SCH (22:38)
[2021-12-13 05:53] LABS: Hematocrit 39.5 % (35.3-44.9); Hemoglobin 12.5 g/dL (11.5-15.4); Mean Corpuscular HGB Conc 31.6 g/dL (31.6-35.5); Mean Corpuscular Hemoglobin 27.5 pg (28.0-33.3); Mean Platelet Volume 11.7 fL (9.4-12.4); Platelet Count 169 K/mcL (140-400); Red Blood Count 4.54 M/mcL (3.82-4.97); White Blood Count 5.5 K/mcL (4.3-11.1)
[2021-12-13] MEDS: *HR* Heparin 5,000 UNIT/ML VIAL SQ SCH ×2 (06:02→17:01)
[2021-12-13 06:13] LABS: Albumin 3.6 g/dL (3.5-5.7); Albumin/Globulin Ratio 1.6 (1.1-2.2); Bilirubin,Total 0.4 mg/dL (0.3-1.0); Calcium 9.2 mg/dL (8.6-10.3); Globulin 2.2 g/dL (2.4-3.5); Magnesium 1.6 mg/dL (1.6-2.6); Phosphorous 3.1 mg/dL (2.7-4.5); Potassium 3.3 mEq/L (3.5-5.1); Total Protein 5.8 g/dL (6.4-8.9); Troponin I 0.03 ng/mL (< 0.04)
[2021-12-13] MEDS: Insulin LISPRO 300 UNITS/3 ML VIAL SUBQ SCH ×4 (08:19→19:43)
[2021-12-13] MEDS: *HR* Digoxin 0.125 MG TABLET PO SCH (08:26)
[2021-12-13] MEDS: Bumetanide 1 MG/4 ML VIAL IVP SCH ×2 (08:26→17:00)
[2021-12-13] MEDS: Cyanocobalamin (B-12) 1,000 MCG TABLET PO SCH (08:27)
[2021-12-13] MEDS: Aspirin Enteric Coated 325 MG Tablet PO SCH (08:27)
[2021-12-13] MEDS: Folic Acid 1 MG TABLET PO SCH (08:27)
[2021-12-13] MEDS: Loratadine 10 MG TABLET PO SCH (08:27)
[2021-12-13] MEDS: Cholecalciferol (D-3) 1,000 UNIT (25MCG) TABLET PO SCH (08:27)
[2021-12-13] MEDS: Metoprolol XL (24 HR) Succ 50 MG TAB.ER.24H PO SCH ×2 (08:27→19:40)
[2021-12-13] MEDS: Fenofibrate 54 MG TABLET PO SCH (08:27)
[2021-12-13] MEDS: Gabapentin 300 MG CAPSULE PO SCH ×3 (08:27→19:40)
[2021-12-13] MEDS: Fluticasone Propionate Nasal 50 MCG/SPRAY BOTTLE NS SCH (08:28)
[2021-12-13] MEDS: amLODIPine 5 MG TABLET PO SCH (08:28)
[2021-12-13] MEDS ORDERED: Dorzolamide/Timolol 1 DROP LEFT EYE SCH (09:00)
[2021-12-13] MEDS: Dorzolamide/Timolol OPTH 10 ML BOTTLE LEFT EYE SCH ×2 (09:01→19:41)
[2021-12-13] MEDS ORDERED: E-Z-HD (BARIUM SULF) SUSPENSION PO ONE (16:33)
[2021-12-13] MEDS ORDERED: E-Z-PAQUE (BARIUM SULF) SUSP 1 BOTTLE PO ONE (16:33)
[2021-12-13] MEDS: Latanoprost 2.5 ML BOTTLE BOTH EYES SCH (21:45)
[2021-12-14 04:15] LABS: Basophils % 0.8 %; Eosinophils # 0.2 K/mcL (0.0-0.6); Eosinophils % 4.6 %; Hematocrit 40.6 % (35.3-44.9); Hemoglobin 12.7 g/dL (11.5-15.4); Immature Granulocytes % 0.2 % (0-4); Lymphocytes # 0.9 K/mcL (0.6-4.6); Mean Corpuscular HGB Conc 31.3 g/dL (31.6-35.5); Mean Corpuscular Hemoglobin 27.1 pg (28.0-33.3); Mean Corpuscular Volume 86.6 fL (83.0-100.0); Mean Platelet Volume 11.6 fL (9.4-12.4); Monocytes # 0.4 K/mcL (0.0-1.3); Neutrophils # 3.5 K/mcL (1.6-8.9); Platelet Count 183 K/mcL (140-400); Red Blood Count 4.69 M/mcL (3.82-4.97); Red Cell Distribution Width 13.9 % (11.5-14.5); Segmented Neutrophils % 69.4 %
[2021-12-14 04:36] LABS: Calcium 9.4 mg/dL (8.6-10.3)
[2021-12-14] MEDS: *HR* Heparin 5,000 UNIT/ML VIAL SQ SCH ×2 (05:46→17:27)
[2021-12-14] MEDS: Insulin LISPRO 300 UNITS/3 ML VIAL SUBQ SCH ×4 (08:14→21:14)
[2021-12-14] MEDS: Metoprolol XL (24 HR) Succ 50 MG TAB.ER.24H PO SCH ×2 (08:49→20:37)
[2021-12-14] MEDS: Loratadine 10 MG TABLET PO SCH (08:49)
[2021-12-14] MEDS: *HR* Digoxin 0.125 MG TABLET PO SCH (08:49)
[2021-12-14] MEDS: Cholecalciferol (D-3) 1,000 UNIT (25MCG) TABLET PO SCH (08:49)
[2021-12-14] MEDS: Fenofibrate 54 MG TABLET PO SCH (08:49)
[2021-12-14] MEDS: Gabapentin 300 MG CAPSULE PO SCH ×3 (08:49→20:37)
[2021-12-14] MEDS: amLODIPine 5 MG TABLET PO SCH (08:50)
[2021-12-14] MEDS: Cyanocobalamin (B-12) 1,000 MCG TABLET PO SCH (08:50)
[2021-12-14] MEDS: Aspirin Enteric Coated 325 MG Tablet PO SCH (08:50)
[2021-12-14] MEDS: Folic Acid 1 MG TABLET PO SCH (08:50)
[2021-12-14] MEDS: Bumetanide 1 MG/4 ML VIAL IVP SCH ×2 (08:55→17:27)
[2021-12-14] MEDS: Fluticasone Propionate Nasal 50 MCG/SPRAY BOTTLE NS SCH (10:50)
[2021-12-14] MEDS: Dorzolamide/Timolol OPTH 10 ML BOTTLE LEFT EYE SCH ×2 (10:50→20:38)
[2021-12-14] MEDS ORDERED: *HR* Propofol 200 MG/20 ML VIAL IVP ONE (12:20)
[2021-12-14] MEDS: 0.9 % Sodium Chloride 1,000 ML IVC SCH (12:35)
[2021-12-14] MEDS ORDERED: Potassium Chloride Elixir 20 MEQ/15 ML UDC PO ONE (15:00)
[2021-12-14] MEDS: Latanoprost 2.5 ML BOTTLE BOTH EYES SCH (21:14)
[2021-12-15 03:48] LABS: Basophils % 0.7 %; Eosinophils # 0.2 K/mcL (0.0-0.6); Eosinophils % 4.6 %; Hematocrit 39.8 % (35.3-44.9); Hemoglobin 12.6 g/dL (11.5-15.4); Immature Granulocytes % 0.5 % (0-4); Lymphocytes # 0.9 K/mcL (0.6-4.6); Lymphocytes % 19.5 %; Mean Corpuscular HGB Conc 31.7 g/dL (31.6-35.5); Mean Corpuscular Hemoglobin 27.9 pg (28.0-33.3); Mean Corpuscular Volume 88.1 fL (83.0-100.0); Mean Platelet Volume 11.7 fL (9.4-12.4); Monocytes # 0.4 K/mcL (0.0-1.3); Monocytes % 8.5 %; Neutrophils # 2.9 K/mcL (1.6-8.9); Platelet Count 176 K/mcL (140-400); Red Blood Count 4.52 M/mcL (3.82-4.97); Segmented Neutrophils % 66.2 %; White Blood Count 4.4 K/mcL (4.3-11.1)
[2021-12-15 04:10] LABS: Calcium 9.1 mg/dL (8.6-10.3); Potassium 3.3 mEq/L (3.5-5.1)
[2021-12-15] MEDS: *HR* Heparin 5,000 UNIT/ML VIAL SQ SCH ×2 (05:19→20:05)
[2021-12-15] MEDS: Fluticasone Propionate Nasal 50 MCG/SPRAY BOTTLE NS SCH (08:59)
[2021-12-15] MEDS: Dorzolamide/Timolol OPTH 10 ML BOTTLE LEFT EYE SCH (08:59)
[2021-12-15] MEDS ORDERED: Fenofibrate 54 MG TABLET PO SCH (09:00)
[2021-12-15] MEDS: Cholecalciferol (D-3) 1,000 UNIT (25MCG) TABLET PO SCH (09:00)
[2021-12-15] MEDS: Aspirin Enteric Coated 325 MG Tablet PO SCH (09:01)
[2021-12-15] MEDS: Loratadine 10 MG TABLET PO SCH (09:01)
[2021-12-15] MEDS: Folic Acid 1 MG TABLET PO SCH (09:01)
[2021-12-15] MEDS: Gabapentin 300 MG CAPSULE PO SCH ×2 (09:01→16:28)
[2021-12-15] MEDS: *HR* Digoxin 0.125 MG TABLET PO SCH (09:01)
[2021-12-15] MEDS: Cyanocobalamin (B-12) 1,000 MCG TABLET PO SCH (09:01)
[2021-12-15] MEDS: amLODIPine 5 MG TABLET PO SCH (09:01)
[2021-12-15] MEDS: Metoprolol XL (24 HR) Succ 50 MG TAB.ER.24H PO SCH (09:01)
[2021-12-15] MEDS: Insulin LISPRO 300 UNITS/3 ML VIAL SUBQ SCH ×3 (09:02→16:28)
[2021-12-15] MEDS: Bumetanide 1 MG/4 ML VIAL IVP SCH ×2 (09:02→20:05)
[2021-12-15] MEDS: 0.9 % Sodium Chloride 1,000 ML IVC SCH (13:09)
[2021-12-15 15:17] VITALS: BP 183/63; PULSE 62; TEMP 98.1
[2021-12-15 17:56] VITALS: O2SAT 92
== END 2021-12-15 19:10 | disposition home or self-care (01) | DRG 291 ==
LOC: 2ANU 16:58 → EMEROOARM 16:58 → SUATTDRO 19:58 → 2ANU 20:44
PROVIDERS: ADMIT Internal Medicine; ATTEND Internal Medicine

== ENCOUNTER 2022-01-11 10:41 | Inpatient (IN) ==
[2022-01-11] MEDS ORDERED: Ringers Solution, Lactated 1,000 ML IVC SCH (11:00)
[2022-01-11] MEDS ORDERED: Clindamycin 900 MG/50 ML 900 MG/50 ML IV.SOLN IVPB ONE (11:43)
[2022-01-11] MEDS ORDERED: Ondansetron 4 MG/2 ML VIAL ONE (11:59)
[2022-01-11] MEDS ORDERED: Lidocaine -MPF 2% 2 ML VIAL ONE (11:59)
[2022-01-11] MEDS ORDERED: *HR* Rocuronium Bromide 50 MG/5 ML VIAL ONE (11:59)
[2022-01-11] MEDS ORDERED: Lidocaine HCL 4 ML Topical Solution (Laryng-O-Jet Kit Sterile Pak) TP ONE (11:59)
[2022-01-11] MEDS ORDERED: *HR* Propofol 200 MG/20 ML VIAL IVP ONE (12:01)
[2022-01-11] MEDS ORDERED: *HR* OxyCODONE Immed Rel 5 MG TABLET PO PRN (12:10)
[2022-01-11] MEDS ORDERED: Ondansetron 4 MG/2 ML VIAL IVP PRN ×2 (12:10→21:29)
[2022-01-11] MEDS ORDERED: *HR* HYDROmorphone PF 0.5 MG/0.5 ML SYRINGE IVP PRN (12:10)
[2022-01-11] MEDS ORDERED: *HR* FentaNYL (PF) 100 MCG/2 ML VIAL ONE (12:16)
[2022-01-11] MEDS ORDERED: Sugammadex Sodium 200 MG/2 ML VIAL IV ONE ×2 (13:42→14:08)
[2022-01-11] MEDS ORDERED: *HR* Dextrose 50 % in Water (Syg) 50 ML SYRINGE IVP PRN (14:13)
[2022-01-11] MEDS ORDERED: Dextrose Gel 15 GM/37.5 ML TUBE PO PRN ×2 (14:13)
[2022-01-11] MEDS ORDERED: D5% in Water 1,000 ML IVC PRN (14:13)
[2022-01-11] MEDS ORDERED: *HR* Dextrose 50 % in Water (Vial) 50 ML VIAL ONE (14:28)
[2022-01-11] MEDS ORDERED: *HR* Dextrose 50 % in Water (Vial) 50 ML VIAL IVP ONE (14:29)
[2022-01-11] MEDS ORDERED: Furosemide 40 MG/4 ML VIAL IVP ONE ×3 (16:06→21:29)
[2022-01-11] MEDS ORDERED: Furosemide 20 MG/2 ML VIAL IVP ONE (16:07)
[2022-01-11] MEDS ORDERED: Insulin LISPRO 300 UNITS/3 ML VIAL SUBQ SCH ×2 (16:30→21:00)
[2022-01-11] MEDS ORDERED: Naloxone 0.4 MG/ML INJ IVP PRN (21:29)
[2022-01-11] MEDS ORDERED: Gabapentin 300 MG CAPSULE PO SCH (21:29)
[2022-01-11] MEDS ORDERED: 0.9 % Sodium Chloride 1,000 ML IVC SCH (21:29)
[2022-01-11] MEDS ORDERED: Dorzolamide/Timolol 1 DROP LEFT EYE SCH (21:29)
[2022-01-11] MEDS: *HR* Heparin 5,000 UNIT/ML VIAL SQ SCH (21:49)
[2022-01-11] MEDS: Sennosides/Docusate Sodium TABLET PO SCH (21:50)
[2022-01-11] MEDS: Famotidine 20 MG TABLET PO SCH (21:50)
[2022-01-11] MEDS: Metoprolol XL (24 HR) Succ 50 MG TAB.ER.24H PO SCH (21:50)
[2022-01-11] MEDS: Latanoprost 2.5 ML BOTTLE BOTH EYES SCH (22:00)
[2022-01-11] MEDS: *HR* GlipiZIDE XL (24 HR) 10 MG TABLET PO SCH (22:00)
[2022-01-11] MEDS: Levalbuterol Neb 1.25 MG/3 ML IH SCH (23:59)
[2022-01-12] MEDS: Dorzolamide/Timolol 1 DROP LEFT EYE SCH ×2 (02:59→09:20)
[2022-01-12 03:18] LABS: Hematocrit 39.7 % (35.3-44.9); Hemoglobin 12.4 g/dL (11.5-15.4); Mean Corpuscular HGB Conc 31.2 g/dL (31.6-35.5); Mean Corpuscular Hemoglobin 27.9 pg (28.0-33.3); Mean Corpuscular Volume 89.4 fL (83.0-100.0); Mean Platelet Volume 12.1 fL (9.4-12.4); Platelet Count 192 K/mcL (140-400); Red Blood Count 4.44 M/mcL (3.82-4.97); Red Cell Distribution Width 13.6 % (11.5-14.5); White Blood Count 8.6 K/mcL (4.3-11.1)
[2022-01-12 03:36] LABS: Calcium 9.3 mg/dL (8.6-10.3); Magnesium 1.6 mg/dL (1.6-2.6); Potassium 3.5 mEq/L (3.5-5.1)
[2022-01-12] MEDS: Levalbuterol Neb 1.25 MG/3 ML IH SCH ×4 (04:09→22:08)
[2022-01-12] MEDS: *HR* Heparin 5,000 UNIT/ML VIAL SQ SCH ×3 (05:58→20:44)
[2022-01-12] MEDS: Gabapentin 300 MG CAPSULE PO SCH ×3 (09:11→20:44)
[2022-01-12] MEDS: *HR* Digoxin 0.125 MG TABLET PO SCH (09:11)
[2022-01-12] MEDS: Bumetanide 1 MG TABLET PO SCH (09:11)
[2022-01-12] MEDS: Aspirin 325 MG TABLET PO SCH (09:11)
[2022-01-12] MEDS: Famotidine 20 MG TABLET PO SCH ×2 (09:12→20:43)
[2022-01-12] MEDS: amLODIPine 5 MG TABLET PO SCH (09:12)
[2022-01-12] MEDS: Sennosides/Docusate Sodium TABLET PO SCH ×2 (09:12→20:43)
[2022-01-12] MEDS: Metoprolol XL (24 HR) Succ 50 MG TAB.ER.24H PO SCH ×2 (09:12→20:43)
[2022-01-12] MEDS: Fenofibrate 54 MG TABLET PO SCH (09:13)
[2022-01-12] MEDS: Loratadine 10 MG TABLET PO SCH (09:13)
[2022-01-12] MEDS: *HR* GlipiZIDE XL (24 HR) 10 MG TABLET PO SCH ×2 (09:13→20:44)
[2022-01-12] MEDS: Fluticasone Propionate Nasal 50 MCG/SPRAY BOTTLE NS SCH (09:15)
[2022-01-12] MEDS ORDERED: Furosemide 40 MG/4 ML VIAL IVP ONE (13:00)
[2022-01-12] MEDS: Dorzolamide/Timolol OPTH 10 ML BOTTLE LEFT EYE SCH (20:43)
[2022-01-12] MEDS: Latanoprost 2.5 ML BOTTLE BOTH EYES SCH (20:46)
[2022-01-13 02:51] LABS: Hemoglobin 11.8 g/dL (11.5-15.4); Mean Corpuscular HGB Conc 31.1 g/dL (31.6-35.5); Mean Corpuscular Hemoglobin 27.6 pg (28.0-33.3); Mean Corpuscular Volume 88.8 fL (83.0-100.0); Mean Platelet Volume 11.9 fL (9.4-12.4); Platelet Count 196 K/mcL (140-400); Red Blood Count 4.28 M/mcL (3.82-4.97); White Blood Count 7.4 K/mcL (4.3-11.1)
[2022-01-13 03:11] LABS: Calcium 8.9 mg/dL (8.6-10.3); Magnesium 2.3 mg/dL (1.6-2.6); Potassium 3.3 mEq/L (3.5-5.1)
[2022-01-13] MEDS: Levalbuterol Neb 1.25 MG/3 ML IH SCH ×2 (03:55→09:53)
[2022-01-13] MEDS: *HR* Heparin 5,000 UNIT/ML VIAL SQ SCH (05:34)
[2022-01-13] MEDS: Metoprolol XL (24 HR) Succ 50 MG TAB.ER.24H PO SCH (09:30)
[2022-01-13] MEDS: *HR* Digoxin 0.125 MG TABLET PO SCH (09:30)
[2022-01-13] MEDS: Loratadine 10 MG TABLET PO SCH (09:30)
[2022-01-13] MEDS: Sennosides/Docusate Sodium TABLET PO SCH (09:30)
[2022-01-13] MEDS: Aspirin 325 MG TABLET PO SCH (09:31)
[2022-01-13] MEDS: *HR* GlipiZIDE XL (24 HR) 10 MG TABLET PO SCH (09:31)
[2022-01-13] MEDS: Fenofibrate 54 MG TABLET PO SCH (09:31)
[2022-01-13] MEDS: Bumetanide 1 MG TABLET PO SCH ×2 (09:31→09:36)
[2022-01-13] MEDS: Gabapentin 300 MG CAPSULE PO SCH (09:31)
[2022-01-13] MEDS: amLODIPine 5 MG TABLET PO SCH (09:32)
[2022-01-13] MEDS: Famotidine 20 MG TABLET PO SCH (09:32)
[2022-01-13] MEDS: Dorzolamide/Timolol OPTH 10 ML BOTTLE LEFT EYE SCH (09:33)
[2022-01-13] MEDS: Fluticasone Propionate Nasal 50 MCG/SPRAY BOTTLE NS SCH (09:34)
[2022-01-13 11:26] VITALS: BP 166/48; PULSE 68; TEMP 98.2
[2022-01-13 11:47] VITALS: O2SAT 91
== END 2022-01-13 13:17 | disposition home or self-care (01) | DRG 326 ==
LOC: SAMDAY 10:41 → 2NNU 12:28
PROVIDERS: ADMIT Thoracic Surgery (Cardiothoracic Vascular Surgery); ATTEND Thoracic Surgery (Cardiothoracic Vascular Surgery)